=== PATIENT | female | born 1985 | race Caucasian/White ===

== ENCOUNTER 2020-01-18 02:10 | Inpatient (IN) | payer BC, SELFPAY ==
[2020-01-18] VITALS (17 sets, daily range): BP systolic 111–137; BP diastolic 64–95; PULSE 83–149; RESP 14–26; TEMP 36.3–37.2; O2SAT 98–100; BMI 25.9
--- NOTE | ~2020-01-18 | US_ITS ---
EXAMINATION: US abdomen limited DATE: 01/18/2020 09:49 INDICATION: Alcoholic hepatitis TECHNIQUE: Multiple grayscale and Doppler ultrasound images of the abdomen were obtained. COMPARISON: CT dated 01/18/2020 FINDINGS: The pancreatic head and body are normal in appearance. The pancreatic tail is not visualized. Liver has normal contour, with a smooth surface. There is increased parenchymal echogenicity and coarsened echotexture consistent with diffuse hepatic steatosis. No liver lesion identified. No intrahepatic b iliary duct dilation suspected. Portal venous flow was seen in the hepatopetal, normal direction and has normal Doppler waveform. Nonmobile and nonshadowing 4 mm gallbladder polyp. The gallbladder is ot herwise normal in appearance. There is no shadowing cholelithiasis. The common bile duct is mildly d ilated measuring 7 mm. The distal common bile duct is not visualized. Sonographic Romo sign was rep orted as negative by the professor of environmental studies. IMPRESSION: 1. Likely benign 4 mm gallbladder polyp. No shadowing cholelithiasis. 2. Mild dilation of the common bile duct to 7 mm without evident obstructing lesion or intrahepatic b iliary ductal dilation. Correlate with liver function tests and could consider MRCP as clinically ind icated. 3. Diffuse hepatic steatosis. Reviewed, dictated and finalized at location [facility]. IMPRESSION: 1. Likely benign 4 mm gallbladder polyp. No shadowing cholelithiasis. 2. Mild dilation of the common bile duct to 7 mm without evident obstructing le hua or intrahepatic biliary ductal dilation. Correlate with liver function dale ts and could consider MRCP as clinically indicated. 3. Diffuse hepatic steatosis.
--- NOTE | ~2020-01-18 | CT_ITS ---
EXAMINATION: CT abdomen pelvis w con DATE: 01/18/2020 03:53 INDICATION: Lower abdominal pain, vomiting. Back pain. TECHNIQUE: Computed tomography (CT) of the abdomen and pelvis was performed with 100 cc Omnipaque 350 intravenous contrast. Automated exposure control and iterative reconstruction technique were employe d. Exam dose: 449.99 mGy-cm total exam DLP. COMPARISON: None. FINDINGS: The lung bases are clear of infiltrate or consolidation. Normal heart size. No pericardial or pleural effusion. Hepatomegaly and diffuse hepatic steatosis. No hepatic space-occupying mass lesion is detected. Splee n measures up to approximately 12 cm, within upper limits of normal. No pancreatic mass lesion or calcification or pancreatic duct dilatation. The gallbladder is unremark able. No bile duct dilatation. Normal morphology of the adrenal glands. No renal mass lesion or urinary tract calculus or hydroureteronephrosis. Normal caliber of the abdominal aorta. No intraperitoneal or retroperitoneal or pelvic mass lesion or adenopathy or ascites. 2.5 cm left ovarian cyst. The uterus and adnexal areas are otherwise unremarkable. The urinary bladde r appears normal. Normal appendix. There is mild circumferential soft tissue thickening of the wall of the large bowel, which may be compatible with infectious or inflammatory colitis. No bowel obstruction or free air. No suspicious osteolytic or osteoblastic lesions are noted. IMPRESSION: Hepatomegaly, hepatic steatosis 2.5 cm left ovarian cyst Mild colitis is suggested Reviewed, dictated and finalized at [facility]. Reviewed, dictated and finalized at location [facility].
--- NOTE | ~2020-01-18 | XR_ITS ---
EXAMINATION: XR chest 1V portable DATE: 01/18/2020 03:57 INDICATION: Tachypnea TECHNIQUE: frontal view of the chest was obtained. COMPARISON: Chest radiograph dated 03/02/[address] dated 04/24/2017 FINDINGS: The lungs remain clear with no focal airspace opacities, pulmonary edema, pleural effusion or pneumot horax. The cardiomediastinal silhouette is normal. Bone islands at the right humeral head and glenoid . IMPRESSION: 1. No acute cardiopulmonary disease. Reviewed, dictated and finalized at location A.
--- NOTE | 2020-01-18 02:23 | ECG_ITS ---
Measurements Intervals [place] Rate: 139 P: 77 NM: 131 QRS: 54 QRSD: 84 T: 45 QT: 297 QTc: 452 Interpretive Statements SINUS TACHYCARDIA BASELINE WANDER- I, III, AVF, V1, V3-V6 ABNORMAL ECG Electronically Signed On 01-18-2020 6:47:25 CDT by Tomy Christensen D.O.
[2020-01-18 02:39] LABS: Basophils Absolute Auto 0.1 K/mm3 (0.0-0.1); Basophils Percent Auto 0.7 % (0.2-1.2); Eosinophils Percent Auto 0.1 % (0-4.4); Hematocrit 46.9 % (37.0-47.0); Hemoglobin 15.8 g/dL (12.0-15.0); Immature Granulocyte Absolute 0.21 K/mm3 (0.00-0.031); Immature Granulocyte Percent A 2.3 % (0-0.5); Lymphocytes Absolute Auto 0.63 K/mm3 (0.9-3.2); Lymphocytes Percent Auto 6.9 % (18.3-44.2); Mean Corpuscular HGB Conc 33.7 g/dl (32-36); Mean Corpuscular Hemoglobin 35.3 pg (26-34); Mean Corpuscular Volume 104.7 fl (80-100); Mean Platelet Volume 9.9 fl (7.4-10.4); Monocytes Absolute Auto 0.3 K/mm3 (0.1-0.6); Monocytes Percent Auto 3.5 % (2.6-8.5); Neutrophils Absolute Auto 7.9 K/mm3 (1.3-6.7); Neutrophils Percent Auto 86.5 % (45.5-73.1); Platelet Count Result 143 k/mm3 (150-375); Red Blood Count 4.48 M/mm3 (4.2-5.4); Red Cell Distribution Width 13.1 % (11.5-14.5); White Blood Count 9.1 K/mm3 (4.5-10.0)
[2020-01-18 02:48] LABS: INR 1.2; Prothrombin Time 14.7 Seconds (11.1-14.7)
[2020-01-18 02:49] LABS: Partial Thromboplastin Time 34.9 SECONDS (22.3-36.8)
[2020-01-18 02:50] LABS: Add Urine Microscopic? YES; Appearance Urine Clear (Clear); Bilirubin Urine Negative (Negative); Blood Urine 2+ (Negative); Color Urine Yellow (Yellow); Glucose Urine UA Negative (Negative); Hyaline Casts Urine 20-29 /lpf; Ketones Urine 2+ mg/dL (Negative); Leukocyte Esterase Ur Negative LEU/UL (Negative); Mucus Urine Rare /lpf; Nitrate Urine Negative (Negative); Protein Urine 3+ mg/dL (Negative); RBC Urine 0-2 /hpf (0-2); Specific Grav Ur 1.016 (1.001-1.035); Squamous Epithelial Cell Urine Few /hpf (Few); WBC Urine 0-3 /hpf
[2020-01-18 02:50] LABS: Alanine Aminotransferase 194 U/L (4-35); Albumin Level 5.8 g/dL (3.5-5.1); Alkaline Phosphatase 128 U/L (38-126); Aspartate Amino Transferase 376 U/L (14-36); Blood Urea Nitrogen 13 mg/dL (7-17); Calcium 8.8 mg/dL (8.4-10.2); Carbon Dioxide 7 mmol/L (22-30); Chloride 101 mmol/L (98-107); Estimated CRCL calculation 62 ml/min; Estimated Glomerular Filt Rate > 60; Glucose 256 mg/dL (65-105); Lipase 655 U/L (23-300); Potassium 5.2 mmol/L (3.4-5.0); Sodium 141 mmol/L (137-145)
[2020-01-18 02:51] LABS: Ethanol 187 mg/dL (<10)
[2020-01-18] MEDS: LACTATED RINGERS 1,000 ML 999 ML IV CONT ×2 (03:00)
[2020-01-18] MEDS: ONDANSETRON INJ 4 MG/2 ML VIAL IV PUSH ×3 (03:00→09:51)
[2020-01-18] MEDS: LORAZEPAM INJ 2 MG/ML VIAL 1 MG IV PUSH ×4 (03:04→23:04)
--- NOTE | 2020-01-18 03:15 | ED.GENADULT ---
HPI - General Adult General Chief complaint: Unspecified Stated complaint: N/V Time Seen by Provider: 01/18/20 02:23 Source: patient Mode of arrival: ambulatory Limitations: no limitations History of Present Illness HPI narrative: This patient is a 34 year old female with history of alcohol abuse who presents for evaluation of nausea, vomiting and dehydration. She admits that she has been binging alcohol until 2 days ago. She developed intractable nausea and vomiting. She has not been able to keep anything down. She also complains of anxiousness, lower back pain but she denies urinary symptoms. She has lower abdominal cramping but she thinks that may be due to her menstrual cycle. She is concerned that she is extremely dehydrated since she is so week. She denies chest pain, cough, fever or chills. Her last drink of alcohol was Saturday evening. Related Data Home Medications Medication Instructions Recorded Confirmed No Home Medications 01/18/20 01/18/20 Allergies Allergy/AdvReac Type Severity Reaction Status Date / Time Penicillins Allergy Mild RASH Verified 01/18/20 02:20 Review of Systems Review of Systems: All systems reviewed & are unremarkable except as noted in HPI and below Constitutional: Constitutional: Denies chills, Denies fever(s) and Reports weakness ENT: Reports dizziness Cardiovascular: Cardiovascular: Denies chest pain Respiratory: Respiratory: Reports cough (chronic smoker) and Denies dyspnea Gastrointestinal: Gastrointestinal: Denies diarrhea, Reports nausea and Reports vomiting Genitourinary: Genitourinary: Denies hematuria, Denies dysuria and Denies vaginal discharge Musculoskeletal: Musculoskeletal: Reports back pain (low) Psychiatric: Psychiatric: Reports anxiety PMF Past Medical History Medical History (Updated 01/18/20 @ 05:48 by Jessica Leger MD) Alcoholic hepatitis Endometriosis Pancreatitis Surgical History Surgical History (Updated 01/18/20 @ 03:17 by Jessica Leger MD) Hx of laparoscopy Exam Const: General: alert Orientation/consciousness: patient oriented x3 Other: moderate distress due to pain. HENMT: Head: normocephalic and atraumatic Face and sinus: face symmetric Teeth and gingiva: dentition normal Throat: posterior oropharynx normal and uvula midline Eyes: Conjunctivae: conjunctivae normal Pupils: Equal, round and reactive pupils present EOM: EOMs intact bilaterally Chest: Chest palpation & inspection: normal inspection of the chest Resp: Effort & Inspection: normal respiratory effort Auscultation: clear to auscultation bilaterally Cardio: Rate: tachycardic Rhythm: regular rhythm Heart sounds: no murmurs GI: GI Palp: Yes Soft to palpation, Yes Tenderness to palpation present (GI) (mild diffuse), No Guarding due to palpation present (GI) and No Rigid due to palpation : General: Yes no CVA tenderness Skin: Other: bruising to lower extremities Psych: Mental Status: mental status grossly normal Course Course Emergency Course: PAtient presented with nausea and vomiting with dehydration. She has metabolic acidosis with mildly elevated BS . She will be treated for DKA vs Alcoholic ketoacidosis. No infection found to suggest need for antibiotics at this time. Lactic acidosis is present. Consultations Consultation #1: I have discussed case with Dr. Arana who agrees patient should be admitted to ICU for DKA . Date: 01/18/20 Time: 05:44 Consultation #2: I Discussed labs and case with DR. Collins who accepts patient to ICU. Date: 01/18/20 Time: 05:45 Vital Signs Vital signs: Vital Signs Temperature 97.3 F L 01/18/20 02:15 Pulse Rate 149 H 01/18/20 02:15 Respiratory Rate 26 H 01/18/20 02:15 Blood Pressure 111/69 01/18/20 02:15 Pulse Oximetry 99 01/18/20 02:15 Temperature 98.9 F 01/18/20 06:21 Pulse Rate 130 H 01/18/20 06:43 Respiratory Rate 19 01/18/20 06:21 Blood Pressure 12
[2020-01-18 03:25] LABS: Carboxyhemoglobin 0.6 % THb (0-2.0); Fractional Inspired Oxygen 21 %; Methemoglobin ABG 0.5 %THb (0-1.5); Oxygen Content ABG 19.6 %vol (16.0-22.0); Oxygen Saturation ABG 95.9 % (95.0-100.0); Oxyhemoglobin 95.5 % THb (90.0-100.0); PO2 ABG 111.3 mmHg (80.0-100.0); Reduced Hemoglobin 3.4 %THb (0-5.0); Total Hemoglobin 14.5 g/dL (12.0-18.0)
[2020-01-18 03:27] LABS: Device ROOM AIR; PCO2 ABG 22.1 mmHg (35.0-45.0); Site Drawn RIGHT BRACHIAL; pH ABG 7.048 (7.350-7.450)
[2020-01-18 03:58] LABS: Lactic Acid Reflex 6.1 mmol/L (0.7-2.1)
[2020-01-18] MEDS: SODIUM CHLORIDE 0.9% IV 1,000 ML 999 ML IV CONT (04:11)
[2020-01-18] MEDS: HYDROMORPHONE HCL 1 MG/ML INJ IV PUSH (04:17)
[2020-01-18 05:34] LABS: Glucose Point of Care 219 (65-105)
[2020-01-18 05:55] LABS: Hemoglobin A1C 4.6 % (<5.7)
[2020-01-18 06:38] LABS: Reflex Lactic Acid Yes or No Add Lactic
--- NOTE | 2020-01-18 06:40 | ADMGEN ---
This patient, Kamilla Christianson, was admitted to Intensive Care Unit-10. Patient/family oriented to hospital policies and general routines including ID bracelet, bed and alarms, visiting hours, pain management, procedures, bathroom and other care routines, personal items, smoking policy, room service/diet, and visiting hours. Valuables list has been completed. Information on how to activate the Rapid Response Team has been discussed. Patient/Family are encouraged to report perceived risks to care and to ask questions if they do not understand what they are told or what they should do.
[2020-01-18 06:54] LABS: Alveolar/Arterial O2 Gradient 27.7 mmHg; Base Excess ABG -17.1 mEq/l (+/-2.0); Fractional Inspired Oxygen 21 %; HCO3 ABG 8.2 mEq/l (22.0-26.0); Oxygen Content ABG 18.7 %vol (16.0-22.0); Oxygen Saturation ABG 96.5 % (95.0-100.0); Oxyhemoglobin 96.1 % THb (90.0-100.0); PO2 ABG 98.2 mmHg (80.0-100.0); PO2 FiO2 Ratio Arterial Blood 4.68 %; Total Hemoglobin 13.8 g/dL (12.0-18.0)
[2020-01-18 06:55] LABS: Device ROOM AIR; PCO2 ABG 19.9 mmHg (35.0-45.0); Site Drawn RIGHT BRACHIAL; pH ABG 7.233 (7.350-7.450)
[2020-01-18 06:56] LABS: Glucose Point of Care 261 (65-105)
[2020-01-18] MEDS: LORAZEPAM INJ 2 MG/ML VIAL IV PUSH ×2 (06:58→20:39)
[2020-01-18] MEDS: INSULIN HUMAN REGULAR (*BKC) 100 UNITS in SODIUM CHLORIDE 0.9% IV 99 ML IV CONT (07:00)
[2020-01-18 07:09] LABS: Lactic Acid 2.7 mmol/L (0.7-2.1)
[2020-01-18] MEDS: CHLORDIAZEPOXIDE 25 MG CAPSULE PO ×3 (07:47→19:49)
[2020-01-18] MEDS: FAMOTIDINE 20 MG/2 ML VIAL IV PUSH ×2 (07:47→19:54)
[2020-01-18] MEDS: MORPHINE SULFATE 2 MG/ML INJ IV PUSH ×7 (07:48→21:56)
[2020-01-18] MEDS: DEXTROSE 5%/0.45% SOD CHL 1,000 ML 150 ML IV CONT (07:48)
--- NOTE | 2020-01-18 08:04 | WPDCNINT ---
Assessment and Plan Assessment and plan (1) DKA (diabetic ketoacidoses): Code(s): E11.10 - Type 2 diabetes mellitus with ketoacidosis without coma Status: Acute Assessment and Plan: Patient appears to have mixed acidosis does have elevated beta hydroxybutyrate. She does not have diagnosis of diabetes but may have developed diabetes from chronic pancreatitis Insulin infusion IV fluid bolus and infusion Serial labs HB A1c (2) Metabolic acidosis: Code(s): E87.2 - Acidosis Status: Acute Assessment and Plan: Patient has mixed metabolic acidosis from mild DKA, lactic acidosis, alcoholic liver disease, dehydration, starvation ketosis IV fluids and monitor Not severe enough to warrant treatment with bicarb at this time With normal white count, afebrile and essentially workup unremarkable for any infection. will hold antibiotics at this time (3) Pancreatitis, alcoholic, acute: Code(s): K85.20 - Alcohol induced acute pancreatitis without necrosis or infection Status: Acute Assessment and Plan: Alcoholic pancreatitis with elevated lipase of 655 CT abdomen pelvis done and final report pending although no abnormality seen on prelim report NPO except meds Pain control (4) Diabetes: Code(s): E11.9 - Type 2 diabetes mellitus without complications Status: Acute Assessment and Plan: See above (5) Alcoholic hepatitis: Code(s): K70.10 - Alcoholic hepatitis without ascites Status: Acute Assessment and Plan: Elevated AST ALT and mild elevation in bilirubin Enlarged liver on CT Suggests patient has alcoholic liver disease and hepatitis Discriminant function is only 18 Check right upper quadrant ultrasound (6) DVT prophylaxis: Code(s): Z29.9 - Encounter for prophylactic measures, unspecified Status: Acute Assessment and Plan: SCDs (7) Alcohol withdrawal: Code(s): F10.239 - Alcohol dependence with withdrawal, unspecified Status: Acute Assessment and Plan: [facility] monitoring Librium P.r.n. IV lorazepam Thiamine and folic acid Patient getting a banana bag at this time Total Critical Care Time - 30 minutes Due to a high probability of clinically significant, life threatening deterioration, the patient required my highest level of preparedness to intervene emergently and I personally spent this critical care time directly and personally managing the patient. This critical care time included obtaining a history; examining the patient; pulse oximetry; ordering and review of studies; arranging urgent treatment with development of a management plan; evaluation of patient's response to treatment; frequent reassessment; and discussions with other providers. It was exclusive of separately billable procedures and treating other patients and teaching time. Please see Assessment and Plan section and the rest of the note for further information on patient assessment and treatment Pitching Coach Consult Note Consult date: 01/18/20 Time Seen: 07:00 HPI: Kamilla Christianson is a 34 year old female with past medical history of alcohol abuse, pancreatitis, kidney stones who presented to ER with chief complaint of feeling weak, dehydrated and nausea and vomiting. Symptoms started yesterday patient drinks 1 and half pt of Tequila every day and her last full usage was on Saturday on Saturday morning she started having nausea and vomiting vomiting was associated with bilious content and no food or blood in it. She was unable to eat or drink anything she told me she tried to drink water and sips of Tequila to prevent shakes. She denied any diarrhea but did had mild abdominal pain which was diffuse. She stated did she was vomiting almost every hour. No burning sensation with urination frequency or foul-smelling urine. She denied any fever chest pain shortness of breath cough. She complained of abdominal pain and her back pain on the sides which
[2020-01-18 11:02] LABS: Lactic Acid 2.1 mmol/L (0.7-2.1); Triglycerides 160 mg/dL (<150)
[2020-01-18 11:04] LABS: Blood Urea Nitrogen 10 mg/dL (7-17); Carbon Dioxide 14 mmol/L (22-30); Chloride 103 mmol/L (98-107); Estimated CRCL calculation 99 ml/min; Estimated Glomerular Filt Rate > 60; Glucose 281 mg/dL (65-105); Potassium 4.2 mmol/L (3.4-5.0); Sodium 134 mmol/L (137-145)
[2020-01-18 11:20] LABS: Glucose Point of Care 279 (65-105)
[2020-01-18 11:20] LABS: Glucose Point of Care 263 (65-105)
[2020-01-18 11:20] LABS: Glucose Point of Care 302 (65-105)
[2020-01-18 12:17] LABS: Glucose Point of Care 186 (65-105)
[2020-01-18 13:24] LABS: Glucose Point of Care 157 (65-105)
[2020-01-18 13:51] LABS: Blood Urea Nitrogen 10 mg/dL (7-17); Calcium 8.2 mg/dL (8.4-10.2); Carbon Dioxide 20 mmol/L (22-30); Chloride 103 mmol/L (98-107); Estimated CRCL calculation 99 ml/min; Estimated Glomerular Filt Rate > 60; Glucose 159 mg/dL (65-105); Potassium 3.6 mmol/L (3.4-5.0); Sodium 133 mmol/L (137-145)
--- NOTE | 2020-01-18 13:54 | PCCDE ---
Consult received 01/17 for diabetes education. Pt admitted 01/17 to ICU for DKA vs alcoholic ketoacidosis, alcohol induced pancreatitis. No hx of DM and A1c is 4.6% (WNL); pt is NPO at this time. Will follow evolution and provide diabetes education as appropriate.
[2020-01-18] MEDS: SODIUM CHLORIDE 0.9% IV 1,000 ML 100 ML IV CONT (14:23)
[2020-01-18] MEDS: INSULIN GLARGINE (*BKC) 100 UNITS/ML 10 UNITS SUB-Q (14:23)
[2020-01-18 14:31] LABS: Glucose Point of Care 132 (65-105)
--- NOTE | 2020-01-18 16:30 | PM.IMHP ---
H&P: HPI History of Present Illness Chief complaint: DKA, dehydration, alcoholic hepatitis Narrative: Kamilla Christianson is a 34 year old female with long history of alcohol abuse patient states on daily basis see during 1 and half pt of taking and has been drinking yesterday patient developed abdominal pain nausea, vomiting patient's symptoms will persist is states he did drink some more alcohol to provide nausea and vomiting tremor however pain was persisting was getting worse patient presented emergency department for further evaluation patient had a CT scan of the abdomen patient is found to have hepatomegaly with elevated lipase blood sugar and and metabolic acidosis, patient is and mild DKA patient is been admitted to ICU being vigorously hydrated and blood sugars are monitor, currently patient states the pain nausea or vomiting still persist, see does have history of DT, patient is on CIWA protocol being treated with Librium, patient seen by powerplant operator we appreciate will closely monitor patient Review of Systems Review of Systems: All systems reviewed & are unremarkable except as noted in HPI and below PMFSH Past Medical History Medical History Alcoholic hepatitis Endometriosis Pancreatitis Surgical History Surgical History Hx of laparoscopy Family History Family History Grandparent Diabetes mellitus Father Diabetes mellitus Social History Social History Smoking status: Current every day smoker Alcohol intake: current Substance use: never Gender identity (if verbalized by the patient): Female Spiritual care concerns: No Meds Home Medications and Allergies Home Medications Medication Instructions Recorded Confirmed Type No Home Medications 01/18/20 01/18/20 History Allergies Allergy/AdvReac Type Severity Reaction Status Date / Time Penicillins Allergy Mild RASH Verified 01/18/20 02:20 Vital Signs Vital Signs - 24 hr 01/18/20 02:15 01/18/20 03:00 01/18/20 03:59 Temperature 97.3 F L Pulse Rate 149 H 136 H 138 H Pulse Rate [Monitor] Respiratory Rate 26 H 25 H 24 H Blood Pressure 111/69 118/64 124/74 Pulse Oximetry 99 98 100 01/18/20 05:16 01/18/20 06:00 01/18/20 06:21 Temperature 98.9 F Pulse Rate 131 H 130 H 120 H Pulse Rate [Monitor] Respiratory Rate 19 14 19 Blood Pressure 127/92 H 137/89 126/95 H Pulse Oximetry 100 100 100 01/18/20 06:43 01/18/20 08:00 01/18/20 09:57 Temperature Pulse Rate 110 H 114 H Pulse Rate [Monitor] 130 H Respiratory Rate 18 18 Blood Pressure 116/83 129/68 Pulse Oximetry 100 100 01/18/20 12:00 01/18/20 14:00 01/18/20 16:00 Temperature Pulse Rate 119 H 115 H 98 Pulse Rate [Monitor] Respiratory Rate 18 16 Blood Pressure 116/76 115/85 Pulse Oximetry 100 100 Exam Narrative: Exam Narrative: Anxious Const: General: no acute distress and uncomfortable HENMT: General nose exam: Normal nares present Mouth: Yes moist mucous membranes Eyes: General: appearance normal, both eyes and all related structures Sclera: sclerae normal Neck: Other: No retraction Resp: Effort & Inspection: normal respiratory effort Auscultation: clear to auscultation bilaterally Cardio: Rate: regular rate Rhythm: regular rhythm GI: Auscultation: normal bowel sounds Other: Tenderness epigastric Skin: General skin exam: normal color Neuro: Speech: normal speech Sensory Exam: normal sensation Extrem: General: normal to inspection Psych: Affect: Anxious affect present H&P: Results Labs Labs: Short CBC 01/18/20 Range/Units 02:32 WBC 9.1 (4.5-10.0) K/mm3 Hgb 15.8 H (12.0-15.0) g/dL Hct 46.9 (37.0-47.0) % Plt Count 143 L (150-375) k/mm3 [facility] 01/18/20 01/18/20 01/18/20 02:32 10:29 13:2
[2020-01-18 16:34] LABS: Glucose Point of Care 150 (65-105)
[2020-01-18 16:34] LABS: Glucose Point of Care 97 (65-105)
[2020-01-18 17:01] LABS: Glucose Point of Care 78 (65-105)
[2020-01-18 18:13] LABS: Blood Urea Nitrogen 10 mg/dL (7-17); Calcium 8.4 mg/dL (8.4-10.2); Carbon Dioxide 20 mmol/L (22-30); Chloride 101 mmol/L (98-107); Estimated CRCL calculation 116 ml/min; Estimated Glomerular Filt Rate > 60; Glucose 135 mg/dL (65-105); Potassium 3.9 mmol/L (3.4-5.0); Sodium 131 mmol/L (137-145)
[2020-01-18 19:53] LABS: Glucose Point of Care 157 (65-105)
[2020-01-18 23:10] LABS: Glucose Point of Care 114 (65-105)
[2020-01-19] VITALS (13 sets, daily range): BP systolic 113–132; BP diastolic 73–92; PULSE 82–120; RESP 13–18; TEMP 36.6–37; O2SAT 98–100
[2020-01-19] MEDS: MORPHINE SULFATE 2 MG/ML INJ IV PUSH ×8 (00:27→21:59)
[2020-01-19] MEDS: LORAZEPAM INJ 2 MG/ML VIAL 1 MG IV PUSH (01:35)
[2020-01-19] MEDS: CHLORDIAZEPOXIDE 25 MG CAPSULE PO ×3 (01:35→14:00)
[2020-01-19] MEDS: SODIUM CHLORIDE 0.9% IV 1,000 ML 100 ML IV CONT (01:37)
[2020-01-19] MEDS: LORAZEPAM INJ 2 MG/ML VIAL IV PUSH ×4 (04:11→23:09)
[2020-01-19 05:24] LABS: Alanine Aminotransferase 116 U/L (4-35); Albumin Level 4.3 g/dL (3.5-5.1); Alkaline Phosphatase 76 U/L (38-126); Aspartate Amino Transferase 171 U/L (14-36); Bilirubin,Total 1.9 mg/dL (0.2-1.3); Blood Urea Nitrogen 9 mg/dL (7-17); Calcium 8.8 mg/dL (8.4-10.2); Carbon Dioxide 22 mmol/L (22-30); Chloride 100 mmol/L (98-107); Estimated CRCL calculation 116 ml/min; Estimated Glomerular Filt Rate > 60; Glucose 88 mg/dL (65-105); Lipase 1818 U/L (23-300); Magnesium 1.9 mg/dL (1.6-2.3); Potassium 3.5 mmol/L (3.4-5.0); Sodium 132 mmol/L (137-145)
[2020-01-19 07:00] LABS: Hemoglobin 13.2 g/dL (12.0-15.0); Immature Platelet Fraction Pct 4.6 % (0.9-11.2); Mean Corpuscular HGB Conc 36.7 g/dl (32-36); Mean Corpuscular Hemoglobin 35.2 pg (26-34); Mean Platelet Volume 9.4 fl (7.4-10.4); Platelet Count Result 63 k/mm3 (150-375); Red Blood Count 3.75 M/mm3 (4.2-5.4); Red Cell Distribution Width 12.5 % (11.5-14.5); White Blood Count 4.5 K/mm3 (4.5-10.0)
--- NOTE | 2020-01-19 07:30 | WPDINTPN ---
Progress Note: A&P Assessment and Plan (1) DKA (diabetic ketoacidoses): Code(s): E11.10 - Type 2 diabetes mellitus with ketoacidosis without coma Status: Acute Assessment and Plan: Patient appears to have mixed acidosis does have elevated beta hydroxybutyrate. She does not have diagnosis of diabetes but may have developed diabetes from chronic pancreatitis DKA has resolved and anion gap has closed Insulin infusion transition to subcutaneous insulin IV fluid change to normal saline HB A1c was low Replace low potassium (2) Metabolic acidosis: Code(s): E87.2 - Acidosis Status: Acute Assessment and Plan: Patient has mixed metabolic acidosis from mild DKA, lactic acidosis, alcoholic liver disease, dehydration, starvation ketosis Improved with IV fluids Monitor With normal white count, afebrile and essentially workup unremarkable for any infection. will hold antibiotics at this time (3) Pancreatitis, alcoholic, acute: Code(s): K85.20 - Alcohol induced acute pancreatitis without necrosis or infection Status: Acute Assessment and Plan: Alcoholic pancreatitis with elevated lipase Patient's lipase level is further increased today but clinically she feels better She denies any complaints with water which I will continue CT abdomen pelvis done review NPO except water Pain control Consult GI (4) Diabetes: Code(s): E11.9 - Type 2 diabetes mellitus without complications Status: Acute Assessment and Plan: See above (5) Alcoholic hepatitis: Code(s): K70.10 - Alcoholic hepatitis without ascites Status: Acute Assessment and Plan: Elevated AST ALT and mild elevation in bilirubin Enlarged liver on CT Suggests patient has alcoholic liver disease and hepatitis Discriminant function is only 18 Right upper quadrant ultrasound done and reviewed IMPRESSION: 1. Likely benign 4 mm gallbladder polyp. No shadowing cholelithiasis. 2. Mild dilation of the common bile duct to 7 mm without evident obstructing lesion or intrahepatic biliary ductal dilation. Correlate with liver function tests and could consider MRCP as clinically indicated. 3. Diffuse hepatic steatosis. LFTs are improving. Consult gastroenterology (6) DVT prophylaxis: Code(s): Z29.9 - Encounter for prophylactic measures, unspecified Status: Acute Assessment and Plan: SCDs (7) Alcohol withdrawal: Code(s): F10.239 - Alcohol dependence with withdrawal, unspecified Status: Acute Assessment and Plan: CIWA monitoring Librium P.r.n. IV lorazepam Thiamine and folic acid Patient received a banana bag yesterday Will plan to transfer out of ICU today (8) Thrombocytopenia: Code(s): D69.6 - Thrombocytopenia, unspecified Status: Acute Assessment and Plan: Likely from alcohol abuse and enlarged liver Patient not on any anticoagulation or antiplatelet Monitor levels Subjective Date/time seen: 01/19/20 0730 Patient feels better today and denies any nausea vomiting or diarrhea. She does have some abdominal pain which is better than yesterday but still present. She said she was able to drink water without any issues but did had some abdominal discomfort with Jell-O. No fever chest pain shortness of breath or cough. She still continues to feel anxious and is requesting Ativan to be continued She still complains of having shakes sometimes Review of Systems Review of Systems: All systems reviewed & are unremarkable except as noted in HPI and below (HPI) Exam Narrative: Exam Narrative: General: Pt is alert awake and in NAD Lungs/Chest: Trachea central Clear BS B/L, No crackles or wheezing. Cardiac: RRR. Normal S1 S2. No murmurs Circulation: Pedal pulses are intact and symmetrical. Abdomen: Normal bowel sounds.. Soft.ND. Mild diffuse tenderness to palpation which is mainly focused in epigastric area. No guarding or rigidity Extremit
[2020-01-19] MEDS: MAGNESIUM SULF 1 GM/D5W 100 ML 1 GM/100 ML BAG IVPB (08:42)
[2020-01-19] MEDS: POTASSIUM CHLORIDE 20 MEQ TABLET 40 MEQ PO (08:46)
[2020-01-19] MEDS: FAMOTIDINE 20 MG/2 ML VIAL IV PUSH ×2 (08:47→20:55)
[2020-01-19] MEDS: THIAMINE HCL 100 MG TABLET PO (08:47)
[2020-01-19] MEDS: FOLIC ACID 1 MG TABLET PO (08:47)
[2020-01-19 08:57] LABS: Glucose Point of Care 84 (65-105)
--- NOTE | 2020-01-19 09:56 | WPDGICN ---
Assessment and Plan Assessment and plan (1) Alcoholic hepatitis: Code(s): K70.10 - Alcoholic hepatitis without ascites Status: Acute Assessment and Plan: Patient has elevated LFTs most consistent with alcoholic hepatitis. Plan is to monitor LFTs until resolution as she abstains from alcohol. (2) Pancreatitis, alcoholic, acute: Code(s): K85.20 - Alcohol induced acute pancreatitis without necrosis or infection Status: Acute Assessment and Plan: Elevated lipase most consistent with acute alcoholic pancreatitis. Plan is for pain control. We will avoid oral intake today but slowly increases as her exam and lab parameters improved. At the time of admission CT scan did not see pancreatitis but this was actually before marked elevation of lipase. Will continue monitor clinically and treat supportively. (3) Diabetes: Code(s): E11.9 - Type 2 diabetes mellitus without complications Status: Acute (4) DKA (diabetic ketoacidoses): Code(s): E11.10 - Type 2 diabetes mellitus with ketoacidosis without coma Status: Acute Assessment and Plan: Patient now with electrolyte imbalance consistent with diabetic ketoacidosis. Currently monitored in the ICU. Will receive fluids and will monitor with you. (5) Alcohol withdrawal: Code(s): F10.239 - Alcohol dependence with withdrawal, unspecified Status: Acute GI Consult Note Consult date/time: 01/19/20 09:56 HPI: Kamilla Christianson is a 34 year old female seen in evaluation at the request of the rn disease management service. Patient reports significant vomiting and abdominal pain yesterday prompting her to come to the hospital for further evaluation. She has a long prior [place] developed history of alcohol abuse. Known to my service from 2 years ago when she was diagnosed with alcoholic hepatitis. She apparently abstain from alcohol until the last 6 months when she has been binge drinking. Most recently 1-/2 pt of Tequila on a daily basis. Yesterday but she began to vomit rather significantly along with mid upper gastric pain and for this reason presented the hospital. In the ER she was noted to have elevated LFTs. Electrolyte imbalance consistent with diabetic ketoacidosis. Lipase moderately elevated yesterday is even more elevated today. She appears comfortable at rest at present but was somewhat shaky and jittery this morning. Review of Systems Review of Systems: All systems reviewed & are unremarkable except as noted in HPI and below [facility] Past Medical History Medical History Alcoholic hepatitis Endometriosis Pancreatitis Surgical History Surgical History Hx of laparoscopy Family History Family History Grandparent Diabetes mellitus Father Diabetes mellitus Social History Social History Smoking status: Current every day smoker Alcohol intake: current Substance use: never Gender identity (if verbalized by the patient): Female Spiritual care concerns: No Meds Home Medications and Allergies Home Medications Medication Instructions Recorded Confirmed Type No Home Medications 01/18/20 01/18/20 History Allergies Allergy/AdvReac Type Severity Reaction Status Date / Time Penicillins Allergy Mild RASH Verified 01/18/20 02:20 Vital Signs Vital Signs - 24 hr 01/18/20 09:57 01/18/20 12:00 01/18/20 14:00 Temperature Pulse Rate 114 H 119 H 115 H Pulse Rate [Monitor] Respiratory Rate 18 18 16 Blood Pressure 129/68 116/76 115/85 Pulse Oximetry 100 100 100 01/18/20 16:00 01/18/20 16:31 01/18/20 17:55 Temperature 36.9 C Pulse Rate 98 94 102 H Pulse Rate [Monitor] Respiratory Rate 18 Blood Pressure 115/94 H Pulse Oximetry 100 01/18/20 17:56
[2020-01-19 12:10] LABS: Glucose Point of Care 79 (65-105)
--- NOTE | 2020-01-19 14:40 | PC.NURSE ---
This patient, Kamilla Christianson, was received from ICU on 01/19/20 at 1440. Personal belongings list checked and signed. Patient/family oriented to unit policies and routines
--- NOTE | 2020-01-19 14:53 | PC.NURSE ---
This patient, Kamilla Christianson, was transferred to [[id number]] on 01/19/20 at 1440. Personal belongings sent with patient. Report given to [Italia DUNN]. Appropriate documentation sent with patient. Patient transferred via wheelchair with standby assist. Patient tolerated well.
[2020-01-19] MEDS: SODIUM CHLORIDE 0.9% IV 1,000 ML 50 ML IV CONT (14:57)
--- NOTE | 2020-01-19 15:17 | PM.IMPN ---
Progress Note: A&P Assessment and Plan (1) DKA (diabetic ketoacidoses): Code(s): E11.10 - Type 2 diabetes mellitus with ketoacidosis without coma Status: Acute Assessment and Plan: 01/19/20 15:17 Kamilla Christianson is a 34 year old female with long history of alcohol abuse patient states on daily basis sfe drinks 1 and half pints of Tequila and had been drinking for sometime drinking until the day of admission, patient developed abdominal pain nausea, vomiting patient's symptoms were persist stated she drank some more alcohol to provide relief from nausea and vomiting tremor however pain was persisting was getting worse patient presented emergency department for further evaluation, patient had a CT scan of the abdomen patient was found to have hepatomegaly with elevated lipase, elevatred blood sugar and and metabolic acidosis, patient had mild DKA patient was admitted in to ICU was vigorously hydrated and blood sugars were monitor, today currently patient states the pain nausea or vomiting still persist, she does have history of DT, patient is on CIWA protocol being treated with Librium, Ativan and morphine as needed, patient seen by beam dyer operator and GI, we appreciate will closely monitor patient, patient clinically symptoms have improved and she is off IV insulin, patient lipase are increasing, will keep the patient NPO except ice chips will transfer the patient out of ICU to medical floor, will continue to monitor as her symptoms improve and lipase trended down will start the patient on clear liquid. (2) Alcoholic hepatitis: Code(s): K70.10 - Alcoholic hepatitis without ascites Status: Acute Assessment and Plan: Patient clinically stable continue to monitor (3) Alcohol withdrawal: Code(s): F10.239 - Alcohol dependence with withdrawal, unspecified Status: Acute Assessment and Plan: Patient on CIWA protocol with Librium and Ativan as needed (4) Metabolic acidosis: Code(s): E87.2 - Acidosis Status: Acute Assessment and Plan: Most likely secondary to alcohol abuse nausea or vomiting resulting in dehydration patient is been vigorously hydrated (5) Diabetes: Code(s): E11.9 - Type 2 diabetes mellitus without complications Status: Acute Assessment and Plan: Patient hemoglobin A1c is 4.6 unlikely patient has a diabetes most likely hyperglycemia due to acute pancreatitis Subjective Date/time seen: 01/19/20 15:17 Kamilla Christianson is a 34 year old female with long history of alcohol abuse patient states on daily basis sfe drinks 1 and half pints of Tequila and had been drinking for sometime drinking until the day of admission, patient developed abdominal pain nausea, vomiting patient's symptoms were persist stated she drank some more alcohol to provide relief from nausea and vomiting tremor however pain was persisting was getting worse patient presented emergency department for further evaluation, patient had a CT scan of the abdomen patient was found to have hepatomegaly with elevated lipase, elevatred blood sugar and and metabolic acidosis, patient had mild DKA patient was admitted in to ICU was vigorously hydrated and blood sugars were monitor, today currently patient states the pain nausea or vomiting still persist, she does have history of DT, patient is on CIWA protocol being treated with Librium, Ativan and morphine as needed, patient seen by beam dyer operator and GI, we appreciate will closely monitor patient, patient clinically symptoms have improved and she is off IV insulin, patient lipase are increasing, will keep the patient NPO except ice chips will transfer the patient out of ICU to medical floor, will continue to monitor as her symptoms improve and lipase trended down will start the patient on clear liquid. Review of Systems Review of Systems: All systems reviewed & are unremarkable except as noted in HPI and below Exam Narrative: Exam Narrati
[2020-01-19 16:42] LABS: Glucose Point of Care 81 (65-105)
[2020-01-19] MEDS: CHLORDIAZEPOXIDE 25 MG CAPSULE 50 MG PO (20:02)
[2020-01-19 21:12] LABS: Glucose Point of Care 84 (65-105)
[2020-01-20] VITALS: PULSE 91
[2020-01-20] MEDS: CHLORDIAZEPOXIDE 25 MG CAPSULE 50 MG PO ×3 (01:39→13:35)
[2020-01-20 01:44] LABS: Glucose Point of Care 80 (65-105)
[2020-01-20] MEDS: MORPHINE SULFATE 2 MG/ML INJ IV PUSH ×2 (02:13→06:08)
--- NOTE | 2020-01-20 02:16 | PC.NURSE ---
PTS PHONE ALARM SOUNDING, PT STATES IM SETTING MY ALARM TO REMIND ME ABOUT MEDICATIONS AND TO GO TO THE BATHROOM
[2020-01-20] MEDS: LORAZEPAM INJ 2 MG/ML VIAL IV PUSH (03:47)
[2020-01-20 04:03] VITALS: PULSE 106
[2020-01-20 05:41] LABS: Glucose Point of Care 87 (65-105)
[2020-01-20 05:52] LABS: Hematocrit 37.8 % (37.0-47.0); Hemoglobin 13.6 g/dL (12.0-15.0); Immature Platelet Fraction Pct 4.8 % (0.9-11.2); Mean Corpuscular Hemoglobin 34.8 pg (26-34); Mean Corpuscular Volume 96.7 fl (80-100); Mean Platelet Volume 10.3 fl (7.4-10.4); Platelet Count Result 56 k/mm3 (150-375); Red Blood Count 3.91 M/mm3 (4.2-5.4); Red Cell Distribution Width 12.6 % (11.5-14.5)
[2020-01-20 06:00] VITALS: BP 118/79; PULSE 106; RESP 18; TEMP 36.8; O2SAT 100
[2020-01-20 06:03] LABS: Alanine Aminotransferase 118 U/L (4-35); Albumin Level 4.6 g/dL (3.5-5.1); Alkaline Phosphatase 81 U/L (38-126); Aspartate Amino Transferase 167 U/L (14-36); Bilirubin,Total 1.9 mg/dL (0.2-1.3); Blood Urea Nitrogen 7 mg/dL (7-17); Calcium 9.2 mg/dL (8.4-10.2); Carbon Dioxide 24 mmol/L (22-30); Chloride 96 mmol/L (98-107); Estimated CRCL calculation 160 ml/min; Estimated Glomerular Filt Rate > 60; Glucose 87 mg/dL (65-105); Lipase 854 U/L (23-300); Potassium 3.3 mmol/L (3.4-5.0); Sodium 133 mmol/L (137-145)
[2020-01-20 08:00] VITALS: PULSE 95
--- NOTE | 2020-01-20 08:00 | PC.NURSE ---
Patient this morning called out requesting medications. Upon arrival to patients room, she is resting comfortably in the bed. Woke her up to ask her what she was requesting. Educated her on the librium that was due to be administered for her withdrawls. Patient requesting I also give her the ativan and morphine because she is having too much pain and an anxiety attack. Educated her that I would administer the Librium as ordered. However, she had just received morphine 2 hours prior so that was not due yet. Also, the Ativan I would not administer at the same time as the Librium. It was necessary to space these medications out. Patient then began sobbing stating that she couldn't take it anymore, she was hyperventilating bc of her anxiety attack. However, she was not hyperventilating and did appear comfortable and drowsy. Called to Dr. Rodriguez to request she speak to the patient in regards to the medications shes receiving. Patient is adamant I give her the Ativan and Librium together now. Dr. Rodriguez stated to hold off on Ativan until she was able to come assess patient. Patent notified.
[2020-01-20] MEDS: FOLIC ACID 1 MG TABLET PO (08:24)
[2020-01-20] MEDS: FAMOTIDINE 20 MG/2 ML VIAL IV PUSH ×2 (08:24→20:11)
[2020-01-20] MEDS: THIAMINE HCL 100 MG TABLET PO (08:25)
[2020-01-20 08:47] LABS: Glucose Point of Care 81 (65-105)
[2020-01-20] MEDS: LORAZEPAM 0.5 MG TABLET PO ×3 (09:34→23:42)
--- NOTE | 2020-01-20 09:50 | PC.NURSE ---
IVP Morphine and IVP Ativan changed to [place] PO TID PRN and Ativan PO TID PRN. Educated patient on these medication changes made by Dr. Rodriguez. Discussed with her that these medications were ordered three times a day and she would have to wait at least 8 hours between doses now. At this time, patient appears to understand and agreeable to treatment course. Will continue to monitor.
[2020-01-20 10:56] LABS: Glucose Point of Care 83 (65-105)
[2020-01-20] MEDS: SODIUM CHLORIDE 0.9% IV 1,000 ML 50 ML IV CONT (11:20)
--- NOTE | 2020-01-20 11:28 | WPDGIPROGNO ---
Progress Note: A&P Additional Plan Patient alert this morning. Still notices abdominal pain but it has lessened. Physical exam reveals her to be alert. Afebrile. Lungs are clear. Heart without murmur. Abdomen is soft. Bowel sounds are present soft with mild epigastric discomfort. No masses appreciated. Labs reveal slight decline in LFTs. Lipase 854. Impression 1. Alcoholic hepatitis. LFTs remain elevated but small decline identified. Plan is for patient to continue alcohol avoidance. Alcohol rehab may ultimately be required. Continue to monitor LFTs. 2. Alcoholic pancreatitis. Slight decline in lipase overnight now 854. Plan is to allow liquid diet and advanced slowly if tolerated. 3. Diabetes mellitus. 4. DKA. Patient no longer acidotic at this time. 5. Alcohol abuse. Patient may benefit from alcohol rehab. Subjective Date/time seen: 01/20/20 11:28 Objective Data Vital Signs Vital Signs: Vital Signs - 24 hr 01/19/20 12:00 01/19/20 14:00 01/19/20 14:55 Temperature 36.8 C 36.9 C Pulse Rate 88 88 95 Pulse Rate [Monitor] Respiratory Rate 13 16 Blood Pressure 114/82 124/83 Pulse Oximetry 98 99 01/19/20 16:00 01/19/20 20:00 01/19/20 22:00 Temperature 37.0 C Pulse Rate 85 108 H 95 Pulse Rate [Monitor] 82 Respiratory Rate 18 Blood Pressure 120/87 Pulse Oximetry 100 01/20/20 00:00 01/20/20 04:03 01/20/20 06:00 Temperature 36.8 C Pulse Rate 91 106 H 106 H Pulse Rate [Monitor] 106 H Respiratory Rate 18 Blood Pressure 118/79 Pulse Oximetry 100 01/20/20 08:00 Temperature Pulse Rate 95 Pulse Rate [Monitor] Respiratory Rate Blood Pressure Pulse Oximetry Intake/Output Intake/Output: Intake & Output 01/17/20 01/18/20 01/19/20 01/20/20 23:59 23:59 23:59 23:59 Intake Total 5973.2 3109 2141 Output Total 1000 1100 800 Balance 4973.2 2009 1341 Meds/Results Medications: Active Medications Generic Name Dose Route Start Last Admin Trade Name Freq PRN Reason Stop Dose Admin Hydrocodone Bitart/Acetaminophen 1 tab 01/20/20 08:44 01/20/20 11:19 [place] 10-325 Mg PO 1 tab TID PRN Administration Pain Rated 7-10 Chlordiazepoxide HCl 50 mg 01/19/20 20:00 01/20/20 08:24 Librium Po PO 01/20/20 14:01 50 mg Q6H TIFFANIE Administration Chlordiazepoxide HCl 25 mg 01/20/20 20:00 Librium Po PO 01/22/20 14:01 Q6H TIFFANIE Dextrose 12.5 gm 01/18/20 16:52 Dextrose 50% Syringe IV PUSH PRN PRN Hypoglycemia Protocol Famotidine 20 mg 01/18/20 09:00 01/20/20 08:24 Pepcid Iv IV PUSH 20 mg Q12HR TIFFANIE Administration Folic Acid 1 mg 01/18/20 09:00 01/20/20 08:24 Folic Acid PO 1 mg DAILY TIFFANIE Administration Glucagon 1 mg 01/18/20 16:52 Glucagon For Inj IM PRN PRN Hypoglycemia Protocol Glucose 15 gm 01/18/20 16:52 Glutose 15 PO PRN PRN Hypoglycemia Protocol Sodium Chloride 1,000 mls @ 50 mls/hr 01/18/20 14:20 01/20/20 11:20 Normal Saline Iv IV CONT 50 mls/hr .Q20H TIFFANIE Administration Dextrose 1,000 mls @ 100 mls/hr 01/18/20 16:52 Dextrose 5% 1,000 Ml IVPB PRN PRN Hypoglycemia Protocol Insulin Aspart 2 - 5 units 01/20/20 12:00 01/20/20 11:06 Novolog SUB-Q Not Given ACINSULIN [facility] Protocol Lorazepam 0.5 mg 01/20/20 08:44 01/20/20 09:34 Ativan Tab PO 0.5 mg TID PRN Administration Anxiety Ondansetron HCl 4 mg 01/18/20 05:41 01/18/20 09:51 Zofran Inj IV PUSH 4 mg Q4H PRN Administration Nausea Thiamine HCl 100 mg 01/18/20 09:00 01/20/20 08:25 Vitamin B-1 PO 100 mg QAM TIFFANIE Administration Radiology Results: ITS Impressions Chest X-Ray 01/18/20 07:53 IMPRESSION: 1. No acute cardiopulmonary disease. Abdomen/Pelvis CT 01/18/20 08:58 IMPRESSION: Hepatomegaly, hepatic steatosis 2.5 cm left ovarian cyst Mild colitis is suggested Abdomen U
--- NOTE | 2020-01-20 11:42 | PM.IMPN ---
Progress Note: A&P Assessment and Plan (1) DKA (diabetic ketoacidoses): Code(s): E11.10 - Type 2 diabetes mellitus with ketoacidosis without coma Status: Acute Assessment and Plan: Lipase is trended down, patient can start on clear liquid. Hopeful discharge tomorrow. (2) Alcoholic hepatitis: Code(s): K70.10 - Alcoholic hepatitis without ascites Status: Acute Assessment and Plan: Patient clinically stable continue to monitor, adviced to quit drinking alcholol (3) Alcohol withdrawal: Code(s): F10.239 - Alcohol dependence with withdrawal, unspecified Status: Acute Assessment and Plan: Patient on CIWA protocol with Librium, change ativan to oral (4) Metabolic acidosis: Code(s): E87.2 - Acidosis Status: Resolved Assessment and Plan: Change to clear liquid (5) Diabetes: Code(s): E11.9 - Type 2 diabetes mellitus without complications Status: Acute Assessment and Plan: Patient hemoglobin A1c is 4.6. Hyperglycemia not diabetes related. Possibly secondary to alcholol Subjective Date/time seen: 01/20/20 11:42 Interval history: 34 year old female with long history of alcohol abuse patient states on daily basis drinks 1 and half pints of Tequila and had been drinking for sometime drinking until the day of admission, patient developed abdominal pain nausea, vomiting patient's symptoms were persist stated she drank some more alcohol to provide relief from nausea and vomiting tremor however pain was persisting was getting worse patient presented emergency department for further evaluation, patient had a CT scan of the abdomen patient was found to have hepatomegaly with elevated lipase, elevated blood sugar and and metabolic acidosis, patient had mild DKA patient was admitted in to ICU was vigorously hydrated and blood sugars were monitor, today currently patient states the pain nausea or vomiting still persist, she does have history of DT, patient is on CIWA protocol being treated with Librium, Ativan and morphine as needed. See previous note above, today pt still has some abdominal discomfort, otherwise feels hungry. Pt can start clear liquid diet, as lipase is coming down, change iv medications to oral medications. Hopeful discharge tomorrow. Review of Systems Review of Systems: All systems reviewed & are unremarkable except as noted in HPI and below Gastrointestinal: Gastrointestinal: Reports abdominal pain, Denies fecal incontinence, Denies diarrhea, Denies nausea and Denies vomiting Genitourinary: Genitourinary: Denies no additional female genitourinary complaints Exam Const: General: no acute distress and uncomfortable Resp: Effort & Inspection: normal respiratory effort Auscultation: clear to auscultation bilaterally Cardio: Rate: regular rate Rhythm: regular rhythm GI: Auscultation: normal bowel sounds Other: TTP over left upper quadrant Skin: General skin exam: normal color Neuro: Speech: normal speech Sensory Exam: normal sensation Extrem: General: normal to inspection Psych: Affect: Anxious affect present Objective Data Vital Signs Vital Signs: Vital Signs - 24 hr 01/19/20 12:00 01/19/20 14:00 01/19/20 14:55 Temperature 36.8 C 36.9 C Pulse Rate 88 88 95 Pulse Rate [Monitor] Respiratory Rate 13 16 Blood Pressure 114/82 124/83 Pulse Oximetry 98 99 01/19/20 16:00 01/19/20 20:00 01/19/20 22:00 Temperature 37.0 C Pulse Rate 85 108 H 95 Pulse Rate [Monitor] 82 Respiratory Rate 18 Blood Pressure 120/87 Pulse Oximetry 100 01/20/20 00:00 01/20/20 04:03 01/20/20 06:00 Temperature 36.8 C Pulse Rate 91 106 H 106 H Pulse Rate [Monitor] 106 H Respiratory Rate 18 Blood Pressure 118/79 Pulse Oximetry 100 01/20/20 08:00 Temperature Pulse Rate 95 Pulse Rate [Monitor] Respiratory Rate Blood Pressure Pulse Oximetry Intake/Output Intake/Output: Intake & Ou
[2020-01-20 14:00] VITALS: BP 112/67; PULSE 96; RESP 17; TEMP 37.2; O2SAT 100
[2020-01-20 16:52] LABS: Glucose Point of Care 87 (65-105)
[2020-01-20] MEDS: CHLORDIAZEPOXIDE 25 MG CAPSULE PO (20:11)
[2020-01-20 22:00] VITALS: BP 122/66; PULSE 100; RESP 18; TEMP 36.8; O2SAT 100
[2020-01-20 22:06] LABS: Glucose Point of Care 102 (65-105)
[2020-01-21] MEDS: CHLORDIAZEPOXIDE 25 MG CAPSULE PO ×4 (02:03→21:55)
[2020-01-21 06:00] VITALS: BP 112/78; PULSE 93; RESP 18; TEMP 36.4; O2SAT 99
[2020-01-21 07:31] LABS: Hematocrit 35.2 % (37.0-47.0); Hemoglobin 12.6 g/dL (12.0-15.0); Immature Platelet Fraction Pct 6.9 % (0.9-11.2); Mean Corpuscular HGB Conc 35.8 g/dl (32-36); Mean Corpuscular Hemoglobin 34.7 pg (26-34); Mean Platelet Volume 11.2 fl (7.4-10.4); Platelet Count Result 58 k/mm3 (150-375); Red Blood Count 3.63 M/mm3 (4.2-5.4); Red Cell Distribution Width 12.6 % (11.5-14.5); White Blood Count 3.8 K/mm3 (4.5-10.0)
[2020-01-21] MEDS: FOLIC ACID 1 MG TABLET PO (08:18)
[2020-01-21] MEDS: THIAMINE HCL 100 MG TABLET PO (08:19)
[2020-01-21] MEDS: SODIUM CHLORIDE 0.9% IV 1,000 ML 50 ML IV CONT (08:20)
[2020-01-21] MEDS: FAMOTIDINE 20 MG/2 ML VIAL IV PUSH ×2 (08:20→21:56)
[2020-01-21 09:48] LABS: Glucose Point of Care 104 (65-105)
[2020-01-21 11:32] LABS: Glucose Point of Care 104 (65-105)
[2020-01-21 11:35] LABS: Alanine Aminotransferase 105 U/L (4-35); Albumin Level 4.1 g/dL (3.5-5.1); Alkaline Phosphatase 84 U/L (38-126); Aspartate Amino Transferase 128 U/L (14-36); Blood Urea Nitrogen 7 mg/dL (7-17); Calcium 9.2 mg/dL (8.4-10.2); Carbon Dioxide 25 mmol/L (22-30); Chloride 102 mmol/L (98-107); Estimated CRCL calculation 141 ml/min; Estimated Glomerular Filt Rate > 60; Glucose 110 mg/dL (65-105); Lipase 1107 U/L (23-300); Magnesium 1.8 mg/dL (1.6-2.3); Sodium 135 mmol/L (137-145)
--- NOTE | 2020-01-21 11:39 | PM.IMPN ---
Progress Note: A&P Assessment and Plan (1) DKA (diabetic ketoacidoses): Code(s): E11.10 - Type 2 diabetes mellitus with ketoacidosis without coma Status: Acute Assessment and Plan: Lipase around 1000, pt start low fat diet, hopeful discharge tomorrow (2) Alcoholic hepatitis: Code(s): K70.10 - Alcoholic hepatitis without ascites Status: Acute Assessment and Plan: Patient clinically stable continue to monitor, adviced to quit drinking alcholol (3) Alcohol withdrawal: Code(s): F10.239 - Alcohol dependence with withdrawal, unspecified Status: Acute Assessment and Plan: Patient on CIWA protocol with Librium, change ativan to oral (4) Metabolic acidosis: Code(s): E87.2 - Acidosis Status: Resolved Assessment and Plan: Stop iv fluids (5) Diabetes: Code(s): E11.9 - Type 2 diabetes mellitus without complications Status: Acute Assessment and Plan: Patient hemoglobin A1c is 4.6. Hyperglycemia not diabetes related. Possibly secondary to alcholol Subjective Date/time seen: 01/21/20 11:39 Interval history: 34 year old female with long history of alcohol abuse patient states on daily basis drinks 1 and half pints of Tequila and had been drinking for sometime drinking until the day of admission, patient developed abdominal pain nausea, vomiting patient's symptoms were persist stated she drank some more alcohol to provide relief from nausea and vomiting tremor however pain was persisting was getting worse patient presented emergency department for further evaluation, patient had a CT scan of the abdomen patient was found to have hepatomegaly with elevated lipase, elevated blood sugar and and metabolic acidosis, patient had mild DKA patient was admitted in to ICU was vigorously hydrated and blood sugars were monitor. Pt still complains of abdominal pain, lipase is 1000 today, started on low fat diet, hopeful discharge tomorrow. Review of Systems Review of Systems: All systems reviewed & are unremarkable except as noted in HPI and below Gastrointestinal: Gastrointestinal: Reports abdominal pain, Denies fecal incontinence, Denies diarrhea, Denies nausea and Denies vomiting Genitourinary: Genitourinary: Denies no additional female genitourinary complaints Exam Narrative: Exam Narrative: Anxious Const: General: no acute distress and uncomfortable HENMT: General nose exam: Normal nares present Mouth: Yes moist mucous membranes Eyes: General: appearance normal, both eyes and all related structures Sclera: sclerae normal Resp: Effort & Inspection: normal respiratory effort Auscultation: clear to auscultation bilaterally Cardio: Rate: regular rate Rhythm: regular rhythm GI: Auscultation: normal bowel sounds Other: Soft non tender Skin: General skin exam: normal color Neuro: Speech: normal speech Sensory Exam: normal sensation Extrem: General: normal to inspection Psych: Affect: Anxious affect present Objective Data Vital Signs Vital Signs: Vital Signs - 24 hr 01/20/20 14:00 01/20/20 22:00 01/21/20 06:00 Temperature 37.2 C 36.8 C 36.4 C L Pulse Rate 96 100 93 Respiratory Rate 17 18 18 Blood Pressure 112/67 122/66 112/78 Pulse Oximetry 100 100 99 Intake/Output Intake/Output: Intake & Output 01/18/20 01/19/20 01/20/20 01/21/20 23:59 23:59 23:59 23:59 Intake Total 5973.2 3109 3875 2570 Output Total 1000 1100 800 Balance 4973.2 2009 3075 2570 Meds/Results Medications: Active Medications Generic Name Dose Route Start Last Admin Trade Name Freq PRN Reason Stop Dose Admin Hydrocodone Bitart/Acetaminophen 1 tab 01/20/20 08:44 01/21/20 11:08 [place] 10-325 Mg PO 1 tab TID PRN Administration Pain Rated 7-10 Chlordiazepoxide HCl 25 mg 01/20/20 20:00 01/21/20 08:19 Librium Po PO 01/22/20 14:01 25 mg Q6H TIFFANIE Administration Dextrose 12.5 gm 01/18/20 16:52 Dextrose 50%
--- NOTE | 2020-01-21 12:13 | WPDGIPROGNO ---
Progress Note: A&P Additional Plan Patient alert this morning. Anxious to go home period starting to tolerate diet. Still reports some mid abdominal pain. Physical exam reveals patient to be alert afebrile she is anicteric. Lungs are clear. Heart without murmur. Abdomen bowel sounds are present soft mild midepigastric tenderness noted. No organomegaly. No masses appreciated. Labs reveal lipase 1107, total bilirubin 1.0, AST 128, ALT 105, alk-phos 84. Impression 1. Pancreatitis. Appears to be on the basis of alcohol use. Still elevated lipase along with epigastric pain. Agree with low-fat diet continued observation for now. Pain control as necessary. 2. Alcoholic hepatitis. Gradual decline in liver function test identified. Patient needs to abstain from alcohol. No additional therapy at this time. 3. Diabetes mellitus with DKA. DKA resolved. Plan is for stricter control of glucose levels. Plan agree with plan to discharge in morning a patient continues to improve. Continue to monitor lipase and LFTs. Subjective Date/time seen: 01/21/20 12:13 Objective Data Vital Signs Vital Signs: Vital Signs - 24 hr 01/20/20 14:00 01/20/20 22:00 01/21/20 06:00 Temperature 37.2 C 36.8 C 36.4 C L Pulse Rate 96 100 93 Respiratory Rate 17 18 18 Blood Pressure 112/67 122/66 112/78 Pulse Oximetry 100 100 99 Intake/Output Intake/Output: Intake & Output 01/18/20 01/19/20 01/20/20 01/21/20 23:59 23:59 23:59 23:59 Intake Total 5973.2 3109 9175 2570 Output Total 1000 1100 800 Balance 4973.2 2008 3075 2570 Meds/Results Medications: Active Medications Generic Name Dose Route Start Last Admin Trade Name Freq PRN Reason Stop Dose Admin Hydrocodone Bitart/Acetaminophen 1 tab 01/20/20 08:44 01/21/20 11:08 [place] 10-325 Mg PO 1 tab TID PRN Administration Pain Rated 7-10 Chlordiazepoxide HCl 25 mg 01/20/20 20:00 01/21/20 08:19 Librium Po PO 01/22/20 14:01 25 mg Q6H TIFFANIE Administration Dextrose 12.5 gm 01/18/20 16:52 Dextrose 50% Syringe IV PUSH PRN PRN Hypoglycemia Protocol Famotidine 20 mg 01/18/20 09:00 01/21/20 08:20 Pepcid Iv IV PUSH 20 mg Q12HR TIFFANIE Administration Folic Acid 1 mg 01/18/20 09:00 01/21/20 08:18 Folic Acid PO 1 mg DAILY TIFFANIE Administration Glucagon 1 mg 01/18/20 16:52 Glucagon For Inj IM PRN PRN Hypoglycemia Protocol Glucose 15 gm 01/18/20 16:52 Glutose 15 PO PRN PRN Hypoglycemia Protocol Dextrose 1,000 mls @ 100 mls/hr 01/18/20 16:52 Dextrose 5% 1,000 Ml IVPB PRN PRN Hypoglycemia Protocol Insulin Aspart 2 - 5 units 01/20/20 12:00 01/21/20 11:38 Novolog SUB-Q Not Given ACINSULIN [facility] Protocol Lorazepam 0.5 mg 01/20/20 08:44 01/20/20 23:42 Ativan Tab PO 0.5 mg TID PRN Administration Anxiety Ondansetron HCl 4 mg 01/18/20 05:41 01/18/20 09:51 Zofran Inj IV PUSH 4 mg Q4H PRN Administration Nausea Potassium Chloride 20 meq 01/22/20 09:00 Kcl Powder (For Liquid) PO DAILY TIFFANIE Thiamine HCl 100 mg 01/18/20 09:00 01/21/20 08:19 Vitamin B-1 PO 100 mg QAM TIFFANIE Administration Radiology Results: ITS Impressions Chest X-Ray 01/18/20 07:53 IMPRESSION: 1. No acute cardiopulmonary disease. Abdomen/Pelvis CT 01/18/20 08:58 IMPRESSION: Hepatomegaly, hepatic steatosis 2.5 cm left ovarian cyst Mild colitis is suggested Abdomen Ultrasound 01/18/20 09:50 IMPRESSION: 1. Likely benign 4 mm gallbladder polyp. No shadowing cholelithiasis. 2. Mild dilation of the common bile duct to 7 mm without evident obstructing lesion or intrahepatic biliary ductal dilation. Correlate with liver function tests and could consider MRCP as clinically indicated. 3. Diffuse hepatic steatosis. Labs Labs: Laboratory Results - last 24 hr 01/20/20 01/20/20 01/21/20 16:47 21:
[2020-01-21 14:00] VITALS: BP 113/65; PULSE 100; RESP 18; TEMP 35.9; O2SAT 99
[2020-01-21 16:38] LABS: Glucose Point of Care 110 (65-105)
[2020-01-21 22:00] VITALS: BP 119/83; PULSE 88; RESP 18; TEMP 36.6; O2SAT 100
[2020-01-21] MEDS: LORAZEPAM 0.5 MG TABLET PO (22:11)
[2020-01-22 00:02] LABS: Glucose Point of Care 104 (65-105)
[2020-01-22] MEDS: NICOTINE (*PBKC) 4 MG GUM PO ×3 (01:40→22:15)
[2020-01-22] MEDS: CHLORDIAZEPOXIDE 25 MG CAPSULE PO ×3 (01:41→14:01)
[2020-01-22 05:40] LABS: Hematocrit 34.1 % (37.0-47.0); Hemoglobin 12.5 g/dL (12.0-15.0); Immature Platelet Fraction Pct 6.4 % (0.9-11.2); Mean Corpuscular HGB Conc 36.7 g/dl (32-36); Mean Corpuscular Hemoglobin 34.8 pg (26-34); Mean Platelet Volume 10.6 fl (7.4-10.4); Platelet Count Result 95 k/mm3 (150-375); Red Blood Count 3.59 M/mm3 (4.2-5.4); Red Cell Distribution Width 12.5 % (11.5-14.5); White Blood Count 4.2 K/mm3 (4.5-10.0)
[2020-01-22 06:00] VITALS: BP 102/59; PULSE 92; RESP 16; TEMP 36.7; O2SAT 100
[2020-01-22 06:12] LABS: Alanine Aminotransferase 126 U/L (4-35); Albumin Level 4.4 g/dL (3.5-5.1); Alkaline Phosphatase 79 U/L (38-126); Aspartate Amino Transferase 140 U/L (14-36); Bilirubin,Total 0.8 mg/dL (0.2-1.3); Blood Urea Nitrogen 5 mg/dL (7-17); Calcium 9.6 mg/dL (8.4-10.2); Carbon Dioxide 24 mmol/L (22-30); Chloride 103 mmol/L (98-107); Estimated CRCL calculation 141 ml/min; Estimated Glomerular Filt Rate > 60; Glucose 128 mg/dL (65-105); Lipase 1215 U/L (23-300); Magnesium 1.8 mg/dL (1.6-2.3); Potassium 3.1 mmol/L (3.4-5.0); Sodium 135 mmol/L (137-145)
[2020-01-22 07:53] LABS: Glucose Point of Care 121 (65-105)
[2020-01-22] MEDS: LORAZEPAM 0.5 MG TABLET PO (07:54)
[2020-01-22] MEDS: FOLIC ACID 1 MG TABLET PO (08:01)
[2020-01-22] MEDS: FAMOTIDINE 20 MG/2 ML VIAL IV PUSH ×2 (08:01→20:31)
[2020-01-22] MEDS: THIAMINE HCL 100 MG TABLET PO (08:01)
[2020-01-22 08:12] LABS: Lipase 1496 U/L (23-300)
[2020-01-22 08:13] LABS: Blood Urea Nitrogen 4 mg/dL (7-17); Calcium 9.5 mg/dL (8.4-10.2); Carbon Dioxide 26 mmol/L (22-30); Chloride 102 mmol/L (98-107); Estimated CRCL calculation 141 ml/min; Estimated Glomerular Filt Rate > 60; Glucose 129 mg/dL (65-105); Potassium 2.9 mmol/L (3.4-5.0); Sodium 137 mmol/L (137-145)
--- NOTE | 2020-01-22 08:46 | PM.IMPN ---
Progress Note: A&P Assessment and Plan (1) DKA (diabetic ketoacidoses): Code(s): E11.10 - Type 2 diabetes mellitus with ketoacidosis without coma Status: Acute Assessment and Plan: Lipase is going up 1400, drop back diet to soft diet, continue pain control, GI also rounding, consider repeating ct scan if lipase continue to go up. (2) Alcoholic hepatitis: Code(s): K70.10 - Alcoholic hepatitis without ascites Status: Acute Assessment and Plan: Patient clinically stable continue to monitor, adviced to quit drinking alcholol (3) Alcohol withdrawal: Code(s): F10.239 - Alcohol dependence with withdrawal, unspecified Status: Acute Assessment and Plan: Patient on CIWA protocol with Librium, change ativan to oral (4) Metabolic acidosis: Code(s): E87.2 - Acidosis Status: Resolved Assessment and Plan: Fluids stopped encouraged oral hydration (5) Diabetes: Code(s): E11.9 - Type 2 diabetes mellitus without complications Status: Acute Assessment and Plan: Patient hemoglobin A1c is 4.6. Hyperglycemia not diabetes related. Possibly secondary to alcholol Subjective Date/time seen: 01/22/20 08:46 Interval history: 34 year old female with long history of alcohol abuse patient states on daily basis drinks 1 and half pints of Tequila and had been drinking for sometime drinking until the day of admission, patient developed abdominal pain nausea, vomiting patient's symptoms were persist stated she drank some more alcohol to provide relief from nausea and vomiting tremor however pain was persisting was getting worse patient presented emergency department for further evaluation, patient had a CT scan of the abdomen patient was found to have hepatomegaly with elevated lipase, elevated blood sugar and and metabolic acidosis, patient had mild DKA patient was admitted in to ICU was vigorously hydrated and blood sugars were monitor. Pt still complains of abdominal pain, lipase is going up, pt is still in abdominal pain, drop back diet to soft diet, continue pain control Exam Narrative: Exam Narrative: Anxious Const: General: no acute distress and uncomfortable HENMT: General nose exam: Normal nares present Mouth: Yes moist mucous membranes Eyes: General: appearance normal, both eyes and all related structures Sclera: sclerae normal Neck: Other: No retraction Resp: Effort & Inspection: normal respiratory effort Auscultation: clear to auscultation bilaterally Cardio: Rate: regular rate Rhythm: regular rhythm GI: Auscultation: normal bowel sounds Other: Soft non tender Skin: General skin exam: normal color Neuro: Speech: normal speech Sensory Exam: normal sensation Extrem: General: normal to inspection Psych: Affect: Anxious affect present Objective Data Vital Signs Vital Signs: Vital Signs - 24 hr 01/21/20 14:00 01/21/20 22:00 01/22/20 06:00 Temperature 35.9 C L 36.6 C 36.7 C Pulse Rate 100 88 92 Respiratory Rate 18 18 16 Blood Pressure 113/65 119/83 102/59 L Pulse Oximetry 99 100 100 Intake/Output Intake/Output: Intake & Output 01/19/20 01/20/20 01/21/20 01/22/20 23:59 23:59 23:59 23:59 Intake Total 3109 3875 3952.6 500 Output Total 1100 800 950 Balance 2009 3075 3952.6 -450 Meds/Results Medications: Active Medications Generic Name Dose Route Start Last Admin Trade Name Freq PRN Reason Stop Dose Admin Hydrocodone Bitart/Acetaminophen 1 tab 01/20/20 08:44 01/22/20 01:40 [place] 10-325 Mg PO 1 tab TID PRN Administration Pain Rated 7-10 Chlordiazepoxide HCl 25 mg 01/20/20 20:00 01/22/20 07:54 Librium Po PO 01/22/20 14:01 25 mg Q6H TIFFANIE Administration Dextrose 12.5 gm 01/18/20 16:52 Dextrose 50% Syringe IV PUSH PRN PRN Hypoglycemia Protocol Famotidine 20 mg 01/18/20 09:00 01/22/20 08:01 Pepcid Iv IV PUSH 20 mg Q12HR TIFFANIE Administration
[2020-01-22] MEDS: POTASSIUM CHLORIDE 20 MEQ PACKET (FOR LIQUID) PO (09:43)
[2020-01-22] MEDS: MORPHINE SULFATE 2 MG/ML INJ 1 MG IV PUSH ×3 (09:53→20:36)
--- NOTE | 2020-01-22 11:45 | WPDGIPROGNO ---
Progress Note: A&P Additional Plan Patient continues to complain of abdominal pain. Request more frequent pain medications. She reports pain shortly after eating. Physical exam reveals her to be anicteric. Lungs are clear. Heart without murmur. Abdomen bowel sounds are present soft upper abdominal tenderness appreciated. No masses noted. Labs reveal lipase was 1496. Total bilirubin 0.8, AST 140, ALT 126, alk-phos 79. Impression 1. Alcoholic pancreatitis. Appears to be ongoing at this time. Plan is to limit patient to a liquid diet. Add Creon pancreatic enzymes to assist with pain control. Continue to monitor labs. 2. Alcoholic hepatitis. Continued improvement in LFTs noted this appears to be improving. 3. DKA now resolved. Continue to treat diabetes with improved glycemic control. 4. Alcohol abuse. Patient will need to continue alcohol rehab in avoidance after discharge. Subjective Date/time seen: 01/22/20 11:45 Objective Data Vital Signs Vital Signs: Vital Signs - 24 hr 01/21/20 14:00 01/21/20 22:00 01/22/20 06:00 Temperature 35.9 C L 36.6 C 36.7 C Pulse Rate 100 88 92 Respiratory Rate 18 18 16 Blood Pressure 113/65 119/83 102/59 L Pulse Oximetry 99 100 100 Intake/Output Intake/Output: Intake & Output 01/19/20 01/20/20 01/21/20 01/22/20 23:59 23:59 23:59 23:59 Intake Total 3109 3875 3952.6 500 Output Total 1100 800 950 Balance 2009 3075 3952.6 -450 Meds/Results Medications: Active Medications Generic Name Dose Route Start Last Admin Trade Name Freq PRN Reason Stop Dose Admin Hydrocodone Bitart/Acetaminophen 1 tab 01/22/20 08:52 [place] 10-325 Mg PO QID PRN Pain Rated 7-10 Chlordiazepoxide HCl 25 mg 01/20/20 20:00 01/22/20 07:54 Librium Po PO 01/22/20 14:01 25 mg Q6H TIFFANIE Administration Dextrose 12.5 gm 01/18/20 16:52 Dextrose 50% Syringe IV PUSH PRN PRN Hypoglycemia Protocol Famotidine 20 mg 01/18/20 09:00 01/22/20 08:01 Pepcid Iv IV PUSH 20 mg Q12HR TIFFANIE Administration Folic Acid 1 mg 01/18/20 09:00 01/22/20 08:01 Folic Acid PO 1 mg DAILY TIFFANIE Administration Glucagon 1 mg 01/18/20 16:52 Glucagon For Inj IM PRN PRN Hypoglycemia Protocol Glucose 15 gm 01/18/20 16:52 Glutose 15 PO PRN PRN Hypoglycemia Protocol Dextrose 1,000 mls @ 100 mls/hr 01/18/20 16:52 Dextrose 5% 1,000 Ml IVPB PRN PRN Hypoglycemia Protocol Insulin Aspart 2 - 5 units 01/20/20 12:00 01/22/20 11:44 Novolog SUB-Q Not Given ACINSULIN [facility] Protocol Lorazepam 0.5 mg 01/20/20 08:44 01/22/20 07:54 Ativan Tab PO 0.5 mg TID PRN Administration Anxiety Morphine Sulfate 1 mg 01/22/20 08:55 01/22/20 09:53 Morphine Sulfate Inj IV PUSH 1 mg Q4H PRN Administration Pain Rated 9-10 Nicotine Polacrilex 4 mg 01/22/20 01:02 01/22/20 01:40 Nicorette 4 Mg Gum PO 4 mg PRN PRN Administration Nicotine Cravings Ondansetron HCl 4 mg 01/18/20 05:41 01/18/20 09:51 Zofran Inj IV PUSH 4 mg Q4H PRN Administration Nausea Potassium Chloride 20 meq 01/22/20 09:00 01/22/20 09:43 Kcl Powder (For Liquid) PO 20 meq DAILY TIFFANIE Administration Thiamine HCl 100 mg 01/18/20 09:00 01/22/20 08:01 Vitamin B-1 PO 100 mg QAM TIFFANIE Administration Radiology Results: ITS Impressions Chest X-Ray 01/18/20 07:53 IMPRESSION: 1. No acute cardiopulmonary disease. Abdomen/Pelvis CT 01/18/20 08:58 IMPRESSION: Hepatomegaly, hepatic steatosis 2.5 cm left ovarian cyst Mild colitis is suggested Abdomen Ultrasound 01/18/20 09:50 IMPRESSION: 1. Likely benign 4 mm gallbladder polyp. No shadowing cholelithiasis. 2. Mild dilation of the common bile duct to 7 mm without evident obstructing lesion or intrahepatic biliary ductal dilation. Correlate with liver function tests and could consider MRCP a
[2020-01-22 11:50] LABS: Glucose Point of Care 108 (65-105)
--- NOTE | 2020-01-22 13:19 | WPDCDIQUERY2 ---
CDI Query Clarification Request -01/17 lipase 655, 01/18 lipase 1818, 01/21 lipase 1215 and 1496 - Dr Bojorquez has documented most likely hyperglycemia due to acute pancreatitis . - Dr Young has documented acute alcoholic pancreatitis - You documented lipase is going up 1400 but no mention of acute pancreatitis Please clarify if acute pancreatitis has been ruled in or ruled out. <Alyson Gabriel RN - Last Filed: 01/22/20 13:24> Acute pancreatitis is ruled in <Mira Rodriguez MD - Last Filed: 01/26/20 08:02>
[2020-01-22] MEDS: LIPASE/AMYLASE/PROTEASE 12,000 UNITS CAP 1 CAP PO ×2 (13:20→17:31)
[2020-01-22 14:00] VITALS: BP 102/68; PULSE 84; RESP 16; TEMP 36.3; O2SAT 100
[2020-01-22 17:11] LABS: Glucose Point of Care 105 (65-105)
[2020-01-22 21:18] LABS: Glucose Point of Care 126 (65-105)
[2020-01-22 22:00] VITALS: BP 113/73; PULSE 84; RESP 18; TEMP 36.4; O2SAT 100
[2020-01-23] MEDS: NICOTINE (*PBKC) 4 MG GUM PO ×4 (01:07→22:08)
[2020-01-23] MEDS: MORPHINE SULFATE 2 MG/ML INJ 1 MG IV PUSH ×5 (02:35→22:07)
[2020-01-23 06:00] VITALS: BP 103/71; PULSE 79; RESP 16; TEMP 36.8; O2SAT 100
[2020-01-23 07:00] LABS: Immature Platelet Fraction Pct 5.5 % (0.9-11.2); Mean Corpuscular HGB Conc 36.4 g/dl (32-36); Mean Corpuscular Hemoglobin 35.2 pg (26-34); Mean Corpuscular Volume 96.8 fl (80-100); Mean Platelet Volume 10.1 fl (7.4-10.4); Platelet Count Result 138 k/mm3 (150-375); Red Blood Count 3.41 M/mm3 (4.2-5.4); Red Cell Distribution Width 12.9 % (11.5-14.5); White Blood Count 4.4 K/mm3 (4.5-10.0)
[2020-01-23 07:15] LABS: Alanine Aminotransferase 182 U/L (4-35); Albumin Level 4.4 g/dL (3.5-5.1); Alkaline Phosphatase 70 U/L (38-126); Aspartate Amino Transferase 192 U/L (14-36); Bilirubin,Total 0.6 mg/dL (0.2-1.3); Blood Urea Nitrogen 2 mg/dL (7-17); Calcium 9.8 mg/dL (8.4-10.2); Carbon Dioxide 27 mmol/L (22-30); Chloride 101 mmol/L (98-107); Estimated CRCL calculation 133 ml/min; Estimated Glomerular Filt Rate > 60; Glucose 131 mg/dL (65-105); Lipase 981 U/L (23-300); Magnesium 1.7 mg/dL (1.6-2.3); Sodium 136 mmol/L (137-145)
--- NOTE | 2020-01-23 08:44 | WPDGIPROGNO ---
Progress Note: A&P Additional Plan Patient alert this morning sitting in bed. States she feels a little bit better. Still some tenderness after eating. Physical exam reveals her to be afebrile. She is anicteric. Lungs are clear. Heart without murmur. Abdomen bowel sounds are present soft and mild epigastric tenderness appreciated. Laboratory work reveals lipase 981. This is decreased. Total bilirubin 0.6, AST 192, ALT 182, Impression 1. Alcoholic hepatitis. This appears to be stable in slowly improving. LFTs remain elevated somewhat however. Complete absence alcohol abstinence is is required. 2. Acute alcoholic pancreatitis. Patient still has some tenderness. Lipase has lessened somewhat today. Plan is to continue liquid diet today. Try to minimize pain medications. Hopefully discharge in the morning improvement continues. Alcohol avoidance essential. 3. Diabetes mellitus. DKA has resolved. Continue to control diabetes Subjective Date/time seen: 01/23/20 08:44 Objective Data Vital Signs Vital Signs: Vital Signs - 24 hr 01/22/20 14:00 01/22/20 22:00 01/23/20 06:00 Temperature 36.3 C L 36.4 C L 36.8 C Pulse Rate 84 84 79 Respiratory Rate 16 18 16 Blood Pressure 102/68 113/73 103/71 Pulse Oximetry 100 100 100 Intake/Output Intake/Output: Intake & Output 01/20/20 01/21/20 01/22/20 01/23/20 23:59 23:59 23:59 23:59 Intake Total 3875 3952.6 1880 750 Output Total 800 950 Balance 3075 3952.6 930 750 Meds/Results Medications: Active Medications Generic Name Dose Route Start Last Admin Trade Name Freq PRN Reason Stop Dose Admin Hydrocodone Bitart/Acetaminophen 1 tab 01/22/20 08:52 01/23/20 05:28 [place] 10-325 Mg PO 1 tab QID PRN Administration Pain Rated 7-10 Lipase/Protease/Amylase 1 cap 01/22/20 12:00 01/22/20 17:31 [place] 12,000 Units Capsule PO 1 cap TIDWM TIFFANIE Administration Dextrose 12.5 gm 01/18/20 16:52 Dextrose 50% Syringe IV PUSH PRN PRN Hypoglycemia Protocol Famotidine 20 mg 01/18/20 09:00 01/22/20 20:31 Pepcid Iv IV PUSH 20 mg Q12HR TIFFANIE Administration Folic Acid 1 mg 01/18/20 09:00 01/22/20 08:01 Folic Acid PO 1 mg DAILY TIFFANIE Administration Glucagon 1 mg 01/18/20 16:52 Glucagon For Inj IM PRN PRN Hypoglycemia Protocol Glucose 15 gm 01/18/20 16:52 Glutose 15 PO PRN PRN Hypoglycemia Protocol Dextrose 1,000 mls @ 100 mls/hr 01/18/20 16:52 Dextrose 5% 1,000 Ml IVPB PRN PRN Hypoglycemia Protocol Insulin Aspart 2 - 5 units 01/20/20 12:00 01/22/20 17:10 Novolog SUB-Q Not Given [facility]ULIN [facility] Protocol Lorazepam 0.5 mg 01/20/20 08:44 01/22/20 07:54 Ativan Tab PO 0.5 mg TID PRN Administration Anxiety Morphine Sulfate 1 mg 01/22/20 08:55 01/23/20 07:25 Morphine Sulfate Inj IV PUSH 1 mg Q4H PRN Administration Pain Rated 9-10 Nicotine Polacrilex 4 mg 01/22/20 01:02 01/23/20 01:07 Nicorette 4 Mg Gum PO 4 mg PRN PRN Administration Nicotine Cravings Ondansetron HCl 4 mg 01/18/20 05:41 01/18/20 09:51 Zofran Inj IV PUSH 4 mg Q4H PRN Administration Nausea Potassium Chloride 20 meq 01/22/20 09:00 01/22/20 09:43 Kcl Powder (For Liquid) PO 20 meq DAILY TIFFANIE Administration Thiamine HCl 100 mg 01/18/20 09:00 01/22/20 08:01 Vitamin B-1 PO 100 mg QAM TIFFANIE Administration Radiology Results: ITS Impressions Chest X-Ray 01/18/20 07:53 IMPRESSION: 1. No acute cardiopulmonary disease. Abdomen/Pelvis CT 01/18/20 08:58 IMPRESSION: Hepatomegaly, hepatic steatosis 2.5 cm left ovarian cyst Mild colitis is suggested Abdomen Ultrasound 01/18/20 09:50 IMPRESSION: 1. Likely benign 4 mm gallbladder polyp. No shadowing cholelithiasis. 2. Mild dilation of the common bile duct to 7 mm without evident obstructing lesion or intrahepatic biliary
[2020-01-23] MEDS: POTASSIUM CHLORIDE 20 MEQ PACKET (FOR LIQUID) PO (08:51)
[2020-01-23] MEDS: FAMOTIDINE 20 MG/2 ML VIAL IV PUSH ×2 (08:51→20:13)
[2020-01-23] MEDS: THIAMINE HCL 100 MG TABLET PO (08:51)
[2020-01-23] MEDS: FOLIC ACID 1 MG TABLET PO (08:51)
[2020-01-23] MEDS: LIPASE/AMYLASE/PROTEASE 12,000 UNITS CAP 1 CAP PO ×3 (08:51→16:28)
[2020-01-23] MEDS: LORAZEPAM 0.5 MG TABLET PO (08:58)
[2020-01-23 09:12] LABS: Glucose Point of Care 111 (65-105)
--- NOTE | 2020-01-23 11:05 | PM.IMPN ---
Progress Note: A&P Assessment and Plan (1) DKA (diabetic ketoacidoses): Code(s): E11.10 - Type 2 diabetes mellitus with ketoacidosis without coma Status: Acute Assessment and Plan: Lipase is coming down nicely @900. pain control and continue soft diet, hopeful DC in 1-2 days time (2) Alcoholic hepatitis: Code(s): K70.10 - Alcoholic hepatitis without ascites Status: Acute Assessment and Plan: Patient clinically stable continue to monitor, adviced to quit drinking alcholol (3) Alcohol withdrawal: Code(s): F10.239 - Alcohol dependence with withdrawal, unspecified Status: Acute Assessment and Plan: Patient on CIWA protocol with Librium, change ativan to oral (4) Metabolic acidosis: Code(s): E87.2 - Acidosis Status: Resolved Assessment and Plan: Fluids stopped encouraged oral hydration (5) Diabetes: Code(s): E11.9 - Type 2 diabetes mellitus without complications Status: Acute Assessment and Plan: Patient hemoglobin A1c is 4.6. Hyperglycemia not diabetes related. Possibly secondary to alcholol Subjective Date/time seen: 01/23/20 11:05 Interval history: 34 year old female with long history of alcohol abuse patient states on daily basis drinks 1 and half pints of Tequila and had been drinking for sometime drinking until the day of admission, patient developed abdominal pain nausea, vomiting patient's symptoms were persist stated she drank some more alcohol to provide relief from nausea and vomiting tremor however pain was persisting was getting worse patient presented emergency department for further evaluation, patient had a CT scan of the abdomen patient was found to have hepatomegaly with elevated lipase, elevated blood sugar and and metabolic acidosis, patient had mild DKA patient was admitted in to ICU was vigorously hydrated and blood sugars were monitor. Pt still complains of abdominal pain, lipase @900 today, abdominal pains are better, hopeful discharge in 1-2 days time Review of Systems Review of Systems: All systems reviewed & are unremarkable except as noted in HPI and below Gastrointestinal: Gastrointestinal: Reports abdominal pain, Denies dyspepsia, Denies heartburn, Denies diarrhea, Denies loose stools, Denies nausea and Denies vomiting Comments: mild Exam Narrative: Exam Narrative: Anxious Const: General: no acute distress and uncomfortable HENMT: General nose exam: Normal nares present Mouth: Yes moist mucous membranes Eyes: General: appearance normal, both eyes and all related structures Sclera: sclerae normal Resp: Effort & Inspection: normal respiratory effort Auscultation: clear to auscultation bilaterally Cardio: Rate: regular rate Rhythm: regular rhythm GI: Auscultation: normal bowel sounds Other: Mild TTP both R and L upper quadrants Skin: General skin exam: normal color Neuro: Speech: normal speech Sensory Exam: normal sensation Extrem: General: normal to inspection Psych: Affect: Anxious affect present Objective Data Vital Signs Vital Signs: Vital Signs - 24 hr 01/22/20 14:00 01/22/20 22:00 01/23/20 06:00 Temperature 36.3 C L 36.4 C L 36.8 C Pulse Rate 84 84 79 Respiratory Rate 16 18 16 Blood Pressure 102/68 113/73 103/71 Pulse Oximetry 100 100 100 Intake/Output Intake/Output: Intake & Output 01/20/20 01/21/20 01/22/20 01/23/20 23:59 23:59 23:59 23:59 Intake Total 3875 3952.6 1880 870 Output Total 800 950 Balance 3075 3952.6 930 870 Meds/Results Medications: Active Medications Generic Name Dose Route Start Last Admin Trade Name Freq PRN Reason Stop Dose Admin Hydrocodone Bitart/Acetaminophen 1 tab 01/22/20 08:52 01/23/20 05:28 [place] 10-325 Mg PO 1 tab QID PRN Administration Pain Rated 7-10 Lipase/Protease/Amylase 1 cap 01/22/20 12:00 01/23/20 08:51 Bal [place] 12,000 Units Capsule PO 1 cap TIDWM TIFFANIE Administration
[2020-01-23 11:31] LABS: Glucose Point of Care 83 (65-105)
[2020-01-23 14:00] VITALS: BP 107/62; PULSE 83; RESP 16; TEMP 36.4; O2SAT 100
[2020-01-23 16:37] LABS: Glucose Point of Care 100 (65-105)
[2020-01-23 20:38] VITALS: BP 110/78; PULSE 80; RESP 20; TEMP 36.6; O2SAT 100
[2020-01-23 21:12] LABS: Glucose Point of Care 102 (65-105)
[2020-01-24] MEDS: MORPHINE SULFATE 2 MG/ML INJ 1 MG IV PUSH (04:15)
[2020-01-24 04:52] VITALS: BP 107/62; PULSE 80; RESP 20; TEMP 36.6; O2SAT 100
--- NOTE | 2020-01-24 07:34 | WPDGIPROGNO ---
Progress Note: A&P Additional Plan Patient alert oriented this morning. Appears comfortable. She still reports some mid epigastric pain. She states that she only gets brief relief with injections. Better pain relief with oral medications. Physical exam reveals her to be afebrile. Vital signs stable. She is anicteric. Lungs are clear heart is without murmur. Abdomen is soft. Bowel sounds are present she reports tenderness in the midepigastric area. Labs from today are pending. Lipase trending down yesterday. Impression 1. Alcoholic pancreatitis. Clinically starting to improve. Plan is to change to oral pain medications. Advance to low-fat diet. Pancreatic enzyme supplementation may be of some benefit. Strict alcohol avoidance encourage. Hopefully discharged later today or tomorrow. 2. Alcoholic hepatitis. LFTs have continued to improve. These should be repeated as an outpatient several weeks. Continued alcohol avoidance encourage. 3. . Diabetes mellituis.. No longer in DKA. Close monitoring of glucose by primary care service after discharge and current. Subjective Date/time seen: 01/24/20 07:34 Objective Data Vital Signs Vital Signs: Vital Signs - 24 hr 01/23/20 14:00 01/23/20 20:38 01/24/20 04:52 Temperature 36.4 C 36.6 C 36.6 C Pulse Rate 83 80 80 Respiratory Rate 16 20 20 Blood Pressure 107/62 110/78 107/62 Pulse Oximetry 100 100 100 Intake/Output Intake/Output: Intake & Output 01/21/20 01/22/20 01/23/20 01/24/20 23:59 23:59 23:59 23:59 Intake Total 3952.6 1880 3190 1100 Output Total 950 Balance 3952.6 930 3190 1100 Meds/Results Medications: Active Medications Generic Name Dose Route Start Last Admin Trade Name Freq PRN Reason Stop Dose Admin Hydrocodone Bitart/Acetaminophen 1 tab 01/22/20 08:52 01/24/20 02:33 [place] 10-325 Mg PO 1 tab QID PRN Administration Pain Rated 7-10 Lipase/Protease/Amylase 1 cap 01/22/20 12:00 01/23/20 16:28 [place] 12,000 Units Capsule PO 1 cap TIDWM TIFFANIE Administration Dextrose 12.5 gm 01/18/20 16:52 Dextrose 50% Syringe IV PUSH PRN PRN Hypoglycemia Protocol Diphenhydramine HCl 25 mg 01/23/20 09:15 01/23/20 23:36 Benadryl Cap PO 25 mg TID PRN Administration Itching Famotidine 20 mg 01/18/20 09:00 01/23/20 20:13 Pepcid Iv IV PUSH 20 mg Q12HR TIFFANIE Administration Folic Acid 1 mg 01/18/20 09:00 01/23/20 08:51 Folic Acid PO 1 mg DAILY TIFFANIE Administration Glucagon 1 mg 01/18/20 16:52 Glucagon For Inj IM PRN PRN Hypoglycemia Protocol Glucose 15 gm 01/18/20 16:52 Glutose 15 PO PRN PRN Hypoglycemia Protocol Dextrose 1,000 mls @ 100 mls/hr 01/18/20 16:52 Dextrose 5% 1,000 Ml IVPB PRN PRN Hypoglycemia Protocol Insulin Aspart 2 - 5 units 01/20/20 12:00 01/23/20 16:27 Novolog SUB-Q Not Given ACINSULIN [facility] Protocol Lorazepam 0.5 mg 01/20/20 08:44 01/23/20 08:58 Ativan Tab PO 0.5 mg TID PRN Administration Anxiety Morphine Sulfate 1 mg 01/22/20 08:55 01/24/20 04:15 Morphine Sulfate Inj IV PUSH 1 mg Q4H PRN Administration Pain Rated 9-10 Nicotine Polacrilex 4 mg 01/22/20 01:02 01/23/20 22:08 Nicorette 4 Mg Gum PO 4 mg PRN PRN Administration Nicotine Cravings Ondansetron HCl 4 mg 01/18/20 05:41 01/18/20 09:51 Zofran Inj IV PUSH 4 mg Q4H PRN Administration Nausea Potassium Chloride 20 meq 01/22/20 09:00 01/23/20 08:51 Kcl Powder (For Liquid) PO 20 meq DAILY TIFFANIE Administration Thiamine HCl 100 mg 01/18/20 09:00 01/23/20 08:51 Vitamin B-1 PO 100 mg QAM TIFFANIE Administration Radiology Results: ITS Impressions Chest X-Ray 01/18/20 07:53 IMPRESSION: 1. No acute cardiopulmonary disease. Abdomen/Pelvis CT 01/18/20 08:58 IMPRESSION: Hepatomegaly, hepatic steatosis 2.5 cm left ovarian cyst Mild
[2020-01-24 08:11] LABS: Glucose Point of Care 101 (65-105)
[2020-01-24 08:29] LABS: Lipase 917 U/L (23-300)
[2020-01-24] MEDS: LIPASE/AMYLASE/PROTEASE 12,000 UNITS CAP 1 CAP PO ×2 (08:54→13:06)
[2020-01-24] MEDS: THIAMINE HCL 100 MG TABLET PO (08:54)
[2020-01-24] MEDS: FAMOTIDINE 20 MG/2 ML VIAL IV PUSH (08:54)
[2020-01-24] MEDS: FOLIC ACID 1 MG TABLET PO (08:55)
[2020-01-24] MEDS: POTASSIUM CHLORIDE 20 MEQ PACKET (FOR LIQUID) PO (08:55)
--- NOTE | 2020-01-24 09:09 | PM.DS ---
DS: Admitting Diagnosis Admitting Diagnosis Admitting Diagnosis: Alcoholic pancreatitis Hyperglycemia due to pancreatic insufficiency DS: Discharge Diagnosis Discharge Diagnosis (1) Alcoholic hepatitis: Qualifiers: Ascites presence: without ascites Qualified Code(s): K70.10 - Alcoholic hepatitis without ascites Code(s): K70.10 - Alcoholic hepatitis without ascites Status: Acute (2) Pancreatitis, alcoholic, acute: Qualifiers: Acute pancreatitis complication: no infection or necrosis Qualified Code(s): K85.20 - Alcohol induced acute pancreatitis without necrosis or infection Code(s): K85.20 - Alcohol induced acute pancreatitis without necrosis or infection Status: Acute (3) Metabolic acidosis: Code(s): E87.2 - Acidosis Status: Resolved DS: Summary Hospital Course Reason for hospitalization: Pancreatitis Hospital Course: 34 yo who presented with abdominal pain and vomiting , was found to have alcoholic pancreatitis. She was hyperglycemic on admission and had metabolic acidosis, she is not a diabetic her Hb A1c is around 4% her glucose was likely elevated due to pancreatic insufficiency. Her metabolic acidosis has also resolved. She is going home on creon, she was counseled about alcohol cessation, should follow up with GI and PCP. She was also advised to stay on a low fat diet. She has some evidence of liver damage with elevated liver enzymes , those are trending down, should be followed as outpt. Status at Discharge Functional status at discharge: independent ambulation Time Spent with Patient Time attestation: Total time spent providing and/or coordinating discharge services: Time spent: Greater than 30 minutes Exam Const: General: no acute distress HENMT: General nose exam: Normal nares present Mouth: Yes moist mucous membranes Neck: Neck: supple and no JVD Resp: Auscultation: clear to auscultation bilaterally Cardio: Rate: regular rate Rhythm: regular rhythm GI: GI Palp: Yes Soft to palpation and Yes Tenderness to palpation present (GI) Auscultation: normal bowel sounds Other: Mild diffuse tenderness, no guarding Skin: General skin exam: normal color and no rashes or lesions noted Neuro: Motor exam (neuro): 5/5 motor strength present throughout and Abnormal motor strength present Sensory Exam: normal sensation Extrem: General: normal to inspection Psych: Affect: normal affect DS: Data Data Completed and Pending Labs on day of discharge: Labs from last 24 hours 01/24/20 01/24/20 01/23/20 08:10 07:54 20:11 POC Capillary Glucose 101 102 Lipase 917 H 01/23/20 01/23/20 01/23/20 16:16 11:24 07:59 POC Capillary Glucose 100 83 111 H Lipase Discharge Plan Discharge Consulting providers: Alberto Young Discharging Clinician: Mingo Harrison Patient Disposition: Home, Self-Care Activity: may shower and as tolerated Diet: low fat Patient Instructions: Antibiotic Form, How to Stop Smoking (DC), Pancreatitis (DC), Abuse of Alcohol (DC) Stand Alone Forms: General Discharge Information Follow-up/Referrals: Alberto Young MD [Physician] - Discharge Medications: New hydrocodone-acetaminophen 5-325 mg Tablet 1 tablet PO Q4-6H PRN (Reason: Pain Rated 4-6) Qty: 14 RF: 0 [id number] 9,000-112,500- 112,500 unit capsule 1 cap PO TIDWM Qty: 90 RF: 0 Continued gabapentin 800 mg Tablet 800 mg PO TID RF: 0 Date of admission: 01/18/20 05:41 Primary Care Provider: JenniferSaida Admitting Provider: Travon Arana Discharge Date/Time: 01/24/20 14:23 Attending physician on admission: Mingo Harrison Condition: Serious Quality VTE Prophylaxis VTE prophylaxis: mechanical ordered
[2020-01-24] MEDS: LORAZEPAM 0.5 MG TABLET PO (10:06)
[2020-01-24 11:49] LABS: Glucose Point of Care 77 (65-105)
[2020-01-24] MEDS: NICOTINE (*PBKC) 4 MG GUM PO (12:07)
== END 2020-01-24 14:23 | disposition home or self-care (01) | DRG 439 ==
LOC: ANHED 05:48 → ANHICU 05:57 → ANH2MED 01-19 14:39
PROVIDERS: Family Medicine; Internal Medicine; Admitting Provider Family Medicine; Emergency Provider General Practice; PCP Internal Medicine Gastroenterology; Visit Provider Hospitalist
DX: K85.20 Alcohol induced acute pancreatitis without necrosis or infection (principal); F10.239 Alcohol dependence with withdrawal, unspecified; E87.2 Acidosis; Y90.6 Blood alcohol level of 120-199 mg/100 ml; K70.10 Alcoholic hepatitis without ascites; R73.9 Hyperglycemia, unspecified; E86.0 Dehydration; D69.59 Other secondary thrombocytopenia; F17.210 Nicotine dependence, cigarettes, uncomplicated
CPT/HCPCS: 36415; 36600; 71045; 74177; 76705; 80048; 80053; 80307; 81001; 81025; 82010; 82375; 82805; 82948; 83036; 83050; 83605; 83690; 83735; 84100; 84478; 85025; 85027; 85055; 85610; 85730; 93005; 96361; 96365; 96366; 96368; 96375; 96376; 99285; A9270; J1170; J1815; J2060; J2270; J2405; J3411; J3475; J7030; J7042; J7120; Q9967

== ENCOUNTER 2020-03-24 23:16 | Inpatient (IN) | payer BC, MEDICAID, SELFPAY ==
--- NOTE | ~2020-03-24 | CT_ITS ---
EXAMINATION: CTA chest PE protocol DATE: 03/26/2020 18:34 CDT INDICATION: Shortness of breath. Chest pain. Alcoholic ketoacidosis. TECHNIQUE: Computed tomographic angiography (CTA) of the chest was performed with 100 mL Omnipaque-35 0 intravenous contrast. The dose-length product was 252.56 mGy-cm. Maximum intensity projection 3D-re constructions of the aorta and other arteries were constructed by the technologist on a separate work station. Automated exposure control and iterative reconstruction technique were employed. COMPARISON: CT dated 04/24/2017 FINDINGS: Study is technically adequate without evidence for pulmonary embolism. Trace right pleural effusion. Cardiomegaly. There is a possible left breast mass medially, axial image 111, superimposed on dense fibroglandular tissue. No thoracic lymphadenopathy. No evidence for aortic aneurysm or dissection. There is hepatomegaly wit h fatty infiltration of the liver. There are dependent groundglass opacities, likely atelectasis. No focal airspace consolidation. No suspicious pulmonary nodules or masses. No acute osseous abnormality . IMPRESSION: 1. No evidence for pulmonary embolism. 2: Possible left breast mass. Correlation with diagnostic mammogram and ultrasound recommended. 3: Cardiomegaly. 4: Hepatomegaly with fatty infiltration of the liver. Reviewed, dictated and finalized at location A. IMPRESSION: 1. No evidence for pulmonary embolism. 2: Possible left breast mass. Correlation with diagnostic mammogram and ultras ound recommended. 3: Cardiomegaly. 4: Hepatomegaly with fatty infiltration of the liver.
--- NOTE | ~2020-03-24 | XR_ITS ---
EXAMINATION: XR chest 1V portable DATE: 03/26/2020 06:39 INDICATION: Chest pain and shortness of breath TECHNIQUE: frontal view of the chest was obtained. COMPARISON: Chest radiograph dated 01/18/2020 FINDINGS: The lungs remain clear with no focal airspace opacities, pulmonary edema, pleural effusion or pneumot horax. The cardiomediastinal silhouette is normal. Bone islands at the right humeral head and glenoid . IMPRESSION: 1. No acute cardiopulmonary disease. Reviewed, dictated and finalized at location A.
--- NOTE | ~2020-03-24 | US_ITS ---
US breast LT complete INDICATION: Possible left breast mass seen on recent CT examination TECHNIQUE: Dedicated left breast ultrasound COMPARISON: CT dated 03/26/2020 FINDINGS: The left breast is composed of normal heterogeneous echotexture without focal solid or cyst ic mass. IMPRESSION: 1: Normal left breast ultrasound. Recommend diagnostic bilateral mammogram for complete evaluation. BI-RADS CATEGORY 0 - INCOMPLETE STUDY, NEED ADDITIONAL IMAGING EVALUATION. Reviewed, dictated and finalized at location A.
--- NOTE | ~2020-03-24 | CT_ITS ---
EXAMINATION: CT abdomen pelvis w con DATE: 03/28/2020 12:38 INDICATION: Left upper quadrant abdominal pain. TECHNIQUE: Computed tomography (CT) of the abdomen and pelvis was performed with 100 mL Omnipaque 350 intravenous contrast. Automated exposure control and iterative reconstruction technique were employe d. The dose-length product was 534.43 mGy-cm. COMPARISON: CT abdomen and pelvis 03/25/2020, 04/29/2017 FINDINGS: The visualized portions of the lung bases demonstrate mild atelectasis. No pleural effusion . The heart size is normal. No pericardial effusion. There is diffuse hepatic steatosis. There is mil d splenomegaly measuring 13.8 cm, stable from 04/29/2017. The gallbladder, pancreas, adrenal glands, a nd kidneys are normal. There are no dilated loops of bowel. The appendix is normal. There are no path ologically enlarged lymph nodes. There is a small volume of pelvic ascites, likely physiologic. There is levocurvature of lumbar spine. IMPRESSION: 1. Chronic mild splenomegaly, likely secondary to obesity. 2. Diffuse hepatic steatosis. Reviewed, dictated and finalized at location A.
--- NOTE | ~2020-03-24 | US_ITS ---
US right upper quadrant INDICATION: Abdomen pain PROCEDURE: Realtime right upper abdominal ultrasound. COMPARISON: Ultrasound dated 01/18/2020 FINDINGS: The pancreas is normal without focal mass or pancreatic ductal dilation. Liver echotexture is increased, consistent with fatty infiltration. There is normal directional flow in the portal ve in. There is a 5 mm gallbladder polyp. Common bile duct measures 7 mm. No sonographic Romo's sign. IMPRESSION: 1: 5 mm gallbladder polyp. 2: Borderline sized common bile duct measuring 7 mm, unchanged. 3: Hepatic steatosis. Reviewed, dictated and finalized at location A.
--- NOTE | ~2020-03-24 | CT_ITS ---
EXAMINATION: CT abdomen pelvis w con EXAM DATE: 03/25/2020 01:46 INDICATION: Epigastric pain. Pancreatitis. Nausea and vomiting. TECHNIQUE: Spiral CT of the abdomen and pelvis was performed following intravenous injection of 100 m L Omnipaque 350. Axial, coronal and sagittal images were reviewed. The dose-length product (DLP) fo r this examination was 403.71 mGy-cm. The exposure was tailored according to patient size (auto mA e xposure control), and iterative reconstruction (ASIR) was used as additional dose reduction technique . Comparison is made to prior examination from 01/18/2020. FINDINGS: There is hepatic steatosis without suspicious focal lesion identified. Spleen, adrenal glan ds, pancreas are unremarkable. Gallbladder is unremarkable. No biliary obstruction. Portal and spl enic veins are patent. Kidneys enhance symmetrically. There is no hydronephrosis. The uterus and ovaries are unremarkable, no adnexal mass. The bladder is unremarkable. There is no retroperitoneal or pelvic lymphadenopathy. The appendix is normal. The stomach and small bowel are unremarkable. There is expected amount of c olonic stool. No free intraperitoneal gas. The heart is normal in size. There are no pericardial or pleural effusions. The lung bases are unremarkable. There are no osteoblastic or osteolytic les ions identified. IMPRESSION: 1. No acute intra-abdominal findings. 2. Hepatic steatosis. Reviewed, dictated and finalized at location A.
[2020-03-24 23:20] VITALS: BP 172/98; PULSE 180; RESP 18; TEMP 36.5; O2SAT 98
[2020-03-24 23:46] VITALS: PULSE 134; O2SAT 97
[2020-03-25] VITALS (15 sets, daily range): BP systolic 119–140; BP diastolic 62–92; PULSE 83–124; RESP 16–22; TEMP 36.4–37; O2SAT 98–100
[2020-03-25] MEDS: SODIUM CHLORIDE 0.9% IV 1,000 ML 999 ML IV CONT ×3 (00:09→03:04)
[2020-03-25] MEDS: MORPHINE SULFATE 4 MG/ML INJ IV PUSH ×9 (00:09→23:42)
[2020-03-25] MEDS: ONDANSETRON INJ 4 MG/2 ML VIAL IV PUSH ×5 (00:10→18:27)
[2020-03-25 00:32] LABS: Alanine Aminotransferase 141 U/L (4-35); Albumin Level 5.8 g/dL (3.5-5.1); Alkaline Phosphatase 139 U/L (38-126); Anion Gap 28 mmol/L (8-16); Aspartate Amino Transferase 135 U/L (14-36); Bilirubin,Total 1.3 mg/dL (0.2-1.3); Blood Urea Nitrogen 10 mg/dL (7-17); Calcium 9.2 mg/dL (8.4-10.2); Carbon Dioxide 12 mmol/L (22-30); Chloride 98 mmol/L (98-107); Estimated CRCL calculation 86 ml/min; Estimated Glomerular Filt Rate > 60; Glucose 145 mg/dL (65-105); Lipase 562 U/L (23-300); Potassium 4.5 mmol/L (3.4-5.0); Sodium 138 mmol/L (137-145)
[2020-03-25 00:33] LABS: Basophils Percent Auto 0.4 % (0.2-1.2); Hematocrit 50.1 % (37.0-47.0); Hemoglobin 17.8 g/dL (12.0-15.0); Immature Granulocyte Absolute 0.03 K/mm3 (0.00-0.031); Immature Granulocyte Percent A 0.6 % (0-0.5); Lymphocytes Absolute Auto 1.04 K/mm3 (0.9-3.2); Lymphocytes Percent Auto 19.4 % (18.3-44.2); Mean Corpuscular HGB Conc 35.5 g/dl (32-36); Mean Corpuscular Hemoglobin 33.3 pg (26-34); Mean Corpuscular Volume 93.6 fl (80-100); Mean Platelet Volume 10.2 fl (7.4-10.4); Monocytes Absolute Auto 0.1 K/mm3 (0.1-0.6); Monocytes Percent Auto 2.4 % (2.6-8.5); Neutrophils Absolute Auto 4.1 K/mm3 (1.3-6.7); Neutrophils Percent Auto 77.2 % (45.5-73.1); Platelet Count Result 161 k/mm3 (150-375); Red Blood Count 5.35 M/mm3 (4.2-5.4); Red Cell Distribution Width 12.6 % (11.5-14.5); White Blood Count 5.4 K/mm3 (4.5-10.0)
[2020-03-25 00:51] LABS: Ethanol 389 mg/dL (<10)
[2020-03-25 01:18] LABS: Add Urine Microscopic? YES; Appearance Urine Cloudy (Clear); Bacteria Urine Trace /hpf; Bilirubin Urine Negative (Negative); Blood Urine 3+ (Negative); Color Urine Red (Yellow); Glucose Urine UA 1+ mg/dL (Negative); Ketones Urine 2+ mg/dL (Negative); Leukocyte Esterase Ur Negative LEU/UL (Negative); Mucus Urine Rare /lpf; Nitrate Urine Negative (Negative); Protein Urine 3+ mg/dL (Negative); RBC Urine >75 /hpf (0-2); Specific Grav Ur 1.019 (1.001-1.035); Squamous Epithelial Cell Urine Many /hpf (Few); Urobilinogen Urine Negative mg/dL (<2.0)
--- NOTE | 2020-03-25 01:37 | PC.NURSE ---
Patient still complains of 05/07 pain-MD aware no new orders. Patient to radiology. Patient very dramatic with harsh breathing/hyperventilating and moaning
[2020-03-25] MEDS: BELLADONNA ALK/PHENOB ELIX 10 ML, MAG HYDROX/ALUMINUM HYD/SIMETH 30 ML, LIDOCAINE HCL 2... PO (03:06)
[2020-03-25] MEDS: FAMOTIDINE 20 MG/2 ML VIAL IV PUSH (03:06)
--- NOTE | 2020-03-25 03:58 | ED.ABDPAIN ---
HPI - Abdominal Pain General Chief Complaint: Abdominal Pain Stated Complaint: c/o sob, cp, abd pain Time Seen by Provider: 03/24/20 23:55 History of Present Illness HPI narrative: Patient is a 34-year-old female who presents the ER with abdominal pain. Patient is an alcoholic and drinks 1/5 of tequila a day. She reports she has diffuse abdominal cramping has not been able to eat for a week. Reports she has been persistent retching and vomiting. Has history of pancreatitis from alcoholism. Patient also reports that she has chronic abdominal pain that flares when she is on her period which she currently is. Patient denies any alleviating factors. Related Data Home Medications Medication Instructions Recorded Confirmed gabapentin 800 mg PO TID 01/23/20 01/23/20 Allergies Allergy/AdvReac Type Severity Reaction Status Date / Time Penicillins Allergy Mild RASH Verified 03/24/20 23:35 Review of Systems Review of Systems: All systems reviewed & are unremarkable except as noted in HPI and below Constitutional: Constitutional: Denies chills, Denies fever(s) and Denies weakness ENT: Denies nasal congestion and Denies sore throat Cardiovascular: Cardiovascular: Denies chest pain and Denies radiating jaw, neck or arm pain Respiratory: Respiratory: Denies cough and Denies dyspnea Gastrointestinal: Gastrointestinal: Reports abdominal pain, Denies diarrhea, Reports nausea and Reports vomiting Genitourinary: Genitourinary: Denies abnormal vaginal bleeding (Currently menstruating), Denies nocturia and Denies dysuria PMFSH Social History Social History Smoking status: Current every day smoker Alcohol intake: current Substance use: never Gender identity (if verbalized by the patient): Female Spiritual care concerns: No Exam Narrative: Exam Narrative: GENERAL: Intoxicated-appearing, well-nourished, and in anxious. HEAD: Normocephalic, atraumatic. EYES: PERRL and EOMI. ENT: Dry mucous membranes. CHEST: Clear to auscultation. No respiratory distress. HEART: Tachycardic and regular. Normal peripheral pulses. ABDOMEN: Soft, diffusely tender abdomen without 1 area of pinpoint pain, no guarding, nondistended, normal active bowel sounds. EXTREMITIES: Normal range of motion. No edema. SKIN: Warm, dry, no rash. NEURO: Alert and oriented x3. Course Course Emergency Course: Patient has been given 3 L of IV fluid. Heart rate has improved. She is also received some Pepcid and has tolerated a GI cocktail. No CT evidence of pancreatitis. Labs with mixed respiratory alkalosis and metabolic acidosis. Suspect alcoholic ketoacidosis. Vital Signs Vital signs: Vital Signs Temperature 97.7 F 03/24/20 23:20 Pulse Rate 180 H 03/24/20 23:20 Respiratory Rate 18 03/24/20 23:20 Blood Pressure 172/98 H 03/24/20 23:20 Pulse Oximetry 98 03/24/20 23:20 Temperature 97.7 F 03/24/20 23:20 Pulse Rate 112 H 03/25/20 01:30 Respiratory Rate 18 03/25/20 01:30 Blood Pressure 129/83 03/25/20 01:30 Pulse Oximetry 98 03/25/20 01:30 MDM - Abdominal Pain Lab Data Result diagrams: 03/25/20 00:11 03/25/20 00:11 Labs: Lab Results 03/25/20 03/25/20 03/25/20 Range/Units 00:11 00:11 00:11 WBC 5.4 (4.5-10.0) K/mm3 RBC 5.35 (4.2-5.4) M/mm3 Hgb 17.8 H D (12.0-15.0) g/dL Hct 50.1 H (37.0-47.0) % MCV 93.6 (80-100) fl MCH 33.3 (26-34) pg MCHC 35.5 (32-36) g/dl RDW 12.6 (11.5-14.5) % Plt Count 161 (150-375) k/mm3 MPV 10.2 (7.4-10.4) fl Immature Gran % (Auto) 0.6 H (0-0.5) % Neut % (Auto) 77.2 H (45.5-73.1) % Lymph % (Auto) 19.4 (18.3-44.2) % [place] % (Auto) 2.4 L (2.6-8.5) % Eos % (Auto) 0.0 (0-4.4) % Baso % (Auto) 0.4 (0.2-1.2) % Lymph # (Auto) 1.04 (0.9-3.2) K/mm3 [place] # (Auto) 0.1 (0.1-0.6) K/mm3 Eos # (Auto) 0.0 (0-0.3) K/mm3 Baso #
[2020-03-25 04:23] LABS: Alveolar/Arterial O2 Gradient 22.6 mmHg; Base Excess ABG -10.7 mEq/l (+/-2.0); Carboxyhemoglobin 0.3 % THb (0-2.0); Device ROOM AIR; Fractional Inspired Oxygen 21 %; HCO3 ABG 12.8 mEq/l (22.0-26.0); Methemoglobin ABG 0.4 %THb (0-1.5); Modified Allen's Test Pass; Oxygen Content ABG 19.9 %vol (16.0-22.0); Oxygen Saturation ABG 97.3 % (95.0-100.0); Oxyhemoglobin 96.3 % THb (90.0-100.0); PCO2 ABG 23.9 mmHg (35.0-45.0); PO2 ABG 98.5 mmHg (80.0-100.0); PO2 FiO2 Ratio Arterial Blood 4.69 %; Site Drawn RIGHT RADIAL; Total Hemoglobin 14.6 g/dL (12.0-18.0); pH ABG 7.348 (7.350-7.450)
--- NOTE | 2020-03-25 05:07 | PM.IMHP ---
H&P: HPI History of Present Illness Date/Time: 03/25/20 05:07 Chief complaint: alcoholic ketoacidosis Narrative: This is a 34 year old Caucsian female with known history of chronic alcoholism and alcoholic hepatitis who presented to the hospital [facility] with a complaint of severe epigastric and left upper quadrant abdominal pain for the past few days. She has not eaten any food since last Saturday although she has been drinking 1/5 of tequila daily. She has had ongoing nausea and vomiting. She denies any fevers, chills, chest pain, palpitations, shortness of breath, cough, dysuria, hematuria, or diarrhea. She was evaluated in the ER [facility] and given 3 liters of IV fluids. She was found to be in alcoholic ketoacidosis likely from dehydration and not eating any food for the past 6 days. The patient verbal[facility] No other complaints. Review of Systems Review of Systems: All systems reviewed & are unremarkable except as noted in HPI and below PMFSH Past Medical History Medical History Alcoholic hepatitis Endometriosis Pancreatitis Surgical History Surgical History Hx of laparoscopy Family History Family History Grandparent Diabetes mellitus Father Diabetes mellitus Social History Social History Smoking status: Current every day smoker Alcohol intake: current Substance use: never Gender identity (if verbalized by the patient): Female Spiritual care concerns: No Meds Home Medications and Allergies Home Medications Medication Instructions Recorded Confirmed Type gabapentin 800 mg PO TID 01/23/20 01/23/20 History Allergies Allergy/AdvReac Type Severity Reaction Status Date / Time Penicillins Allergy Mild RASH Verified 03/24/20 23:35 Vital Signs Vital Signs - 24 hr 03/24/20 23:20 03/24/20 23:46 03/25/20 00:45 Temperature 36.5 C Pulse Rate 180 H 134 H 122 H Respiratory Rate 18 19 Blood Pressure 172/98 H 125/92 H Pulse Oximetry 98 97 98 03/25/20 01:30 Temperature Pulse Rate 112 H Respiratory Rate 18 Blood Pressure 129/83 Pulse Oximetry 98 Exam Const: General: cooperative, alert, awake and acute distress (abd pain+) moderate Nutritional Appearance: overweight Orientation/consciousness: patient oriented x3 HENMT: Head: normal to inspection General nose exam: Normal external nose present Face and sinus: normal facial exam Mouth: Yes Normal oral and palatal mucosa present and Yes oropharynx normal Eyes: Pupils: Equal, round and reactive pupils present EOM: EOMs intact bilaterally Neck: Neck: supple and no JVD Thyroid: thyroid normal Lymphatic: lymphadenopathy not noted Resp: Effort & Inspection: tachypneic Auscultation: clear to auscultation bilaterally Cardio: Rate: tachycardic Rhythm: regular rhythm Heart sounds: no murmurs GI: Inspection: normal to inspection GI Palp: Yes abdominal tenderness (epigastric and LUQ++ ) Auscultation: normal bowel sounds Rectal Exam: deferred Skin: General skin exam: normal color and no rashes or lesions noted Neuro: General: patient oriented x3 Cranial nerves: Yes CN's II-XII intact bilaterally, Yes Equal, round and reactive pupils present and Yes Other cranial nerve findings present (Tremors++ ) Speech: normal speech Motor exam (neuro): 5/5 motor strength present throughout Sensory Exam: normal sensation Extrem: General: normal to inspection and no edema Psych: Mental Status: mental status grossly normal Affect: normal affect H&P: Results Labs Labs: Short CBC 03/25/20 03/25/20 Range/Units 00:11 00:11 WBC 5.4 (4.5-10.0) K/mm3 Hgb 17.8 H D (12.0-15.0) g/dL Hct 50.1 H (37.0-47.0) % Plt Count 161 (150-375) k/mm3 AST 135 H (14-36) U/L BM
[2020-03-25] MEDS: DEXTROSE 5%/0.9% SOD CHL 1,000 ML 130 ML IV CONT ×3 (05:45→21:22)
[2020-03-25 05:53] LABS: Glucose Point of Care 95 (65-105)
--- NOTE | 2020-03-25 06:03 | ADMGEN ---
This patient, Kamilla Christianson, was admitted to IMU Room 207-01. Patient/family oriented to hospital policies and general routines including ID bracelet, bed and alarms, visiting hours, pain management, procedures, bathroom and other care routines, personal items, smoking policy, room service/diet, and visiting hours. Valuables list has been completed. Information on how to activate the Rapid Response Team has been discussed. Patient/Family are encouraged to report perceived risks to care and to ask questions if they do not understand what they are told or what they should do.
[2020-03-25] MEDS: chlordiazePOXIDE 25 MG CAPSULE 50 MG PO ×3 (08:11→20:02)
[2020-03-25 09:32] LABS: Anion Gap 16 mmol/L (8-16); Blood Urea Nitrogen 6 mg/dL (7-17); Calcium 7.2 mg/dL (8.4-10.2); Carbon Dioxide 17 mmol/L (22-30); Chloride 103 mmol/L (98-107); Estimated CRCL calculation 112 ml/min; Estimated Glomerular Filt Rate > 60; Glucose 136 mg/dL (65-105); Potassium 3.5 mmol/L (3.4-5.0); Sodium 136 mmol/L (137-145)
[2020-03-25 09:35] LABS: Beta-Hydroxybutyrate/Acetoacetate 4.01 mmol/L (0.02-0.27)
[2020-03-25 11:53] LABS: Glucose Point of Care 127 (65-105)
--- NOTE | 2020-03-25 13:39 | PM.IMPN ---
Progress Note: A&P Assessment and Plan (1) Alcoholic ketoacidosis: Code(s): E87.2 - Acidosis Status: Resolved Assessment and Plan: Anion gap was 28 at presentation. The patient reports a history of binge drinking alcohol and not eating over the past week. Anion gap has closed. Potassium is mildly low on repeat BMP, likely due to D5. Continue IV fluid hydration. Add potassium to D5NS. Continue to monitor BMP daily. (2) Pancreatitis, alcoholic, acute: Qualifiers: Acute pancreatitis complication: no infection or necrosis Qualified Code(s): K85.20 - Alcohol induced acute pancreatitis without necrosis or infection Code(s): K85.20 - Alcohol induced acute pancreatitis without necrosis or infection Status: Acute Assessment and Plan: Secondary to alcohol use. She was recently treated for pancreatitis in December. Lipase was elevated at 562. She is passing gas. She continues to have nausea, vomiting, and LUQ abdominal pain. Continue IV fluids. Continue analgesics and antiemetics as needed. Continue bowel rest with NPO diet for now. Advance diet as tolerated once nausea and vomiting resolve. (3) Alcoholic hepatitis: Qualifiers: Ascites presence: without ascites Qualified Code(s): K70.10 - Alcoholic hepatitis without ascites Code(s): K70.10 - Alcoholic hepatitis without ascites Status: Acute Assessment and Plan: Acute on chronic alcoholic hepatitis is likely secondary to recent binge drinking. LFTs are elevated. Will consult GI for additional input. Check hepatitis panel. CT abd/pelvis revealed unremarkable gallbladder and hepatic steatosis. Recommendations are greatly appreciated. (4) Alcohol abuse: Code(s): F10.10 - Alcohol abuse, uncomplicated Status: Acute Assessment and Plan: CIWA is elevated. Scheduled PO librium was added. Plan to taper as tolerated. Continue ativan PRN withdrawal despite librium. Continue folic acid and thiamine supplementation. I have discussed the risks of continued alcohol use including . The patient has expressed the desire to quit drinking. Care coordination met with her to discuss services available to aid in alcohol cessation. Continue to monitor. (5) Dehydration: Code(s): E86.0 - Dehydration Status: Acute Assessment and Plan: Continue IV hydration. She remains NPO and still appears clinically dehydrated. Monitor urine output. (6) Nausea and vomiting: Qualifiers: Vomiting Intractability: non-intractable Vomiting type: unspecified Qualified Code(s): R11.2 - Nausea with vomiting, unspecified Code(s): R11.2 - Nausea with vomiting, unspecified Status: Acute Assessment and Plan: Secondary to metabolic acidosis and pancreatitis. Continue NPO diet for now and antiemetics as needed. Subjective Date/time seen: 03/25/20 13:39 Interval history: Pt is seen in follow-up for alcoholic ketoacidosis, alcohol withdrawal, and mild pancreatitis. She reports nausea and vomiting of clear liquids. She reports LUQ abdominal pain. She also feels very anxious and notes occasional shortness of breath when she is anxious. She is currently NPO due to her nausea and vomiting. She denies calf pain and tenderness. She is on her menstrual cycle but has no other urinary complaints. She does feel better compared to when she initially came to the hospital. She is interested in considering inpatient alcohol rehab at discharged as she has expressed the desire to quit drinking. Review of Systems Review of Systems: All systems reviewed & are unremarkable except as noted in HPI and below Exam Narrative: Exam Narrative: General: Well-developed, obese 34 y.o. female who is lying supine in bed resting and appears uncomfortable. HEENT: Normocephalic and atraumatic. Conjunctivae without injection or exudate. EOMI. Oral mucosa dry. Cardiac: Tachycardia. Rhythm r
[2020-03-25 13:55] LABS: Anion Gap 13 mmol/L (8-16); Blood Urea Nitrogen 5 mg/dL (7-17); Calcium 7.6 mg/dL (8.4-10.2); Carbon Dioxide 20 mmol/L (22-30); Chloride 102 mmol/L (98-107); Estimated CRCL calculation 112 ml/min; Estimated Glomerular Filt Rate > 60; Glucose 114 mg/dL (65-105); Potassium 3.3 mmol/L (3.4-5.0); Sodium 135 mmol/L (137-145)
[2020-03-25] MEDS: GABAPENTIN 400 MG CAPSULE 800 MG PO ×2 (15:26→18:29)
[2020-03-25] MEDS: PANTOPRAZOLE SODIUM IV 40 MG VIAL IV PUSH (18:28)
[2020-03-25] MEDS: THIAMINE HCL 200 MG/2 ML VIAL 100 MG IV PUSH (18:28)
[2020-03-25] MEDS: FOLIC ACID 1 MG TABLET PO (18:28)
[2020-03-25] MEDS: PHARMACIST COMMUNICATION ORDER 1 EACH XX (18:29)
[2020-03-26] VITALS (17 sets, daily range): BP systolic 121–145; BP diastolic 84–93; PULSE 90–147; RESP 16–22; TEMP 36.2–37; O2SAT 96–100
[2020-03-26 00:41] LABS: Glucose Point of Care 124 (65-105)
[2020-03-26] MEDS: chlordiazePOXIDE 25 MG CAPSULE 50 MG PO ×4 (01:53→21:08)
[2020-03-26] MEDS: MORPHINE SULFATE 4 MG/ML INJ IV PUSH ×9 (01:54→21:40)
[2020-03-26] MEDS: DEXTROSE 5%/0.9% SOD CHL 1,000 ML 130 ML IV CONT (04:21)
--- NOTE | 2020-03-26 04:52 | ECG_ITS ---
Measurements Intervals [place] Rate: 96 P: 56 MA: 141 QRS: 5 QRSD: 79 T: 1 QT: 357 QTc: 452 Interpretive Statements SINUS RHYTHM BORDERLINE R WAVE PROGRESSION, ANTERIOR LEADS BORDERLINE T WAVE ABNORMALITY- ANT/INF LEADS BASELINE WANDER- I, II, AVR, AVL, AVF BORDERLINE ECG Electronically Signed On 03-26-2020 7:40:24 CDT by Tomy Christensen D.O.
[2020-03-26] MEDS: NITROGLYCERIN SL 0.4 MG TABLET SUBLINGUAL ×2 (05:01→05:07)
[2020-03-26 05:21] LABS: Basophils Percent Auto 0.7 % (0.2-1.2); Eosinophils Percent Auto 0.4 % (0-4.4); Hematocrit 32.5 % (37.0-47.0); Hemoglobin 11.8 g/dL (12.0-15.0); Immature Granulocyte Absolute 0.01 K/mm3 (0.00-0.031); Immature Granulocyte Percent A 0.4 % (0-0.5); Lymphocytes Absolute Auto 0.93 K/mm3 (0.9-3.2); Lymphocytes Percent Auto 33.9 % (18.3-44.2); Mean Corpuscular HGB Conc 36.3 g/dl (32-36); Mean Corpuscular Hemoglobin 33.7 pg (26-34); Mean Corpuscular Volume 92.9 fl (80-100); Mean Platelet Volume 9.8 fl (7.4-10.4); Monocytes Absolute Auto 0.1 K/mm3 (0.1-0.6); Monocytes Percent Auto 5.1 % (2.6-8.5); Neutrophils Absolute Auto 1.6 K/mm3 (1.3-6.7); Neutrophils Percent Auto 59.5 % (45.5-73.1); Platelet Count Result 57 k/mm3 (150-375); Red Cell Distribution Width 12.5 % (11.5-14.5); White Blood Count 2.7 K/mm3 (4.5-10.0)
[2020-03-26 05:36] LABS: Alanine Aminotransferase 65 U/L (4-35); Albumin Level 3.8 g/dL (3.5-5.1); Alkaline Phosphatase 65 U/L (38-126); Anion Gap 9 mmol/L (8-16); Aspartate Amino Transferase 89 U/L (14-36); Blood Urea Nitrogen 3 mg/dL (7-17); Carbon Dioxide 25 mmol/L (22-30); Chloride 99 mmol/L (98-107); Estimated CRCL calculation 112 ml/min; Estimated Glomerular Filt Rate > 60; Glucose 103 mg/dL (65-105); Lipase 237 U/L (23-300); Magnesium 1.5 mg/dL (1.6-2.3); Potassium 2.7 mmol/L (3.4-5.0); Sodium 133 mmol/L (137-145)
--- NOTE | 2020-03-26 05:37 | PC.NURSE ---
Pt c/o chest pressure after getting up to bathroom, HR elevated to 170's when she was up and came back down to 110's after she sat on the side of the bed. Gave pt ativan for withdrawals and morphine for abdominal pain after she was back in bed. Chest pressure and associated shortness of breath did not subside, so Dr Arana notified and order given for EKG, troponin, and nitroglycerine. Pt had received second nitro with some relief after the first dose, pt stating chest pressure was at [address] Arana came to examine patient, ordered stat cxr. 10 minutes later, pt states she is feeling a little better.
[2020-03-26 05:47] LABS: Troponin I < 0.012 ng/mL (0.000-0.034)
[2020-03-26 06:03] LABS: Bilirubin Indirect 1.8 mg/dL (0-1.1)
[2020-03-26] MEDS: MAGNESIUM SULF 2 GM/WATER 50ML 2 GM/50 ML BAG IVPB (06:07)
[2020-03-26 06:13] LABS: Glucose Point of Care 99 (65-105)
[2020-03-26] MEDS: THIAMINE HCL 200 MG/2 ML VIAL 100 MG IV PUSH (08:12)
[2020-03-26] MEDS: PANTOPRAZOLE SODIUM IV 40 MG VIAL IV PUSH ×2 (08:12→16:52)
[2020-03-26] MEDS: GABAPENTIN 400 MG CAPSULE 800 MG PO ×3 (08:12→16:52)
--- NOTE | 2020-03-26 08:19 | WPDGICN ---
Assessment and Plan Assessment and plan (1) Alcohol abuse: Code(s): F10.10 - Alcohol abuse, uncomplicated Status: Acute Assessment and Plan: Patient has a long history of alcohol abuse. She has difficulty with abstinence. Would suggest alcohol rehab or support system be established prior to discharge. (2) Alcoholic hepatitis: Qualifiers: Ascites presence: without ascites Qualified Code(s): K70.10 - Alcoholic hepatitis without ascites Code(s): K70.10 - Alcoholic hepatitis without ascites Status: Acute Assessment and Plan: Patient continues to have elevated LFTs. Likely related to alcoholic hepatitis. At the present CT scan reveals no evidence of recurrent pancreatitis. Would recommend gradually reintroducing diet. Alcohol avoidance continues to be strongly encourage. (3) Dehydration: Code(s): E86.0 - Dehydration Status: Acute Assessment and Plan: Patient had severe signs of dehydration after admission. Had not been eating for about 6 days prior to presentation. Electrolyte disturbance was identified at the time of admission including acidosis attributed to alcohol abuse. Plan is for rehydration and gradually re- implementing diet. She may benefit from proton pump inhibitor given her left upper quadrant discomfort. Will follow with you during this hospital stay. GI Consult Note Consult date/time: 03/26/20 08:19 HPI: Kamilla Christianson is a 34 year old femaleSeen in evaluation at the request of the emergency room. Patient has a known history of alcohol abuse. Hospitalized in December of this year with alcoholic hepatitis and pancreatitis. She abstain from alcohol briefly after discharge. But has been binge drinking recently. She states over the last 6 days has been unable to keep food down. She has some component of left-sided abdominal pain associated with protracted nausea vomiting. Upon presenting to emergency room was found to be acidotic with lecture Andrea imbalance period and was admitted for further evaluation. Patient states pain is similar to her previous pain 2 months ago. Patient denies any evidence of bleeding. She denies any fever. family history is noncontributory. Review of Systems Review of Systems: All systems reviewed & are unremarkable except as noted in HPI and below PMFSH Past Medical History Medical History Alcoholic hepatitis Endometriosis Pancreatitis Surgical History Surgical History Hx of laparoscopy Family History Family History Grandparent Diabetes mellitus Father Diabetes mellitus Social History Social History Years smoked: 10 Smoking status: Current some day smoker Tobacco type: cigarettes Alcohol intake: current Substance use: never Substance use type: does not use Gender identity (if verbalized by the patient): Female Spiritual care concerns: No Meds Home Medications and Allergies Home Medications Medication Instructions Recorded Confirmed Type gabapentin 800 mg PO TID 01/23/20 03/25/20 History [id number] [Creon] 24,000 cap PO TID 03/25/20 03/25/20 History Allergies Allergy/AdvReac Type Severity Reaction Status Date / Time Penicillins Allergy Mild RASH Verified 03/24/20 23:35 Vital Signs Vital Signs - 24 hr 03/25/20 10:00 03/25/20 12:00 03/25/20 14:00 Temperature 97.7 F Pulse Rate 110 H 93 118 H Pulse Rate [Monitor] Respiratory Rate 20 Blood Pressure 119/62 Pulse Oximetry 99 03/25/20 16:00 03/25/20 18:00 03/25/20 19:53 Temperature 97.7 F 98.6 F Pulse Rate 100 95 85 Pulse Rate [Monitor] Respiratory Rate 16 16 Blood Pressure 124/80 121/80 Pulse Oximetry 100 98 03/25/20 20:00 03/25/20 22:00 03/25/20 2
[2020-03-26] MEDS: FOLIC ACID 1 MG TABLET PO (10:39)
[2020-03-26 11:12] LABS: Hepatitis B Surface Antigen Negative (Negative)
[2020-03-26 11:18] LABS: HAV RESULT Negative (Negative); Hepatitis B Core IgM Result Negative (Negative)
[2020-03-26 11:30] LABS: Hepatitis C Virus Antibody Negative (Negative)
[2020-03-26] MEDS: SODIUM CHLORIDE 0.9% IV 1,000 ML 100 ML IV CONT ×2 (11:45→21:13)
[2020-03-26 12:47] LABS: Glucose Point of Care 93 (65-105)
--- NOTE | 2020-03-26 12:49 | PM.IMPN ---
Progress Note: A&P Assessment and Plan (1) Alcoholic ketoacidosis: Code(s): E87.2 - Acidosis Status: Resolved Assessment and Plan: Resolved. Anion gap was 28 at presentation. The patient reports a history of binge drinking alcohol and not eating over the past week. Anion gap has closed. Continue to monitor BMP daily. (2) Pancreatitis, alcoholic, acute: Qualifiers: Acute pancreatitis complication: no infection or necrosis Qualified Code(s): K85.20 - Alcohol induced acute pancreatitis without necrosis or infection Code(s): K85.20 - Alcohol induced acute pancreatitis without necrosis or infection Status: Acute Assessment and Plan: Secondary to alcohol use. She was recently treated for pancreatitis in December. Lipase was elevated at 562 and has normalized today. She is passing gas. She continues to have nausea, vomiting, and LUQ abdominal pain but does feel her pain has improved since admission. Continue IV fluids. Continue analgesics and antiemetics as needed. Appreciate GI input. Advance to clear liquid diet today. (3) Alcoholic hepatitis: Qualifiers: Ascites presence: without ascites Qualified Code(s): K70.10 - Alcoholic hepatitis without ascites Code(s): K70.10 - Alcoholic hepatitis without ascites Status: Acute Assessment and Plan: Acute on chronic alcoholic hepatitis is likely secondary to recent binge drinking. LFTs are elevated but improving. Hepatitis panel was negative. CT abd/pelvis revealed unremarkable gallbladder and hepatic steatosis. GI is on board and input is appreciated. (4) Alcohol abuse: Code(s): F10.10 - Alcohol abuse, uncomplicated Status: Acute Assessment and Plan: CIWA is elevated but improving. Tremors have resolved and she feels much less anxious. Continue PO librium and begin taper. Continue ativan PRN withdrawal despite librium. Continue folic acid and thiamine supplementation. I have discussed the risks of continued alcohol use including . I spoke with the patient again for 20 minutes today regarding the risks including liver failure, cancer, adverse cardiac outcomes, and . The patient has expressed the desire to quit drinking. Care coordination met with her to discuss services available to aid in alcohol cessation. She is considering outpatient vs inpatient treatment. She went to [place] in the past. (5) Dehydration: Code(s): E86.0 - Dehydration Status: Acute Assessment and Plan: Continue IV hydration. Monitor urine output. (6) Nausea and vomiting: Qualifiers: Vomiting Intractability: non-intractable Vomiting type: unspecified Qualified Code(s): R11.2 - Nausea with vomiting, unspecified Code(s): R11.2 - Nausea with vomiting, unspecified Status: Acute Assessment and Plan: Secondary to metabolic acidosis and pancreatitis. GI is on board and input is appreciated. Plan to advance to a clear liquid diet for today. (7) Chest pain: Code(s): R07.9 - Chest pain, unspecified Status: Acute Assessment and Plan: Resolved. STAT EKG and troponin were negative for acute ischemia. CXR was negative for acute abnormality. She feels that this may have been her anxiety or abdominal pain after further questioning. This episode does not seem consistent with ACS. Plan to order echocardiogram for further evaluation. Continue to monitor closely for any new symptoms. (8) Abdominal pain: Qualifiers: Abdominal location: epigastric Qualified Code(s): R10.13 - Epigastric pain Code(s): R10.9 - Unspecified abdominal pain Status: Acute Assessment and Plan: Pain is improving today. Possibly secondary to pancreatitis. Lipase has normalized. Plan to order RUQ US. GI is on board. Continue analgesics PRN. Additional considerations include PUD/esophagitis/gastritis. Continue protonix and will increas
[2020-03-26 13:03] LABS: Potassium 3.3 mmol/L (3.4-5.0)
--- NOTE | 2020-03-26 14:56 | PC.NURSE ---
SUHAIL Rojo notified that during ambulation, patient experienced heart rate of 160. At rest, patient returned to rate of 119. Patient denies chest pain, dizziness, or shortness of breath. Will continue to monitor closely.
[2020-03-26 15:23] LABS: D Dimer 0.71 ug/mL (<0.48)
[2020-03-26 22:07] LABS: Amphetamine Screen Urine Negative (Negative); Barbiturate Screen Urine Negative (Negative); Benzodiazepines Screen Urine Positive (Negative); Cannabinoid Screen Urine Negative (Negative); Cocaine Screen Urine Negative (Negative); Methadone Screen Urine Negative (Negative); Opiate Screen Urine Positive (Negative); Phencyclidine Screen Urine Negative (Negative)
[2020-03-27] VITALS (14 sets, daily range): BP systolic 105–136; BP diastolic 63–87; PULSE 87–144; RESP 18–20; TEMP 36–36.9; O2SAT 98–100
[2020-03-27] MEDS: MORPHINE SULFATE 4 MG/ML INJ IV PUSH ×7 (00:08→23:47)
[2020-03-27 00:44] LABS: Glucose Point of Care 91 (65-105)
[2020-03-27 05:01] LABS: Hematocrit 33.1 % (37.0-47.0); Hemoglobin 11.9 g/dL (12.0-15.0); Immature Platelet Fraction Pct 6.1 % (0.9-11.2); Mean Corpuscular Hemoglobin 33.6 pg (26-34); Mean Corpuscular Volume 93.5 fl (80-100); Mean Platelet Volume 10.2 fl (7.4-10.4); Platelet Count Result 53 k/mm3 (150-375); Red Blood Count 3.54 M/mm3 (4.2-5.4); Red Cell Distribution Width 12.2 % (11.5-14.5); White Blood Count 2.5 K/mm3 (4.5-10.0)
[2020-03-27 05:29] LABS: Alanine Aminotransferase 61 U/L (4-35); Albumin Level 3.7 g/dL (3.5-5.1); Alkaline Phosphatase 65 U/L (38-126); Anion Gap 4 mmol/L (8-16); Aspartate Amino Transferase 100 U/L (14-36); Bilirubin,Total 1.6 mg/dL (0.2-1.3); Calcium 8.6 mg/dL (8.4-10.2); Carbon Dioxide 28 mmol/L (22-30); Chloride 103 mmol/L (98-107); Estimated CRCL calculation 131 ml/min; Estimated Glomerular Filt Rate > 60; Glucose 93 mg/dL (65-105); Phosphorus 1.3 mg/dL (2.5-4.5); Potassium 3.2 mmol/L (3.4-5.0); Sodium 135 mmol/L (137-145)
[2020-03-27 05:41] LABS: Blood Urea Nitrogen < 2 mg/dL (7-17)
[2020-03-27 06:08] LABS: Glucose Point of Care 110 (65-105)
[2020-03-27] MEDS: chlordiazePOXIDE 25 MG CAPSULE 50 MG PO (06:51)
[2020-03-27 08:53] LABS: Glucose Point of Care 79 (65-105)
[2020-03-27] MEDS: PANTOPRAZOLE SODIUM IV 40 MG VIAL IV PUSH ×2 (08:53→17:21)
[2020-03-27] MEDS: THIAMINE HCL 200 MG/2 ML VIAL 100 MG IV PUSH (08:53)
[2020-03-27] MEDS: GABAPENTIN 400 MG CAPSULE 800 MG PO ×3 (08:53→17:22)
--- NOTE | 2020-03-27 08:53 | WPDGIPROGNO ---
Progress Note: A&P Additional Plan Patient continues to complain of abdominal pain in several locations. Left rib margin left lower quadrant mid abdomen. The etiology of this remains unclear. She denies any ongoing nausea in fact is quite hungry today. Physical exam reveals her to be alert. Vital signs stable. PE she is anicteric. Afebrile. Lungs are clear. Heart without murmur. Abdomen bowel sounds are present soft she reports some discomfort in the left side of her abdomen. Poorly localized. No organomegaly or masses evident. Digital rectal exam deferred today. Labs reveal total bilirubin 1.6, AST 100, ALT 61, alk-phos 65. Ultrasound and CT of the abdomen reveal no evidence for pancreatitis. Lipase remains normal. Hepatic steatosis evident. Impression 1. Alcohol abuse. Patient with long history of alcoholic hepatitis. She continues to drink as an outpatient. Plan is to strongly encourage alcohol rehab. 2. Alcoholic hepatitis. Elevated LFTs are consistent with this. Main treatment is alcohol avoidance at this point. 3. Abdominal pain. This appears nonspecific. Some of this pain may be related to her rib discomfort. Supportive care is encouraged at this time. No evidence of ongoing pancreatitis. Plan to advance diet as tolerated. Subjective Date/time seen: 03/27/20 08:53 Objective Data Vital Signs Vital Signs: Vital Signs - 24 hr 03/26/20 10:00 03/26/20 10:38 03/26/20 12:00 Temperature 97.1 F L Pulse Rate 113 H 99 Pulse Rate [Bilateral Pedal (Dorsalis Pedis) Palpation] Pulse Rate [Monitor] 122 H 99 Respiratory Rate 22 H Blood Pressure 131/90 Pulse Oximetry 96 03/26/20 14:00 03/26/20 16:00 03/26/20 18:00 Temperature 98.1 F Pulse Rate 120 H 136 H 136 H Pulse Rate [Bilateral Pedal (Dorsalis Pedis) Palpation] Pulse Rate [Monitor] 131 H Respiratory Rate 20 Blood Pressure 145/88 H Pulse Oximetry 100 03/26/20 20:00 03/26/20 22:00 03/27/20 00:00 Temperature 97.9 F 98 F Pulse Rate 112 H 103 H 102 H Pulse Rate [Bilateral Pedal (Dorsalis Pedis) Palpation] 110 H Pulse Rate [Monitor] 105 H Respiratory Rate 16 18 Blood Pressure 136/93 H 114/63 Pulse Oximetry 99 100 03/27/20 01:58 03/27/20 04:00 03/27/20 04:36 Temperature 97.8 F Pulse Rate 103 H 102 H Pulse Rate [Bilateral Pedal (Dorsalis Pedis) Palpation] 113 H Pulse Rate [Monitor] Respiratory Rate 18 Blood Pressure 110/77 Pulse Oximetry 100 03/27/20 06:00 Temperature Pulse Rate 97 Pulse Rate [Bilateral Pedal (Dorsalis Pedis) Palpation] Pulse Rate [Monitor] Respiratory Rate Blood Pressure Pulse Oximetry Intake/Output Intake/Output: Intake & Output 03/24/20 03/25/20 03/26/20 03/27/20 23:59 23:59 23:59 23:59 Intake Total 4950 4426 1820 Output Total 853 2300 1800 Balance 4097 2126 20 Meds/Results Medications: Active Medications Generic Name Dose Route Start Last Admin Trade Name Freq PRN Reason Stop Dose Admin Acetaminophen 650 mg 03/25/20 04:46 Tylenol Tablet PO Q4H PRN Mild Pain (1-3) or Fever Hydrocodone Bitart/Acetaminophen 1 tab 03/25/20 04:46 [place] 5-325 Mg PO Q4H PRN Pain Rated 4-6 Chlordiazepoxide HCl 50 mg 03/26/20 14:00 03/27/20 06:51 Librium Po PO 50 mg Q8HR TIFFANIE Administration Folic Acid 1 mg 03/25/20 09:00 03/26/20 10:39 Folic Acid PO 1 mg DAILY TIFFANIE Administration Gabapentin 800 mg 03/25/20 13:00 03/26/20 16:52 Neurontin PO 800 mg TID TIFFANIE Administration Sodium Chloride 1,000 mls @ 65 mls/hr 03/26/20 05:45 03/27/20 06:50 Normal Saline Iv IV CONT 65 mls/hr .[id number] TIFFANIE Infusion Lorazepam 1 mg 03/25/20 05:26 03/27/20 04:39 Ativan Inj IV PUSH 1 mg Q4H PRN Administration Withdrawal Morphine Sulfate 4 mg 03/25/20 04:46 03/27/20 07:44 Morphine Sulfate Inj IV PUSH 4 mg Q2H PRN Administration Pain Rated 7-10 Nitroglycerin
[2020-03-27] MEDS: POTASSIUM CHLORIDE 20 MEQ TABLET 40 MEQ PO (08:54)
[2020-03-27] MEDS: FOLIC ACID 1 MG TABLET PO (08:54)
--- NOTE | 2020-03-27 10:01 | PM.IMPN ---
Progress Note: A&P Assessment and Plan (1) Alcoholic ketoacidosis: Code(s): E87.2 - Acidosis Status: Resolved Assessment and Plan: Resolved. Anion gap was 28 at presentation. The patient reports a history of binge drinking alcohol and not eating over the past week. Anion gap has closed. Continue to monitor BMP daily. (2) Pancreatitis, alcoholic, acute: Qualifiers: Acute pancreatitis complication: no infection or necrosis Qualified Code(s): K85.20 - Alcohol induced acute pancreatitis without necrosis or infection Code(s): K85.20 - Alcohol induced acute pancreatitis without necrosis or infection Status: Acute Assessment and Plan: Secondary to alcohol use. She was recently treated for pancreatitis in December. Lipase was elevated at 562 and has normalized. She is passing gas. Nausea and vomiting have resolved. She still has pain. Continue IV fluids. Continue analgesics and antiemetics as needed. Appreciate GI input. Advance diet as tolerated. Resume creon. (3) Alcoholic hepatitis: Qualifiers: Ascites presence: without ascites Qualified Code(s): K70.10 - Alcoholic hepatitis without ascites Code(s): K70.10 - Alcoholic hepatitis without ascites Status: Acute Assessment and Plan: Acute on chronic alcoholic hepatitis is likely secondary to recent binge drinking. LFTs are elevated but improving. Hepatitis panel was negative. CT abd/pelvis revealed unremarkable gallbladder and hepatic steatosis. GI is on board and input is appreciated. (4) Alcohol abuse: Code(s): F10.10 - Alcohol abuse, uncomplicated Status: Acute Assessment and Plan: Last drink was late Sat night/early morning. Continue CIWA protocol. Continue PO librium and continue taper. Continue ativan PRN withdrawal despite librium. Continue folic acid and thiamine supplementation. I have discussed the risks of continued alcohol use including liver failure, cancer, adverse cardiac outcomes, and . The patient has expressed the desire to quit drinking. Care coordination met with her to discuss services available to aid in alcohol cessation. She is considering outpatient vs inpatient treatment. She went to [place] in the past. Continue to encourage alcohol cessation program at discharge. (5) Dehydration: Code(s): E86.0 - Dehydration Status: Acute Assessment and Plan: Continue gentle IV hydration. Decrease rate as she is tolerating PO intake well. Monitor urine output. (6) Nausea and vomiting: Qualifiers: Vomiting type: unspecified Vomiting Intractability: non-intractable Qualified Code(s): R11.2 - Nausea with vomiting, unspecified Code(s): R11.2 - Nausea with vomiting, unspecified Status: Resolved Assessment and Plan: Resolved. Secondary to metabolic acidosis and pancreatitis. GI is on board and input is appreciated. She is tolerating clear liquid diet and diet will be advanced as tolerated. Continue zofran PRN nausea and vomiting. (7) Chest pain: Code(s): R07.9 - Chest pain, unspecified Status: Acute Assessment and Plan: Resolved. STAT EKG and troponin were negative for acute ischemia. CXR was negative for acute abnormality. She feels that this may have been her anxiety or abdominal pain after further questioning. This episode does not seem consistent with ACS. Echocardiogram was ordered and is pending. CTA chest revealed cardiomegaly, possibly secondary to alcohol use. Continue to monitor closely for any new symptoms. (8) Abdominal pain: Qualifiers: Abdominal location: epigastric Qualified Code(s): R10.13 - Epigastric pain Code(s): R10.9 - Unspecified abdominal pain Status: Acute Assessment and Plan: Pain continues to improve. Possibly secondary to pancreatitis. Lipase has normalized. Additional considerations include PUD/esophagitis/
[2020-03-27] MEDS: POTASSIUM PHOS/SODIUM PHOS 250 MG TABLET PO (10:24)
[2020-03-27] MEDS: SODIUM CHLORIDE 0.9% IV 1,000 ML 65 ML IV CONT (12:09)
[2020-03-27 12:43] LABS: Glucose Point of Care 120 (65-105)
[2020-03-27] MEDS: LIPASE/AMYLASE/PROTEASE 12,000 UNITS CAP 2 CAP PO ×2 (13:06→17:22)
[2020-03-27] MEDS: chlordiazePOXIDE 25 MG CAPSULE PO ×2 (13:07→21:06)
[2020-03-27 16:35] LABS: Glucose Point of Care 127 (65-105)
[2020-03-27 19:57] LABS: Glucose Point of Care 135 (65-105)
[2020-03-27 23:23] LABS: Glucose Point of Care 103 (65-105)
[2020-03-28] VITALS (12 sets, daily range): BP systolic 114–138; BP diastolic 74–98; PULSE 89–112; RESP 12–18; TEMP 36–36.6; O2SAT 96–100
--- NOTE | 2020-03-28 | ECHO_ITS ---
Patient Info Name: Kamilla Christianson Age: 34 years : 1985 Gender: Female Ht: 64 in Wt: 159 lbs BSA: 1.82 m2 HR: 94 bpm BP: 114 / 74 mmHg Heart Rhythm: Sinus Rhythm Technical Quality: Good Exam Date: 03/28/2020 8:01 AM Exam Location: [facility] Patient Status: Inpatient Admit Date: 03/28/2020 Staff Ordering Physician: Ora Adamson PA-C Electronics Recycler: Kingsley Romo, ALVARO, RT Attending Provider: Ora Adamson PA-C Referring Physician: Snow HOPE; Exam Type: CA echo dop color flow w con Study Info Indications R07.89 - Other chest pain Complete two-dimensional, color flow and Doppler transthoracic echocardiogram is performed with contrast to opacify the left ventricle and to improve the deliniation of the left ventricle endocardial borders. Summary 1. Left ventricular systolic function is normal, estimated at 50-55%. 2. Definity contrast injected to enhance visualization. 3. There is trace tricuspid valve regurgitation. 4. Trace of tricuspid valve regurgitation is within physiologic normal limits. Left Ventricle Left ventricular chamber dimension is normal. Left ventricular systolic function is normal, estimated at 50-55%. Left ventricular septal wall motion is normal. The left ventricular diastolic function is normal. Definity contrast injected to enhance visualization. Right Ventricle Right ventricular chamber dimension is normal. Left Atria Left atrial chamber dimension is normal. Right Atria Right atrial chamber dimension is normal. Aortic Valve The aortic valve is normal. Pulmonic Valve The pulmonic valve is normal. Mitral Valve The mitral valve has normal leaflets. Tricuspid Valve The tricuspid valve leaflets are normal. There is trace tricuspid valve regurgitation. Trace of tricuspid valve regurgitation is within physiologic normal limits. Pericardium/Pleural The pericardium appears normal. Aorta The aortic root size at the sinus of Valsalva is normal. Left Ventricular Outflow Tract Name Value Normal LVOT 2D LVOT Diameter 1.98 cm LVOT Doppler LVOT Peak Gradient 3 mmHg LVOT Mean Gradient 2 mmHg LVOT VTI 18.95 cm LVOT VTI/AV VTI Ratio 0.95 LVOT Stroke Volume 58.54 ml LVOT CO 5.41 l/min LVOT CI 2.97 L/min/m2 Mitral Valve Name Value Normal MV Doppler MV Decel [place] 562.59 cm/s2 MV PHT 0 s MV Area (PHT) 5.42 cm2 4.00-5.00 MV Diastolic Function MV E Peak Velocity 78.69 cm/s MV A Peak Veloci
[2020-03-28] MEDS: SODIUM CHLORIDE 0.9% IV 1,000 ML 65 ML IV CONT (02:47)
[2020-03-28] MEDS: MORPHINE SULFATE 4 MG/ML INJ IV PUSH (04:33)
[2020-03-28] MEDS: chlordiazePOXIDE 25 MG CAPSULE PO (05:42)
[2020-03-28 05:45] LABS: Basophils Percent Auto 1.7 % (0.2-1.2); Eosinophils Absolute Auto 0.1 K/mm3 (0-0.3); Eosinophils Percent Auto 4.5 % (0-4.4); Hematocrit 29.1 % (37.0-47.0); Hemoglobin 10.5 g/dL (12.0-15.0); Immature Granulocyte Absolute 0.01 K/mm3 (0.00-0.031); Immature Granulocyte Percent A 0.4 % (0-0.5); Immature Platelet Fraction Pct 9.7 % (0.9-11.2); Lymphocytes Absolute Auto 0.95 K/mm3 (0.9-3.2); Lymphocytes Percent Auto 39.3 % (18.3-44.2); Mean Corpuscular HGB Conc 36.1 g/dl (32-36); Mean Corpuscular Hemoglobin 33.8 pg (26-34); Mean Corpuscular Volume 93.6 fl (80-100); Mean Platelet Volume 11.6 fl (7.4-10.4); Monocytes Absolute Auto 0.2 K/mm3 (0.1-0.6); Monocytes Percent Auto 7.4 % (2.6-8.5); Neutrophils Absolute Auto 1.1 K/mm3 (1.3-6.7); Neutrophils Percent Auto 46.7 % (45.5-73.1); Platelet Count Result 48 k/mm3 (150-375); Red Blood Count 3.11 M/mm3 (4.2-5.4); Red Cell Distribution Width 12.3 % (11.5-14.5); White Blood Count 2.4 K/mm3 (4.5-10.0)
[2020-03-28 06:03] LABS: Alanine Aminotransferase 98 U/L (4-35); Albumin Level 3.5 g/dL (3.5-5.1); Alkaline Phosphatase 78 U/L (38-126); Anion Gap 5 mmol/L (8-16); Aspartate Amino Transferase 183 U/L (14-36); Bilirubin,Total 0.9 mg/dL (0.2-1.3); Calcium 8.8 mg/dL (8.4-10.2); Carbon Dioxide 29 mmol/L (22-30); Chloride 101 mmol/L (98-107); Estimated CRCL calculation 115 ml/min; Estimated Glomerular Filt Rate > 60; Glucose 101 mg/dL (65-105); Magnesium 1.6 mg/dL (1.6-2.3); Potassium 3.6 mmol/L (3.4-5.0); Sodium 135 mmol/L (137-145)
[2020-03-28 06:14] LABS: Blood Urea Nitrogen < 2 mg/dL (7-17)
[2020-03-28] MEDS: PERFLUTREN LIPID MICROSPHERES 1.5 ML VIAL DILUTED TO 10 ML TOTAL VOLUME IV PUSH (08:27)
[2020-03-28] MEDS: FOLIC ACID 1 MG TABLET PO (09:20)
[2020-03-28] MEDS: LIPASE/AMYLASE/PROTEASE 12,000 UNITS CAP 2 CAP PO ×3 (09:20→18:10)
[2020-03-28] MEDS: GABAPENTIN 400 MG CAPSULE 800 MG PO ×3 (09:20→18:10)
[2020-03-28] MEDS: PANTOPRAZOLE SODIUM IV 40 MG VIAL IV PUSH ×2 (09:21→18:10)
[2020-03-28] MEDS: THIAMINE HCL 200 MG/2 ML VIAL 100 MG IV PUSH (09:21)
--- NOTE | 2020-03-28 10:51 | WPDGIPROGNO ---
Progress Note: A&P Additional Plan Patient remains anxious this morning. Now tolerating diet without difficulty. She continues to report discomfort on the Left chest rib margin. physical exam reveals Vital Mel signs to be stable. HEENT exam unremarkable she is anicteric. Lungs are clear. Heart without murmur. Abdomen soft some tenderness at the left rib margin noted. No masses evident. Labs WBC 2.4, hemoglobin 10.5, platelets 48 K. impression 1. Alcoholism. 2. Alcoholic liver disease. Patient known to have alcoholic hepatitis. May have significant alcohol dysfunction given splenomegaly seen on CT scan. Early cirrhosis cannot be excluded. 3. Pancytopenia. Likely related to alcoholic liver disease. 4. Abdominal pain. The CT scan unremarkable at this time. No obvious etiology for pain. May be related to rib pain. Plan is for supportive care. Alcohol avoidance is strongly encourage. Appears as though pancreatitis is resolved at this time. Would advance diet as tolerated try to limit narcotic medications. Subjective Date/time seen: 03/28/20 10:51 Objective Data Vital Signs Vital Signs: Vital Signs - 24 hr 03/27/20 12:00 03/27/20 14:10 03/27/20 16:00 Temperature 97.2 F L 96.9 F L Pulse Rate 118 H 144 H 106 H Pulse Rate [Bilateral Pedal (Dorsalis Pedis) Palpation] Pulse Rate [Monitor] Respiratory Rate 18 18 Blood Pressure 123/81 136/81 Pulse Oximetry 98 100 03/27/20 18:10 03/27/20 20:00 03/27/20 21:56 Temperature 97.7 F Pulse Rate 125 H 124 H 124 H Pulse Rate [Bilateral Pedal (Dorsalis Pedis) Palpation] 113 H Pulse Rate [Monitor] 124 H Respiratory Rate 18 Blood Pressure 105/82 Pulse Oximetry 100 03/27/20 23:45 03/28/20 00:00 03/28/20 02:00 Temperature 96.8 F L Pulse Rate 104 H 112 H 107 H Pulse Rate [Bilateral Pedal (Dorsalis Pedis) Palpation] Pulse Rate [Monitor] 112 H Respiratory Rate 18 18 Blood Pressure 115/76 115/76 Pulse Oximetry 100 100 03/28/20 03:51 03/28/20 04:00 03/28/20 06:00 Temperature 96.8 F L Pulse Rate 107 H 89 94 Pulse Rate [Bilateral Pedal (Dorsalis Pedis) Palpation] Pulse Rate [Monitor] 107 H Respiratory Rate 18 18 Blood Pressure 115/76 114/74 Pulse Oximetry 100 98 03/28/20 07:03 Temperature 97.8 F Pulse Rate 90 Pulse Rate [Bilateral Pedal (Dorsalis Pedis) Palpation] Pulse Rate [Monitor] Respiratory Rate 18 Blood Pressure 128/81 Pulse Oximetry 96 Intake/Output Intake/Output: Intake & Output 03/25/20 03/26/20 03/27/20 03/28/20 23:59 23:59 23:59 23:59 Intake Total 4950 4494 4390 1240 Output Total 853 2300 5400 3100 Balance 4097 [id number] -[id number] -[id number] Meds/Results Medications: Active Medications Generic Name Dose Route Start Last Admin Trade Name Freq PRN Reason Stop Dose Admin Acetaminophen 650 mg 03/25/20 04:46 Tylenol Tablet PO Q4H PRN Mild Pain (1-3) or Fever Hydrocodone Bitart/Acetaminophen 1 tab 03/25/20 04:46 03/28/20 09:21 [place] 5-325 Mg PO 1 tab Q4H PRN Administration Pain Rated 4-6 Lipase/Protease/Amylase 2 cap 03/27/20 13:00 03/28/20 09:[address] 12,000 Units Capsule PO 04/26/20 13:01 2 cap TID TIFFANIE Administration Chlordiazepoxide HCl 10 mg 03/28/20 14:00 Librium Po PO Q8HR TIFFANIE Folic Acid 1 mg 03/25/20 09:00 03/28/20 09:20 Folic Acid PO 1 mg DAILY TIFFANIE Administration Gabapentin 800 mg 03/25/20 13:00 03/28/20 09:20 Neurontin PO 800 mg TID TIFFANIE Administration Lorazepam 1 mg 03/25/20 05:26 03/28/20 09:32 Ativan Inj IV PUSH 1 mg Q4H PRN Administration Withdrawal Morphine Sulfate 4 mg 03/25/20 04:46 03/28/20 04:33 Morphine Sulfate Inj IV PUSH 4 mg Q2H PRN Administration Pain Rated 7-10 Nitroglycerin 0.4 mg 03/26/20 04:53 03/26/20 05:07 Nitrostat Subl 0.4 Mg (1/150) SUBLINGUAL 0.4 mg Q5MIN PRN Administration Chest Pain Ondansetron HCl 4 mg
--- NOTE | 2020-03-28 12:02 | PM.IMPN ---
Progress Note: A&P Assessment and Plan (1) Abdominal pain: Qualifiers: Abdominal location: epigastric Qualified Code(s): R10.13 - Epigastric pain Code(s): R10.9 - Unspecified abdominal pain Status: Acute Assessment and Plan: She reports that pain is worse today. She is tolerating a regular diet without nausea or vomiting and had a documented bowel movement. Possibly secondary to pancreatitis although lipase normalized. Additional considerations include PUD/esophagitis/gastritis. She has not eaten solid food for approximately 1 week as she was binge drinking only alcohol prior to admission. CT abd/pelvis at admission and RUQ US were unremarkable. GI is on board. Continue analgesics PRN. Continue protonix IV BID. She is no longer having nausea or vomiting and tolerated clear liquid diet well. Will repeat CT abd/pelvis since she is complaining of very severe pain with tenderness to the LUQ. (2) Pancreatitis, alcoholic, acute: Qualifiers: Acute pancreatitis complication: no infection or necrosis Qualified Code(s): K85.20 - Alcohol induced acute pancreatitis without necrosis or infection Code(s): K85.20 - Alcohol induced acute pancreatitis without necrosis or infection Status: Acute Assessment and Plan: Secondary to alcohol use. She was recently treated for pancreatitis in December. Lipase was elevated at 562 and has normalized. She is passing gas and had a bowel movement. Nausea and vomiting have resolved. She still has pain. Recheck lipase. Continue IV fluids. Continue analgesics and antiemetics as needed. Appreciate GI input. Advance diet as tolerated. Resume creon. (3) Alcoholic hepatitis: Qualifiers: Ascites presence: without ascites Qualified Code(s): K70.10 - Alcoholic hepatitis without ascites Code(s): K70.10 - Alcoholic hepatitis without ascites Status: Acute Assessment and Plan: Acute on chronic alcoholic hepatitis is likely secondary to recent binge drinking. LFTs are elevated but improving. Hepatitis panel was negative. CT abd/pelvis revealed unremarkable gallbladder and hepatic steatosis. GI is on board and input is appreciated. (4) Alcohol abuse: Code(s): F10.10 - Alcohol abuse, uncomplicated Status: Acute Assessment and Plan: Last drink was late Sat night/early morning. Continue CIWA protocol. Continue PO librium with taper. Continue ativan PRN withdrawal despite librium. Continue folic acid and thiamine supplementation. I have discussed the risks of continued alcohol use including liver failure, cancer, adverse cardiac outcomes, and . The patient has expressed the desire to quit drinking. Care coordination met with her to discuss services available to aid in alcohol cessation. She is considering outpatient vs inpatient treatment. She went to [place] in the past. Continue to encourage alcohol cessation program at discharge. (5) Dehydration: Code(s): E86.0 - Dehydration Status: Resolved Assessment and Plan: She was rehydrated with IV fluids and she is now tolerating PO intake well. Discontinue IV fluids. (6) Nausea and vomiting: Qualifiers: Vomiting Intractability: non-intractable Vomiting type: unspecified Qualified Code(s): R11.2 - Nausea with vomiting, unspecified Code(s): R11.2 - Nausea with vomiting, unspecified Status: Resolved Assessment and Plan: Resolved. Secondary to metabolic acidosis and pancreatitis. GI is on board and input is appreciated. She is tolerating a regular diet. Continue zofran PRN nausea and vomiting. (7) Chest pain: Code(s): R07.9 - Chest pain, unspecified Status: Acute Assessment and Plan: Resolved. STAT EKG and troponin were negative for acute ischemia. CXR was negative for acute abnormality. She feels that this may have been her anxiety or abdominal pain after further que
[2020-03-28] MEDS: MORPHINE SULFATE 2 MG/ML INJ IV PUSH (12:23)
[2020-03-28 12:25] LABS: Glucose Point of Care 101 (65-105)
[2020-03-28 12:25] LABS: Lipase 108 U/L (23-300)
[2020-03-28 12:30] LABS: Phosphorus 2.1 mg/dL (2.5-4.5)
[2020-03-28] MEDS: chlordiazePOXIDE 10 MG CAPSULE PO ×2 (13:33→21:12)
[2020-03-28] MEDS: POTASSIUM PHOS/SODIUM PHOS 250 MG TABLET PO (18:09)
[2020-03-29 05:15] LABS: Basophils Percent Auto 1.1 % (0.2-1.2); Eosinophils Absolute Auto 0.1 K/mm3 (0-0.3); Eosinophils Percent Auto 5.2 % (0-4.4); Hemoglobin 11.1 g/dL (12.0-15.0); Immature Platelet Fraction Pct 10.3 % (0.9-11.2); Lymphocytes Absolute Auto 0.82 K/mm3 (0.9-3.2); Lymphocytes Percent Auto 30.6 % (18.3-44.2); Mean Corpuscular HGB Conc 35.8 g/dl (32-36); Mean Corpuscular Hemoglobin 33.4 pg (26-34); Mean Corpuscular Volume 93.4 fl (80-100); Monocytes Absolute Auto 0.3 K/mm3 (0.1-0.6); Monocytes Percent Auto 9.3 % (2.6-8.5); Neutrophils Absolute Auto 1.4 K/mm3 (1.3-6.7); Neutrophils Percent Auto 53.8 % (45.5-73.1); Platelet Count Result 75 k/mm3 (150-375); Red Blood Count 3.32 M/mm3 (4.2-5.4); Red Cell Distribution Width 12.1 % (11.5-14.5); White Blood Count 2.7 K/mm3 (4.5-10.0)
[2020-03-29 05:29] LABS: Magnesium 1.7 mg/dL (1.6-2.3); Phosphorus 4.3 mg/dL (2.5-4.5)
[2020-03-29 05:31] LABS: Alanine Aminotransferase 114 U/L (4-35); Albumin Level 4.1 g/dL (3.5-5.1); Alkaline Phosphatase 103 U/L (38-126); Anion Gap 7 mmol/L (8-16); Aspartate Amino Transferase 144 U/L (14-36); Bilirubin,Total 0.7 mg/dL (0.2-1.3); Blood Urea Nitrogen 4 mg/dL (7-17); Calcium 9.5 mg/dL (8.4-10.2); Carbon Dioxide 31 mmol/L (22-30); Chloride 98 mmol/L (98-107); Estimated CRCL calculation 114 ml/min; Estimated Glomerular Filt Rate > 60; Glucose 110 mg/dL (65-105); Potassium 3.3 mmol/L (3.4-5.0); Sodium 136 mmol/L (137-145)
[2020-03-29 08:23] VITALS: BP 128/101; PULSE 78; RESP 20; TEMP 36.1; O2SAT 100
[2020-03-29] MEDS: FOLIC ACID 1 MG TABLET PO (08:36)
[2020-03-29] MEDS: GABAPENTIN 400 MG CAPSULE 800 MG PO ×3 (08:36→17:49)
[2020-03-29] MEDS: LIPASE/AMYLASE/PROTEASE 12,000 UNITS CAP 2 CAP PO ×3 (08:36→17:50)
[2020-03-29] MEDS: POTASSIUM CHLORIDE 20 MEQ TABLET PO (09:18)
[2020-03-29] MEDS: THIAMINE HCL 100 MG TABLET PO (09:18)
[2020-03-29] MEDS: PANTOPRAZOLE 40 MG TABLET PO ×2 (09:18→20:28)
--- NOTE | 2020-03-29 11:08 | WPDGIPROGNO ---
Progress Note: A&P Additional Plan Patient is quite anxious this morning. Continues to complain of pain at the left rib margin. Physical exam reveals her vital signs to be stable. Lungs are clear. Heart without murmur. She is tender when palpating the left rib margin. Abdomen appears benign. Labs reveal repeat CT scan of on remarkable findings. No significant intra-abdominal pathology described. Impression 1. Anxiety. Management per primary care service. 2. Elevated LFTs. Consistent with alcoholic hepatitis. Strongly encouraged alcohol avoidance. 3. Alcohol abuse. This been a longstanding problem. Alcohol rehab strongly encouraged 4. History of pancreatitis secondary to alcohol use. This is not evident at this time. CT scan unremarkable lipase normal. 5. Pancytopenia. Likely related alcoholic liver disease. Cannot exclude bone marrow suppression and splenomegaly contributing to this finding. Once again she needs to avoid alcohol 6. Left rib pain. Patient has various aches and pains. Supportive care advised. Try to limit narcotics if at all possible. This likely is aggravated by her significant anxiety. Subjective Date/time seen: 03/29/20 11:08 Objective Data Vital Signs Vital Signs: Vital Signs - 24 hr 03/28/20 12:00 03/28/20 16:00 03/28/20 20:00 Temperature 97.6 F 97.1 F L Pulse Rate 99 95 95 Respiratory Rate 12 12 12 Blood Pressure 138/98 H 133/93 H 133/93 H Pulse Oximetry 100 100 100 03/28/20 23:40 03/29/20 08:23 Temperature 97.9 F 97.0 F L Pulse Rate 97 78 Respiratory Rate 18 20 Blood Pressure 125/82 128/101 H Pulse Oximetry 100 100 Intake/Output Intake/Output: Intake & Output 03/26/20 03/27/20 03/28/20 03/29/20 23:59 23:59 23:59 23:59 Intake Total 4426 4390 2220 480 Output Total 2300 5400 5100 2300 Balance 4963 -7192 -9650 -1067 Meds/Results Medications: Active Medications Generic Name Dose Route Start Last Admin Trade Name Freq PRN Reason Stop Dose Admin Acetaminophen 650 mg 03/25/20 04:46 Tylenol Tablet PO Q4H PRN Mild Pain (1-3) or Fever Hydrocodone Bitart/Acetaminophen 1 tab 03/25/20 04:46 03/29/20 08:36 [place] 5-325 Mg PO 1 tab Q4H PRN Administration Pain Rated 4-6 Lipase/Protease/Amylase 2 cap 03/27/20 13:00 03/29/20 08:[address] 12,000 Units Capsule PO 04/26/20 13:01 2 cap TID TIFFANIE Administration Chlordiazepoxide HCl 5 mg 03/29/20 01:00 Librium Po PO Q8H PRN CIWA >8, anxiety Folic Acid 1 mg 03/25/20 09:00 03/29/20 08:36 Folic Acid PO 1 mg DAILY TIFFANIE Administration Gabapentin 800 mg 03/25/20 13:00 03/29/20 08:36 Neurontin PO 800 mg TID TIFFANIE Administration Lorazepam 1 mg 03/25/20 05:26 03/29/20 09:26 Ativan Inj IV PUSH 1 mg Q4H PRN Administration Withdrawal Nitroglycerin 0.4 mg 03/26/20 04:53 03/26/20 05:07 Nitrostat Subl 0.4 Mg (1/150) SUBLINGUAL 0.4 mg Q5MIN PRN Administration Chest Pain Ondansetron HCl 4 mg 03/25/20 04:46 03/25/20 18:27 Zofran Inj IV PUSH 4 mg Q4H PRN Administration Nausea Pantoprazole Sodium 40 mg 03/29/20 09:00 03/29/20 09:18 Protonix PO 40 mg Q12HR TIFFANIE Administration Thiamine HCl 100 mg 03/29/20 09:00 03/29/20 09:18 Vitamin B-1 PO 100 mg QAM TIFFANIE Administration Radiology Results: ITS Impressions Chest X-Ray 03/26/20 10:36 IMPRESSION: 1. No acute cardiopulmonary disease. Upper Quadrant Ultrasound 03/26/20 15:37 IMPRESSION: 1: 5 mm gallbladder polyp. 2: Borderline sized common bile duct measuring 7 mm, unchanged. 3: Hepatic steatosis. Chest CTA 03/26/20 18:34 IMPRESSION: 1. No evidence for pulmonary embolism. 2: Possible left breast mass. Correlation with diagnostic mammogram and ultrasound recommended. 3: Cardiomegaly. 4: Hepatomegaly with fatty infiltration of the liver. Breast Ultrasound 03/28/20 10:03 MARILEEES
[2020-03-29 14:25] LABS: Iron 74 ug/dL (37-170)
[2020-03-29 14:34] LABS: Percent Iron Saturation 31 % (20-50)
[2020-03-29 15:20] LABS: Folic Acid 13.5 ng/mL (2.76->20)
[2020-03-29 16:54] VITALS: BP 109/67; PULSE 115; RESP 20; TEMP 35.9; O2SAT 97
--- NOTE | 2020-03-29 17:06 | PM.IMPN ---
Progress Note: A&P Assessment and Plan (1) Abdominal pain: Qualifiers: Abdominal location: epigastric Qualified Code(s): R10.13 - Epigastric pain Code(s): R10.9 - Unspecified abdominal pain Status: Acute Assessment and Plan: She reports 8/10 diffuse abdominal pain. She is tolerating a regular diet without nausea or vomiting and had a documented bowel movement. Possibly secondary to pancreatitis although lipase normalized. Additional considerations include PUD/esophagitis/gastritis. CT abd/pelvis at admission and RUQ US were unremarkable. Continue analgesics PRN. Continue protonix IV BID. Repeat CT abd/pelvis was performed given acute pain and showed chronic mild splenomegaly and diffuse hepatic steatosis. Morphine has been discontinued. Continue p.o. [place] with limited use. Appreciate GI recommendations. (2) Pancreatitis, alcoholic, acute: Qualifiers: Acute pancreatitis complication: no infection or necrosis Qualified Code(s): K85.20 - Alcohol induced acute pancreatitis without necrosis or infection Code(s): K85.20 - Alcohol induced acute pancreatitis without necrosis or infection Status: Acute Assessment and Plan: Secondary to alcohol use. She was recently treated for pancreatitis in December. Lipase was elevated at 562 and has normalized. She is passing gas and had a bowel movement. She is tolerating regular diet. IV fluids have been discontinued. Continue analgesics and antiemetics as needed. Resume creon. (3) Alcoholic hepatitis: Qualifiers: Ascites presence: without ascites Qualified Code(s): K70.10 - Alcoholic hepatitis without ascites Code(s): K70.10 - Alcoholic hepatitis without ascites Status: Acute Assessment and Plan: Acute on chronic alcoholic hepatitis is likely secondary to recent binge drinking. LFTs are elevated but improving. Hepatitis panel was negative. CT abd/pelvis revealed hepatic steatosis. Complete alcohol cessation was discussed and encouraged; patient agrees. (4) Alcohol abuse: Code(s): F10.10 - Alcohol abuse, uncomplicated Status: Acute Assessment and Plan: Last drink was late Sat night/early morning. Continue CIWA protocol. Continue PO librium with taper. Continue ativan PRN. Continue folic acid and thiamine supplementation. I spent extensive time discussing with the patient the risks of continued alcohol use and importance of alcohol cessation. She understands the importance and is interested in quitting drinking. She is considering inpatient versus outpatient rehab. She has completed rehab and chest not in the past and will likely pursue this route. We will continue to discuss this throughout her stay. (5) Dehydration: Code(s): E86.0 - Dehydration Status: Resolved Assessment and Plan: Likely secondary to acute alcohol binge. She was rehydrated with IV fluids and she is now tolerating PO intake well. (6) Nausea and vomiting: Qualifiers: Vomiting type: unspecified Vomiting Intractability: non-intractable Qualified Code(s): R11.2 - Nausea with vomiting, unspecified Code(s): R11.2 - Nausea with vomiting, unspecified Status: Resolved Assessment and Plan: Resolved. Secondary to metabolic acidosis and pancreatitis.She is tolerating a regular diet. Continue zofran PRN nausea and vomiting. (7) Chest pain: Code(s): R07.9 - Chest pain, unspecified Status: Acute Assessment and Plan: Resolved. STAT EKG and troponin were negative for acute ischemia. CXR was negative for acute abnormality. She feels that this may have been her anxiety or abdominal pain after further questioning. This episode was consistent with ACS. Echo was ordered which revealed normal EF and trace physiologic TR. CTA chest revealed cardiomegaly, possibly secondary to alcohol use. She did not have any chest pain today. (8) Sinus tac
--- NOTE | 2020-03-29 17:41 | PDONCCN ---
HPI - Date of Consult Date/Time: 03/29/20 17:41 Requesting Physician: Caitlyn Oliver PA-C Primary Care Provider: Saida MakMD - Consult Narrative Reason for consult: Pancytopenia Narrative: Kamilla Christianson is a 34 year old female This is a pleasant 34-year-old slightly obese female with history of chronic alcoholism and alcohol-induced hepatitis. She came into the hospital with 5 days history of CVA epigastric and left upper quadrant pain. According to the patient she was sober for more than 100 days but started drinking more so since she got laid off and was quite depressed. She is currently complaining of severe pain requiring pain medication. She had off and on nausea and vomiting. She denies any fevers and chills. She she denies any lymph node enlargement. She denies any bleeding and bruising. Her labs [place] [address] WBC of 2.4. Hemoglobin was low at 10.5. She complain of tiredness and fatigue. Review of Systems - Review of Systems All systems reviewed & are unremarkable except as noted in HPI and bel - Neurologic Denies weakness [facility] Medical History: Medical History (Last Reviewed 03/26/20 @ 08:21 by Alberto Young MD) Alcoholic hepatitis Endometriosis Pancreatitis Surgical History: Surgical History (Last Reviewed 03/26/20 @ 08:21 by Alberto Young MD) Hx of laparoscopy Family History: Family History (Last Reviewed 03/26/20 @ 08:21 by Alberto Young MD) Grandparent Diabetes mellitus Father Diabetes mellitus - Social History Social History: Social History (Last Reviewed 03/26/20 @ 08:21 by Alberto Young MD) Gender Identity: Gender identity (if verbalized by the patient): Female Alcohol Use: Alcohol intake: current Substance Use: Substance use: never Substance use type: does not use Others: Spiritual care concerns: No Smoking Status: Smoking status: Current some day smoker Tobacco type: cigarettes Smoking Pack-years: Smoking cigarettes per day: 3 Years smoked: 10 Smoking pack-years: 1.50 Meds Home Medications Medication Instructions Recorded Confirmed Type gabapentin 800 mg PO TID 01/23/20 03/25/20 History sphqro-lustmrch-liiabte [Creon] 24,000 cap PO TID 03/25/20 03/25/20 History Allergies Allergy/AdvReac Type Severity Reaction Status Date / Time Penicillins Allergy Mild RASH Verified 03/24/20 23:35 Results - Labs CBC & Chem 7: 03/29/20 04:35 03/29/20 04:34 Labs: Short CBC 03/29/20 Range/Units 04:35 WBC 2.7 L (4.5-10.0) K/mm3 Hgb 11.1 L (12.0-15.0) g/dL Hct 31.0 L (37.0-47.0) % Plt Count 75 L D (150-375) k/mm3 BMP 03/29/20 04:34 Sodium 136 L Potassium 3.3 L Chloride 98 Carbon Dioxide 31 H BUN 4 L Creatinine 0.60 L Glucose 110 H Calcium 9.5 Liver Function 03/29/20 Range/Units 04:34 Total Bilirubin 0.7 (0.2-1.3) mg/dL AST 144 H (14-36) U/L ALT 114 H (4-35) U/L Alkaline Phosphatase 103 (38-126) U/L Albumin 4.1 (3.5-5.1) g/dL Assessment and Plan - Additional Plan Pancytopenia. This is a 34-year-old slightly obese female with history of alcohol abuse. She was also diagnosed with alcoholic hepatitis. She came into the hospital with significant midepigastric pain is started after drinking heavily. She denies any melena hematochezia but does have nausea vomiting along with severe anxiety. According to the patient she was sober for several months but started drinking heavily after she got laid off and got quite depressed. I have reviewed the lab these are consistent with pancytopenia secondary to splenomegaly related to liver disease and alcoholism. I will order remainder the workup that would include iron studies vitamin B12 level and folic acid level. We anticipate recovery of the blood counts after discontinuation of alcohol intak
[2020-03-29 19:55] VITALS: BP 108/77; PULSE 88; RESP 18; TEMP 36.1; O2SAT 100
[2020-03-29 20:00] VITALS: BP 108/77; PULSE 88; RESP 18; O2SAT 100
[2020-03-29] MEDS: chlordiazePOXIDE 5 MG CAPSULE PO (20:00)
--- NOTE | 2020-03-29 20:47 | PC.NURSE ---
This patient, Kamilla Christianson, was received from [facility] on 03/29/20 at 2047. Personal belongings list checked and signed. Patient/family oriented to unit policies and routines
--- NOTE | 2020-03-29 20:47 | PC.NURSE ---
This patient, Kamilla Christianson, was transferred to [ 320] on 03/29/20 at 2047. Personal belongings sent with patient. Belongings list checked and signed with receiving [ ]. Report given to [ Meagan christopher]. Appropriate documentation sent with patient.
[2020-03-29 22:00] VITALS: BP 116/78; PULSE 65; RESP 20; TEMP 37; O2SAT 97
[2020-03-30 06:00] VITALS: BP 130/60; PULSE 90; RESP 20; TEMP 36.7; O2SAT 100
[2020-03-30] MEDS: chlordiazePOXIDE 5 MG CAPSULE PO (06:44)
[2020-03-30 07:09] LABS: Basophils Percent Auto 0.6 % (0.2-1.2); Eosinophils Absolute Auto 0.1 K/mm3 (0-0.3); Eosinophils Percent Auto 1.3 % (0-4.4); Hemoglobin 12.1 g/dL (12.0-15.0); Immature Granulocyte Absolute 0.02 K/mm3 (0.00-0.031); Immature Granulocyte Percent A 0.4 % (0-0.5); Immature Platelet Fraction Pct 6.6 % (0.9-11.2); Lymphocytes Absolute Auto 0.76 K/mm3 (0.9-3.2); Lymphocytes Percent Auto 14.1 % (18.3-44.2); Mean Corpuscular HGB Conc 35.6 g/dl (32-36); Mean Corpuscular Hemoglobin 33.6 pg (26-34); Mean Corpuscular Volume 94.4 fl (80-100); Mean Platelet Volume 10.9 fl (7.4-10.4); Monocytes Absolute Auto 0.5 K/mm3 (0.1-0.6); Monocytes Percent Auto 9.7 % (2.6-8.5); Neutrophils Percent Auto 73.9 % (45.5-73.1); Platelet Count Result 132 k/mm3 (150-375); Red Cell Distribution Width 12.7 % (11.5-14.5); White Blood Count 5.4 K/mm3 (4.5-10.0)
[2020-03-30 07:35] LABS: Alanine Aminotransferase 121 U/L (4-35); Albumin Level 4.2 g/dL (3.5-5.1); Alkaline Phosphatase 90 U/L (38-126); Anion Gap 9 mmol/L (8-16); Aspartate Amino Transferase 172 U/L (14-36); Bilirubin,Total 0.4 mg/dL (0.2-1.3); Blood Urea Nitrogen 7 mg/dL (7-17); Calcium 9.4 mg/dL (8.4-10.2); Carbon Dioxide 25 mmol/L (22-30); Chloride 101 mmol/L (98-107); Estimated CRCL calculation 134 ml/min; Estimated Glomerular Filt Rate > 60; Glucose 135 mg/dL (65-105); Potassium 3.7 mmol/L (3.4-5.0); Sodium 135 mmol/L (137-145)
[2020-03-30 08:00] VITALS: BP 124/58; PULSE 87; RESP 18; O2SAT 100
--- NOTE | 2020-03-30 08:13 | PC.NURSE ---
Spoke with Janette JANG. about pt continued anxiety. Janette will be up later this morning to see the pt.
--- NOTE | 2020-03-30 09:28 | WPDGIPROGNO ---
Progress Note: A&P Additional Plan patient alert remains quite anxious. Still continues to complain of pain at left rib margin. Also complains of some pelvic discomfort. Physical exam reveals her to be anxious. Vital signs are stable. Lungs are clear. Heart without murmur. Abdomen is soft tender at the left rib margin noted. Impression 1. Left rib pain. Will leave management of this to primary care service. 2. Alcohol abuse. Patient strongly encouraged to seek rehab. 3. Elevated LFTs consistent with alcoholic hepatitis. Alcohol avoidance strongly encouraged. 4. Pancytopenia secondary to alcohol use. Hematology input noted in agree. 5. Anxiety. Appears to contribute to some of her other difficulties. Subjective Date/time seen: 03/30/20 09:28 Objective Data Vital Signs Vital Signs: Vital Signs - 24 hr 03/29/20 16:54 03/29/20 19:55 03/29/20 20:00 Temperature 96.6 F L 96.9 F L Pulse Rate 115 H 88 88 Respiratory Rate 20 18 18 Blood Pressure 109/67 108/77 108/77 Pulse Oximetry 97 100 100 03/29/20 22:00 03/30/20 06:00 Temperature 98.6 F 98.1 F Pulse Rate 65 90 Respiratory Rate 20 20 Blood Pressure 116/78 130/60 Pulse Oximetry 97 100 Intake/Output Intake/Output: Intake & Output 03/27/20 03/28/20 03/29/20 03/30/20 23:59 23:59 23:59 23:59 Intake Total 4390 2220 1780 300 Output Total 5400 5100 3300 2 Balance -1243 -9440 -0630 298 Meds/Results Medications: Active Medications Generic Name Dose Route Start Last Admin Trade Name Freq PRN Reason Stop Dose Admin Acetaminophen 650 mg 03/25/20 04:46 Tylenol Tablet PO Q4H PRN Mild Pain (1-3) or Fever Hydrocodone Bitart/Acetaminophen 1 tab 03/25/20 04:46 03/30/20 06:44 [place] 5-325 Mg PO 1 tab Q4H PRN Administration Pain Rated 4-6 Lipase/Protease/Amylase 2 cap 03/27/20 13:00 03/29/20 17:[address] 12,000 Units Capsule PO 04/26/20 13:01 2 cap TID TIFFANIE Administration Chlordiazepoxide HCl 5 mg 03/29/20 01:00 03/30/20 06:44 Librium Po PO 5 mg Q8H PRN Administration CIWA >8, anxiety Folic Acid 1 mg 03/25/20 09:00 03/29/20 08:36 Folic Acid PO 1 mg DAILY TIFFANIE Administration Gabapentin 800 mg 03/25/20 13:00 03/29/20 17:49 Neurontin PO 800 mg TID TIFFANIE Administration Lorazepam 1 mg 03/25/20 05:26 03/30/20 06:45 Ativan Inj IV PUSH 1 mg Q4H PRN Administration Withdrawal Nitroglycerin 0.4 mg 03/26/20 04:53 03/26/20 05:07 Nitrostat Subl 0.4 Mg (1/150) SUBLINGUAL 0.4 mg Q5MIN PRN Administration Chest Pain Ondansetron HCl 4 mg 03/25/20 04:46 03/25/20 18:27 Zofran Inj IV PUSH 4 mg Q4H PRN Administration Nausea Pantoprazole Sodium 40 mg 03/29/20 09:00 03/29/20 20:28 Protonix PO 40 mg Q12HR TIFFANIE Administration Thiamine HCl 100 mg 03/29/20 09:00 03/29/20 09:18 Vitamin B-1 PO 100 mg QAM TIFFANIE Administration Radiology Results: ITS Impressions Chest X-Ray 03/26/20 10:36 IMPRESSION: 1. No acute cardiopulmonary disease. Upper Quadrant Ultrasound 03/26/20 15:37 IMPRESSION: 1: 5 mm gallbladder polyp. 2: Borderline sized common bile duct measuring 7 mm, unchanged. 3: Hepatic steatosis. Chest CTA 03/26/20 18:34 IMPRESSION: 1. No evidence for pulmonary embolism. 2: Possible left breast mass. Correlation with diagnostic mammogram and ultrasound recommended. 3: Cardiomegaly. 4: Hepatomegaly with fatty infiltration of the liver. Breast Ultrasound 03/28/20 10:03 IMPRESSION: 1: Normal left breast ultrasound. Recommend diagnostic bilateral mammogram for complete evaluation. BI-RADS CATEGORY 0 - INCOMPLETE STUDY, NEED ADDITIONAL IMAGING EVALUATION. Abdomen/Pelvis CT 03/28/20 12:39 IMPRESSION: 1. Chronic mild splenomegaly, likely secondary to obesity. 2. Diffuse hepatic steatosis. Labs Labs: Laboratory Results - last 24 hr 03/29/20 09/0
[2020-03-30] MEDS: GABAPENTIN 400 MG CAPSULE 800 MG PO ×2 (10:09→16:42)
[2020-03-30] MEDS: PANTOPRAZOLE 40 MG TABLET PO (10:09)
[2020-03-30] MEDS: LIPASE/AMYLASE/PROTEASE 12,000 UNITS CAP 2 CAP PO ×2 (10:09→16:42)
[2020-03-30] MEDS: THIAMINE HCL 100 MG TABLET PO (10:09)
[2020-03-30] MEDS: FOLIC ACID 1 MG TABLET PO (10:09)
[2020-03-30 14:00] VITALS: BP 124/58; PULSE 87; RESP 18; TEMP 36.9; O2SAT 100
--- NOTE | 2020-03-30 15:47 | PM.DS ---
DS: Admitting Diagnosis Admitting Diagnosis Admitting Diagnosis: alcoholic ketoacidosis DS: Discharge Diagnosis Discharge Diagnosis (1) Alcoholic ketoacidosis: Code(s): E87.2 - Acidosis Status: Resolved Assessment and Plan: Resolved. Anion gap was 28 at presentation. The patient reports a history of binge drinking alcohol and not eating over the past week. Anion gap closed and electrolytes were stable. (2) Alcohol abuse: Code(s): F10.10 - Alcohol abuse, uncomplicated Status: Acute Assessment and Plan: Last drink was 03/23. Patient reported binging a fifth of tequila daily. CIWA protocol was initiated. Librium was tapered. She was started on thiamine and folic acid which she will continue. I spent extensive time discussing with the patient the risks of continued alcohol use and importance of alcohol cessation. She understands the importance and is interested in quitting drinking. She is considering inpatient versus outpatient rehab. She has completed rehab at [facility] in the past and has already contacted a bilingual inside sales representative from [place] to pursue alcohol rehab. Support group meetings, such as AA, were encouraged. (3) Alcoholic hepatitis: Qualifiers: Ascites presence: without ascites Qualified Code(s): K70.10 - Alcoholic hepatitis without ascites Code(s): K70.10 - Alcoholic hepatitis without ascites Status: Acute Assessment and Plan: Acute on chronic alcoholic hepatitis likely secondary to recent binge drinking. LFTs were elevated. Hepatitis panel was negative. CT abd/pelvis revealed hepatic steatosis. Complete alcohol cessation was discussed and encouraged; patient agrees. (4) Pancreatitis, alcoholic, acute: Qualifiers: Acute pancreatitis complication: no infection or necrosis Qualified Code(s): K85.20 - Alcohol induced acute pancreatitis without necrosis or infection Code(s): K85.20 - Alcohol induced acute pancreatitis without necrosis or infection Status: Acute Assessment and Plan: Secondary to alcohol use. She was recently treated for pancreatitis in December. Lipase was elevated at 562 and normalized. She was rehydrated with IV fluids and diet was advanced. She was seen in consultation by GI. She was able to tolerate regular diet. Continue creon. (5) Abdominal pain: Qualifiers: Abdominal location: epigastric Qualified Code(s): R10.13 - Epigastric pain Code(s): R10.9 - Unspecified abdominal pain Status: Acute Assessment and Plan: She complained of diffuse abdominal pain, which was worse in her LUQ near her costal margin. I suspect this pain is multifactorial given her pancreatitis, endometriosis, splenomegaly, and exacerbated by anxiety. CT a/p at admission and RUQ US were unremarkable. Because of acute pain, CT a/p was repeated showing chronic mild splenomegaly and diffuse hepatic steatosis. Both findings were felt to be secondary to alcohol abuse. Alcohol cessation encouraged. She was also encouraged to follow up with her columnist/commentator to help in controlling her endometriosis pain. (6) Dehydration: Code(s): E86.0 - Dehydration Status: Resolved Assessment and Plan: Likely secondary to acute alcohol binge. She was rehydrated with IV fluids and was able to tolerate PO intake. (7) Nausea and vomiting: Qualifiers: Vomiting type: unspecified Vomiting Intractability: non-intractable Qualified Code(s): R11.2 - Nausea with vomiting, unspecified Code(s): R11.2 - Nausea with vomiting, unspecified Status: Resolved Assessment and Plan: Resolved. Secondary to metabolic acidosis and pancreatitis. She was able to tolerate regular diet. (8) Chest pain: Code(s): R07.9 - Chest pain, unspecified Status: Acute Assessment and Plan: Resolved. Episode occurred on 03/26 with STAT EKG and troponin negative for acute ischemia.
--- NOTE | 2020-03-30 17:21 | PC.NURSE ---
pt was advised by Janette JANG to call for appointment at rehab treatment with [facility].Pt did call. She left a message. I was there to witness this.
== END 2020-03-30 17:23 | disposition home or self-care (01) | DRG 439 ==
LOC: ANHED 03-25 04:56 → ANHIMU 03-25 05:04 → ANH3MEDSUR 03-29 20:46
PROVIDERS: Internal Medicine Hematology & Oncology; Physician Assistant; Admitting Provider Family Medicine; Emergency Provider Emergency Medicine; PCP Internal Medicine Gastroenterology; Visit Provider Family Medicine
DX: K85.20 Alcohol induced acute pancreatitis without necrosis or infection (principal); F10.239 Alcohol dependence with withdrawal, unspecified; R18.8 Other ascites; E87.2 Acidosis; D61.818 Other pancytopenia; E86.0 Dehydration; K70.10 Alcoholic hepatitis without ascites; F41.8 Other specified anxiety disorders; N80.9 Endometriosis, unspecified; N63.20 Unspecified lump in the left breast, unspecified quadrant
CPT/HCPCS: 36415; 36600; 71045; 71275; 74177; 76641; 76642; 76705; 80048; 80053; 80074; 80307; 81001; 81025; 82010; 82248; 82375; 82607; 82728; 82746; 82805; 83050; 83540; 83550; 83690; 83735; 84100; 84132; 84443; 84484; 85025; 85027; 85055; 85380; 87086; 87088; 93005; 93306; 96361; 96374; 96375; 96376; 99285; A9270; C8929; C9113; G0378; J2060; J2270; J2405; J3411; J3475; J3480; J7030; J7042; Q9957; Q9967

== ENCOUNTER 2021-07-18 18:00 | Emergency (ER) | payer OTHER, SELFPAY ==
--- NOTE | ~2021-07-18 | CT_ITS ---
EXAMINATION: CT abdomen pelvis w con DATE: 07/19/2021 01:33 INDICATION: Abdominal pain. TECHNIQUE: Computed tomography (CT) of the abdomen and pelvis was performed with 100 mL Omnipaque 350 intravenous contrast. Automated exposure control and iterative reconstruction technique were employe d. The dose-length product was 547.05 mGy-cm. COMPARISON: CT abdomen and pelvis 03/28/2020 FINDINGS: The visualized portions of the lung bases demonstrate minimal atelectasis on the left. No p leural effusion. The heart size is normal. No pericardial effusion. There is diffuse hepatic steatosi s. The gallbladder, spleen, pancreas, and adrenal glands are normal. There is a 2 mm stone in right [place]. There are bilateral striated nephrograms, consistent with pyelonephritis. There are no dilated loops of bowel. The appendix is normal. There are no pathologically enlarged lymph nodes. There is n o free intraperitoneal fluid. There is a benign bone island in right pelvis. There is mild lumbar spo ndylosis. IMPRESSION: 1. Bilateral pyelonephritis. 2. Small nonobstructing right kidney stone. 3. Diffuse hepatic steatosis. Reviewed, dictated and finalized at location A. CUTTER
--- NOTE | ~2021-07-18 | XR_ITS ---
EXAMINATION: XR chest 2V DATE: 07/18/2021 22:18 INDICATION: Left-sided chest pain, abdominal pain, nausea and vomiting TECHNIQUE: PA and lateral views of the chest were obtained. COMPARISON: Chest radiograph dated 03/26/2020 FINDINGS: The lungs remain clear with no focal airspace opacities, pulmonary edema, pleural effusion or pneumot horax. The cardiomediastinal silhouette is normal. Visualized bones and soft tissues are unremarkable . IMPRESSION: 1. No acute cardiopulmonary disease. Reviewed, dictated and finalized at location H. [employer]
[2021-07-18 18:03] VITALS: BP 153/90; PULSE 107; RESP 24; TEMP 36.6; O2SAT 100
--- NOTE | 2021-07-18 18:03 | ECG_ITS ---
Measurements Intervals [place] Rate: 117 P: 73 AR: 125 QRS: 49 QRSD: 82 T: 31 QT: 408 QTc: 570 Interpretive Statements SINUS TACHYCARDIA POSSIBLE LEFT ATRIAL ENLARGEMENT BORDERLINE ST-T WAVE ABNORMALITY- ANTEROLAT/INF LEADS BASELINE ARTIFACT- I, II, III, AVR, AVL, AVF, V1-V6 ABNORMAL ECG Electronically Signed On 07-19-2021 6:15:06 [employer] by Tomy Christensen D.O.
[2021-07-18 20:39] VITALS: BP 133/94; PULSE 113; TEMP 36.1; O2SAT 100
--- NOTE | 2021-07-18 21:34 | PC.NURSE ---
Pt reports change in condition, new chest pain with SOB. Diaphoresis noted. New chest pain order set placed.
[2021-07-18 21:54] VITALS: BP 140/96; PULSE 120; RESP 22; O2SAT 100
[2021-07-18 21:57] LABS: Basophils Absolute Auto 0.1 K/mm3 (0.0-0.1); Basophils Percent Auto 0.8 % (0.2-1.2); Hemoglobin 13.6 g/dL (12.0-15.0); Immature Granulocyte Absolute 0.04 K/mm3 (0.00-0.031); Immature Granulocyte Percent A 0.4 % (0-0.5); Lymphocytes Absolute Auto 1.93 K/mm3 (0.9-3.2); Lymphocytes Percent Auto 18.5 % (18.3-44.2); Mean Corpuscular HGB Conc 35.8 g/dl (32-36); Mean Corpuscular Hemoglobin 32.8 pg (26-34); Mean Corpuscular Volume 91.6 fl (80-100); Mean Platelet Volume 10.2 fl (7.4-10.4); Monocytes Absolute Auto 0.8 K/mm3 (0.1-0.6); Monocytes Percent Auto 7.2 % (2.6-8.5); Neutrophils Absolute Auto 7.6 K/mm3 (1.3-6.7); Neutrophils Percent Auto 73.1 % (45.5-73.1); Platelet Count Result 215 k/mm3 (150-375); Red Blood Count 4.15 M/mm3 (4.2-5.4); Red Cell Distribution Width 15.1 % (11.5-14.5); White Blood Count 10.4 K/mm3 (4.5-10.0)
[2021-07-18 22:07] LABS: INR 1.4; Prothrombin Time 16.5 Seconds (11.1-14.7)
[2021-07-18 22:08] LABS: Partial Thromboplastin Time 34.4 SECONDS (22.3-36.8)
[2021-07-18 22:17] LABS: Alanine Aminotransferase 38 U/L (4-35); Albumin Level 4.8 g/dL (3.5-5.1); Alkaline Phosphatase 186 U/L (38-126); Anion Gap 16 mmol/L (8-16); Aspartate Amino Transferase 94 U/L (14-36); Bilirubin,Total 1.7 mg/dL (0.2-1.3); Blood Urea Nitrogen 6 mg/dL (7-17); Calcium 10.2 mg/dL (8.4-10.2); Carbon Dioxide 25 mmol/L (22-30); Chloride 85 mmol/L (98-107); Estimated CRCL calculation 93 ml/min; Estimated Glomerular Filt Rate > 60; Glucose 170 mg/dL (65-110); Lipase 275 U/L (23-300); Sodium 126 mmol/L (137-145)
[2021-07-18 22:19] LABS: Troponin I < 0.012 ng/mL (0.000-0.034)
[2021-07-19] VITALS (9 sets, daily range): BP systolic 121–149; BP diastolic 82–115; PULSE 91–132; RESP 12–26; O2SAT 100
--- NOTE | 2021-07-19 00:57 | ED.ABDPAIN ---
HPI - Abdominal Pain General Chief Complaint: Chest Pain Stated Complaint: tachycardia, sob, chest pain, etoh Time Seen by Provider: 07/19/21 00:20 Source: patient Mode of arrival: ambulatory Limitations: no limitations History of Present Illness HPI narrative: Patient is a 36-year-old female complaining of upper abdominal pain, 8 out of 10, sharp accompanied by nausea, I think it is my pancreatitis, I fell off the wagon, I started drinking again . Patient states that she started drinking again a month ago, and have been drinking every day. Patient states that she has been sober for almost a year until about a month ago. Patient admits to having a drink today. Patient states that her heart rate is usually elevated, currently being worked up by a metal alloy scientist, has a loop recorder on which she has been wearing for the past 2 weeks. Patient denies any chest pain, shortness of breath, vomiting, fever or chills. Related Data Home Medications Medication Instructions Recorded Confirmed gabapentin 800 mg PO TID 01/23/20 03/25/20 Creon 24,000 cap PO TID 03/25/20 03/25/20 Allergies Allergy/AdvReac Type Severity Reaction Status Date / Time Penicillins Allergy Mild RASH Verified 03/24/20 23:35 Review of Systems Review of Systems: All systems reviewed & are unremarkable except as noted in HPI and below Constitutional: Constitutional: Denies body ache(s), Denies chills, Denies excessive sweating, Denies fatigue, Denies fever(s), Denies headache(s), Denies lethargy, Denies malaise, Denies weakness and Denies weight loss Eyes: Eyes: Denies blurry vision, Denies change in vision and Denies loss of vision ENT: Denies dizziness, Denies ear discharge, Denies headache(s), Denies lip swelling, Denies epistaxis, Denies nasal congestion, Denies neck pain, Denies throat swelling and Denies tongue swelling Cardiovascular: Cardiovascular: Denies chest pain, Denies chest pain at rest, Denies chest pain with activity, Denies diaphoresis, Denies edema, Denies irregular heart rhythm, Denies lightheadedness, Denies palpitations, Denies dyspnea and Denies dyspnea on exertion Respiratory: Respiratory: Denies chest congestion, Denies cough, Denies hemoptysis, Denies dyspnea and Denies dyspnea on exertion Gastrointestinal: Gastrointestinal: Denies melena, Denies hematochezia, Denies diarrhea, Denies vomiting and Denies hematemesis Musculoskeletal: Musculoskeletal: Denies abnormal gait, Denies deformity, Denies joint swelling, Denies limited range of motion, Denies neck pain and Denies numbness Neurologic: Denies Abnormal speech present, Denies abnormal gait, Denies confusion, Denies dizziness, Denies headache(s), Denies focal weakness, Denies loss of vision, Denies numbness, Denies Other visual disturbances, Denies Sensory deficit (Neuro) and Denies weakness Psychiatric: Psychiatric: Denies confusion, Denies depression, Denies auditory hallucinations, Denies homicidal ideation and Denies suicidal ideation Endocrine: Endocrine: Denies cold intolerance, Denies excessive sweating, Denies fatigue, Denies heat intolerance and Denies palpitations Hematologic/Lymphatic: Hematologic/Lymphatic: Denies easy bleeding and Denies easy bruising Allergic/Immunologic: Allergic/Immunologic: Denies lip swelling, Denies throat swelling and Denies tongue swelling PMFSH Past Medical History Medical History (Updated 07/19/21 @ 03:30 by Michael Trujillo MD) Alcoholic hepatitis Endometriosis Pancreatitis Surgical History Surgical History Hx of laparoscopy Family History Family History Grandparent Diabetes mellitus Father Diabetes mellitus Social History Social History Years smoked: 10 Smoking status: Current some day smoker Tobacco type: cigarettes Alcohol intake: current Substance use: ne
[2021-07-19] MEDS: LORazepam INJ (*CRX) 2 MG/ML VIAL 1 MG IV PUSH (01:04)
[2021-07-19] MEDS: METOPROLOL TARTRATE INJ 5 MG/5 ML VIAL IV PUSH (01:06)
[2021-07-19] MEDS: POTASSIUM CHLORIDE 20 MEQ PACKET (FOR LIQUID) 40 MEQ PO (01:12)
[2021-07-19] MEDS: LACTATED RINGERS 1,000 ML 999 ML IV CONT (01:13)
[2021-07-19 01:23] LABS: Lipase 326 U/L (23-300)
[2021-07-19 01:37] LABS: Troponin I < 0.012 ng/mL (0.000-0.034)
[2021-07-19 01:47] LABS: Ethanol < 10 mg/dL (<10)
[2021-07-19] MEDS: KETOROLAC 30 MG/ML VIAL (*BKC) IV PUSH (02:25)
[2021-07-19 02:40] LABS: Add Urine Microscopic? YES; Appearance Urine Cloudy (Clear); Bacteria Urine Trace /hpf; Bilirubin Urine Negative (Negative); Blood Urine 1+ (Negative); Color Urine Amber (Yellow); Glucose Urine UA Negative (Negative); Ketones Urine Negative (Negative); Leukocyte Esterase Ur 3+ LEU/UL (Negative); Mucus Urine Rare /lpf; Nitrate Urine Negative (Negative); Protein Urine 2+ mg/dL (Negative); Specific Grav Ur 1.017 (1.001-1.035); Squamous Epithelial Cell Urine Many /hpf (Few); WBC Urine >75 /hpf
== END 2021-07-19 04:07 | disposition home or self-care (01) ==
PROVIDERS: Emergency Medicine; Emergency Provider Emergency Medicine; PCP Internal Medicine
DX: N10 Acute pyelonephritis (principal); E87.1 Hypo-osmolality and hyponatremia; E87.6 Hypokalemia; F10.10 Alcohol abuse, uncomplicated; Y90.0 Blood alcohol level of less than 20 mg/100 ml; R10.10 Upper abdominal pain, unspecified; K70.10 Alcoholic hepatitis without ascites; N80.9 Endometriosis, unspecified; F17.210 Nicotine dependence, cigarettes, uncomplicated; R00.0 Tachycardia, unspecified; R94.31 Abnormal electrocardiogram [ECG] [EKG]
CPT/HCPCS: 36415; 71046; 74177; 80053; 80307; 81001; 81025; 83690; 84484; 85025; 85610; 85730; 87086; 87088; 93005; 96361; 96365; 96375; 99284; A9270; J0696; J1885; J2060; J7120; Q9967

== ENCOUNTER 2021-10-02 13:44 | Inpatient (IN) | payer OTHER, SELFPAY ==
[2021-10-02] VITALS (14 sets, daily range): BP systolic 122–152; BP diastolic 85–111; PULSE 73–129; RESP 13–20; TEMP 36.4–37.1; O2SAT 98–100; BMI 32.5
--- NOTE | ~2021-10-02 | CT_ITS ---
EXAMINATION: CT abdomen pelvis w con INDICATION: Abdominal pain TECHNIQUE: Computed tomographic images of the abdomen and pelvis were obtained after the administrati on of 100 cc of Omnipaque 350 intravenous contrast. The dose-length product (DLP) was 601.09 mGy-cm. Automated exposure control and iterative reconstruction technique were employed. COMPARISON: 07/19/2021 FINDINGS: Minimal dependent atelectasis is present in the lung bases. The heart size is normal. The l iver is enlarged and diffusely low in attenuation when compared with the spleen, consistent with hepa tic steatosis. There is a moderate volume of abdominal and pelvic ascites. The spleen, gallbladder, a nd adrenal glands are normal. The pancreas demonstrates heterogeneous enhancement with decreased enha ncement versus edema in the tail and head of the pancreas. There is persistent patchy perfusion of th e kidneys. There is no free intraperitoneal gas or evidence of bowel obstruction. There is mild perip ortal lymphadenopathy, likely reactive. IMPRESSION: 1. Heterogeneous enhancement in the head and tail of the pancreas which could reflect acute pancreati tis. 2. Persistent heterogeneous enhancement of the kidneys, possible pyelonephritis. 3. Hepatomegaly and diffuse hepatic steatosis. 4. Moderate volume of ascites. Reviewed, dictated and finalized at location B. T COORDINATOR IMPRESSION: 1. Heterogeneous enhancement in the head and tail of the pancreas which could r eflect acute pancreatitis. 2. Persistent heterogeneous enhancement of the kidneys, possible pyelonephritis . 3. Hepatomegaly and diffuse hepatic steatosis. 4. Moderate volume of ascites.
--- NOTE | ~2021-10-02 | US_ITS ---
EXAMINATION: US abdomen limited DATE: 10/03/2021 14:15 INDICATION: Abdominal pain TECHNIQUE: Multiple grayscale and Doppler ultrasound images of the abdomen were obtained. COMPARISON: None available FINDINGS: Bowel gas obscures visualization of the pancreas. The liver demonstrates increased echogeni city, heterogenous echotexture, and decreased through transmission. No surface nodularity. There is a small volume of ascites. Normal hepatopetal flow in the main portal vein. There is a 4 mm polyp of t he adrenal gland. No gallstones are identified. There is no gallbladder wall thickening. The dilated common bile duct measures 9 mm. Sonographic Romo sign is positive. IMPRESSION: 1. Dilated common bile duct of unclear etiology. Consider MRCP. No acute abnormality of the gallbladd er identified. Reviewed, dictated and finalized at location B. SON OFFICER IMPRESSION: 1. Dilated common bile duct of unclear etiology. Consider MRCP. No acute abnorm ality of the gallbladder identified.
--- NOTE | ~2021-10-02 | US_ITS ---
EXAMINATION: US paracentesis abd w/image DATE: 10/03/2021 14:14 INDICATION: Ascites. TECHNIQUE: The procedure and its risks, benefits, and alternatives were discussed with the patient. P otential risks discussed included bleeding and infection. The skin was prepped and draped in sterile fashion. 1% lidocaine was used for local anesthesia. Under ultrasound guidance, a 5 Fr catheter with trochar was advanced into the ascites in the right abdomen. Fluid was aspirated. The catheter was rem misti, and a dressing was applied. There were no immediate complications. FINDINGS: Ultrasound images demonstrate ascites and the catheter within the fluid. IMPRESSION: 1. Successful ultrasound-guided paracentesis yielding 300 mL of clear, dark yellow fluid. Reviewed, dictated and finalized at location A. OMER CONSULTING MANAGER IMPRESSION: 1. Successful ultrasound-guided paracentesis yielding 300 mL of clear, dark ye llow fluid.
--- NOTE | ~2021-10-02 | US_ITS ---
EXAMINATION: US abdomen limited DATE: 10/09/2021 11:18 INDICATION: Ascites. TECHNIQUE: Multiple grayscale ultrasound images of the abdomen were obtained. COMPARISON: CT abdomen and pelvis 10/07/2021 FINDINGS: A survey of the 4 quadrants of the abdomen demonstrates no ascites. IMPRESSION: 1. No ascites. Reviewed, dictated and finalized at location A. IMPRESSION: 1. No ascites.
--- NOTE | ~2021-10-02 | CT_ITS ---
EXAMINATION: CT abdomen pelvis wo con DATE: 10/07/2021 09:55 INDICATION: Low abdominal pain. TECHNIQUE: Computed tomography (CT) of the abdomen and pelvis was performed without intravenous contr ast. Automated exposure control and iterative reconstruction technique were employed. The dose-length product was 627.66 mGy-cm. COMPARISON: CT abdomen and pelvis 10/02/2021 FINDINGS: The visualized portions of the lung bases demonstrate minimal atelectasis on the left. No p leural effusion. The heart size is normal. No pericardial effusion. There is diffuse hepatic steatosi s. The gallbladder, spleen, and adrenal glands are normal. There is cortical thinning of the kidneys. There is a 2 mm stone in right kidney. There is fat stranding around the pancreas, consistent with a cute interstitial pancreatitis. There are no dilated loops of bowel. The appendix is not visualized. There is physiologic fluid in the pelvis. There are no pathologically enlarged lymph nodes. There is mild lumbar spondylosis. IMPRESSION: 1. Acute interstitial pancreatitis. 2. Diffuse hepatic steatosis. Reviewed, dictated and finalized at location A. WHAT SIZER
--- NOTE | ~2021-10-02 | MR_ITS ---
EXAMINATION: MR MRCP wo/w con/w 3D wo ind DATE: 10/03/2021 18:26 INDICATION: Dilated common bile duct. TECHNIQUE: Magnetic resonance imaging (MRI) of the abdomen was performed without and with 17 mL Multi davi intravenous contrast. Sequences included coronal T2-weighted SS-FSE, coronal T2-weighted FS SS- FSE, coronal T2-weighted FS FIESTA, axial T2-weighted FS FIESTA, axial T2-weighted FIESTA, sagittal T 2-weighted SS-FSE, axial T1-weighted dual-echo FSPGR, axial T2-weighted SS-FSE, axial T1-weighted LAV A, axial T2-weighted STIR FSE. Thick-slab T2-weighted FRFSE-XL images were obtained for magnetic reso nance cholangiopancreatography (MRCP). Rotating maximum intensity projection 3-D reconstructions of t he volumetric data were created by the technologist. Postcontrast sequences included a time course of axial T1-weighted LAVA. COMPARISON: CT dated 10/12/2021 FINDINGS: ABDOMEN MRI: Heart size is normal. No pericardial effusion. Very small bilateral posterior layering p leural effusions. Small amount of ascites scattered throughout the abdomen and pelvis. Hepatomegaly w ith diffuse hepatic steatosis. There is also splenomegaly measuring 14.7 cm craniocaudal length. Gall bladder, bilateral adrenal glands and kidneys are normal. Pancreas appears thickened with T2 hyperint ense peripancreatic stranding with mild non masslike enhancement in the peripancreatic fat consistent with acute interstitial pancreatitis. The retroperitoneal edema extends across the bilateral anterio r pararenal spaces and caudally along the bilateral paracolic gutters. No nonenhancing necrosis or ac [place] peripancreatic fluid collections. Visualized portions of the bowels are unremarkable. No patholog ically enlarged abdominal lymphadenopathy. Visualized bones are unremarkable. ABDOMEN MRCP: Mild diffuse dilation of the common bile duct which measures up to 8 mm proximally and tapers smoothl y at the distal duct with no obstructing masses were filling defects to suggest choledocholithiasis. No gallstones within the gallbladder or intrahepatic biliary ductal dilation. Main pancreatic duct is normal in caliber. IMPRESSION: 1. Acute interstitial pancreatitis. 2. Mild dilation of the common bile duct to 8 mm without intrahepatic biliary ductal dilation or obst ructing stones or mass. 3. Small amount of ascites and very small bilateral posterior layering pleural effusions. 4. Hepatomegaly with diffuse hepatic steatosis. 5. Nonspecific splenomegaly. Reviewed, dictated and finalized at location A. LTY MEMBER IMPRESSION: 1. Acute interstitial pancreatitis. 2. Mild dilation of the common bile duct to 8 mm without intrahepatic biliary d uctal dilation or obstructing stones or mass. 3. Small amount of ascites and very small bilateral posterior layering pleural effusions. 4. Hepatomegaly with diffuse hepatic steatosis. 5. Nonspecific splenomegaly.
--- NOTE | ~2021-10-02 | XR_ITS ---
EXAMINATION: XR abdomen/kub 1V DATE: 10/06/2021 09:00 INDICATION: Adynamic ileus. TECHNIQUE: A supine view of the abdomen on 2 radiographs was obtained. COMPARISON: CT abdomen and pelvis 10/02/2021 FINDINGS: There are no dilated loops of bowel. There is a small volume of stool in the colon. IMPRESSION: 1. Normal bowel gas pattern. Reviewed, dictated and finalized at location A. PIPELINE OPERATOR
--- NOTE | 2021-10-02 14:05 | ED.ABDPAIN ---
HPI - Abdominal Pain General Chief Complaint: Abdominal Pain Stated Complaint: abd pain Time Seen by Provider: 10/02/21 13:56 Source: RN notes reviewed History of Present Illness HPI narrative: Patient presents emergency department from home for abdominal pain. Patient states symptoms began yesterday pain is located diffusely throughout the abdomen described as cramping in nature states associated with nausea vomiting. States she did have one episode of diarrhea 2 days ago she denies any fevers or chills chest pain or shortness of breath. States that she last took ibuprofen last night for the symptoms denies any other symptoms at this time Related Data Home Medications Medication Instructions Recorded Confirmed gabapentin 800 mg PO TID 01/23/20 03/25/20 metoprolol tartrate 25 mg PO BID 10/02/21 Allergies Allergy/AdvReac Type Severity Reaction Status Date / Time Penicillins Allergy Mild RASH Verified 03/24/20 23:35 Review of Systems Review of Systems: Gen.: Denies fevers or chills ENT: Denies congestion Respiratory: Denies shortness of breath or cough CV: Denies chest pain or palpitations GI: See HPI reports urinary urgency Musculoskeletal: Denies back pain or muscle pain Neuro: Denies numbness, tingling, weakness or focal weakness Skin: Denies rash Except as documented, all other systems reviewed and negative [facility] Past Medical History Medical History (Updated 10/02/21 @ 17:01 by Michael Thomas DO) Alcoholic hepatitis Endometriosis Pancreatitis Surgical History Surgical History Hx of laparoscopy Family History Family History Grandparent Diabetes mellitus Father Diabetes mellitus Social History Social History Years smoked: 10 Smoking status: Current some day smoker Tobacco type: cigarettes Alcohol intake: current Substance use: never Substance use type: does not use Gender identity (if verbalized by the patient): Female Spiritual care concerns: No Exam Narrative: APPEARANCE: No acute distress, nontoxic, resting in bed HEENT: Normocephalic, atraumatic, OMM RESPIRATORY: No respiratory distress, clear to auscultation bilaterally with no rhonchi wheezing or rales CARDIOVASCULAR: RRR s murmur ABDOMINAL: Soft nondistended diffusely tender to palpation no rebound or guarding MUSCULOSKELETAl: Moves all extremities. No clubbing, cyanosis or edema. NEURO: Awake and alert. Following commands, speech normal, no focal deficits SKIN:: Warm, dry. Normal Color PSYCHIATRIC: Normal affect/mood Course Course Emergency Course: Discussed with patient lab results she states that previous pancreatitis was from alcohol use she states she has not drank in over 2 months Discussed with SUHAIL Quintana for Dr. Haynes who agrees with admission Discussed with patient and family results of workup and diagnosis. Discussed need for admission. Patient and family understand and agree to current treatment plan Vital Signs Vital signs: Vital Signs Temperature 97.6 F 10/02/21 14:05 Pulse Rate 123 H 10/02/21 14:05 Respiratory Rate 20 10/02/21 14:05 Blood Pressure 136/95 H 10/02/21 14:05 Pulse Oximetry 99 10/02/21 14:05 Temperature 97.6 F 10/02/21 14:05 Pulse Rate 123 H 10/02/21 14:05 Respiratory Rate 20 10/02/21 14:05 Blood Pressure 136/95 H 10/02/21 14:05 Pulse Oximetry 99 10/02/21 14:05 MDM - Abdominal Pain Lab Data Result diagrams: 10/02/21 14:15 10/02/21 15:19 Labs: Lab Results 10/02/21 10/02/21 10/02/21 Range/Units 14:15 14:15 15:19 WBC 12.4 H (4.5-10.0) K/mm3 RBC 4.05 L (4.2-5.4) M/mm3 Hgb 14.3 (12.0-15.0) g/dL Hct 38.9 (37.0-47.0) % MCV 96.0 (80-100) fl MCH 35.3 H (26-34) pg MCHC 36.8 H (32-36) g/dl RDW 15.2 H (11.5-
[2021-10-02] MEDS: ONDANSETRON INJ 4 MG/2 ML VIAL IV PUSH (14:18)
[2021-10-02] MEDS: KETOROLAC 30 MG/ML VIAL (*BKC) IV PUSH (14:18)
[2021-10-02] MEDS: SODIUM CHLORIDE 0.9% IV 1,000 ML 999 ML IV CONT (14:19)
[2021-10-02 14:27] LABS: Basophils Percent Auto 0.3 % (0.2-1.2); Eosinophils Absolute Auto 0.1 K/mm3 (0-0.3); Eosinophils Percent Auto 0.6 % (0-4.4); Hematocrit 38.9 % (37.0-47.0); Hemoglobin 14.3 g/dL (12.0-15.0); Immature Granulocyte Absolute 0.05 K/mm3 (0.00-0.031); Immature Granulocyte Percent A 0.4 % (0-0.5); Lymphocytes Percent Auto 8.8 % (18.3-44.2); Mean Corpuscular HGB Conc 36.8 g/dl (32-36); Mean Corpuscular Hemoglobin 35.3 pg (26-34); Mean Platelet Volume 9.5 fl (7.4-10.4); Neutrophils Absolute Auto 10.2 K/mm3 (1.3-6.7); Neutrophils Percent Auto 81.9 % (45.5-73.1); Platelet Count Result 285 k/mm3 (150-375); Red Blood Count 4.05 M/mm3 (4.2-5.4); Red Cell Distribution Width 15.2 % (11.5-14.5); White Blood Count 12.4 K/mm3 (4.5-10.0)
[2021-10-02 14:39] LABS: Add Urine Microscopic? YES; Appearance Urine Cloudy (Clear); Bacteria Urine Trace /hpf; Bilirubin Urine Negative (Negative); Blood Urine Negative (Negative); Color Urine Amber (Yellow); Glucose Urine UA Negative (Negative); Ketones Urine Negative (Negative); Leukocyte Esterase Ur 1+ LEU/UL (Negative); Mucus Urine Few /lpf; Nitrate Urine Negative (Negative); Protein Urine 2+ mg/dL (Negative); Specific Grav Ur 1.023 (1.001-1.035); Squamous Epithelial Cell Urine Many /hpf (Few)
--- NOTE | 2021-10-02 15:00 | PM.IMHP ---
H&P: HPI History of Present Illness Date/Time: 10/02/21 15:00 Chief Complaint: Abdominal pain. Narrative: This is a 36-year-old female with history of pancreatitis who presented to the emergency department for evaluation of abdominal pain. Yesterday evening she had some mild abdominal discomfort, bloating, and nausea with 1 episode of emesis. She slept okay overnight however shortly after waking she developed severe pressure-like and occasionally sharp pain in the periumbilical region radiating through to the back. Symptoms are somewhat similar to those she has had with pancreatitis though lower than what she typically would expect. CT of the abdomen and pelvis showed findings which could reflect acute pancreatitis as well as hepatomegaly, diffuse hepatic steatosis, and a moderate volume of ascites. Her lipase was 5238 and she is being admitted in this setting for pancreatitis. She drank heavily in the past and did inpatient rehab in fall. She has not drank heavily since that time and though she will still have a drink here and there, she has not had alcohol in a couple of months. She is wondering if she ate something that upset her stomach as she has recently started a job at a local [employer] and has been eating foods that she typically does not consume. She denies fever, chills, sweats, chest pain, shortness breast, hematemesis, diarrhea, melena, dysuria. No sick contacts. Review of Systems Review of Systems: Twelve systems were reviewed and are negative except for as per HPI. [facility] Past Medical History Medical History (Updated 10/02/21 @ 21:10 by Lilian Carter PA-C) Alcoholic hepatitis Depression with anxiety Endometriosis Hepatic steatosis History of alcohol abuse Irritable bowel syndrome Kidney stones Pancreatitis History of pancreatic pseudocyst formation. Surgical History Surgical History (Updated 10/02/21 @ 21:05 by Lilian Carter PA-C) History of cystoscopy History of laparoscopy With destruction of endometriosis and ovarian cystectomy. History of lithotripsy History of tonsillectomy Family History Family History (Updated 10/02/21 @ 21:06 by Lilian Carter PA-C) Grandparent Diabetes mellitus Father Diabetes mellitus Acute myocardial infarction Social History Social History (Updated 10/02/21 @ 21:06 by Lilian Carter PA-C) Social History: Surrogate decision maker: Alyson Christianson, mother. Code status: Full code. Smoking packs per day: 0.5 Smoking cigarettes per day: 10.0 Years smoked: 10 Smoking pack-years: 5.00 Smoking status: Current some day smoker Alcohol intake: former Alcohol use details: Heavy drinker since her late teens, rare alcohol use since April 2020. Substance use: never Substance use type: does not use Meds Home Medications and Allergies Home Medications Medication Instructions Recorded Confirmed Type gabapentin 300 mg PO TID 10/02/21 10/02/21 History metoprolol succinate 25 mg PO DAILY 10/02/21 10/02/21 History Allergies Allergy/AdvReac Type Severity Reaction Status Date / Time Penicillins Allergy Mild RASH Verified 10/02/21 18:42 Vital Signs Vital Signs - 24 hr 10/02/21 13:52 10/02/21 14:05 10/02/21 15:27 Temperature 97.6 F Pulse Rate 129 H 123 H 77 Respiratory Rate 13 20 15 Blood Pressure 152/111 H 136/95 H 135/106 H Pulse Oximetry 100 99 99 10/02/21 15:30 10/02/21 15:45 10/02/21 16:08 Temperature Pulse Rate 77 73 93 Respiratory Rate 16 18 19 Blood Pressure 124/87 122/92 H 142/92 H Pulse Oximetry 99 98 100 10/02/21 16:15 10/02/21 16:18 10/02/21 17:30 Temperature Pulse Rate 88 81 94 Respiratory Rate 19 14 19 Blood Pressure 135/96 H 127/85 Pulse Oximetry 99 99 98 10/02/21 17:39 10/02/21 19:34 Temperature 97.8 F Pulse Rate 96 79 Respiratory Rate 20 20 Blood Pressure 124/93 H 122/85 Pulse Oximetry 100 98 Exam Narrative: General: Well-developed mildly ill-appearing fem
[2021-10-02] MEDS: MORPHINE SULFATE (*CRX) 4 MG/ML INJ IV PUSH ×4 (15:22→20:56)
[2021-10-02 15:46] LABS: Alanine Aminotransferase 50 U/L (4-35); Albumin Level 3.5 g/dL (3.5-5.1); Alkaline Phosphatase 105 U/L (38-126); Anion Gap 8 mmol/L (8-16); Aspartate Amino Transferase 72 U/L (14-36); Bilirubin,Total 1.4 mg/dL (0.2-1.3); Blood Urea Nitrogen 6 mg/dL (7-17); Calcium 8.1 mg/dL (8.4-10.2); Carbon Dioxide 27 mmol/L (22-30); Chloride 97 mmol/L (98-107); Estimated CRCL calculation 116 ml/min; Estimated Glomerular Filt Rate > 60; Glucose 109 mg/dL (65-110); Potassium 2.8 mmol/L (3.4-5.0); Sodium 132 mmol/L (137-145)
[2021-10-02 16:02] LABS: Magnesium 1.3 mg/dL (1.6-2.3)
[2021-10-02] MEDS: MAGNESIUM SULF 2 GM/WATER 50ML 2 GM/50 ML BAG IVPB (16:16)
[2021-10-02 16:28] LABS: Lipase 5238 U/L (23-300)
[2021-10-02] MEDS: KCL 40 MEQ/WATER 100 ML 100 ML 25 ML IVPB (16:37)
[2021-10-02 18:10] LABS: Ethanol < 10 mg/dL (<10)
[2021-10-02 18:13] LABS: Lactic Acid Reflex 2.1 mmol/L (0.7-2.1)
[2021-10-02] MEDS: SODIUM CHLORIDE 0.9% IV 1,000 ML 150 ML IV CONT (18:19)
--- NOTE | 2021-10-02 18:33 | ADMGEN ---
This patient, Kamilla Christianson, was admitted to 2 Medical Room 240-. Patient/family oriented to hospital policies and general routines including ID bracelet, bed and alarms, visiting hours, pain management, procedures, bathroom and other care routines, personal items, smoking policy, room service/diet, and visiting hours. Information on how to activate the Rapid Response Team has been discussed. Patient/Family are encouraged to report perceived risks to care and to ask questions if they do not understand what they are told or what they should do.
[2021-10-02 21:01] LABS: Reflex Lactic Acid Yes or No Add Lactic
[2021-10-02 21:02] LABS: Glucose Point of Care 95 mg/dl (65-105)
[2021-10-02 21:35] LABS: Lactic Acid 1.4 mmol/L (0.7-2.1)
[2021-10-02] MEDS: HYDROmorphone HCL INJ (*CRX) 1 MG/ML SYR IV PUSH (21:56)
[2021-10-02] MEDS: THIAMINE HCL 200 MG/2 ML VIAL 100 MG IV PUSH (21:57)
[2021-10-02] MEDS: cefTRIAXone 2 GM in SODIUM CHLORIDE 0.9% IV 100 ML 200 ML IVPB (22:00)
[2021-10-02 22:15] LABS: Anion Gap 5 mmol/L (8-16); Blood Urea Nitrogen 6 mg/dL (7-17); CRP 1.9 mg/dL (<1.0); Calcium 7.9 mg/dL (8.4-10.2); Carbon Dioxide 26 mmol/L (22-30); Chloride 101 mmol/L (98-107); Estimated CRCL calculation 119 ml/min; Estimated Glomerular Filt Rate > 60; Glucose 86 mg/dL (65-110); Magnesium 1.7 mg/dL (1.6-2.3); Potassium 3.3 mmol/L (3.4-5.0); Sodium 132 mmol/L (137-145); Triglycerides 103 mg/dL (<150)
[2021-10-02 22:23] LABS: Monoscreen Negative (Negative); Negative Monotest Control Negative (Negative); Positive Monotest Control Positive (Positive)
[2021-10-03] VITALS (11 sets, daily range): BP systolic 122–131; BP diastolic 69–95; PULSE 87–114; RESP 16–20; TEMP 36.6–36.9; O2SAT 96–98
[2021-10-03] MEDS: HYDROmorphone HCL INJ (*CRX) 1 MG/ML SYR IV PUSH ×8 (00:46→23:03)
[2021-10-03] MEDS: SODIUM CHLORIDE 0.9% IV 1,000 ML 150 ML IV CONT (02:25)
[2021-10-03 05:51] LABS: Basophils Absolute Auto 0.1 K/mm3 (0.0-0.1); Basophils Percent Auto 0.6 % (0.2-1.2); Eosinophils Absolute Auto 0.5 K/mm3 (0-0.3); Eosinophils Percent Auto 4.4 % (0-4.4); Hemoglobin 11.9 g/dL (12.0-15.0); Immature Granulocyte Absolute 0.03 K/mm3 (0.00-0.031); Immature Granulocyte Percent A 0.3 % (0-0.5); Lymphocytes Absolute Auto 1.33 K/mm3 (0.9-3.2); Mean Corpuscular Hemoglobin 34.5 pg (26-34); Mean Corpuscular Volume 98.6 fl (80-100); Mean Platelet Volume 9.7 fl (7.4-10.4); Monocytes Absolute Auto 0.8 K/mm3 (0.1-0.6); Monocytes Percent Auto 7.5 % (2.6-8.5); Neutrophils Absolute Auto 7.6 K/mm3 (1.3-6.7); Neutrophils Percent Auto 74.2 % (45.5-73.1); Platelet Count Result 232 k/mm3 (150-375); Red Blood Count 3.45 M/mm3 (4.2-5.4); Red Cell Distribution Width 15.6 % (11.5-14.5); White Blood Count 10.3 K/mm3 (4.5-10.0)
[2021-10-03 06:18] LABS: Alanine Aminotransferase 37 U/L (4-35); Albumin Level 2.9 g/dL (3.5-5.1); Alkaline Phosphatase 87 U/L (38-126); Anion Gap 5 mmol/L (8-16); Aspartate Amino Transferase 57 U/L (14-36); Blood Urea Nitrogen 5 mg/dL (7-17); Calcium 7.4 mg/dL (8.4-10.2); Carbon Dioxide 26 mmol/L (22-30); Chloride 107 mmol/L (98-107); Estimated CRCL calculation 122 ml/min; Estimated Glomerular Filt Rate > 60; Glucose 94 mg/dL (65-110); Magnesium 1.6 mg/dL (1.6-2.3); Potassium 3.1 mmol/L (3.4-5.0); Sodium 138 mmol/L (137-145)
--- NOTE | 2021-10-03 07:57 | PM.IMPN ---
Progress Note: A&P Additional Plan 36-year-old female with history of pancreatitis, alcohol abuse presented with abdominal pain, nausea. Found to have acute pancreatitis. 1)Abdominal Pain: 2/2 Acute recurrent pancreatitis Ascites present as well, ?SBP unclear at the moment C/w IV fluids NPO Supplement mag and potassium c/w ceftriaxone Plan for paracentesis today, will follow up ascitic fluid work up GI consult today USG abdomen to r/o any additional gall bladder pathology Add PPI IV 2)H/o Alcohol Abuse: [facility] protocol Start on taper IV ativan c/w Thiamine, folic acid Alcohol abstinence counseling 3)?UTI: UA s/o UTI Concern for pyelonephritis on imaging c/w ceftriaxone as above 4)DVT ppx: SCD 5)Code:Full 6)Dispo:pending improvement Time Spent With Patient Time with patient: 25 - 35 minutes Subjective Date/time seen: 10/03/21 07:57 Interval history: continues to have abdominal pain, nauseous Denies binge drinking bu still drinks couple of times in a week Review of Systems Constitutional: Constitutional: Reports fatigue Eyes: Eyes: Reports no additional eye complaints ENT: Reports system reviewed and no additional complaints, except as documented Cardiovascular: Cardiovascular: Reports no additional cardiovascular complaints Respiratory: Respiratory: Reports no additional respiratory complaints Gastrointestinal: Gastrointestinal: Reports abdominal pain and Reports nausea Genitourinary: Genitourinary: Reports no additional female genitourinary complaints Neurologic: Reports system reviewed and no additional complaints, except as documented Exam Const: General: in distress HENMT: Mouth: Yes moist mucous membranes Eyes: Sclera: sclerae normal Pupils: Equal, round and reactive pupils present Neck: Neck: supple Resp: Auscultation: clear to auscultation bilaterally Cardio: Rate: regular rate Rhythm: regular rhythm GI: Inspection: distended GI Palp: Yes Tenderness to palpation present (GI) and Yes Ascites present Auscultation: normal bowel sounds Skin: General skin exam: normal color Neuro: Cognition (Neuro): normal cognition Psych: Mental Status: mental status grossly normal Objective Data Vital Signs Vital Signs: Vital Signs - 24 hr 10/02/21 13:52 10/02/21 14:05 10/02/21 15:27 Temperature 97.6 F Pulse Rate 129 H 123 H 77 Pulse Rate [Monitor] Respiratory Rate 13 20 15 Blood Pressure 152/111 H 136/95 H 135/106 H Pulse Oximetry 100 99 99 10/02/21 15:30 10/02/21 15:45 10/02/21 16:08 Temperature Pulse Rate 77 73 93 Pulse Rate [Monitor] Respiratory Rate 16 18 19 Blood Pressure 124/87 122/92 H 142/92 H Pulse Oximetry 99 98 100 10/02/21 16:15 10/02/21 16:18 10/02/21 17:30 Temperature Pulse Rate 88 81 94 Pulse Rate [Monitor] Respiratory Rate 19 14 19 Blood Pressure 135/96 H 127/85 Pulse Oximetry 99 99 98 10/02/21 17:39 10/02/21 19:34 10/02/21 20:00 Temperature 97.8 F Pulse Rate 96 79 80 Pulse Rate [Monitor] Respiratory Rate 20 20 20 Blood Pressure 124/93 H 122/85 Pulse Oximetry 100 98 98 10/02/21 21:17 10/02/21 21:20 10/03/21 00:00 Temperature 98.7 F Pulse Rate 79 103 H Pulse Rate [Monitor] 85 91 Respiratory Rate 20 Blood Pressure 122/85 122/85 122/85 Pulse Oximetry 98 10/03/21 02:52 10/03/21 04:00 Temperature 97.8 F Pulse Rate 92 Pulse Rate [Monitor] 93 Respiratory Rate 20 Blood Pressure 122/69 Pulse Oximetry 97 97 Intake/Output Intake/Output: Intake & Output 09/30/21 10/01/21 10/02/21 10/03/21 23:59 23:59 23:59 23:59 Intake Total 1200 1000 Balance 1200 1000 Meds/Results Medications: Active Medications Generic Name Dose Route Start Last Admin Trade Name Freq PRN Reason Stop Dose Admin Hydromorphone HCl 1 mg 10/02/21 21:45 10/03/21 06:05 Hydromorphone Hcl Inj (*Crx) 1 Mg/Ml Syr IV PUSH 1 mg Q3H PRN Administration Pain Rated 7-10 Sodium Chloride 1,000 mls @ 150 m
[2021-10-03 08:17] LABS: Lipase 2561 U/L (23-300)
[2021-10-03 08:26] LABS: INR 1.3; Partial Thromboplastin Time 30.2 SECONDS (22.3-36.8); Prothrombin Time 16.1 Seconds (11.1-14.7)
[2021-10-03] MEDS: LORazepam INJ (*CRX) 2 MG/ML VIAL IV PUSH ×3 (09:11→19:47)
[2021-10-03] MEDS: KCL 40 MEQ/0.9% SOD CHL 1,000 ML 100 ML IV CONT ×2 (09:23→21:43)
[2021-10-03] MEDS: MAGNESIUM SULF 2 GM/WATER 50ML 2 GM/50 ML BAG IVPB (09:29)
[2021-10-03] MEDS: PANTOPRAZOLE SODIUM IV 40 MG VIAL IV PUSH ×2 (12:56→21:46)
--- NOTE | 2021-10-03 14:32 | WPDGICN ---
Assessment and Plan Assessment and plan (1) Abdominal pain: Code(s): R10.9 - Unspecified abdominal pain Status: Acute Assessment and Plan: clearly this is a recurrent episode of pancreatitis. It appears that she has a problem abstaining from alcohol. Ultrasound suggested somewhat dilated common bile duct but this is probably due to edema in the head of the pancreas (2) Acute pancreatitis: Code(s): K85.90 - Acute pancreatitis without necrosis or infection, unspecified Status: Acute Assessment and Plan: this is 1 of many episodes of pancreatitis in this girl who unfortunately has a problem with chronic alcohol abuse. As her pain subsides we can start advancing her diet but will keep her on clear liquids until she has much less pain (3) Ascites: Code(s): R18.8 - Other ascites Status: Acute Assessment and Plan: there was not a large volume of ascitic fluid and consequently would be unlikely to have SBP at this stage. It would be much more likely if she had tense and chronic ascites. however, having said that, I see that she does have somewhat of an elevation of leukocytes. She has been started already on ceftriaxone which would help with SBP (4) Alcohol abuse: Code(s): F10.10 - Alcohol abuse, uncomplicated Status: Acute Assessment and Plan: She has obviously dealt with this for quite a while and in fact did apparently participate in inpatient rehabilitation couple years ago. I told her that she absolutely cannot have any alcohol. She was wondering why she gets weight with that most of the time and then gets pancreatitis all of sudden. I told her that that is the problem-- that she will always be 'allergic' to alcohol and that each episode of pancreatitis can be worse, each episode of pancreatitis could be fatal. Hopefully she will abide by what she says but statistically she will probably return to drinking alcohol soon (5) Hepatic steatosis: Code(s): K76.0 - Fatty (change of) liver, not elsewhere classified Status: Acute Assessment and Plan: obviously due to alcohol use. I did warn her that this increases the risk of cirrhosis, and the presence of ascites indicates that she may already have portal hypertension. GI Consult Note Consult date/time: 10/03/21 14:32 HPI: Kamilla Christianson is a 36 year old female was admitted with another episode of pancreatitis. She has had several hospitalizations for pancreatitis over the last few years. She has been heavy drinker of alcohol for quite a while. In 2018 she was admitted with primarily alcoholic liver disease. She was in the emergency room in June stating that she had quit drinking for a while but fell off the wagon in was drinking for the month prior to that visit. She states that she did go through rehab and had quit for a while . She admits that she was drinking this weekend. She said that she thought that it would be okay to have a drink here and there because it was not hurting her when she would drink. I asked her if that is what they told her in rehab. She states, No, they said we can not have any but I thought I could have some here and there. Her lipase was Mildly elevated in June-- and she was discharged the same day now however her lipase is markedly elevated, over [address] scan shows hepatomegaly and hepatic steatosis. There was also a moderate volume of ascites. Paracentesis was done this morning with removal of 300 cc of anneliese colored fluid. Also on CT there was noted to be heterogeneous enhancement in the head and tail of the pancreas suggestive of pancreatitis. Review of Systems Review of Systems: All systems reviewed & are unremarkable except as noted in HPI and below PMFSH Past Medical History Medical History Alcoholic hepatitis Depression with anxiety Endometriosis Hepatic steat
[2021-10-03 15:36] LABS: Appearance Peritoneal Fluid Hazy (Clear); Source Peritoneal Fluid Peritoneal Fluid
[2021-10-03 15:37] LABS: Color Peritoneal Fluid Yellow (Colorless); Lymphocytes Peritoneal Fluid 4 %; Macrophages Peritoneal Fluid 6 %; Monocytes Peritoneal Fluid 49 %; Neutrophils Peritoneal Fluid 43 % (0-25); Nucleated Cells Peritoneal Flu 1685 /uL (0-500); RBC Peritoneal Fluid 640 /uL (0-100000)
[2021-10-03] MEDS: cefTRIAXone 2 GM in SODIUM CHLORIDE 0.9% IV 100 ML 200 ML IVPB (21:46)
[2021-10-03 21:56] LABS: Glucose Point of Care 89 mg/dl (65-105)
[2021-10-04] VITALS (10 sets, daily range): BP systolic 125–138; BP diastolic 72–95; PULSE 81–128; RESP 14–20; TEMP 36.3–36.7; O2SAT 95–100
[2021-10-04] MEDS: HYDROmorphone HCL INJ (*CRX) 1 MG/ML SYR IV PUSH ×7 (01:56→22:09)
[2021-10-04] MEDS: LORazepam INJ (*CRX) 2 MG/ML VIAL IV PUSH (01:56)
[2021-10-04 05:28] LABS: Basophils Absolute Auto 0.1 K/mm3 (0.0-0.1); Basophils Percent Auto 0.8 % (0.2-1.2); Eosinophils Absolute Auto 0.3 K/mm3 (0-0.3); Hematocrit 36.8 % (37.0-47.0); Hemoglobin 11.6 g/dL (12.0-15.0); Immature Granulocyte Absolute 0.05 K/mm3 (0.00-0.031); Immature Granulocyte Percent A 0.6 % (0-0.5); Lymphocytes Absolute Auto 1.57 K/mm3 (0.9-3.2); Lymphocytes Percent Auto 18.5 % (18.3-44.2); Mean Corpuscular HGB Conc 31.5 g/dl (32-36); Mean Corpuscular Hemoglobin 34.7 pg (26-34); Mean Corpuscular Volume 110.2 fl (80-100); Mean Platelet Volume 9.3 fl (7.4-10.4); Monocytes Absolute Auto 0.6 K/mm3 (0.1-0.6); Monocytes Percent Auto 7.5 % (2.6-8.5); Neutrophils Absolute Auto 5.8 K/mm3 (1.3-6.7); Neutrophils Percent Auto 68.6 % (45.5-73.1); Platelet Count Result 197 k/mm3 (150-375); Red Blood Count 3.34 M/mm3 (4.2-5.4); Red Cell Distribution Width 15.7 % (11.5-14.5); White Blood Count 8.5 K/mm3 (4.5-10.0)
[2021-10-04 05:38] LABS: Alanine Aminotransferase 33 U/L (4-35); Alkaline Phosphatase 95 U/L (38-126); Amylase 176 U/L (30-110); Anion Gap 5 mmol/L (8-16); Aspartate Amino Transferase 60 U/L (14-36); Bilirubin,Total 0.9 mg/dL (0.2-1.3); Blood Urea Nitrogen 5 mg/dL (7-17); Calcium 7.9 mg/dL (8.4-10.2); Carbon Dioxide 22 mmol/L (22-30); Chloride 108 mmol/L (98-107); Estimated CRCL calculation 127 ml/min; Estimated Glomerular Filt Rate > 60; Glucose 74 mg/dL (65-110); Lipase 586 U/L (23-300); Magnesium 2.1 mg/dL (1.6-2.3); Potassium 3.8 mmol/L (3.4-5.0); Sodium 135 mmol/L (137-145)
[2021-10-04] MEDS: LORazepam INJ (*CRX) 2 MG/ML VIAL 1 MG IV PUSH ×3 (07:53→20:03)
[2021-10-04] MEDS: THIAMINE HCL 200 MG/2 ML VIAL 100 MG IV PUSH (07:53)
[2021-10-04] MEDS: PANTOPRAZOLE SODIUM IV 40 MG VIAL IV PUSH ×2 (07:53→22:09)
[2021-10-04] MEDS: KCL 40 MEQ/0.9% SOD CHL 1,000 ML 100 ML IV CONT ×2 (08:36→18:48)
[2021-10-04] MEDS: FOLIC ACID 1 MG/0.2 ML INJ IV PUSH (08:36)
--- NOTE | 2021-10-04 10:35 | PM.IMPN ---
Progress Note: A&P Assessment and Plan (1) Abdominal pain: Code(s): R10.9 - Unspecified abdominal pain Status: Acute Assessment and Plan: With CT reading and elevated lipase, presumably related to pancreatitis. However she does have a moderate volume of ascites and an elevated white blood cell count and given the fact that her pain is different than those previous episodes of pancreatitis, SBP is a consideration. status post paracentesis suggestive of SBP On ceftriaxone (2) Acute pancreatitis: Code(s): K85.90 - Acute pancreatitis without necrosis or infection, unspecified Status: Acute Assessment and Plan: Precipitating etiology not entirely clear as patient states she has not drank for many months. Care will be supportive with IV fluid rehydration, antiemetics, and analgesics as needed. Trend lipase. Triglyceride normal at 103 Lipase is improving Likely related to alcohol use (3) Transaminasemia: Code(s): R74.01 - Elevation of levels of liver transaminase levels Status: Acute Assessment and Plan: Hepatitis panel negative In 2020. (4) Abnormal computed tomography of kidney: Code(s): R93.429 - Abnormal radiologic findings on diagnostic imaging of unspecified kidney Status: Acute Assessment and Plan: CT of the abdomen pelvis shows persistent heterogeneous enhancement of the kidneys, possible pyelonephritis. Urinalysis appears contaminated she has no symptoms to suggest urinary tract infection. She is currently on empiric antibiotics as above. Urine culture pending. (5) Hepatomegaly: Code(s): R16.0 - Hepatomegaly, not elsewhere classified Status: Acute Assessment and Plan: Noted on CT today with diffuse hepatic steatosis and a moderate volume of ascites. (6) Hepatic steatosis: Code(s): K76.0 - Fatty (change of) liver, not elsewhere classified Status: Acute Assessment and Plan: As above. Abdominal ultrasound with dilated common bile duct of unclear etiology. MRCP with acute interstitial pancreatitis mild dilatation of common bile duct to 8 mm without intrahepatic biliary duct dilatation or obstructing stones or mass. Small amount of ascites and very small bilateral posterior layering pleural effusion Hepatomegaly with diffuse hepatic steatosis and nonspecific splenomegaly (7) Ascites: Code(s): R18.8 - Other ascites Status: Acute Assessment and Plan: Status post paracentesis elevated PMNs suggestive of spontaneous bacterial peritonitis. On ceftriaxone 2 g IV Q 24 hours. Peritoneal fluid analysis with cultures pending (8) Hypokalemia: Code(s): E87.6 - Hypokalemia Status: Acute Assessment and Plan: Potassium will be replaced and monitored. (9) Hypomagnesemia: Code(s): E83.42 - Hypomagnesemia Status: Acute Assessment and Plan: Magnesium will be replaced and monitored. Subjective Date/time seen: 10/04/21 10:35 Interval history: 10/04/2021 feels a bit better today. Tried some clear this morning. No shortness of breath denies any fever Review of Systems Review of Systems: All systems reviewed & are unremarkable except as noted in HPI and below ( HPI) Exam Narrative: General: Well-developed mildly ill-appearing HEENT: PERRL, EOMI. Sclerae anicteric. Tacky mucous membranes. Neck: Supple. Respiratory: Lungs are clear to auscultation bilaterally. Cardiovascular: regular rate; regular rhythm and S1-S2. Gastrointestinal: Abdomen is soft protuberant with positive bowel sounds.tender to palpation diffusely throughout the abdomen without guarding. No rebound tenderness. No CVA tenderness. Skin: Warm and dry. No rash or lesions on limited exam. Extremities: No cyanosis, clubbing, or edema. Radial and pedal pulses intact. Neurological: Alert. Cranial nerves 2-12 are grossly intact. No gross focal deficits to
--- NOTE | 2021-10-04 15:13 | WPDGIPROGNO ---
Progress Note: A&P Assessment and Plan (1) Acute pancreatitis: Code(s): K85.90 - Acute pancreatitis without necrosis or infection, unspecified Status: Acute Assessment and Plan: lipase has come down to 586. Amylase is 176. she states that she is still too uncomfortable to try eating. She told me that her 1st hospitalization for pancreatitis was about 4 weeks long. That time she had developed a pseudocyst (2) Ascites: Code(s): R18.8 - Other ascites Status: Acute Assessment and Plan: So far no growth of any organisms on the ascitic fluid. (3) Alcohol abuse: Code(s): F10.10 - Alcohol abuse, uncomplicated Status: Acute Assessment and Plan: We again had a long talk about her alcoholism. She of course acknowledges that she needs to stop but I reminded her that she has tried before. She is aware that the rate ofrecidivism is high, but she firmly states that she is done with alcohol. We shall see. I discussed cirrhosis with her again and told her that she is headed that direction and that the ascites is a concern for the development of portal hypertension Subjective Date/time seen: 10/04/21 15:13 She was taking some clear liquids. She states that she is still not hungry but does not want her mouth gets dry. Denies vomiting. She states the pain is a bit better. She was a bit tearful, telling me she was thinking about the issue with her recurrent pancreatitis. She regrets that she has started drinking again but she stated again today that she thought it was okay to have few drinks now and then as long as I did not binge I remind her that having been in rehab twice she obviously was told no longer to have any alcohol. She states that she gets it now Exam Const: General: alert Orientation/consciousness: patient oriented x3 Resp: Auscultation: clear to auscultation bilaterally Cardio: Rhythm: regular rhythm GI: GI Palp: Yes abdominal tenderness ( generalized but mostly in upper abdomen) and Yes Soft to palpation Auscultation: normal bowel sounds Neuro: General: patient oriented x3 Objective Data Vital Signs Vital Signs: Vital Signs - 24 hr 10/03/21 16:00 10/03/21 20:00 10/03/21 20:26 Temperature 36.9 C Pulse Rate 101 H 102 H 94 Pulse Rate [Monitor] 88 Respiratory Rate 20 20 Blood Pressure 131/79 131/79 Pulse Oximetry 96 96 10/04/21 00:00 10/04/21 04:00 10/04/21 05:23 Temperature 36.3 C L Pulse Rate 104 H 94 81 Pulse Rate [Monitor] 92 94 Respiratory Rate 20 Blood Pressure 131/79 131/79 125/72 Pulse Oximetry 96 10/04/21 08:00 10/04/21 13:30 Temperature 36.7 C Pulse Rate 128 H 101 H Pulse Rate [Monitor] Respiratory Rate 16 Blood Pressure 138/90 Pulse Oximetry 100 Intake/Output Intake/Output: Intake & Output 10/01/21 10/02/21 10/03/21 10/04/21 23:59 23:59 23:59 23:59 Intake Total 1200 2150 2110 Output Total 700 1200 Balance 1200 1450 910 Meds/Results Medications: Active Medications Generic Name Dose Route Start Last Admin Trade Name Freq PRN Reason Stop Dose Admin Folic Acid 1 mg 10/04/21 09:00 10/04/21 08:36 Folic Acid 1 Mg/0.2 Ml Inj IV PUSH 1 mg QAM TIFFANIE Administration Hydromorphone HCl 1 mg 10/02/21 21:45 10/04/21 12:16 Hydromorphone Hcl Inj (*Crx) 1 Mg/Ml Syr IV PUSH 1 mg Q3H PRN Administration Pain Rated 7-10 Ceftriaxone Sodium 2 gm/ 100 mls @ 200 mls/hr 10/02/21 22:00 10/03/21 22:16 Sodium Chloride IVPB Infused Q24H TIFFANIE Infusion Potassium Chloride/Sodium Chloride 1,000 mls @ 100 mls/hr 10/03/21 09:15 10/04/21 08:36 Kcl 40 Meq/Ns IV CONT 100 mls/hr .Q10H TIFFANIE Administration Lorazepam 1 mg 10/04/21 08:00 10/04/21 14:28 Lorazepam Inj (*Crx) 2 Mg/Ml Vial IV PUSH 10/06/21 02:01 1 mg Q6H TIFFANIE Administration Ondansetron HCl 4 mg 10/03/21 16:28 Ondansetron Inj 4 Mg/2 Ml Vial IV PUSH Q4H PRN Nausea And Vomiting Pant
[2021-10-04] MEDS: cefTRIAXone 2 GM in SODIUM CHLORIDE 0.9% IV 100 ML 200 ML IVPB (22:09)
[2021-10-05] VITALS (13 sets, daily range): BP systolic 115–137; BP diastolic 79–97; PULSE 74–134; RESP 12–20; TEMP 36.2–37; O2SAT 97–100
[2021-10-05] MEDS: HYDROmorphone HCL INJ (*CRX) 1 MG/ML SYR IV PUSH ×7 (01:13→23:57)
[2021-10-05] MEDS: LORazepam INJ (*CRX) 2 MG/ML VIAL 1 MG IV PUSH ×4 (02:41→19:59)
[2021-10-05] MEDS: KCL 40 MEQ/0.9% SOD CHL 1,000 ML 100 ML IV CONT ×2 (05:21→19:15)
[2021-10-05 07:13] LABS: Basophils Absolute Auto 0.1 K/mm3 (0.0-0.1); Basophils Percent Auto 0.9 % (0.2-1.2); Eosinophils Absolute Auto 0.3 K/mm3 (0-0.3); Eosinophils Percent Auto 4.4 % (0-4.4); Hematocrit 34.9 % (37.0-47.0); Hemoglobin 11.8 g/dL (12.0-15.0); Immature Granulocyte Absolute 0.03 K/mm3 (0.00-0.031); Immature Granulocyte Percent A 0.4 % (0-0.5); Lymphocytes Absolute Auto 1.59 K/mm3 (0.9-3.2); Mean Corpuscular HGB Conc 33.8 g/dl (32-36); Mean Corpuscular Hemoglobin 34.8 pg (26-34); Mean Corpuscular Volume 102.9 fl (80-100); Mean Platelet Volume 9.3 fl (7.4-10.4); Monocytes Absolute Auto 0.6 K/mm3 (0.1-0.6); Monocytes Percent Auto 7.4 % (2.6-8.5); Neutrophils Percent Auto 65.9 % (45.5-73.1); Platelet Count Result 247 k/mm3 (150-375); Red Blood Count 3.39 M/mm3 (4.2-5.4); Red Cell Distribution Width 15.5 % (11.5-14.5); White Blood Count 7.6 K/mm3 (4.5-10.0)
[2021-10-05 07:27] LABS: Alanine Aminotransferase 30 U/L (4-35); Albumin Level 3.4 g/dL (3.5-5.1); Alkaline Phosphatase 98 U/L (38-126); Anion Gap 6 mmol/L (8-16); Aspartate Amino Transferase 67 U/L (14-36); Bilirubin,Total 0.9 mg/dL (0.2-1.3); Blood Urea Nitrogen 3 mg/dL (7-17); Calcium 8.3 mg/dL (8.4-10.2); Carbon Dioxide 24 mmol/L (22-30); Chloride 105 mmol/L (98-107); Estimated CRCL calculation 127 ml/min; Estimated Glomerular Filt Rate > 60; Glucose 83 mg/dL (65-110); Magnesium 1.9 mg/dL (1.6-2.3); Potassium 4.5 mmol/L (3.4-5.0); Sodium 135 mmol/L (137-145)
[2021-10-05] MEDS: PANTOPRAZOLE SODIUM IV 40 MG VIAL IV PUSH ×2 (09:01→19:59)
[2021-10-05] MEDS: THIAMINE HCL 200 MG/2 ML VIAL 100 MG IV PUSH (09:01)
[2021-10-05] MEDS: FOLIC ACID 1 MG/0.2 ML INJ IV PUSH (09:01)
--- NOTE | 2021-10-05 10:18 | PCCCNOTE ---
On 10/05/21, the student, [Roro Segovia], provided care and completed [facility] documentation on this patient. I have reviewed the student's documentation and agree with the findings.
[2021-10-05] MEDS: LACTATED RINGERS 1,000 ML 150 ML IV CONT (11:09)
--- NOTE | 2021-10-05 11:44 | PC.NURSE ---
Patient to GI lab per wheelchair at 1100, IV saline locked.
--- NOTE | 2021-10-05 11:58 | WPDANESEPPF ---
Anes - Initial Pre Proc Eval Procedure: Operation Date: 10/05/21 12:30 Proposed Procedures p Esophagogastroduodenoscopy - Ez Gutierrez MD Date/Time: 10/05/21 11:58 Surgeon: Steve Farnsworth MD Pre Op Diagnosis: Pancreatitis/hypokalemia/hypomagnesia/pyelonephrit Patient Data Age: 36 Gender: F Height: 1.63 m Weight: 96.5 kg Last Vital Signs Temp 36.2 C L 10/05/21 11:16 Pulse 74 10/05/21 11:16 Resp 16 10/05/21 11:16 BP 133/95 H 10/05/21 11:16 Pulse Ox 100 10/05/21 11:16 Allergies Allergy/AdvReac Type Severity Reaction Status Date / Time Penicillins Allergy Mild RASH Verified 10/05/21 11:14 Home Medications Medication Instructions Recorded Confirmed Type gabapentin 300 mg PO TID 10/02/21 10/02/21 History metoprolol succinate 25 mg PO DAILY 10/02/21 10/02/21 History Laboratory Tests 10/05/21 10/05/21 07:02 07:02 WBC 7.6 K/mm3 K/mm3 (4.5-10.0) RBC 3.39 M/mm3 L M/mm3 (4.2-5.4) Hgb 11.8 g/dL L g/dL (12.0-15.0) Hct 34.9 % L % (37.0-47.0) MCV 102.9 fl H D fl (80-100) MCH 34.8 pg H pg (26-34) MCHC 33.8 g/dl g/dl (32-36) RDW 15.5 % H % (11.5-14.5) Plt Count 247 k/mm3 k/mm3 (150-375) MPV 9.3 fl fl (7.4-10.4) Immature Gran % (Auto) 0.4 % % (0-0.5) Neut % (Auto) 65.9 % % (45.5-73.1) Lymph % (Auto) 21.0 % % (18.3-44.2) Howard % (Auto) 7.4 % % (2.6-8.5) Eos % (Auto) 4.4 % % (0-4.4) Baso % (Auto) 0.9 % % (0.2-1.2) Lymph # (Auto) 1.59 K/mm3 K/mm3 (0.9-3.2) Howard # (Auto) 0.6 K/mm3 K/mm3 (0.1-0.6) Eos # (Auto) 0.3 K/mm3 K/mm3 (0-0.3) Baso # (Auto) 0.1 K/mm3 K/mm3 (0.0-0.1) Abs Immat Gran (auto) 0.03 K/mm3 K/mm3 (0.00-0.031) Absolute Neuts (auto) 5.0 K/mm3 K/mm3 (1.3-6.7) Absolute Nucleated RBC 0.0 K/mm3 K/mm3 (0.0-0.012) Nucleated RBC % 0.0 % % (0.0-0.2) Sodium 135 mmol/L L mmol/L (137-145) Potassium 4.5 mmol/L mmol/L (3.4-5.0) Chloride 105 mmol/L mmol/L (98-107) Carbon Dioxide 24 mmol/L mmol/L (22-30) Anion Gap 6 mmol/L L mmol/L (8-16) BUN 3 mg/dL L mg/dL (7-17) Creatinine 0.60 mg/dL L mg/dL (0.7-1.0) Estim Creat Clear Calc 127 ml/min ml/min Estimated GFR > 60 (59 - ) Glucose 83 mg/dL mg/dL (65-110) Calcium 8.3 mg/dL L mg/dL (8.4-10.2) Magnesium 1.9 mg/dL mg/dL (1.6-2.3) Total Bilirubin 0.9 mg/dL mg/dL (0.2-1.3) AST 67 U/L H U/L (14-36) ALT 30 U/L U/L (4-35) Alkaline Phosphatase 98 U/L U/L (38-126) Total Protein 6.0 g/dL L g/dL (6.3-8.2) Albumin 3.4 g/dL L g/dL (3.5-5.1) Patient hx anesthesia problems: none Family hx anesthesia problems: none Results Review: All pre-operative results and documents have been reviewed as part of the pre-operative evaluation. [facility] Past Medical History Medical History Alcoholic hepatitis Depression with anxiety Endometriosis Hepatic steatosis History of alcohol abuse Irritable bowel syndrome Kidney stones Pancreatitis History of pancreatic pseudocyst formation. Surgical History Surgical History History of cystoscopy History of laparoscopy With destruction of endometriosis and ovarian cystectomy. History of lithotripsy History of tonsillectomy Family History Family History Grandparent Diabetes mellitus Father Diabetes mellitus Acute myocardial infarction Social History Social History Social History: Surrogate decision maker: Alyson Christianson, mother. Code status: Full code. Smoking packs per day: 0.5 Smoking cigarettes per day: 10.0 Years smoked: 1
[2021-10-05] MEDS: BENZOCAINE (*SP) 60 ML SPRAY CAN (HURRICAINE) 1 SPRAY MUCOUS MEM (12:33)
[2021-10-05] MEDS: LIPASE/AMYLASE/PROTEASE 12,000 UNITS CAP 2 CAP PO ×2 (14:01→16:50)
--- NOTE | 2021-10-05 14:58 | PM.IMPN ---
Progress Note: A&P Assessment and Plan (1) Abdominal pain: Code(s): R10.9 - Unspecified abdominal pain Status: Acute Assessment and Plan: With CT reading and elevated lipase, presumably related to pancreatitis. However she does have a moderate volume of ascites and an elevated white blood cell count and given the fact that her pain is different than those previous episodes of pancreatitis, SBP is a consideration. status post paracentesis suggestive of SBP cultures no growth so far On ceftriaxone day 4 Undergoing EGD today for further evaluation of her abdominal pain Slowly advance diet as tolerated (2) Acute pancreatitis: Code(s): K85.90 - Acute pancreatitis without necrosis or infection, unspecified Status: Acute Assessment and Plan: Precipitating etiology not entirely clear as patient states she has not drank for many months. Care will be supportive with IV fluid rehydration, antiemetics, and analgesics as needed. Trend lipase. Triglyceride normal at 103 Lipase is improving Likely related to alcohol use (3) Transaminasemia: Code(s): R74.01 - Elevation of levels of liver transaminase levels Status: Acute Assessment and Plan: Hepatitis panel negative In 2019. (4) Abnormal computed tomography of kidney: Code(s): R93.429 - Abnormal radiologic findings on diagnostic imaging of unspecified kidney Status: Acute Assessment and Plan: CT of the abdomen pelvis shows persistent heterogeneous enhancement of the kidneys, possible pyelonephritis. Urinalysis appears contaminated she has no symptoms to suggest urinary tract infection. She is currently on empiric antibiotics as above. Urine culture pending. (5) Hepatomegaly: Code(s): R16.0 - Hepatomegaly, not elsewhere classified Status: Acute Assessment and Plan: Noted on CT with diffuse hepatic steatosis and a moderate volume of ascites. (6) Hepatic steatosis: Code(s): K76.0 - Fatty (change of) liver, not elsewhere classified Status: Acute Assessment and Plan: As above. Abdominal ultrasound with dilated common bile duct of unclear etiology. MRCP with acute interstitial pancreatitis mild dilatation of common bile duct to 8 mm without intrahepatic biliary duct dilatation or obstructing stones or mass. Small amount of ascites and very small bilateral posterior layering pleural effusion Hepatomegaly with diffuse hepatic steatosis and nonspecific splenomegaly (7) Ascites: Code(s): R18.8 - Other ascites Status: Acute Assessment and Plan: Status post paracentesis elevated PMNs suggestive of spontaneous bacterial peritonitis. On ceftriaxone 2 g IV Q 24 hours. Peritoneal fluid analysis with cultures pending (8) Hypokalemia: Code(s): E87.6 - Hypokalemia Status: Acute Assessment and Plan: Potassium will be replaced and monitored. (9) Hypomagnesemia: Code(s): E83.42 - Hypomagnesemia Status: Acute Assessment and Plan: Magnesium will be replaced and monitored. Subjective Date/time seen: 10/05/21 14:58 Interval history: 10/04/2021 feels a bit better today. Tried some clear this morning. No shortness of breath denies any fever 10/05/2021 seen this morning. Denies any new complaints. She states that her upper abdomen is still sore similar to yesterday. She is NPO currently for scope that is planned for this afternoon. Denies any nausea or vomiting. Review of Systems Review of Systems: All systems reviewed & are unremarkable except as noted in HPI and below ( HPI) Exam Narrative: General: Well-developed mildly ill-appearing HEENT: PERRL, EOMI. Sclerae anicteric. Tacky mucous membranes. Neck: Supple. Respiratory: Lungs are clear to auscultation bilaterally. Cardiovascular: regular rate; regular rhythm and S1-S2. Gastrointestinal: Abdomen is soft protuberant with positive
[2021-10-05] MEDS: cefTRIAXone 2 GM in SODIUM CHLORIDE 0.9% IV 100 ML 200 ML IVPB (21:03)
[2021-10-06] VITALS (10 sets, daily range): BP systolic 116–125; BP diastolic 76–85; PULSE 73–113; RESP 14–18; TEMP 36.1–36.6; O2SAT 98–100
[2021-10-06] MEDS: LORazepam INJ (*CRX) 2 MG/ML VIAL 1 MG IV PUSH (02:04)
[2021-10-06] MEDS: KCL 40 MEQ/0.9% SOD CHL 1,000 ML 100 ML IV CONT ×2 (04:59→15:15)
[2021-10-06] MEDS: HYDROmorphone HCL INJ (*CRX) 1 MG/ML SYR IV PUSH ×6 (04:59→22:10)
[2021-10-06 05:29] LABS: Basophils Absolute Auto 0.1 K/mm3 (0.0-0.1); Basophils Percent Auto 0.9 % (0.2-1.2); Eosinophils Absolute Auto 0.4 K/mm3 (0-0.3); Eosinophils Percent Auto 4.7 % (0-4.4); Hematocrit 41.4 % (37.0-47.0); Hemoglobin 13.9 g/dL (12.0-15.0); Immature Granulocyte Absolute 0.03 K/mm3 (0.00-0.031); Immature Granulocyte Percent A 0.4 % (0-0.5); Immature Platelet Fraction Pct 3.1 % (0.9-11.2); Lymphocytes Absolute Auto 1.62 K/mm3 (0.9-3.2); Mean Corpuscular HGB Conc 33.6 g/dl (32-36); Mean Corpuscular Hemoglobin 34.2 pg (26-34); Mean Platelet Volume 9.7 fl (7.4-10.4); Monocytes Absolute Auto 0.6 K/mm3 (0.1-0.6); Monocytes Percent Auto 7.2 % (2.6-8.5); Neutrophils Absolute Auto 5.1 K/mm3 (1.3-6.7); Neutrophils Percent Auto 65.8 % (45.5-73.1); Platelet Count Result 247 k/mm3 (150-375); Red Blood Count 4.06 M/mm3 (4.2-5.4); White Blood Count 7.7 K/mm3 (4.5-10.0)
[2021-10-06 05:36] LABS: Alanine Aminotransferase 33 U/L (4-35); Albumin Level 3.9 g/dL (3.5-5.1); Alkaline Phosphatase 117 U/L (38-126); Anion Gap 9 mmol/L (8-16); Aspartate Amino Transferase 74 U/L (14-36); Blood Urea Nitrogen 3 mg/dL (7-17); Calcium 9.1 mg/dL (8.4-10.2); Carbon Dioxide 22 mmol/L (22-30); Chloride 104 mmol/L (98-107); Estimated CRCL calculation 104 ml/min; Estimated Glomerular Filt Rate > 60; Glucose 84 mg/dL (65-110); Magnesium 1.9 mg/dL (1.6-2.3); Sodium 135 mmol/L (137-145)
--- NOTE | 2021-10-06 07:21 | WPDGIPROGNO ---
Progress Note: A&P Assessment and Plan (1) Acute pancreatitis: Code(s): K85.90 - Acute pancreatitis without necrosis or infection, unspecified Status: Acute Assessment and Plan: lipase has come down to 586. Amylase is 176. she states that she is still too uncomfortable to try eating. She told me that her 1st hospitalization for pancreatitis was about 4 weeks long. That time she had developed a pseudocyst. She and I had a long conversation about eher alcohol problem. Although she had stated on admission that she had quit alcohol 'months ago', I pointed out to her that she had told ER staff, when she was here in June, she had 'fallen off the wagon' last may, drinking again. She confessed to me that she indeed HAS been drinking regularly lately, including the day before this present illness. She said she has been able to get away with a few drinks without problems, so she thought she could handle it. I reminded her that pancreatitis can be fatal. (2) Ascites: Code(s): R18.8 - Other ascites Status: Acute Assessment and Plan: So far no growth of any organisms on the ascitic fluid. Because of increased leukocytes, I agree with treating for probable SBP. When discharged, Rx Cipro to complete full 7 days (3) Alcohol abuse: Code(s): F10.10 - Alcohol abuse, uncomplicated Status: Acute Assessment and Plan: We again had a long talk about her alcoholism. She of course acknowledges that she needs to stop but I reminded her that she has tried before. She is aware that the rate of recidivism is high, but she firmly states that she is done with alcohol. We shall see. I discussed cirrhosis with her again and told her that she is headed that direction and that the ascites is a concern for the development of portal hypertension (4) Abdominal pain: Code(s): R10.9 - Unspecified abdominal pain Status: Acute Assessment and Plan: a mid abdominal pain which had been present since admission but now is her primary pain. He feels distended and on exam has tympany. No bowel movement so far. She may have mild ileus. I will give her a laxative and 1 dose of Reglan. I will switch back to clear liquids. The full liquid diet has some lactose which may have been a factor Subjective Date/time seen: 10/06/21 07:21 we discussed results her EGD, basically unremarkable except for antral erosions likely due to NSAID use. She again is complaining of discomfort in the mid abdomen in various areas but a tight feeling which began sometime yesterday. Because of tympany I found on exam I suspect she has somewhat of an ileus. She has not had a bowel movement since admission. I will cut her back to clear liquids and check a KUB. Will give her Reglan once and also a laxative . Because of her history of substance abuse, I think that would be better that we hold off on advancing her diet until she is able to get off narcotics. I told her that when she is no longer having severe pain that it would be safe for us to feed her. She and I had a long conversation about eher alcohol problem. Although she had stated on admission that she had quit alcohol 'months ago', I pointed out to her that she had told ER staff, when she was here in June, she had 'fallen off the wagon' last may, drinking again. She confessed to me that she indeed HAS been drinking regularly lately, including the day before this present illness. She said she has been able to get away with a few drinks without problems, so she thought she could handle it. I reminded her that pancreatitis can be fatal. Review of Systems Review of Systems: All systems reviewed & are unremarkable except as noted in HPI and below Exam Const: General: alert Orientation/consciousness: patient oriented x3 Resp: Auscultation: clear to auscultation bilaterally Cardio: Rhythm: regular rhythm GI: Inspection: distended and no scars GI Pa
[2021-10-06] MEDS: LIPASE/AMYLASE/PROTEASE 12,000 UNITS CAP 2 CAP PO ×3 (08:25→17:14)
[2021-10-06] MEDS: FOLIC ACID 1 MG/0.2 ML INJ IV PUSH (08:25)
[2021-10-06] MEDS: METOCLOPRAMIDE HCL INJ 10 MG/2 ML VIAL IV PUSH (08:26)
[2021-10-06] MEDS: THIAMINE HCL 200 MG/2 ML VIAL 100 MG IV PUSH (08:28)
[2021-10-06] MEDS: PANTOPRAZOLE SODIUM IV 40 MG VIAL IV PUSH ×2 (08:29→20:42)
[2021-10-06] MEDS: MAGNESIUM CITRATE 300 ML BTL 150 ML PO (08:30)
--- NOTE | 2021-10-06 09:29 | P.PNAN_ITS ---
Anes - Prog Note Post-Op Date/Time: 10/06/21 09:29 Cardiovascular status: normal Respiratory status: normal Airway patency: baseline Mental status: baseline Post-Op hydration status: normal Vital Signs: Last Vital Signs Temp 36.6 C 10/06/21 05:17 Pulse 88 10/06/21 05:17 Resp 14 10/06/21 05:17 BP 125/82 10/06/21 05:17 Pulse Ox 98 10/06/21 08:15 Pain Score (VAS): 0 I/O: Intake & Output 10/05/21 10/06/21 10/06/21 23:59 07:59 15:59 Intake Total 1220 1400 Balance 1220 1400 Laboratory Tests 10/06/21 05:12 10/06/21 05:12 10/06/21 10/06/21 05:12 05:12 WBC 7.7 RBC 4.06 L Hgb 13.9 Hct 41.4 MCV 102.0 H MCH 34.2 H MCHC 33.6 RDW 15.0 H Plt Count 247 MPV 9.7 Immature Gran % (Auto) 0.4 Neut % (Auto) 65.8 Lymph % (Auto) 21.0 [place] % (Auto) 7.2 Eos % (Auto) 4.7 H Baso % (Auto) 0.9 Lymph # (Auto) 1.62 [place] # (Auto) 0.6 Eos # (Auto) 0.4 H Baso # (Auto) 0.1 Abs Immat Gran (auto) 0.03 Absolute Neuts (auto) 5.1 Absolute Nucleated RBC 0.0 Nucleated RBC % 0.0 % Immature Plt Fraction 3.1 Sodium 135 L Potassium 5.0 Chloride 104 Carbon Dioxide 22 Anion Gap 9 BUN 3 L Creatinine 0.70 Estim Creat Clear Calc 104 Estimated GFR > 60 Glucose 84 Calcium 9.1 Magnesium 1.9 Total Bilirubin 1.0 AST 74 H ALT 33 Alkaline Phosphatase 117 Total Protein 7.0 Albumin 3.9 Microbiology 10/03/21 13:45 Ascites Fluid Anaerobic Culture - Preliminary 10/03/21 13:45 Ascites Fluid Aerobic Culture - Preliminary 10/03/21 13:55 Abdominal Fluid Anaerobic Culture - Preliminary 10/03/21 13:55 Abdominal Fluid Aerobic Culture - Preliminary Post-procedural complaints: none Patient Feedback: Patient satisfied with anesthetic care.
--- NOTE | 2021-10-06 13:14 | PM.IMPN ---
Progress Note: A&P Assessment and Plan (1) Abdominal pain: Code(s): R10.9 - Unspecified abdominal pain Status: Acute Assessment and Plan: With CT reading and elevated lipase, presumably related to pancreatitis. However she does have a moderate volume of ascites and an elevated white blood cell count and given the fact that her pain is different than those previous episodes of pancreatitis, SBP is a consideration. status post paracentesis suggestive of SBP cultures no growth so far On ceftriaxone day 5 Undergoing EGD 10/05/2021: Nonerosive reflux disease and gastritis Slowly advance diet as tolerated. Currently not able to tolerate. continue IV antibiotics KUB done today normal bowel pattern, LFTs remain stable. (2) Acute pancreatitis: Code(s): K85.90 - Acute pancreatitis without necrosis or infection, unspecified Status: Acute Assessment and Plan: Precipitating etiology not entirely clear as patient states she has not drank for many months. Care will be supportive with IV fluid rehydration, antiemetics, and analgesics as needed. Trend lipase. Triglyceride normal at 103 Lipase is improving Likely related to alcohol use (3) Transaminasemia: Code(s): R74.01 - Elevation of levels of liver transaminase levels Status: Acute Assessment and Plan: Hepatitis panel negative In 2019. (4) Abnormal computed tomography of kidney: Code(s): R93.429 - Abnormal radiologic findings on diagnostic imaging of unspecified kidney Status: Acute Assessment and Plan: CT of the abdomen pelvis shows persistent heterogeneous enhancement of the kidneys, possible pyelonephritis. Urinalysis appears contaminated she has no symptoms to suggest urinary tract infection. She is currently on empiric antibiotics as above. Urine culture pending. (5) Hepatomegaly: Code(s): R16.0 - Hepatomegaly, not elsewhere classified Status: Acute Assessment and Plan: Noted on CT with diffuse hepatic steatosis and a moderate volume of ascites. (6) Hepatic steatosis: Code(s): K76.0 - Fatty (change of) liver, not elsewhere classified Status: Acute Assessment and Plan: As above. Abdominal ultrasound with dilated common bile duct of unclear etiology. MRCP with acute interstitial pancreatitis mild dilatation of common bile duct to 8 mm without intrahepatic biliary duct dilatation or obstructing stones or mass. Small amount of ascites and very small bilateral posterior layering pleural effusion Hepatomegaly with diffuse hepatic steatosis and nonspecific splenomegaly (7) Ascites: Code(s): R18.8 - Other ascites Status: Acute Assessment and Plan: Status post paracentesis elevated PMNs suggestive of spontaneous bacterial peritonitis. On ceftriaxone 2 g IV Q 24 hours. Peritoneal fluid analysis with cultures No growth to date (8) Hypokalemia: Code(s): E87.6 - Hypokalemia Status: Acute Assessment and Plan: Potassium will be replaced and monitored. (9) Hypomagnesemia: Code(s): E83.42 - Hypomagnesemia Status: Acute Assessment and Plan: Magnesium will be replaced and monitored. Subjective Date/time seen: 10/06/21 13:14 Interval history: 10/04/2021 feels a bit better today. Tried some clear this morning. No shortness of breath denies any fever 10/05/2021 seen this morning. Denies any new complaints. She states that her upper abdomen is still sore similar to yesterday. She is NPO currently for scope that is planned for this afternoon. Denies any nausea or vomiting. 10/06/2021 still continues to have upper abdominal pain. Did not tolerate full liquid diet. Had a watery diarrhea this morning. No vomiting. Reports nausea. Ambulating in the hallways Review of Systems Review of Systems: All systems reviewed & are unremarkable except as noted in HPI and below ( HPI) E
[2021-10-06] MEDS: ONDANSETRON INJ 4 MG/2 ML VIAL IV PUSH (17:17)
[2021-10-06] MEDS: cefTRIAXone 2 GM in SODIUM CHLORIDE 0.9% IV 100 ML 200 ML IVPB (21:11)
[2021-10-07] VITALS (10 sets, daily range): BP systolic 117–134; BP diastolic 80–94; PULSE 72–104; RESP 14–17; TEMP 36.1–36.9; O2SAT 99–100
[2021-10-07] MEDS: KCL 40 MEQ/0.9% SOD CHL 1,000 ML 100 ML IV CONT ×3 (01:16→21:23)
[2021-10-07] MEDS: HYDROmorphone HCL INJ (*CRX) 1 MG/ML SYR IV PUSH ×8 (01:16→22:26)
[2021-10-07 05:11] LABS: Basophils Absolute Auto 0.1 K/mm3 (0.0-0.1); Basophils Percent Auto 1.3 % (0.2-1.2); Eosinophils Absolute Auto 0.3 K/mm3 (0-0.3); Eosinophils Percent Auto 3.9 % (0-4.4); Hemoglobin 12.6 g/dL (12.0-15.0); Immature Granulocyte Absolute 0.03 K/mm3 (0.00-0.031); Immature Granulocyte Percent A 0.5 % (0-0.5); Lymphocytes Absolute Auto 1.46 K/mm3 (0.9-3.2); Mean Corpuscular HGB Conc 34.1 g/dl (32-36); Mean Corpuscular Hemoglobin 34.9 pg (26-34); Mean Corpuscular Volume 102.5 fl (80-100); Mean Platelet Volume 9.8 fl (7.4-10.4); Monocytes Absolute Auto 0.7 K/mm3 (0.1-0.6); Monocytes Percent Auto 11.7 % (2.6-8.5); Neutrophils Absolute Auto 3.8 K/mm3 (1.3-6.7); Neutrophils Percent Auto 59.6 % (45.5-73.1); Platelet Count Result 267 k/mm3 (150-375); Red Blood Count 3.61 M/mm3 (4.2-5.4); White Blood Count 6.3 K/mm3 (4.5-10.0)
[2021-10-07 05:23] LABS: Alanine Aminotransferase 31 U/L (4-35); Albumin Level 3.8 g/dL (3.5-5.1); Alkaline Phosphatase 118 U/L (38-126); Anion Gap 6 mmol/L (8-16); Aspartate Amino Transferase 69 U/L (14-36); Bilirubin,Total 0.7 mg/dL (0.2-1.3); Calcium 9.1 mg/dL (8.4-10.2); Carbon Dioxide 25 mmol/L (22-30); Chloride 103 mmol/L (98-107); Estimated CRCL calculation 104 ml/min; Estimated Glomerular Filt Rate > 60; Glucose 85 mg/dL (65-110); Lipase 900 U/L (23-300); Magnesium 1.9 mg/dL (1.6-2.3); Potassium 4.6 mmol/L (3.4-5.0); Sodium 134 mmol/L (137-145)
[2021-10-07 05:30] LABS: Blood Urea Nitrogen < 2 mg/dL (7-17)
[2021-10-07] MEDS: THIAMINE HCL 200 MG/2 ML VIAL 100 MG IV PUSH (09:25)
[2021-10-07] MEDS: LIPASE/AMYLASE/PROTEASE 12,000 UNITS CAP 2 CAP PO ×3 (09:25→16:21)
--- NOTE | 2021-10-07 09:25 | PC.NURSE ---
call to pharm for missing protonix dose
[2021-10-07] MEDS: FOLIC ACID 1 MG/0.2 ML INJ IV PUSH (09:28)
--- NOTE | 2021-10-07 09:29 | PM.IMPN ---
Progress Note: A&P Assessment and Plan (1) Abdominal pain: Code(s): R10.9 - Unspecified abdominal pain Status: Acute Assessment and Plan: With CT reading and elevated lipase, presumably related to pancreatitis. However she does have a moderate volume of ascites and an elevated white blood cell count and given the fact that her pain is different than those previous episodes of pancreatitis, SBP is a consideration. status post paracentesis suggestive of SBP cultures no growth so far On ceftriaxone day six Undergoing EGD 10/05/2021: Nonerosive reflux disease and gastritis Slowly advance diet as tolerated. Currently not able to tolerate. continue IV antibiotics KUB done today normal bowel pattern, LFTs remain stable. Persistent abdominal pain following diagnosis of acute pancreatitis with now increasing lipase is will recheck CT abdomen pelvis for further evaluation Remains on full liquid diet and unable to advance any further. (2) Acute pancreatitis: Code(s): K85.90 - Acute pancreatitis without necrosis or infection, unspecified Status: Acute Assessment and Plan: Precipitating etiology not entirely clear as patient states she has not drank for many months. Care will be supportive with IV fluid rehydration, antiemetics, and analgesics as needed. Trend lipase. Triglyceride normal at 103 Lipase is improving Likely related to alcohol use (3) Transaminasemia: Code(s): R74.01 - Elevation of levels of liver transaminase levels Status: Acute Assessment and Plan: Hepatitis panel negative In 2019. (4) Abnormal computed tomography of kidney: Code(s): R93.429 - Abnormal radiologic findings on diagnostic imaging of unspecified kidney Status: Acute Assessment and Plan: CT of the abdomen pelvis shows persistent heterogeneous enhancement of the kidneys, possible pyelonephritis. Urinalysis appears contaminated she has no symptoms to suggest urinary tract infection. She is currently on empiric antibiotics as above. Urine culture pending. (5) Hepatomegaly: Code(s): R16.0 - Hepatomegaly, not elsewhere classified Status: Acute Assessment and Plan: Noted on CT with diffuse hepatic steatosis and a moderate volume of ascites. (6) Hepatic steatosis: Code(s): K76.0 - Fatty (change of) liver, not elsewhere classified Status: Acute Assessment and Plan: As above. Abdominal ultrasound with dilated common bile duct of unclear etiology. MRCP with acute interstitial pancreatitis mild dilatation of common bile duct to 8 mm without intrahepatic biliary duct dilatation or obstructing stones or mass. Small amount of ascites and very small bilateral posterior layering pleural effusion Hepatomegaly with diffuse hepatic steatosis and nonspecific splenomegaly (7) Ascites: Code(s): R18.8 - Other ascites Status: Acute Assessment and Plan: Status post paracentesis elevated PMNs suggestive of spontaneous bacterial peritonitis. On ceftriaxone 2 g IV Q 24 hours. Peritoneal fluid analysis with cultures No growth to date On ceftriaxone for spontaneous bacterial peritonitis (8) Hypokalemia: Code(s): E87.6 - Hypokalemia Status: Acute Assessment and Plan: Potassium will be replaced and monitored. (9) Hypomagnesemia: Code(s): E83.42 - Hypomagnesemia Status: Acute Assessment and Plan: Magnesium will be replaced and monitored. Subjective Date/time seen: 10/07/21 09:29 Interval history: 10/04/2021 feels a bit better today. Tried some clear this morning. No shortness of breath denies any fever 10/05/2021 seen this morning. Denies any new complaints. She states that her upper abdomen is still sore similar to yesterday. She is NPO currently for scope that is planned for this afternoon. Denies any nausea or vomiting. 10/06/2021 still continues to have upper abdom
[2021-10-07] MEDS: PANTOPRAZOLE SODIUM IV 40 MG VIAL IV PUSH ×2 (11:41→21:20)
[2021-10-07] MEDS: cefTRIAXone 2 GM in SODIUM CHLORIDE 0.9% IV 100 ML 200 ML IVPB (21:21)
[2021-10-08] VITALS (12 sets, daily range): BP systolic 112–127; BP diastolic 73–87; PULSE 72–108; RESP 17–18; TEMP 36–36.4; O2SAT 97–100
[2021-10-08] MEDS: HYDROmorphone HCL INJ (*CRX) 1 MG/ML SYR IV PUSH ×7 (01:31→20:35)
--- NOTE | 2021-10-08 03:02 | PC.NURSE ---
Daylight Savings Time For Daylight Savings Time Ending in the Fall - Clocks are moved back. For Daylight Savings Time Beginning in the Spring - Clocks are moved ahead. For [facility], the time of change occurs at 0200 hrs. Time is taken from the patient observer. This entry on the patient's chart recognizes the change in time reflected during documentation. Example: 2 entries for vital signs may be charted for 0200 hrs.
[2021-10-08 05:31] LABS: Basophils Absolute Auto 0.1 K/mm3 (0.0-0.1); Basophils Percent Auto 1.3 % (0.2-1.2); Eosinophils Absolute Auto 0.2 K/mm3 (0-0.3); Eosinophils Percent Auto 3.6 % (0-4.4); Hemoglobin 13.2 g/dL (12.0-15.0); Immature Granulocyte Absolute 0.02 K/mm3 (0.00-0.031); Immature Granulocyte Percent A 0.3 % (0-0.5); Lymphocytes Absolute Auto 1.38 K/mm3 (0.9-3.2); Lymphocytes Percent Auto 21.8 % (18.3-44.2); Mean Corpuscular HGB Conc 34.7 g/dl (32-36); Mean Corpuscular Hemoglobin 34.8 pg (26-34); Mean Corpuscular Volume 100.3 fl (80-100); Mean Platelet Volume 9.2 fl (7.4-10.4); Monocytes Absolute Auto 0.7 K/mm3 (0.1-0.6); Monocytes Percent Auto 10.3 % (2.6-8.5); Neutrophils Percent Auto 62.7 % (45.5-73.1); Platelet Count Result 301 k/mm3 (150-375); Red Blood Count 3.79 M/mm3 (4.2-5.4); Red Cell Distribution Width 14.7 % (11.5-14.5); White Blood Count 6.3 K/mm3 (4.5-10.0)
[2021-10-08 05:42] LABS: Alanine Aminotransferase 36 U/L (4-35); Albumin Level 3.8 g/dL (3.5-5.1); Alkaline Phosphatase 120 U/L (38-126); Anion Gap 7 mmol/L (8-16); Aspartate Amino Transferase 81 U/L (14-36); Bilirubin,Total 0.6 mg/dL (0.2-1.3); Calcium 9.3 mg/dL (8.4-10.2); Carbon Dioxide 24 mmol/L (22-30); Chloride 103 mmol/L (98-107); Estimated CRCL calculation 103 ml/min; Estimated Glomerular Filt Rate > 60; Glucose 95 mg/dL (65-110); Lipase 826 U/L (23-300); Magnesium 1.9 mg/dL (1.6-2.3); Potassium 4.5 mmol/L (3.4-5.0); Sodium 134 mmol/L (137-145)
[2021-10-08 05:56] LABS: Blood Urea Nitrogen < 2 mg/dL (7-17)
[2021-10-08] MEDS: KCL 40 MEQ/0.9% SOD CHL 1,000 ML 100 ML IV CONT (08:34)
[2021-10-08] MEDS: FOLIC ACID 1 MG/0.2 ML INJ IV PUSH (08:35)
[2021-10-08] MEDS: LIPASE/AMYLASE/PROTEASE 12,000 UNITS CAP 2 CAP PO ×3 (08:39→17:19)
[2021-10-08] MEDS: THIAMINE HCL 200 MG/2 ML VIAL 100 MG IV PUSH (08:39)
[2021-10-08] MEDS: PANTOPRAZOLE SODIUM IV 40 MG VIAL IV PUSH ×2 (08:39→20:36)
[2021-10-08] MEDS: HYDROcodone/acetaminophen (*CRX) 5-325 MG TABLET 1 TAB PO ×3 (09:25→18:30)
[2021-10-08] MEDS: GABAPENTIN 300 MG CAPSULE PO ×3 (09:25→17:19)
--- NOTE | 2021-10-08 11:05 | PM.IMPN ---
Progress Note: A&P Assessment and Plan (1) Abdominal pain: Code(s): R10.9 - Unspecified abdominal pain Status: Acute Assessment and Plan: - With CT reading and elevated lipase, presumably related to pancreatitis. However she does have a moderate volume of ascites and an elevated white blood cell count and given the fact that her pain is different than those previous episodes of pancreatitis, SBP is a consideration. status post paracentesis suggestive of SBP cultures. Final culture results are negative for any growth.On ceftriaxone day #7 on 10/08/2021. - EGD 10/05/2021: Nonerosive reflux disease and gastritis - Slowly advance diet as tolerated. Currently not able to tolerate and remains on a full liquid. - continue IV antibiotics and pain medications. - KUB showed a normal bowel/gas pattern after GI was concerned for a possible ileus. - Lipase trended upward yesterday. Repeat CT was done and was negative. Lipase now downtrending today. - Remains on full liquid diet and unable to advance any further. (2) Acute pancreatitis: Code(s): K85.90 - Acute pancreatitis without necrosis or infection, unspecified Status: Acute Assessment and Plan: -Initially reported that she had not drank for many months, review of the chart and records state that she told the RN that she had fallen off of the cart in May and she also admitted this to me. She acknowledges she drank alcohol the weekend prior to coming into the hospital as she thought she could handle it. - Continue supportive care with IV fluid rehydration, antiemetics, and analgesics as needed. - Trend lipase. Marginal decrease noted today. - Triglyceride normal at 103 - Likely related to alcohol use (3) Transaminasemia: Code(s): R74.01 - Elevation of levels of liver transaminase levels Status: Acute Assessment and Plan: - Hepatitis panel negative In 2019. - Imaging with evidence of Fatty Liver. As she has discussed with GI, this is possibly the beginning of Cirrhosis of the liver and she should refrain from alcohol use. - Preserved Bilirubin. (4) Abnormal computed tomography of kidney: Code(s): R93.429 - Abnormal radiologic findings on diagnostic imaging of unspecified kidney Status: Acute Assessment and Plan: - CT of the abdomen pelvis shows persistent heterogeneous enhancement of the kidneys, possible pyelonephritis. Urinalysis appears contaminated she has no symptoms to suggest urinary tract infection. She is currently on empiric antibiotics as above. - Urine culture was negative for any growth. (5) Hepatomegaly: Code(s): R16.0 - Hepatomegaly, not elsewhere classified Status: Acute Assessment and Plan: - Noted on CT with diffuse hepatic steatosis and a moderate volume of ascites. - Pt. had Paracentesis on 10/03/21 that was negative for any bacterial growth, and only 300 ml of fluid was able to be aspirated. - EGD was performed on 10/05/21 and it showed Non-erosive Reflux disease and Gastritis. (6) Hepatic steatosis: Code(s): K76.0 - Fatty (change of) liver, not elsewhere classified Status: Acute Assessment and Plan: - As above. - Abdominal ultrasound with dilated common bile duct of unclear etiology. - MRCP with acute interstitial pancreatitis mild dilatation of common bile duct to 8 mm without intrahepatic biliary duct dilatation or obstructing stones or mass. Small amount of ascites and very small bilateral posterior layering pleural effusion - Hepatomegaly with diffuse hepatic steatosis and nonspecific splenomegaly - GI was consulted. (7) Ascites: Code(s): R18.8 - Other ascites Status: Acute Assessment and Plan: - Status post paracentesis elevated PMNs suggestive of spontaneous bacterial peritonitis. - On ceftriaxone 2 g IV Q 24 hours. This is treatment day #7 - Peritoneal fluid analysis with cultures. Final Cultures ar
--- NOTE | 2021-10-08 11:49 | WPDGIPROGNO ---
Progress Note: A&P Assessment and Plan (1) Acute pancreatitis: Code(s): K85.90 - Acute pancreatitis without necrosis or infection, unspecified Status: Acute Assessment and Plan: lipase has come down to 586. Amylase is 176. she states that she is still too uncomfortable to try eating. She told me that her 1st hospitalization for pancreatitis was about 4 weeks long. That time she had developed a pseudocyst. She and I had a long conversation about eher alcohol problem. Although she had stated on admission that she had quit alcohol 'months ago', I pointed out to her that she had told ER staff, when she was here in June, she had 'fallen off the wagon' last may, drinking again. She confessed to me that she indeed HAS been drinking regularly lately, including the day before this present illness. She said she has been able to get away with a few drinks without problems, so she thought she could handle it. I reminded her that pancreatitis can be fatal. 10/[address] scan looks great except for some persistent pancreatic inflammation, her generalized pain is bewildering. Her explanation is that the fluid in her abdomen hurts depending on which way she lies, referring to the ascitic fluid which by the way is no longer present. (2) Ascites: Code(s): R18.8 - Other ascites Status: Acute Assessment and Plan: So far no growth of any organisms on the ascitic fluid. Because of increased leukocytes, I agree with treating for probable SBP. When discharged, Rx Cipro to complete full 7 days 10/08 There is no longer any ascitic fluid. I think that she has received enough antibiotics and these can be discontinued. True SBP usually only occurs in people with tense ascites (3) Alcohol abuse: Code(s): F10.10 - Alcohol abuse, uncomplicated Status: Acute Assessment and Plan: We again had a long talk about her alcoholism. She of course acknowledges that she needs to stop but I reminded her that she has tried before. She is aware that the rate of recidivism is high, but she firmly states that she is done with alcohol. We shall see. I discussed cirrhosis with her again and told her that she is headed that direction and that the ascites is a concern for the development of portal hypertension (4) Abdominal pain: Code(s): R10.9 - Unspecified abdominal pain Status: Acute Assessment and Plan: a mid abdominal pain which had been present since admission but now is her primary pain. He feels distended and on exam has tympany. No bowel movement so far. She may have mild ileus. I will give her a laxative and 1 dose of Reglan. I will switch back to clear liquids. The full liquid diet has some lactose which may have been a factor 10/08/2021 as noted above, her generalized pain and persistent need for narcotics is perplexing. The CT scan shows pancreatic inflammation but she hurts in every quadrant to even light touch. I am concerned that we may be dealing with an element of narcotic dependence or drug-seeking behavior consistent with her prior abuse of alcohol. he was given the laxative because of her feeling of constipation. She states that she only passed liquid stool indicative of an empty colon. I reassured her that there is no stool in her colon at this point Subjective Date/time seen: 10/08/21 11:49 Interval history: 10/04/2021 feels a bit better today. Tried some clear this morning. No shortness of breath denies any fever 10/05/2021 seen this morning. Denies any new complaints. She states that her upper abdomen is still sore similar to yesterday. She is NPO currently for scope that is planned for this afternoon. Denies any nausea or vomiting. 10/06/2021 still continues to have upper abdominal pain. Did not tolerate full liquid diet. Had a watery diarrhea this morning. No vomiting. Reports nausea. Ambulating in the hallways 10/07/2021 continues to reported
[2021-10-08] MEDS: cefTRIAXone 2 GM in SODIUM CHLORIDE 0.9% IV 100 ML 200 ML IVPB (21:13)
[2021-10-09] VITALS (11 sets, daily range): BP systolic 126–134; BP diastolic 77–87; PULSE 65–128; RESP 16–20; TEMP 36.1–36.5; O2SAT 98–100
[2021-10-09] MEDS: HYDROcodone/acetaminophen (*CRX) 5-325 MG TABLET 1 TAB PO ×5 (00:08→20:14)
[2021-10-09] MEDS: KCL 40 MEQ/0.9% SOD CHL 1,000 ML 100 ML IV CONT (04:10)
[2021-10-09 05:35] LABS: Basophils Absolute Auto 0.1 K/mm3 (0.0-0.1); Basophils Percent Auto 1.9 % (0.2-1.2); Eosinophils Absolute Auto 0.2 K/mm3 (0-0.3); Eosinophils Percent Auto 4.4 % (0-4.4); Hematocrit 38.3 % (37.0-47.0); Hemoglobin 12.4 g/dL (12.0-15.0); Immature Granulocyte Absolute 0.02 K/mm3 (0.00-0.031); Immature Granulocyte Percent A 0.4 % (0-0.5); Lymphocytes Absolute Auto 1.35 K/mm3 (0.9-3.2); Lymphocytes Percent Auto 28.4 % (18.3-44.2); Mean Corpuscular HGB Conc 32.4 g/dl (32-36); Mean Corpuscular Hemoglobin 34.3 pg (26-34); Mean Corpuscular Volume 106.1 fl (80-100); Mean Platelet Volume 9.6 fl (7.4-10.4); Monocytes Absolute Auto 0.6 K/mm3 (0.1-0.6); Monocytes Percent Auto 12.4 % (2.6-8.5); Neutrophils Absolute Auto 2.5 K/mm3 (1.3-6.7); Neutrophils Percent Auto 52.5 % (45.5-73.1); Platelet Count Result 299 k/mm3 (150-375); Red Blood Count 3.61 M/mm3 (4.2-5.4); Red Cell Distribution Width 14.8 % (11.5-14.5); White Blood Count 4.8 K/mm3 (4.5-10.0)
[2021-10-09 05:37] LABS: Glucose Peritoneal Fluid 91 mg/dL; LDH Peritoneal Fluid 130 U/L (<63); Total Protein Peritoneal Fluid 3.1 g/dL
[2021-10-09 05:47] LABS: Alanine Aminotransferase 45 U/L (4-35); Albumin Level 3.5 g/dL (3.5-5.1); Alkaline Phosphatase 108 U/L (38-126); Anion Gap 6 mmol/L (8-16); Aspartate Amino Transferase 112 U/L (14-36); Bilirubin,Total 0.4 mg/dL (0.2-1.3); Calcium 9.1 mg/dL (8.4-10.2); Carbon Dioxide 23 mmol/L (22-30); Chloride 108 mmol/L (98-107); Estimated CRCL calculation 103 ml/min; Estimated Glomerular Filt Rate > 60; Glucose 91 mg/dL (65-110); Magnesium 1.9 mg/dL (1.6-2.3); Potassium 4.4 mmol/L (3.4-5.0); Sodium 137 mmol/L (137-145)
[2021-10-09 05:48] LABS: Blood Urea Nitrogen < 2 mg/dL (7-17)
--- NOTE | 2021-10-09 07:14 | WPDGIPROGNO ---
Progress Note: A&P Assessment and Plan (1) Acute pancreatitis: Code(s): K85.90 - Acute pancreatitis without necrosis or infection, unspecified Status: Acute Assessment and Plan: lipase has come down to 586. Amylase is 176. she states that she is still too uncomfortable to try eating. She told me that her 1st hospitalization for pancreatitis was about 4 weeks long. That time she had developed a pseudocyst. She and I had a long conversation about eher alcohol problem. Although she had stated on admission that she had quit alcohol 'months ago', I pointed out to her that she had told ER staff, when she was here in June, she had 'fallen off the wagon' last may, drinking again. She confessed to me that she indeed HAS been drinking regularly lately, including the day before this present illness. She said she has been able to get away with a few drinks without problems, so she thought she could handle it. I reminded her that pancreatitis can be fatal. 10/[address] scan looks great except for some persistent pancreatic inflammation, her generalized pain is bewildering. Her explanation is that the fluid in her abdomen hurts depending on which way she lies, referring to the ascitic fluid which by the way is no longer present. (2) Ascites: Code(s): R18.8 - Other ascites Status: Acute Assessment and Plan: So far no growth of any organisms on the ascitic fluid. Because of increased leukocytes, I agree with treating for probable SBP. When discharged, Rx Cipro to complete full 7 days 10/08 There is no longer any ascitic fluid. I think that she has received enough antibiotics and these can be discontinued. True SBP usually only occurs in people with tense ascites (3) Alcohol abuse: Code(s): F10.10 - Alcohol abuse, uncomplicated Status: Acute Assessment and Plan: We again had a long talk about her alcoholism. She of course acknowledges that she needs to stop but I reminded her that she has tried before. She is aware that the rate of recidivism is high, but she firmly states that she is done with alcohol. We shall see. I discussed cirrhosis with her again and told her that she is headed that direction and that the ascites is a concern for the development of portal hypertension (4) Abdominal pain: Code(s): R10.9 - Unspecified abdominal pain Status: Acute Assessment and Plan: a mid abdominal pain which had been present since admission but now is her primary pain. He feels distended and on exam has tympany. No bowel movement so far. She may have mild ileus. I will give her a laxative and 1 dose of Reglan. I will switch back to clear liquids. The full liquid diet has some lactose which may have been a factor 10/08/2021 as noted above, her generalized pain and persistent need for narcotics is perplexing. The CT scan shows pancreatic inflammation but she hurts in every quadrant to even light touch. I am concerned that we may be dealing with an element of narcotic dependence or drug-seeking behavior consistent with her prior abuse of alcohol. he was given the laxative because of her feeling of constipation. She states that she only passed liquid stool indicative of an empty colon. I reassured her that there is no stool in her colon at this point 10/09 according to the night nurse, she has not had hydromorphone since yesterday evening. She did take [place] during the night and does ask for q 4 hours. Subjective Date/time seen: 10/09/21 07:14 She slept most of the night except when she woke up needing a pain pill. Although less pain overall, still it is generalized Review of Systems Review of Systems: All systems reviewed & are unremarkable except as noted in HPI and below Exam Const: General: alert Orientation/consciousness: patient oriented x3 Resp: Auscultation: clear to auscultation bilaterally Cardio: Rhythm: regular rhythm GI: Inspectio
[2021-10-09] MEDS: HYDROmorphone HCL INJ (*CRX) 1 MG/ML SYR IV PUSH (07:36)
[2021-10-09 07:40] LABS: Lipase 741 U/L (23-300)
--- NOTE | 2021-10-09 09:47 | PCNWS ---
Weekly nutritional screen. Patient is tolerating current diet with adequate intake. No weight loss reported. No nutritional needs at this time.
[2021-10-09] MEDS: FOLIC ACID 1 MG/0.2 ML INJ IV PUSH (10:02)
[2021-10-09] MEDS: THIAMINE HCL 200 MG/2 ML VIAL 100 MG IV PUSH (10:03)
[2021-10-09] MEDS: PANTOPRAZOLE SODIUM IV 40 MG VIAL IV PUSH ×2 (10:04→20:12)
[2021-10-09 11:04] LABS: Amylase Peritoneal Fluid 990 U/L
[2021-10-09] MEDS: LIPASE/AMYLASE/PROTEASE 12,000 UNITS CAP 2 CAP PO ×2 (11:26→16:36)
[2021-10-09] MEDS: GABAPENTIN 300 MG CAPSULE PO ×3 (11:27→20:12)
[2021-10-09] MEDS: SODIUM CHLORIDE 0.9% IV 1,000 ML 100 ML IV CONT ×2 (11:27→20:13)
--- NOTE | 2021-10-09 11:37 | PM.IMPN ---
Progress Note: A&P Assessment and Plan (1) Abdominal pain: Qualifiers: Abdominal location: unspecified location Qualified Code(s): R10.9 - Unspecified abdominal pain Code(s): R10.9 - Unspecified abdominal pain Status: Acute Assessment and Plan: - With CT reading and elevated lipase, presumably related to pancreatitis. However she does have a moderate volume of ascites and an elevated white blood cell count and given the fact that her pain is different than those previous episodes of pancreatitis, SBP is a consideration. status post paracentesis suggestive of SBP cultures. Final culture results are negative for any growth.On ceftriaxone day #7 on 10/08/2021. - EGD 10/05/2021: Nonerosive reflux disease and gastritis - Slowly advance diet as tolerated. Currently not able to tolerate and remains on a full liquid. - continue IV antibiotics and pain medications. - KUB showed a normal bowel/gas pattern after GI was concerned for a possible ileus. - Lipase trended upward yesterday. Repeat CT was done and was negative. Lipase now downtrending today. - Remains on full liquid diet and advance as tolerated. - Suspect SBP (2) Acute pancreatitis: Qualifiers: Acute pancreatitis complication: unspecified Pancreatitis type: alcohol induced Qualified Code(s): K85.20 - Alcohol induced acute pancreatitis without necrosis or infection Code(s): K85.90 - Acute pancreatitis without necrosis or infection, unspecified Status: Acute Assessment and Plan: -Initially reported that she had not drank for many months, review of the chart and records state that she told the RN that she had fallen off of the cart in May and she also admitted this to [place]. She acknowledges she drank alcohol the weekend prior to coming into the hospital as she thought she could handle it. - Continue supportive care with IV fluid rehydration, antiemetics, and analgesics as needed. - Trend lipase. Marginal decrease noted today. - Triglyceride normal at 103 - Likely related to alcohol use (3) Transaminasemia: Code(s): R74.01 - Elevation of levels of liver transaminase levels Status: Acute Assessment and Plan: - Hepatitis panel negative In 2019. - Imaging with evidence of Fatty Liver. As she has discussed with GI, this is possibly the beginning of Cirrhosis of the liver and she should refrain from alcohol use. - Preserved Bilirubin. (4) Abnormal computed tomography of kidney: Code(s): R93.429 - Abnormal radiologic findings on diagnostic imaging of unspecified kidney Status: Acute Assessment and Plan: - CT of the abdomen pelvis shows persistent heterogeneous enhancement of the kidneys, possible pyelonephritis. Urinalysis appears contaminated she has no symptoms to suggest urinary tract infection. She is currently on empiric antibiotics as above. - Urine culture was negative for any growth. (5) Hepatomegaly: Code(s): R16.0 - Hepatomegaly, not elsewhere classified Status: Acute Assessment and Plan: - Noted on CT with diffuse hepatic steatosis and a moderate volume of ascites. - Pt. had Paracentesis on 10/03/21 that was negative for any bacterial growth, and only 300 ml of fluid was able to be aspirated. - EGD was performed on 10/05/21 and it showed Non-erosive Reflux disease and Gastritis. (6) Hepatic steatosis: Code(s): K76.0 - Fatty (change of) liver, not elsewhere classified Status: Acute Assessment and Plan: - As above. - Abdominal ultrasound with dilated common bile duct of unclear etiology. - MRCP with acute interstitial pancreatitis mild dilatation of common bile duct to 8 mm without intrahepatic biliary duct dilatation or obstructing stones or mass. Small amount of ascites and very small bilateral posterior layering pleural effusion - Hepatomegaly with diffuse hepatic steatosis and nonspecific splenomegaly - GI was consu
[2021-10-09] MEDS: cefTRIAXone 2 GM in SODIUM CHLORIDE 0.9% IV 100 ML IVPB (20:13)
[2021-10-10] VITALS: PULSE 75
[2021-10-10] MEDS: HYDROcodone/acetaminophen (*CRX) 5-325 MG TABLET 1 TAB PO ×4 (00:45→13:14)
[2021-10-10 04:00] VITALS: PULSE 81
[2021-10-10 04:27] VITALS: O2SAT 97
[2021-10-10] MEDS: SODIUM CHLORIDE 0.9% IV 1,000 ML 100 ML IV CONT (05:06)
[2021-10-10 05:54] LABS: Basophils Absolute Auto 0.1 K/mm3 (0.0-0.1); Basophils Percent Auto 1.6 % (0.2-1.2); Eosinophils Absolute Auto 0.2 K/mm3 (0-0.3); Eosinophils Percent Auto 2.8 % (0-4.4); Hematocrit 40.5 % (37.0-47.0); Hemoglobin 13.7 g/dL (12.0-15.0); Immature Granulocyte Absolute 0.01 K/mm3 (0.00-0.031); Immature Granulocyte Percent A 0.2 % (0-0.5); Lymphocytes Absolute Auto 1.23 K/mm3 (0.9-3.2); Lymphocytes Percent Auto 21.8 % (18.3-44.2); Mean Corpuscular HGB Conc 33.8 g/dl (32-36); Mean Corpuscular Hemoglobin 34.6 pg (26-34); Mean Corpuscular Volume 102.3 fl (80-100); Mean Platelet Volume 9.8 fl (7.4-10.4); Monocytes Absolute Auto 0.5 K/mm3 (0.1-0.6); Monocytes Percent Auto 9.4 % (2.6-8.5); Neutrophils Absolute Auto 3.6 K/mm3 (1.3-6.7); Neutrophils Percent Auto 64.2 % (45.5-73.1); Platelet Count Result 319 k/mm3 (150-375); Red Blood Count 3.96 M/mm3 (4.2-5.4); Red Cell Distribution Width 14.3 % (11.5-14.5); White Blood Count 5.6 K/mm3 (4.5-10.0)
[2021-10-10 06:00] VITALS: BP 136/81; PULSE 73; RESP 16; TEMP 36.6; O2SAT 100
[2021-10-10 06:03] LABS: Alanine Aminotransferase 42 U/L (4-35); Alkaline Phosphatase 111 U/L (38-126); Anion Gap 7 mmol/L (8-16); Aspartate Amino Transferase 78 U/L (14-36); Bilirubin,Total 0.6 mg/dL (0.2-1.3); Blood Urea Nitrogen 2 mg/dL (7-17); Calcium 9.2 mg/dL (8.4-10.2); Carbon Dioxide 23 mmol/L (22-30); Chloride 107 mmol/L (98-107); Estimated CRCL calculation 103 ml/min; Estimated Glomerular Filt Rate > 60; Glucose 112 mg/dL (65-110); Magnesium 1.9 mg/dL (1.6-2.3); Potassium 3.8 mmol/L (3.4-5.0); Sodium 137 mmol/L (137-145)
--- NOTE | 2021-10-10 07:54 | WPDGIPROGNO ---
Progress Note: A&P Assessment and Plan (1) Acute pancreatitis: Qualifiers: Acute pancreatitis complication: unspecified Pancreatitis type: alcohol induced Qualified Code(s): K85.20 - Alcohol induced acute pancreatitis without necrosis or infection Code(s): K85.90 - Acute pancreatitis without necrosis or infection, unspecified Status: Acute Assessment and Plan: lipase has come down to 586. Amylase is 176. she states that she is still too uncomfortable to try eating. She told me that her 1st hospitalization for pancreatitis was about 4 weeks long. That time she had developed a pseudocyst. She and I had a long conversation about er alcohol problem. Although she had stated on admission that she had quit alcohol 'months ago', I pointed out to her that she had told ER staff, when she was here in June, she had 'fallen off the wagon' last may, drinking again. She confessed to me that she indeed HAS been drinking regularly lately, including the day before this present illness. She said she has been able to get away with a few drinks without problems, so she thought she could handle it. I reminded her that pancreatitis can be fatal. [address] scan looks great except for some persistent pancreatic inflammation, her generalized pain is bewildering. Her explanation is that the fluid in her abdomen hurts depending on which way she lies, referring to the ascitic fluid which by the way is no longer present. 3 I have reviewed her repeat ultrasound, which was unremarkable. There is no ascitic fluid. I have ordered repeat lipase. Unless it is significantly elevated I do not see any reason why she could not be discharged Within the next 24 hours (2) Ascites: Qualifiers: Ascites type: other type Qualified Code(s): R18.8 - Other ascites Code(s): R18.8 - Other ascites Status: Acute Assessment and Plan: So far no growth of any organisms on the ascitic fluid. Because of increased leukocytes, I agree with treating for probable SBP. When discharged, Rx Cipro to complete full 7 days 10/08 There is no longer any ascitic fluid. I think that she has received enough antibiotics and these can be discontinued. True SBP usually only occurs in people with tense ascites 10/10 - Status post paracentesis elevated PMNs suggestive of spontaneous bacterial peritonitis. - On ceftriaxone 2 g IV Q 24 hours. This is treatment day #7 - Peritoneal fluid analysis with cultures. Final Cultures are negative for any growth. - Ceftriaxone can be discontinued. (3) Alcohol abuse: Code(s): F10.10 - Alcohol abuse, uncomplicated Status: Acute Assessment and Plan: We again had a long talk about her alcoholism. She of course acknowledges that she needs to stop but I reminded her that she has tried before. She is aware that the rate of recidivism is high, but she firmly states that she is done with alcohol. We shall see. I discussed cirrhosis with her again and told her that she is headed that direction and that the ascites is a concern for the development of portal hypertension (4) Abdominal pain: Qualifiers: Abdominal location: unspecified location Qualified Code(s): R10.9 - Unspecified abdominal pain Code(s): R10.9 - Unspecified abdominal pain Status: Acute Assessment and Plan: a mid abdominal pain which had been present since admission but now is her primary pain. He feels distended and on exam has tympany. No bowel movement so far. She may have mild ileus. I will give her a laxative and 1 dose of Reglan. I will switch back to clear liquids. The full liquid diet has some lactose which may have been a factor 10/08/2021 as noted above, her generalized pain and persistent need for narcotics is perplexing. The CT scan shows pancreatic inflammation but she hurts in every quadrant to even light touch. I am concerned that we may be dealing
[2021-10-10 08:00] VITALS: PULSE 96
[2021-10-10] MEDS: FOLIC ACID 1 MG TABLET PO (08:09)
[2021-10-10] MEDS: THIAMINE HCL 100 MG TABLET PO (08:09)
[2021-10-10] MEDS: PANTOPRAZOLE 40 MG TABLET PO (08:09)
[2021-10-10] MEDS: LIPASE/AMYLASE/PROTEASE 12,000 UNITS CAP 2 CAP PO ×2 (08:10→11:50)
[2021-10-10] MEDS: GABAPENTIN 300 MG CAPSULE PO ×2 (08:10→13:14)
[2021-10-10] MEDS: METOPROLOL SUCCINATE EXT REL 25 MG TABCR PO (09:21)
[2021-10-10 09:40] LABS: Lipase 880 U/L (23-300)
[2021-10-10 13:39] LABS: Albumin Peritoneal Fluid 1.9 g/dL
[2021-10-10 14:00] VITALS: BP 127/89; PULSE 82; RESP 18; TEMP 35.9; O2SAT 100
--- NOTE | 2021-10-10 14:18 | PM.DS ---
DS: Admitting Diagnosis Discharge Date 10/10/21 Admitting Diagnosis Abdominal pain DS: Discharge Diagnosis Discharge Diagnosis (1) Acute pancreatitis: Qualifiers: Acute pancreatitis complication: unspecified Pancreatitis type: alcohol induced Qualified Code(s): K85.20 - Alcohol induced acute pancreatitis without necrosis or infection Code(s): K85.90 - Acute pancreatitis without necrosis or infection, unspecified Status: Acute Assessment and Plan: Pateint present with abdominal pain. Lipase was 5238. CT Abd/Pelvis showing acute pancreatitis. Triglyceride normal at 103. Gallbladder was normal. Initially reported that she had not drank for many months but later acknowledges she drank alcohol the weekend prior to coming into the hospital. [place] pancreatitis related to alcohol use. Trended lipase and it improved to 700-800 range. She was started on clear diet and advanced to low fat. She tolerated this well. She is still having abdominal pain felt may be more chronic. She was educated by multiple providers about the benefits of abstaining from alcohol. Creon added. (2) Transaminasemia: Code(s): R74.01 - Elevation of levels of liver transaminase levels Status: Acute Assessment and Plan: AST/ALT mildly elevated on admission. Hepatitis panel negative in 2019. Bili slightly elevated but normalized. CT scan showing hepatomegaly and diffuse hepatic steatosis. Abd US showing dilated common bile duct of unclear etiology. Abd MRI showing mild dilation of the common bile duct to 8 mm without intrahepatic biliary ductal dilation or obstructing stones or mass, hepatomegaly with diffuse hepatic steatosis.. She is probably trending toward cirrhosis. Abstaining from alcohol was reinforced. AST and ALT levels were up and down but stable. She will follow up with GI in the clinic. (3) Abdominal pain: Qualifiers: Abdominal location: unspecified location Qualified Code(s): R10.9 - Unspecified abdominal pain Code(s): R10.9 - Unspecified abdominal pain Status: Acute Assessment and Plan: Pateint with mid abdominal pain present on admission but became the primary pain. Presumably related to pancreatitis. However she does have a moderate volume of ascites and an elevated white blood cell count. SBP was considered and she underwent a paracentesis. 300mL removed of dark yellow fluid. WBC 1685 with 43% PMNs. She was treated with ceftriaxone day x 7 days. Repeat imaging showing resolution of the ascites. EGD was performed on 10/05 showing nonerosive reflux disease and gastritis. She was treated with PPI. Eventally she was treated with Elavil. (4) Abnormal computed tomography of kidney: Code(s): R93.429 - Abnormal radiologic findings on diagnostic imaging of unspecified kidney Status: Acute Assessment and Plan: CT of the abdomen pelvis shows persistent heterogeneous enhancement of the kidneys, possible pyelonephritis. Urinalysis appears contaminated she has no symptoms to suggest urinary tract infection. She was treated with empiric antibiotics as above. Urine culture was negative. (5) Ascites: Qualifiers: Ascites type: other type Qualified Code(s): R18.8 - Other ascites Code(s): R18.8 - Other ascites Status: Acute Assessment and Plan: Ascites noted on CT scan. She underwent paracentesis as above. She completed Rocephin x 7 days. Peritoneal fluid cultures were negative. Suspect related to hepatic steatosis or inflammatory from the pancreatitis. Fluid has resolved. (6) Chronic pain: Qualifiers: Chronic pain type: other chronic pain Qualified Code(s): G89.29 - Other chronic pain Code(s): G89.29 - Other chronic pain Status: Chronic Assessment and Plan: Patient with chronic pain. Gabapentin resumed. Elavil added. As above (7) Alcohol abuse: Code(s): F10.10 - Alcohol abuse,
== END 2021-10-10 16:52 | disposition home or self-care (01) | DRG 282 ==
LOC: ANHED 17:01 → ANH2MED 17:44
PROVIDERS: Internal Medicine; Internal Medicine Gastroenterology; Physician Assistant; Admitting Provider Internal Medicine; Emergency Provider Emergency Medicine; PCP Internal Medicine; Visit Provider Nurse Practitioner Adult Health
PROC: 0DJ08ZZ Inspection of Upper Intestinal Tract, Via Natural or Artificial Opening Endoscopic (ICD-10-PCS; CPT 43235; principal; 2021-10-05 12:30)
DX: K85.20 Alcohol induced acute pancreatitis without necrosis or infection (principal); R16.0 Hepatomegaly, not elsewhere classified; K76.0 Fatty (change of) liver, not elsewhere classified; R18.8 Other ascites; E87.6 Hypokalemia; E83.42 Hypomagnesemia; F17.210 Nicotine dependence, cigarettes, uncomplicated; Z83.3 Family history of diabetes mellitus; F10.10 Alcohol abuse, uncomplicated; F32.9 Major depressive disorder, single episode, unspecified; F41.9 Anxiety disorder, unspecified; G89.29 Other chronic pain; Z79.899 Other long term (current) drug therapy; K29.70 Gastritis, unspecified, without bleeding
CPT/HCPCS: 36415; 49083; 74018; 74176; 74177; 74183; 76376; 76705; 80048; 80053; 80307; 81001; 81025; 82040; 82042; 82150; 82945; 82948; 83605; 83615; 83690; 83735; 84157; 84443; 84478; 85025; 85055; 85610; 85730; 86140; 86308; 87040; 87070; 87075; 87081; 87086; 87088; 87205; 89051; 96361; 96365; 96366; 96367; 96368; 96375; 96376; 99285; A9270; A9577; C9113; G0378; J0696; J1170; J1885; J2001; J2060; J2270; J2405; J2704; J2765; J3411; J3475; J3480; J7030; J7120; Q9967

== ENCOUNTER 2022-01-27 16:45 | Inpatient (IN) | payer OTHER, SELFPAY ==
[2022-01-27] VITALS (30 sets, daily range): BP systolic 128–164; BP diastolic 75–97; PULSE 123–170; RESP 14–34; TEMP 36.3–37.2; O2SAT 95–100
--- NOTE | ~2022-01-27 | CT_ITS ---
EXAMINATION: CT abdomen pelvis w con DATE: 01/27/2022 18:30 INDICATION: abd pain, vomiting, hx pancreatitis TECHNIQUE: Computed tomography (CT) of the abdomen and pelvis was performed with 100 mL Omnipaque-300 intravenous contrast. Automated exposure control and iterative reconstruction technique were employe d. The dose-length product was 417.61 mGy-cm. COMPARISON: 10/07/2021. MR abdomen 10/03/2021. CT abdomen pelvis 10/02/2021. FINDINGS: Lower thorax: Unremarkable Liver: Hepatomegaly. Marked fatty infiltration. Biliary/Gallbladder: Gallbladder is normal. No bile duct dilation. Pancreas: Pancreatic inflammation, with areas of relative low density in the pancreatic head and panc reatic tail. Peripancreatic fluid. Duct dilation. Spleen: Splenic enlargement. Adrenals:No mass. Kidneys: No mass, stone, or hydronephrosis. Late phase of renal imaging with contrast excretion. Bila teral scarring. GI tract: No small or large bowel dilation. Normal appendix. Mesentery/Peritoneum: No ascites, mass, or free air. Retroperitoneum: No mass. Pelvis: Pelvic organs are within normal limits. Moderate volume free pelvic fluid. Soft Tissues: Soft tissues and body wall unremarkable. Bones: No acute osseous finding. IMPRESSION: Acute interstitial pancreatitis. Ill-defined low-density areas in the pancreatic head and tail may re flect edema versus early foci of necrosis. Reviewed, dictated and finalized at location K. IMPRESSION: Acute interstitial pancreatitis. Ill-defined low-density areas in the pancreati c head and tail may reflect edema versus early foci of necrosis.
--- NOTE | 2022-01-27 16:59 | ECG_ITS ---
Measurements Intervals [place] Rate: 127 P: 63 DC: 139 QRS: 12 QRSD: 81 T: 40 QT: 388 QTc: 565 Interpretive Statements SINUS TACHYCARDIA CANNOT RULE OUT SEPTAL INFARCT, AGE INDETERMINATE ABNORMAL ECG Electronically Signed On 01-27-2022 18:25:34 CDT by Tomy Christensen D.O.
--- NOTE | 2022-01-27 17:11 | ED.ABDPAIN ---
HPI - Abdominal Pain General Chief Complaint: Abdominal Pain <JESIKA Azul Last Filed: 01/28/22 19:49> Stated Complaint: abd pain-alcoholic <JESIKA Azul Last Filed: 01/28/22 19:49> Time Seen by Provider: 01/27/22 16:58 <JESIKA Azul Last Filed: 01/28/22 19:49> Source: patient <JESIKA Azul Last Filed: 01/28/22 19:49> Mode of arrival: ambulatory <JESIKA Azul Last Filed: 01/28/22 19:49> Limitations: no limitations <JESIKA Azul Last Filed: 01/28/22 19:49> History of Present Illness HPI narrative: This is a 36-year-old female that presents to the emergency department for epigastric pain. Present over the last couple of days. Associated with nausea and vomiting. Reports history of alcohol abuse. She drinks 1/5 of vodka daily. Last drink was early this a.m. She did also take a shot prior to arrival. Denies fevers. <JESIKA Azul Last Filed: 01/28/22 19:49> Related Data Home Medications: Home Medications Medication Instructions Recorded Confirmed gabapentin 300 mg capsule 300 mg PO TID 10/02/21 10/02/21 <JESIKA Azul Last Filed: 01/28/22 19:49> Allergies/Adverse Reactions: Allergies Allergy/AdvReac Type Severity Reaction Status Date / Time Penicillins Allergy Mild RASH Verified 10/05/21 11:14 <JESIKA Azul Last Filed: 01/28/22 19:49> Review of Systems Review of Systems: CONSTITUTIONAL: Denies fever GASTROINTESTINAL: Reports abdominal pain, nausea, vomiting <JESIKA Azul Last Filed: 01/28/22 19:49> All systems reviewed & are unremarkable except as noted in HPI and below <JESIKA Azul Last Filed: 01/28/22 19:49> [facility] Past Medical History Medical History: Medical History Alcoholic hepatitis Depression with anxiety Endometriosis Hepatic steatosis History of alcohol abuse Irritable bowel syndrome Kidney stones Pancreatitis History of pancreatic pseudocyst formation. <Lee Ann Clifford PA-C - Last Filed: 01/28/22 19:49> Surgical History Surgical History: Surgical History History of cystoscopy History of laparoscopy With destruction of endometriosis and ovarian cystectomy. History of lithotripsy History of tonsillectomy <Lee Ann Clifford PA-C - Last Filed: 01/28/22 19:49> Family History Family History: Family History Grandparent Diabetes mellitus Father Diabetes mellitus Acute myocardial infarction <Lee Ann Clifford PA-C - Last Filed: 01/28/22 19:49> Social History Social History: Social History (Updated 01/27/22 @ 17:23 by Lee Ann Clifford PA-C) Social History: Surrogate decision maker: Alyson Christianson, mother. Code status: Full code. Smoking packs per day: 0.5 Smoking cigarettes per day: 10.0 Years smoked: 10 Smoking pack-years: 5.00 Smoking status: Current every day smoker Alcohol intake: current Alcohol use details: Heavy drinker since her late teens Substance use: never Substance use type: does not use <Lee Ann Clifford PA-C - Last Filed: 01/28/22 19:49> Exam Narrative: GENERAL: Well-appearing, well-nourished, and in no acute distress. HEAD: Normocephalic, atraumatic. EYES: EOMI. CHEST: Clear to auscultation. No respiratory distress. No wheezes rales or rhonchi HEART: Regular rate and rhythm. No murmur heard. Normal peripheral pulses. ABDOMEN: Soft, nondistended, normal active bowel sounds. Tender to palpation in the epigastrium, without guarding EXTREMITIES: Normal range of motion. No edema. SKIN: Warm, dry, no rash. NEURO: No focal deficits. Alert and oriented x3. PSYCH: Normal mood and affect <Lee Ann Clifford PA-C - Last Filed: 01/28/22 19:49> Course Reevaluation(s) Reevaluation #1: Yan
[2022-01-27 17:27] LABS: Basophils Absolute Auto 0.1 K/mm3 (0.0-0.1); Basophils Percent Auto 0.5 % (0.2-1.2); Hemoglobin 15.6 g/dL (12.0-15.0); Immature Granulocyte Absolute 0.11 K/mm3 (0.00-0.031); Immature Granulocyte Percent A 0.9 % (0-0.5); Lymphocytes Absolute Auto 0.78 K/mm3 (0.9-3.2); Lymphocytes Percent Auto 6.5 % (18.3-44.2); Mean Corpuscular HGB Conc 36.3 g/dl (32-36); Mean Corpuscular Hemoglobin 33.2 pg (26-34); Mean Corpuscular Volume 91.5 fl (80-100); Monocytes Absolute Auto 1.1 K/mm3 (0.1-0.6); Monocytes Percent Auto 8.8 % (2.6-8.5); Neutrophils Percent Auto 83.3 % (45.5-73.1); Platelet Count Result 202 k/mm3 (150-375); Red Cell Distribution Width 14.3 % (11.5-14.5)
[2022-01-27 17:35] LABS: Ethanol 274 mg/dL (<10)
[2022-01-27] MEDS: ONDANSETRON INJ 4 MG/2 ML VIAL IV PUSH (17:50)
[2022-01-27] MEDS: PANTOPRAZOLE SODIUM IV 40 MG VIAL IV PUSH (17:50)
[2022-01-27] MEDS: SODIUM CHLORIDE 0.9% IV 1,000 ML 999 ML IV CONT ×2 (17:50→18:59)
[2022-01-27] MEDS: MORPHINE SULFATE (*CRX) 4 MG/ML INJ IV PUSH (17:50)
[2022-01-27 17:57] LABS: Alanine Aminotransferase 104 U/L (6-35); Albumin Level 4.8 g/dL (3.5-5.1); Alkaline Phosphatase 115 U/L (38-126); Anion Gap 18 mmol/L (8-16); Aspartate Amino Transferase 249 U/L (14-36); Bilirubin,Total 2.8 mg/dL (0.2-1.3); Blood Urea Nitrogen 13 mg/dL (7-17); Calcium 8.5 mg/dL (8.4-10.2); Carbon Dioxide 24 mmol/L (22-30); Chloride 87 mmol/L (98-107); Estimated CRCL calculation 89 ml/min; Estimated Glomerular Filt Rate > 60; Glucose 237 mg/dL (65-110); Potassium 3.1 mmol/L (3.4-5.0); Sodium 129 mmol/L (137-145)
[2022-01-27 17:59] LABS: INR 1.5; Prothrombin Time 17.2 Seconds (11.1-14.7)
[2022-01-27 18:00] LABS: Partial Thromboplastin Time 28.5 SECONDS (22.3-36.8)
[2022-01-27 18:05] LABS: Appearance Urine Slightly Cloudy (Clear); Bilirubin Urine 2+ (Negative); Blood Urine 2+ (Negative); Color Urine Yellow (Yellow); Glucose Urine UA Trace mg/dL (Negative); Ketones Urine Trace mg/dL (Negative); Leukocyte Esterase Ur Negative LEU/UL (Negative); Nitrate Urine Negative (Negative); Protein Urine 3+ mg/dL (Negative); pH Urine 6.5 (5.0-9.0)
[2022-01-27 18:11] LABS: Bacteria Urine Trace /hpf; Mucus Urine Rare /lpf; Squamous Epithelial Cell Urine Many /hpf (Few)
[2022-01-27 18:15] LABS: Hemoglobin A1C 5.4 % (<5.7)
[2022-01-27 18:16] LABS: Magnesium 1.5 mg/dL (1.6-2.3)
[2022-01-27 18:16] LABS: Add Urine Microscopic? YES
[2022-01-27 18:20] LABS: Amphetamine Screen Urine Negative (Negative); Barbiturate Screen Urine Negative (Negative); Benzodiazepines Screen Urine Positive (Negative); Cannabinoid Screen Urine Negative (Negative); Cocaine Screen Urine Positive (Negative); Methadone Screen Urine Negative (Negative); Opiate Screen Urine Negative (Negative); Phencyclidine Screen Urine Negative (Negative)
[2022-01-27 18:25] LABS: Lipase 12672 U/L (23-300)
[2022-01-27 18:38] LABS: SARS-CoV-2 RNA PCR Negative
[2022-01-27] MEDS: LORazepam INJ (*CRX) 2 MG/ML VIAL 1 MG IV PUSH (18:59)
--- NOTE | 2022-01-27 19:12 | PM.IMHP ---
H&P: HPI History of Present Illness Date/Time: 01/27/22 19:12 [facility] Past Medical History Medical History Alcoholic hepatitis Depression with anxiety Endometriosis Hepatic steatosis History of alcohol abuse Irritable bowel syndrome Kidney stones Pancreatitis History of pancreatic pseudocyst formation. Surgical History Surgical History History of cystoscopy History of laparoscopy With destruction of endometriosis and ovarian cystectomy. History of lithotripsy History of tonsillectomy Family History Family History Grandparent Diabetes mellitus Father Diabetes mellitus Acute myocardial infarction Social History Social History (Updated 01/27/22 @ 17:23 by Lee Ann Clifford PA-C) Social History: Surrogate decision maker: Alyson Christianson, mother. Code status: Full code. Smoking packs per day: 0.5 Smoking cigarettes per day: 10.0 Years smoked: 10 Smoking pack-years: 5.00 Smoking status: Current every day smoker Alcohol intake: current Alcohol use details: Heavy drinker since her late teens Substance use: never Substance use type: does not use Meds Home Medications and Allergies Home Medications Medication Instructions Recorded Confirmed Type gabapentin 300 mg capsule 300 mg PO TID 10/02/21 10/02/21 History amitriptyline 10 mg tablet 10 mg PO HS #30 tabs 10/10/21 Rx folic acid 0.8 mg capsule 0.8 mg PO DAILY #30 caps 10/10/21 Rx akiplr-[id number] 2 cap PO TIDWM 30 days #180 caps 10/10/21 Rx 12,000-38,000-60,000 unit capsule,delayed rel (Creon) metoprolol succinate 25 mg 25 mg PO DAILY #30 tabs 10/10/21 Rx tablet,extended release 24 hr pantoprazole 40 mg tablet,delayed 40 mg PO Q12HR #60 tabs 10/10/21 Rx release thiamine HCl (vitamin B1) 100 mg 100 mg PO QAM #30 tabs 10/10/21 Rx tablet (Vitamin B-1) Allergies Allergy/AdvReac Type Severity Reaction Status Date / Time Penicillins Allergy Mild RASH Verified 10/05/21 11:14 Vital Signs Vital Signs - 24 hr 07/02/22 16:50 01/27/22 18:29 Temperature 97.3 F L Pulse Rate 161 H 123 H Respiratory Rate 18 21 H Blood Pressure 153/97 H 153/95 H Pulse Oximetry 97 100 Oxygen Delivery Room Air H&P: Results Labs Labs: Short CBC 01/27/22 Range/Units 17:21 WBC 12.0 H (4.5-10.0) K/mm3 Hgb 15.6 H (12.0-15.0) g/dL Hct 43.0 (37.0-47.0) % Plt Count 202 (150-375) k/mm3 BMP 01/27/22 17:41 Sodium 129 L Potassium 3.1 L Chloride 87 L Carbon Dioxide 24 BUN 13 D Creatinine 0.80 Glucose 237 H Calcium 8.5 Liver Function 01/27/22 Range/Units 17:41 Total Bilirubin 2.8 H (0.2-1.3) mg/dL AST 249 H (14-36) U/L ALT 104 H (6-35) U/L Alkaline Phosphatase 115 (38-126) U/L Albumin 4.8 (3.5-5.1) g/dL Urine 01/27/22 Range/Units 17:56 Urine Color Yellow (Yellow) Urine Appearance Slightly cloudy (Clear) Urine pH 6.5 (5.0-9.0) Ur Specific [place] 1.020 (1.001-1.035) Urine Protein 3+ H (Negative) mg/dL Urine Glucose (UA) Trace H (Negative) mg/dL
[2022-01-27] MEDS: fentaNYL CITRATE INJ (*CRX) 100 MCG/2 ML VIAL 50 MCG IV PUSH ×2 (20:38→22:05)
[2022-01-27 20:43] LABS: Reflex Lactic Acid Yes or No Add Lactic
--- NOTE | 2022-01-27 21:55 | PC.NURSE ---
Leslye from [facility] called for triage on Pt.
[2022-01-27 22:07] LABS: Lactic Acid 3.9 mmol/L (0.7-2.0)
[2022-01-27] MEDS: HYDROmorphone HCL INJ (*CRX) 1 MG/ML SYR 0.5 MG IV PUSH (23:45)
[2022-01-27] MEDS: KETOROLAC 15 MG/ML VIAL (*BKC) IV PUSH (23:59)
[2022-01-28] VITALS (30 sets, daily range): BP systolic 127–175; BP diastolic 66–154; PULSE 110–164; RESP 15–27; TEMP 36.8–37.9; O2SAT 94–100; BMI 31.6
[2022-01-28] MEDS: LORazepam INJ (*CRX) 2 MG/ML VIAL 1 MG IV PUSH (00:42)
[2022-01-28] MEDS: HYDROmorphone HCL INJ (*CRX) 1 MG/ML SYR 0.5 MG IV PUSH ×2 (02:23→04:17)
[2022-01-28 02:57] LABS: Alanine Aminotransferase 84 U/L (6-35); Albumin Level 4.2 g/dL (3.5-5.1); Alkaline Phosphatase 109 U/L (38-126); Anion Gap 8 mmol/L (8-16); Aspartate Amino Transferase 209 U/L (14-36); Bilirubin,Total 3.9 mg/dL (0.2-1.3); Blood Urea Nitrogen 10 mg/dL (7-17); Calcium 8.1 mg/dL (8.4-10.2); Carbon Dioxide 29 mmol/L (22-30); Chloride 95 mmol/L (98-107); Estimated CRCL calculation 89 ml/min; Estimated Glomerular Filt Rate > 60; Glucose 106 mg/dL (65-110); Potassium 3.1 mmol/L (3.4-5.0); Sodium 132 mmol/L (137-145)
[2022-01-28] MEDS: SODIUM CHLORIDE 0.9% IV 1,000 ML 250 ML IV CONT (03:09)
[2022-01-28 03:19] LABS: Lipase 8922 U/L (23-300)
[2022-01-28] MEDS: LORazepam INJ (*CRX) 2 MG/ML VIAL IV PUSH ×5 (04:59→23:51)
[2022-01-28 05:31] LABS: Glucose Point of Care 179 mg/dl (65-105)
[2022-01-28] MEDS: MORPHINE SULFATE (*CRX) 4 MG/ML INJ IV PUSH (05:31)
[2022-01-28] MEDS: fentaNYL CITRATE INJ (*CRX) 100 MCG/2 ML VIAL IV PUSH (06:12)
[2022-01-28 08:23] LABS: Basophils Percent Auto 0.6 % (0.2-1.2); Hematocrit 33.5 % (37.0-47.0); Hemoglobin 11.8 g/dL (12.0-15.0); Immature Granulocyte Absolute 0.03 K/mm3 (0.00-0.031); Immature Granulocyte Percent A 0.6 % (0-0.5); Immature Platelet Fraction Pct 4.3 % (0.9-11.2); Lymphocytes Absolute Auto 1.08 K/mm3 (0.9-3.2); Lymphocytes Percent Auto 22.5 % (18.3-44.2); Mean Corpuscular HGB Conc 35.2 g/dl (32-36); Mean Corpuscular Hemoglobin 33.2 pg (26-34); Mean Corpuscular Volume 94.4 fl (80-100); Mean Platelet Volume 10.4 fl (7.4-10.4); Monocytes Absolute Auto 0.4 K/mm3 (0.1-0.6); Monocytes Percent Auto 7.9 % (2.6-8.5); Neutrophils Absolute Auto 3.3 K/mm3 (1.3-6.7); Neutrophils Percent Auto 68.4 % (45.5-73.1); Platelet Count Result 68 k/mm3 (150-375); Red Blood Count 3.55 M/mm3 (4.2-5.4); Red Cell Distribution Width 14.2 % (11.5-14.5); White Blood Count 4.8 K/mm3 (4.5-10.0)
[2022-01-28 09:17] LABS: Alanine Aminotransferase 71 U/L (6-35); Albumin Level 3.7 g/dL (3.5-5.1); Alkaline Phosphatase 94 U/L (38-126); Anion Gap 6 mmol/L (8-16); Aspartate Amino Transferase 202 U/L (14-36); Bilirubin,Total 4.2 mg/dL (0.2-1.3); Blood Urea Nitrogen 10 mg/dL (7-17); Calcium 7.7 mg/dL (8.4-10.2); Carbon Dioxide 29 mmol/L (22-30); Chloride 97 mmol/L (98-107); Estimated CRCL calculation 89 ml/min; Estimated Glomerular Filt Rate > 60; Glucose 86 mg/dL (65-110); Potassium 3.1 mmol/L (3.4-5.0); Sodium 132 mmol/L (137-145)
[2022-01-28 09:17] LABS: Lactic Acid Reflex 2.2 mmol/L (0.7-2.0)
[2022-01-28] MEDS: HYDROmorphone HCL INJ (*CRX) 1 MG/ML SYR IV PUSH ×6 (09:30→22:36)
[2022-01-28 09:33] LABS: Lipase 4997 U/L (23-300)
[2022-01-28 12:00] LABS: Reflex Lactic Acid Yes or No Add Lactic
[2022-01-28] MEDS: POTASSIUM BICARBONATE 25 MEQ TABEF PO (12:16)
[2022-01-28] MEDS: ACETAMINOPHEN 500 MG TABLET 1000 MG PO (12:16)
[2022-01-28 12:31] LABS: Lactic Acid 1.5 mmol/L (0.7-2.0)
--- NOTE | 2022-01-28 13:49 | PC.NURSE ---
[facility] called for update on pt. No beds still at this time
[2022-01-28] MEDS: LACTATED RINGERS 1,000 ML 125 ML IV CONT (17:30)
--- NOTE | 2022-01-28 19:23 | PC.NURSE ---
Pt transferred to hospital bed for comfort. Still waiting on bed at [facility]
--- NOTE | 2022-01-28 19:41 | PC.NURSE ---
Pt friend Ez called for an update. Pt gave permission to speak with him and he was updated on pts status.
--- NOTE | 2022-01-28 19:45 | PM.IMHP ---
H&P: HPI History of Present Illness Date/Time: 01/28/22 19:45 Chief Complaint: Abdominal pain. Narrative: this is a 36-year-old female with past medical history significant for alcohol dependence, tobacco dependence, cocaine use, peripheral neuropathy. Patient presents to the emergency room after a week of binge drinking started having epigastric abdominal pain, nausea, vomiting unable to keep anything down roughly 2-3 days duration prior to presenting to emergency. At the time of my visit patient complained of bilateral lower extremity burning tingling or numbness sensation bilateral ankle pain. Preliminary workup was significant for CT of abdomen and pelvis with acute interstitial pancreatitis, ill-defined low-density areas in the pancreatic head and tail may reflect edema versus early foci of necrosis, lactic acid of 6, sodium 129, potassium 3, chloride 87 total bili 2.8 AST to 49 ALT 104 lipase 8920. patient had been awaiting bed at [place]. Repeat labs show a lactic acid of 2 and patient overall improved decision of the made to place the patient in observation for further evaluation management and treatment. Review of Systems Review of Systems: Abdominal pain, nausea, vomiting, bilateral lower extremity, burning numbness tingling sensation Constitutional: Constitutional: Reports body ache(s), Denies chills, Denies fever(s), Denies malaise, Denies night sweats and Reports weakness Eyes: Eyes: Denies change in vision ENT: Denies dysphagia, Denies vertigo, Denies dizziness and Denies odynophagia Cardiovascular: Cardiovascular: Denies chest pain, Denies syncope, Denies irregular heart rhythm, Denies lightheadedness, Denies palpitations and Denies dyspnea on exertion Respiratory: Respiratory: Denies chest congestion, Denies cough and Denies dyspnea Gastrointestinal: Gastrointestinal: Reports abdominal pain ( epigastric area with radiation to the back), Denies dyspepsia and Denies heartburn Genitourinary: Genitourinary: Denies dysuria Musculoskeletal: Musculoskeletal: Reports abnormal gait, Denies back pain, Reports arthralgias, Reports muscle weakness, Reports numbness and Reports tingling Comments: bilateral lower extremity Integumentary/Breasts: Skin/Breast: Denies rash Neurologic: Denies vertigo, Denies dizziness, Denies focal weakness, Denies Sensory deficit (Neuro), Reports tingling, Reports paresthesias and Reports tremor(s) Psychiatric: Psychiatric: Reports no additional psychiatric complaints and Reports as per HPI Endocrine: Endocrine: Denies cold intolerance, Denies fatigue, Denies flushing, Denies heat intolerance, Denies polyphagia, Denies polydipsia and Denies palpitations Hematologic/Lymphatic: Hematologic/Lymphatic: Reports no additional hematologic/lymphatic complaints and Reports as per HPI Allergic/Immunologic: Allergic/Immunologic: Reports no additional allergic/immunologic complaints and Reports as per HPI PMFSH Past Medical History Medical History Alcoholic hepatitis Depression with anxiety Endometriosis Hepatic steatosis History of alcohol abuse Irritable bowel syndrome Kidney stones Pancreatitis History of pancreatic pseudocyst formation. Surgical History Surgical History History of cystoscopy History of laparoscopy With destruction of endometriosis and ovarian cystectomy. History of lithotripsy History of tonsillectomy Family History Family History Grandparent Diabetes mellitus Father Diabetes mellitus Acute myocardial infarction Social History Social History (Updated 01/27/22 @ 17:23 by Lee Ann Clifford PA-C) Social History: Surrogate decision maker: Alyson Christianson, mother. Code status: Full code. Smoking packs per day: 0.5 Smoking cigarettes per day: 10.0 Years smoked: 10 Smoking pack-years: 5.00 Smoki
--- NOTE | 2022-01-28 20:22 | PC.NURSE ---
Gave report to Natalia
--- NOTE | 2022-01-28 20:41 | PC.NURSE ---
Called both [facility] ([facility]) AND [facility] ([place] TRANSFER CENTERS TO INFORM THEM THAT THIS PATIENT HAS BEEN ADMITTED TO ROOM 310 WHILE WAITING FOR BED AVAILABILITY.
--- NOTE | 2022-01-28 21:53 | ADMGEN ---
This patient, Kamilla Christianson, was admitted to [address] [place] [address] Room 310-01. Patient/family oriented to hospital policies and general routines including ID bracelet, bed and alarms, visiting hours, pain management, procedures, bathroom and other care routines, personal items, smoking policy, room service/diet, and visiting hours. Information on how to activate the Rapid Response Team has been discussed. Patient/Family are encouraged to report perceived risks to care and to ask questions if they do not understand what they are told or what they should do.
[2022-01-29] VITALS (9 sets, daily range): BP systolic 137–140; BP diastolic 92–98; PULSE 100–122; RESP 18–24; TEMP 36.6–36.7; O2SAT 98–100
[2022-01-29 00:31] LABS: Glucose Point of Care 98 mg/dl (65-105)
[2022-01-29] MEDS: HYDROmorphone HCL INJ (*CRX) 1 MG/ML SYR IV PUSH ×10 (01:08→23:48)
[2022-01-29] MEDS: LACTATED RINGERS 1,000 ML 125 ML IV CONT ×2 (02:39→14:19)
[2022-01-29] MEDS: THIAMINE HCL INJ 100 MG, FOLIC ACID INJ 1 MG, MULTIVITAMINS-12 INJ VIAL 1 5 ML, MULTIVI... IV CONT (04:31)
[2022-01-29] MEDS: LORazepam INJ (*CRX) 2 MG/ML VIAL IV PUSH ×4 (04:39→23:49)
[2022-01-29 06:24] LABS: Glucose Point of Care 92 mg/dl (65-105)
[2022-01-29] MEDS: PANTOPRAZOLE SODIUM IV 40 MG VIAL IV PUSH ×2 (08:01→21:43)
--- NOTE | 2022-01-29 11:39 | PC.NURSE ---
[facility] transfer center called, [facility] is at capacity at this time, no beds available for transfer. Spoke with Susanne DUNN, .
[2022-01-29 12:16] LABS: Glucose Point of Care 115 mg/dl (65-105)
--- NOTE | 2022-01-29 12:55 | PM.IMPN ---
Progress Note: A&P Assessment and Plan (1) Acute pancreatitis: Qualifiers: Acute pancreatitis complication: uninfected necrosis Pancreatitis type: alcohol induced Qualified Code(s): K85.21 - Alcohol induced acute pancreatitis with uninfected necrosis Code(s): K85.90 - Acute pancreatitis without necrosis or infection, unspecified Status: Acute Assessment and Plan: Continue supportive care with NPO and IV fluids. Trend labs. (2) Abdominal pain: Qualifiers: Abdominal location: unspecified location Qualified Code(s): R10.9 - Unspecified abdominal pain Code(s): R10.9 - Unspecified abdominal pain Status: Acute Assessment and Plan: Secondary to above (3) Prolonged QT interval: Code(s): R94.31 - Abnormal electrocardiogram [ECG] [EKG] Status: Acute Assessment and Plan: Monitor (4) EtOH dependence: Code(s): F10.20 - Alcohol dependence, uncomplicated Status: Acute Assessment and Plan: Monitor for withdrawal Subjective Date/time seen: 01/29/22 12:55 Abdominal pain improving. Complaining of right ankle pain. Exam Narrative: General: alert and oriented Psych: appropriate mood nad affect Eyes: PERRLA Neck: Trachea midline, no new lesions Skin: no changes Lungs: CTA Cardiac: Normal S1,S2, no MGR ABD: soft, mild tenderness on palpation of the epigastric Ext: no new lesions, no cce Vasc: Pulses intact Objective Data Vital Signs Vital Signs: Vital Signs - 24 hr 01/28/22 16:14 01/28/22 20:30 01/28/22 21:50 Temperature 99.1 F 99.5 F 98.3 F Pulse Rate 120 H 115 H 110 H Respiratory Rate 18 20 20 Blood Pressure 152/89 H 158/91 H 142/66 H Pulse Oximetry 97 100 97 01/29/22 00:00 01/29/22 04:00 01/29/22 05:57 Temperature 98.0 F Pulse Rate 106 H 108 H 105 H Respiratory Rate 18 Blood Pressure 137/92 H Pulse Oximetry 98 01/29/22 08:00 Temperature Pulse Rate 100 Respiratory Rate Blood Pressure Pulse Oximetry Intake/Output Intake/Output: Intake & Output 01/26/22 01/27/22 01/28/22 01/29/22 23:59 23:59 23:59 23:59 Intake Total 1999 2014.2 120 Output Total 900 2000 Balance 2000 1114.2 -8920 Meds/Results Medications: Active Medications Generic Name Dose Route Start Last Admin Trade Name Freq PRN Reason Stop Dose Admin Hydromorphone HCl 1 mg 01/28/22 11:36 01/29/22 11:23 Hydromorphone Hcl Inj (*Crx) 1 Mg/Ml Syr IV PUSH 1 mg Q2H PRN Administration Pain Rated 7-10 Acetaminophen 1,000 mg in 100 mls @ 400 mls/hr 01/29/22 01:24 01/29/22 02:32 Ofirmev 1,000 Mg Ivpb IVPB 01/30/22 01:23 Infused Q6H PRN Infusion Pain Rated 4-6 Lactated Ringer's 1,000 mls @ 75 mls/hr 01/29/22 01:25 01/29/22 04:28 Lr - Lactated Ringers Iv IV CONT 0 mls/hr .[id number] TIFFANIE Infusion Lorazepam 2 mg 01/28/22 02:11 01/29/22 09:43 Lorazepam Inj (*Crx) 2 Mg/Ml Vial IV PUSH 2 mg Q4H PRN Administration Withdrawal Pantoprazole Sodium 40 mg 01/29/22 09:00 01/29/22 08:01 Pantoprazole Sodium Iv 40 Mg Vial IV PUSH 40 mg Q12HR TIFFANIE Administration Radiology Results: ITS Impressions Abdomen/Pelvis CT 01/27/22 18:49 IMPRESSION: Acute interstitial pancreatitis. Ill-defined low-density areas in the pancreatic head and tail may reflect edema versus early foci of necrosis. Labs Labs: Laboratory Results - last 24 hr 01/29/22 01/29/22 01/29/22 00:23 06:22 12:12 POC Capillary Glucose 98 92 115 H
[2022-01-29 14:06] LABS: Alanine Aminotransferase 73 U/L (6-35); Albumin Level 3.8 g/dL (3.5-5.1); Alkaline Phosphatase 96 U/L (38-126); Anion Gap 5 mmol/L (8-16); Aspartate Amino Transferase 120 U/L (14-36); Bilirubin,Total 4.8 mg/dL (0.2-1.3); Blood Urea Nitrogen 5 mg/dL (7-17); Calcium 8.4 mg/dL (8.4-10.2); Carbon Dioxide 31 mmol/L (22-30); Chloride 97 mmol/L (98-107); Estimated CRCL calculation 102 ml/min; Estimated Glomerular Filt Rate > 60; Glucose 112 mg/dL (65-110); Potassium 2.7 mmol/L (3.4-5.0); Sodium 133 mmol/L (137-145)
--- NOTE | 2022-01-29 14:10 | PC.NURSE ---
20meq po once and 40 meq Iv once KCl recheck 1899
[2022-01-29] MEDS: POTASSIUM CHLORIDE 20 MEQ TABLET PO (14:28)
[2022-01-29] MEDS: POTASSIUM CHLORIDE INJ 40 MEQ in SODIUM CHLORIDE 0.9% IV 500 ML 130 MEQ IVPB (14:28)
--- NOTE | 2022-01-29 15:14 | PC.NURSE ---
potassium was 2.7 20meq po once and 40 meq Iv once KCl recheck 1900 per MD Chan
--- NOTE | 2022-01-29 15:46 | PC.NURSE ---
[facility] transfer center, no bed available, will call back on noc shift.
[2022-01-29 16:58] LABS: Glucose Point of Care 94 mg/dl (65-105)
[2022-01-29 19:27] LABS: Potassium 3.9 mmol/L (3.4-5.0)
[2022-01-29 20:47] LABS: Glucose Point of Care 88 mg/dl (65-105)
[2022-01-29] MEDS: LACTATED RINGERS 1,000 ML 75 ML IV CONT (21:06)
[2022-01-30] VITALS (9 sets, daily range): BP systolic 136–141; BP diastolic 83–102; PULSE 104–174; RESP 16–18; TEMP 36.3–37.1; O2SAT 99–100
[2022-01-30] MEDS: HYDROmorphone HCL INJ (*CRX) 1 MG/ML SYR IV PUSH ×10 (02:04→22:36)
[2022-01-30] MEDS: LORazepam INJ (*CRX) 2 MG/ML VIAL IV PUSH ×4 (04:06→20:40)
[2022-01-30 06:36] LABS: Hematocrit 36.8 % (37.0-47.0); Hemoglobin 12.8 g/dL (12.0-15.0); Immature Platelet Fraction Pct 9.1 % (0.9-11.2); Mean Corpuscular HGB Conc 34.8 g/dl (32-36); Mean Corpuscular Hemoglobin 33.4 pg (26-34); Mean Corpuscular Volume 96.1 fl (80-100); Mean Platelet Volume 11.1 fl (7.4-10.4); Platelet Count Result 55 k/mm3 (150-375); Red Blood Count 3.83 M/mm3 (4.2-5.4); Red Cell Distribution Width 13.8 % (11.5-14.5); White Blood Count 7.2 K/mm3 (4.5-10.0)
[2022-01-30 06:54] LABS: Alanine Aminotransferase 59 U/L (6-35); Albumin Level 3.7 g/dL (3.5-5.1); Alkaline Phosphatase 108 U/L (38-126); Anion Gap 8 mmol/L (8-16); Aspartate Amino Transferase 90 U/L (14-36); Bilirubin,Total 5.4 mg/dL (0.2-1.3); Blood Urea Nitrogen 8 mg/dL (7-17); Calcium 8.8 mg/dL (8.4-10.2); Carbon Dioxide 26 mmol/L (22-30); Chloride 98 mmol/L (98-107); Estimated CRCL calculation 90 ml/min; Estimated Glomerular Filt Rate > 60; Glucose 66 mg/dL (65-110); Lipase 1806 U/L (23-300); Magnesium 1.7 mg/dL (1.6-2.3); Potassium 3.5 mmol/L (3.4-5.0); Sodium 132 mmol/L (137-145)
[2022-01-30 08:03] LABS: Glucose Point of Care 65 mg/dl (65-105)
[2022-01-30] MEDS: DEXTROSE 5%/0.45% SOD CHL 1,000 ML 75 ML IV CONT ×2 (08:46→20:40)
[2022-01-30] MEDS: PANTOPRAZOLE SODIUM IV 40 MG VIAL IV PUSH ×2 (08:55→20:41)
[2022-01-30 11:27] LABS: Glucose Point of Care 82 mg/dl (65-105)
--- NOTE | 2022-01-30 12:20 | PM.IMPN ---
Progress Note: A&P Assessment and Plan (1) Acute pancreatitis: Qualifiers: Acute pancreatitis complication: uninfected necrosis Pancreatitis type: alcohol induced Qualified Code(s): K85.21 - Alcohol induced acute pancreatitis with uninfected necrosis Code(s): K85.90 - Acute pancreatitis without necrosis or infection, unspecified Status: Acute Assessment and Plan: admit to regular medical floor ice chips supportive care with IV fluids daily intake and output daily BMP replace electrolytes as needed Patient was awaiting a bed at [place] however she is improving significantly. She can likely be managed here. Monitor labs (2) Abdominal pain: Qualifiers: Abdominal location: unspecified location Qualified Code(s): R10.9 - Unspecified abdominal pain Code(s): R10.9 - Unspecified abdominal pain Status: Acute Assessment and Plan: secondary to alcohol intake and acute pancreatitis supportive care pain management (3) Prolonged QT interval: Code(s): R94.31 - Abnormal electrocardiogram [ECG] [EKG] Status: Acute Assessment and Plan: continue to monitor avoid concomitant use of drugs prolonging QTC interval (4) Chronic pain: Qualifiers: Chronic pain type: other chronic pain Qualified Code(s): G89.29 - Other chronic pain Code(s): G89.29 - Other chronic pain Status: Chronic Assessment and Plan: resume gabapentin when possible (5) Hypomagnesemia: Code(s): E83.42 - Hypomagnesemia Status: Resolved Assessment and Plan: Monitor (6) Hypokalemia: Code(s): E87.6 - Hypokalemia Status: Resolved Assessment and Plan: Monitor (7) Transaminasemia: Code(s): R74.01 - Elevation of levels of liver transaminase levels Status: Acute Assessment and Plan: likely secondary to alcohol intake down trending (8) EtOH dependence: Code(s): F10.20 - Alcohol dependence, uncomplicated Status: Acute Assessment and Plan: CIWA protocol as needed banana bag Subjective Date/time seen: 01/30/22 12:20 His abdominal pain is improving. No nausea vomiting. She is requesting some liquid diet Exam Narrative: patient is laying in bed Const: General: well developed, alert, awake, acute distress mild and ill appearing acutely Nutritional Appearance: average body habitus Orientation/consciousness: patient oriented x3 HENMT: Head: normal to inspection, normocephalic and atraumatic Ears: hearing grossly normal bilaterally Face and sinus: normal facial exam Eyes: General: appearance normal, both eyes and all related structures Pupils: Equal, round and reactive pupils present EOM: EOMs intact bilaterally Neck: Neck: full ROM, no lymphadenopathy and no JVD Thyroid: thyroid normal Lymphatic: no lymphadenopathy noted Resp: Effort & Inspection: normal respiratory effort and able to speak in complete sentences Auscultation: clear to auscultation bilaterally Cardio: Jugular venous distension: no JVD Rate: regular rate Rhythm: regular rhythm Heart sounds: S1 normal heart sound present and S2 normal heart sound present GI: Inspection: normal to inspection : General: Yes deferred Skin: Rashes: no rashes Wounds: no wounds Neuro: General: patient oriented x3, CN's II-XI intact bilaterally and Unable to assess gait Cranial nerves: Yes CN's II-XII intact bilaterally and Yes Equal, round and reactive pupils present Cognition (Neuro): normal cognition Speech: normal speech Gait exam (Neuro): Normal gait present and Unable to assess gait Motor exam (neuro): 5/5 motor strength present throughout Sensory Exam: No Sensory deficit (Neuro) Extrem: General: normal to inspection, full ROM, no joint enlargement and no pedal edema Psych: Other: patient expresses remorse about her substance abuse Objective Data Vital Signs Vital Signs: Vital Signs - 2
[2022-01-30 17:03] LABS: Glucose Point of Care 124 mg/dl (65-105)
[2022-01-30 20:05] LABS: Glucose Point of Care 102 mg/dl (65-105)
[2022-01-31] VITALS (9 sets, daily range): BP systolic 117–135; BP diastolic 77–95; PULSE 100–148; RESP 17–18; TEMP 36.2–36.6; O2SAT 96–100
[2022-01-31] MEDS: HYDROmorphone HCL INJ (*CRX) 1 MG/ML SYR IV PUSH ×9 (00:29→23:30)
[2022-01-31] MEDS: LORazepam INJ (*CRX) 2 MG/ML VIAL IV PUSH ×4 (02:40→22:17)
[2022-01-31 07:32] LABS: Hematocrit 36.6 % (37.0-47.0); Hemoglobin 13.2 g/dL (12.0-15.0); Immature Platelet Fraction Pct 9.3 % (0.9-11.2); Mean Corpuscular HGB Conc 36.1 g/dl (32-36); Mean Corpuscular Hemoglobin 33.6 pg (26-34); Mean Corpuscular Volume 93.1 fl (80-100); Mean Platelet Volume 11.4 fl (7.4-10.4); Platelet Count Result 66 k/mm3 (150-375); Red Blood Count 3.93 M/mm3 (4.2-5.4); Red Cell Distribution Width 13.5 % (11.5-14.5); White Blood Count 6.3 K/mm3 (4.5-10.0)
[2022-01-31 07:33] LABS: Anion Gap 9 mmol/L (8-16); Blood Urea Nitrogen 7 mg/dL (7-17); Calcium 9.1 mg/dL (8.4-10.2); Carbon Dioxide 26 mmol/L (22-30); Chloride 96 mmol/L (98-107); Estimated CRCL calculation 102 ml/min; Estimated Glomerular Filt Rate > 60; Glucose 85 mg/dL (65-110); Lipase 1414 U/L (23-300); Sodium 131 mmol/L (137-145)
[2022-01-31 08:10] LABS: Glucose Point of Care 112 mg/dl (65-105)
[2022-01-31 09:36] LABS: Magnesium 1.8 mg/dL (1.6-2.3)
[2022-01-31] MEDS: PANTOPRAZOLE SODIUM IV 40 MG VIAL IV PUSH ×2 (09:42→20:46)
[2022-01-31] MEDS: POTASSIUM CHLORIDE INJ 40 MEQ in SODIUM CHLORIDE 0.9% IV 500 ML 130 MEQ IVPB (11:10)
[2022-01-31] MEDS: DEXTROSE 5%/0.45% SOD CHL 1,000 ML 75 ML IV CONT (11:13)
[2022-01-31 11:19] LABS: Glucose Point of Care 92 mg/dl (65-105)
--- NOTE | 2022-01-31 16:20 | PM.IMPN ---
Progress Note: A&P Assessment and Plan (1) Acute pancreatitis: Qualifiers: Acute pancreatitis complication: uninfected necrosis Pancreatitis type: alcohol induced Qualified Code(s): K85.21 - Alcohol induced acute pancreatitis with uninfected necrosis Code(s): K85.90 - Acute pancreatitis without necrosis or infection, unspecified Status: Acute Assessment and Plan: admit to regular medical floor ice chips supportive care with IV fluids daily intake and output daily BMP replace electrolytes as needed Patient was awaiting a bed at [place] however she is improving significantly. She can likely be managed here. Monitor labs 01/31/2022 intreval history: patient with history of alcohol abuse presented with abdominal pain is found to acute pancreatitis, upon arrival patient lipase was 12,672 and today has trended to 1414, patient clinical symptoms improved abdominal pain is better not as nauseated will start the patient on clear liquid and will monitor, there was a concern for alcohol withdrawal will monitor with CIWA protocol and Librium, will start the patient on thiamine and folic acid, will have a PT OT evaluate the patient. (2) Abdominal pain: Qualifiers: Abdominal location: unspecified location Qualified Code(s): R10.9 - Unspecified abdominal pain Code(s): R10.9 - Unspecified abdominal pain Status: Acute Assessment and Plan: secondary to alcohol intake and acute pancreatitis supportive care pain management (3) Prolonged QT interval: Code(s): R94.31 - Abnormal electrocardiogram [ECG] [EKG] Status: Acute Assessment and Plan: continue to monitor avoid concomitant use of drugs prolonging QTC interval (4) Chronic pain: Qualifiers: Chronic pain type: other chronic pain Qualified Code(s): G89.29 - Other chronic pain Code(s): G89.29 - Other chronic pain Status: Chronic Assessment and Plan: resume gabapentin when possible (5) Hypomagnesemia: Code(s): E83.42 - Hypomagnesemia Status: Resolved Assessment and Plan: Monitor (6) Hypokalemia: Code(s): E87.6 - Hypokalemia Status: Resolved Assessment and Plan: Monitor (7) Transaminasemia: Code(s): R74.01 - Elevation of levels of liver transaminase levels Status: Acute Assessment and Plan: likely secondary to alcohol intake down trending (8) EtOH dependence: Code(s): F10.20 - Alcohol dependence, uncomplicated Status: Acute Assessment and Plan: CIWA protocol as needed banana bag Subjective Date/time seen: 01/31/22 16:20 01/31/2022 intreval history: patient with history of alcohol abuse presented with abdominal pain is found to acute pancreatitis, upon arrival patient lipase was 12,672 and today has trended to 1414, patient clinical symptoms improved abdominal pain is better not as nauseated will start the patient on clear liquid and will monitor, there was a concern for alcohol withdrawal will monitor with CIWA protocol and Librium, will start the patient on thiamine and folic acid, will have a PT OT evaluate the patient. Review of Systems Review of Systems: DeniesAbdominal pain, nausea, vomiting, c/o bilateral lower extremity, burning numbness tingling sensation Constitutional: Constitutional: Reports body ache(s), Denies chills, Denies fatigue, Denies fever(s), Denies malaise, Denies night sweats and Reports weakness Exam Narrative: appears chronically ill moderately obese Patient is comfortable, NAD HEENT: eyes are clear and none icteric LUNGS: normal respiratory effort ABD: distended Lower extremities: no edema SKIN: nonjaundiced Neuro: grossly intact. Objective Data Vital Signs Vital Signs: Vital Signs - 24 hr 01/30/22 20:00 01/30/22 20:00 01/30/22 22:00 Temperature 97.4 F L Pulse Rate 108 H 113 H Pulse Rate [Monitor] 108 H R
[2022-01-31] MEDS: THIAMINE HCL 100 MG TABLET PO (17:49)
[2022-01-31] MEDS: FOLIC ACID 1 MG TABLET PO (17:49)
[2022-01-31] MEDS: POTASSIUM CHLORIDE 20 MEQ TABLET 40 MEQ PO (17:49)
[2022-01-31] MEDS: chlordiazePOXIDE (*CRX) 25 MG CAPSULE PO (17:50)
[2022-01-31 17:59] LABS: Glucose Point of Care 130 mg/dl (65-105)
[2022-02-01] VITALS (11 sets, daily range): BP systolic 119–134; BP diastolic 67–114; PULSE 83–132; RESP 16–18; TEMP 36.1–36.6; O2SAT 99–100
[2022-02-01] MEDS: HYDROmorphone HCL INJ (*CRX) 1 MG/ML SYR IV PUSH ×2 (01:54→05:20)
[2022-02-01 06:43] LABS: Glucose Point of Care 111 mg/dl (65-105)
[2022-02-01] MEDS: LORazepam INJ (*CRX) 2 MG/ML VIAL IV PUSH (06:53)
[2022-02-01 06:56] LABS: Hematocrit 35.2 % (37.0-47.0); Hemoglobin 12.1 g/dL (12.0-15.0); Immature Platelet Fraction Pct 7.6 % (0.9-11.2); Mean Corpuscular HGB Conc 34.4 g/dl (32-36); Mean Corpuscular Hemoglobin 33.2 pg (26-34); Mean Corpuscular Volume 96.7 fl (80-100); Mean Platelet Volume 10.3 fl (7.4-10.4); Platelet Count Result 83 k/mm3 (150-375); Red Blood Count 3.64 M/mm3 (4.2-5.4); Red Cell Distribution Width 13.8 % (11.5-14.5); White Blood Count 4.1 K/mm3 (4.5-10.0)
[2022-02-01 07:05] LABS: Alanine Aminotransferase 61 U/L (6-35); Alkaline Phosphatase 126 U/L (38-126); Anion Gap 9 mmol/L (8-16); Aspartate Amino Transferase 94 U/L (14-36); Bilirubin,Total 4.1 mg/dL (0.2-1.3); Blood Urea Nitrogen 3 mg/dL (7-17); Calcium 9.1 mg/dL (8.4-10.2); Carbon Dioxide 23 mmol/L (22-30); Chloride 102 mmol/L (98-107); Estimated CRCL calculation 102 ml/min; Estimated Glomerular Filt Rate > 60; Glucose 99 mg/dL (65-110); Lipase 1021 U/L (23-300); Magnesium 1.7 mg/dL (1.6-2.3); Potassium 3.3 mmol/L (3.4-5.0); Sodium 134 mmol/L (137-145)
[2022-02-01 07:47] LABS: Glucose Point of Care 107 mg/dl (65-105)
[2022-02-01] MEDS: DEXTROSE 5%/0.45% SOD CHL 1,000 ML 75 ML IV CONT ×2 (08:34→23:24)
[2022-02-01] MEDS: HYDROcodone/acetaminophen (*CRX) 5-325 MG TABLET 1 TAB PO ×3 (08:41→21:09)
[2022-02-01] MEDS: THIAMINE HCL 100 MG TABLET PO (08:44)
[2022-02-01] MEDS: FOLIC ACID 1 MG TABLET PO (08:44)
[2022-02-01] MEDS: PANTOPRAZOLE SODIUM IV 40 MG VIAL IV PUSH ×2 (08:44→21:05)
[2022-02-01] MEDS: POTASSIUM CHLORIDE 20 MEQ TABLET 40 MEQ PO (08:44)
[2022-02-01 12:01] LABS: Glucose Point of Care 142 mg/dl (65-105)
--- NOTE | 2022-02-01 12:35 | PM.IMPN ---
Progress Note: A&P Assessment and Plan (1) Acute pancreatitis: Qualifiers: Acute pancreatitis complication: uninfected necrosis Pancreatitis type: alcohol induced Qualified Code(s): K85.21 - Alcohol induced acute pancreatitis with uninfected necrosis Code(s): K85.90 - Acute pancreatitis without necrosis or infection, unspecified Status: Acute Assessment and Plan: admit to regular medical floor ice chips supportive care with IV fluids daily intake and output daily BMP replace electrolytes as needed Patient was awaiting a bed at [place] however she is improving significantly. She can likely be managed here. Monitor labs 01/31/2022 intreval history: patient with history of alcohol abuse presented with abdominal pain is found to acute pancreatitis, upon arrival patient lipase was 12,672 and today has trended to 1414, patient clinical symptoms improved abdominal pain is better not as nauseated will start the patient on clear liquid and will monitor, there was a concern for alcohol withdrawal will monitor with CIWA protocol and Librium, will start the patient on thiamine and folic acid, will have a PT OT evaluate the patient. 02/01/2022 intreval history: patient with history of alcohol abuse presented with abdominal pain is found to acute pancreatitis, upon arrival patient lipase was 12,672 and today has trended to 1021, patient clinical symptoms have improved abdominal pain is better not as nauseated on 01/31 started the patient on clear liquid and and tolerating today will advanced her diet to full liquid, DC Dilaudid and start the patient on oral pain medication [place] 5/325 every 4-6 hours as needed in preparation for discharge planning, hopefully will start the patient on low-fat diet tomorrow and further recommendation to follow, there was a concern for alcohol withdrawal will monitor with CIWA protocol and Librium PRN, will start the patient on thiamine and folic acid, will have a PT OT evaluate the patient. (2) Abdominal pain: Qualifiers: Abdominal location: unspecified location Qualified Code(s): R10.9 - Unspecified abdominal pain Code(s): R10.9 - Unspecified abdominal pain Status: Acute Assessment and Plan: secondary to alcohol intake and acute pancreatitis supportive care pain management (3) Prolonged QT interval: Code(s): R94.31 - Abnormal electrocardiogram [ECG] [EKG] Status: Acute Assessment and Plan: continue to monitor avoid concomitant use of drugs prolonging QTC interval (4) Chronic pain: Qualifiers: Chronic pain type: other chronic pain Qualified Code(s): G89.29 - Other chronic pain Code(s): G89.29 - Other chronic pain Status: Chronic Assessment and Plan: resume gabapentin when possible (5) Hypomagnesemia: Code(s): E83.42 - Hypomagnesemia Status: Resolved Assessment and Plan: Monitor (6) Hypokalemia: Code(s): E87.6 - Hypokalemia Status: Resolved Assessment and Plan: Monitor (7) Transaminasemia: Code(s): R74.01 - Elevation of levels of liver transaminase levels Status: Acute Assessment and Plan: likely secondary to alcohol intake down trending (8) EtOH dependence: Code(s): F10.20 - Alcohol dependence, uncomplicated Status: Acute Assessment and Plan: CIWA protocol as needed banana bag Subjective Date/time seen: 02/01/22 12:35 02/01/2022 intreval history: patient with history of alcohol abuse presented with abdominal pain is found to acute pancreatitis, upon arrival patient lipase was 12,672 and today has trended to 1021, patient clinical symptoms have improved abdominal pain is better not as nauseated on 01/31 started the patient on clear liquid and and tolerating today will advanced her diet to full liquid, DC Dilaudid and start the patient on oral pain medication [place] 5/325 every 4-6 divina
[2022-02-01] MEDS: ALPRAZolam (*CRX) 0.5 MG TABLET PO ×2 (15:08→23:23)
[2022-02-01] MEDS: chlordiazePOXIDE (*CRX) 25 MG CAPSULE PO (21:16)
[2022-02-02] VITALS (10 sets, daily range): BP systolic 113–117; BP diastolic 73–84; PULSE 71–108; RESP 16–22; TEMP 35.9–36.8; O2SAT 96–100
[2022-02-02 00:20] LABS: Glucose Point of Care 120 mg/dl (65-105)
[2022-02-02] MEDS: LORazepam INJ (*CRX) 2 MG/ML VIAL 0.5 MG IV PUSH ×2 (00:41→17:46)
[2022-02-02] MEDS: HYDROcodone/acetaminophen (*CRX) 5-325 MG TABLET 1 TAB PO ×5 (02:22→20:11)
[2022-02-02] MEDS: chlordiazePOXIDE (*CRX) 25 MG CAPSULE PO ×3 (05:02→20:11)
[2022-02-02 06:23] LABS: Hematocrit 34.1 % (37.0-47.0); Hemoglobin 12.1 g/dL (12.0-15.0); Immature Platelet Fraction Pct 6.4 % (0.9-11.2); Mean Corpuscular HGB Conc 35.5 g/dl (32-36); Mean Corpuscular Hemoglobin 33.6 pg (26-34); Mean Corpuscular Volume 94.7 fl (80-100); Mean Platelet Volume 10.5 fl (7.4-10.4); Platelet Count Result 107 k/mm3 (150-375); Red Cell Distribution Width 13.7 % (11.5-14.5); White Blood Count 4.3 K/mm3 (4.5-10.0)
[2022-02-02 06:31] LABS: Alanine Aminotransferase 56 U/L (6-35); Albumin Level 3.7 g/dL (3.5-5.1); Alkaline Phosphatase 119 U/L (38-126); Anion Gap 8 mmol/L (8-16); Aspartate Amino Transferase 79 U/L (14-36); Bilirubin,Total 2.7 mg/dL (0.2-1.3); Calcium 9.1 mg/dL (8.4-10.2); Carbon Dioxide 21 mmol/L (22-30); Chloride 108 mmol/L (98-107); Estimated CRCL calculation 117 ml/min; Estimated Glomerular Filt Rate > 60; Glucose 111 mg/dL (65-110); Lipase 878 U/L (23-300); Magnesium 1.7 mg/dL (1.6-2.3); Potassium 3.4 mmol/L (3.4-5.0); Sodium 137 mmol/L (137-145)
[2022-02-02 06:34] LABS: Blood Urea Nitrogen < 2 mg/dL (7-17)
[2022-02-02] MEDS: ALPRAZolam (*CRX) 0.5 MG TABLET PO ×3 (07:55→23:32)
[2022-02-02] MEDS: PANTOPRAZOLE SODIUM IV 40 MG VIAL IV PUSH ×2 (07:55→20:11)
[2022-02-02 08:04] LABS: Glucose Point of Care 118 mg/dl (65-105)
[2022-02-02] MEDS: MAGNESIUM OXIDE 400 MG TABLET PO (10:19)
[2022-02-02] MEDS: FOLIC ACID 1 MG TABLET PO (10:19)
[2022-02-02] MEDS: THIAMINE HCL 100 MG TABLET PO (10:19)
[2022-02-02] MEDS: POTASSIUM CHLORIDE 20 MEQ TABLET 40 MEQ PO (10:20)
[2022-02-02 11:45] LABS: Glucose Point of Care 159 mg/dl (65-105)
--- NOTE | 2022-02-02 12:43 | PM.IMPN ---
Progress Note: A&P Assessment and Plan (1) Acute pancreatitis: Qualifiers: Acute pancreatitis complication: uninfected necrosis Pancreatitis type: alcohol induced Qualified Code(s): K85.21 - Alcohol induced acute pancreatitis with uninfected necrosis Code(s): K85.90 - Acute pancreatitis without necrosis or infection, unspecified Status: Acute Assessment and Plan: admit to regular medical floor ice chips supportive care with IV fluids daily intake and output daily BMP replace electrolytes as needed Patient was awaiting a bed at [place] however she is improving significantly. She can likely be managed here. Monitor labs 01/31/2022 intreval history: patient with history of alcohol abuse presented with abdominal pain is found to acute pancreatitis, upon arrival patient lipase was 12,672 and today has trended to 1414, patient clinical symptoms improved abdominal pain is better not as nauseated will start the patient on clear liquid and will monitor, there was a concern for alcohol withdrawal will monitor with CIWA protocol and Librium, will start the patient on thiamine and folic acid, will have a PT OT evaluate the patient. 02/01/2022 intreval history: patient with history of alcohol abuse presented with abdominal pain is found to acute pancreatitis, upon arrival patient lipase was 12,672 and today has trended to 1021, patient clinical symptoms have improved abdominal pain is better not as nauseated on 01/31 started the patient on clear liquid and and tolerating today will advanced her diet to full liquid, DC Dilaudid and start the patient on oral pain medication [place] 5/325 every 4-6 hours as needed in preparation for discharge planning, hopefully will start the patient on low-fat diet tomorrow and further recommendation to follow, there was a concern for alcohol withdrawal will monitor with CIWA protocol and Librium PRN, will start the patient on thiamine and folic acid, will have a PT OT evaluate the patient. 02/02/2022 intreval history: patient with history of alcohol abuse presented with abdominal pain is found to acute pancreatitis, upon arrival patient lipase was 12,672 and today has trended to 878 and it is steadly trending down, patient clinical symptoms have improved abdominal pain is better not as nauseated on 01/31 started the patient on clear liquid and and tolerating on 02/01 advanced her diet to full liquid, DC Dilaudid and start the patient on oral pain medication [place] 5/325 every 4-6 hours as needed in preparation for discharge planning, however patient pain was inceasing and last night patient placed on NPO, this monrning her pain is better will resume clear liquids, hopefully will start the patient on low-fat diet tomorrow and further recommendation to follow, there was a concern for alcohol withdrawal will monitor with CIWA protocol and Librium q6 scheulded, will start the patient on thiamine and folic acid, will have a PT OT evaluate the patient. (2) Abdominal pain: Qualifiers: Abdominal location: unspecified location Qualified Code(s): R10.9 - Unspecified abdominal pain Code(s): R10.9 - Unspecified abdominal pain Status: Acute Assessment and Plan: secondary to alcohol intake and acute pancreatitis supportive care pain management (3) Prolonged QT interval: Code(s): R94.31 - Abnormal electrocardiogram [ECG] [EKG] Status: Acute Assessment and Plan: continue to monitor avoid concomitant use of drugs prolonging QTC interval (4) Chronic pain: Qualifiers: Chronic pain type: other chronic pain Qualified Code(s): G89.29 - Other chronic pain Code(s): G89.29 - Other chronic pain Status: Chronic Assessment and Plan: resume gabapentin when possible (5) Hypomagnesemia: Code(s): E83.42 - Hypomagnesemia Status: Resolved Assessment and Plan: Monitor (6) Hypokalemia: Cod
--- NOTE | 2022-02-02 14:38 | PC.NURSE ---
call from [place], no bed available at this time
[2022-02-02 18:27] LABS: Glucose Point of Care 141 mg/dl (65-105)
[2022-02-03] VITALS (11 sets, daily range): BP systolic 115–132; BP diastolic 64–101; PULSE 88–130; RESP 18–20; TEMP 36.1–37.6; O2SAT 97–100
[2022-02-03] MEDS: HYDROcodone/acetaminophen (*CRX) 5-325 MG TABLET 1 TAB PO ×4 (00:10→12:41)
[2022-02-03] MEDS: LORazepam (*CRX) 1 MG TABLET PO ×5 (00:11→23:01)
[2022-02-03] MEDS: chlordiazePOXIDE (*CRX) 25 MG CAPSULE PO (04:17)
[2022-02-03 06:51] LABS: Hematocrit 36.2 % (37.0-47.0); Hemoglobin 12.9 g/dL (12.0-15.0); Mean Corpuscular HGB Conc 35.6 g/dl (32-36); Mean Corpuscular Hemoglobin 33.8 pg (26-34); Mean Corpuscular Volume 94.8 fl (80-100); Mean Platelet Volume 10.6 fl (7.4-10.4); Platelet Count Result 154 k/mm3 (150-375); Red Blood Count 3.82 M/mm3 (4.2-5.4); Red Cell Distribution Width 13.8 % (11.5-14.5); White Blood Count 5.4 K/mm3 (4.5-10.0)
[2022-02-03 07:03] LABS: Alanine Aminotransferase 55 U/L (6-35); Albumin Level 3.9 g/dL (3.5-5.1); Alkaline Phosphatase 114 U/L (38-126); Anion Gap 9 mmol/L (8-16); Aspartate Amino Transferase 68 U/L (14-36); Bilirubin,Total 1.8 mg/dL (0.2-1.3); Calcium 9.3 mg/dL (8.4-10.2); Carbon Dioxide 20 mmol/L (22-30); Chloride 107 mmol/L (98-107); Estimated CRCL calculation 102 ml/min; Estimated Glomerular Filt Rate > 60; Glucose 132 mg/dL (65-110); Lipase 908 U/L (23-300); Magnesium 1.6 mg/dL (1.6-2.3); Potassium 3.1 mmol/L (3.4-5.0); Sodium 136 mmol/L (137-145)
[2022-02-03 07:12] LABS: Blood Urea Nitrogen < 2 mg/dL (7-17)
[2022-02-03] MEDS: THIAMINE HCL 100 MG TABLET PO (08:46)
[2022-02-03] MEDS: FOLIC ACID 1 MG TABLET PO (08:46)
[2022-02-03] MEDS: ALPRAZolam (*CRX) 0.5 MG TABLET PO ×2 (08:46→16:55)
[2022-02-03] MEDS: MAGNESIUM OXIDE 400 MG TABLET PO (08:46)
[2022-02-03] MEDS: POTASSIUM CHLORIDE 20 MEQ TABLET 40 MEQ PO (08:46)
[2022-02-03] MEDS: PANTOPRAZOLE SODIUM IV 40 MG VIAL IV PUSH ×2 (08:47→21:01)
--- NOTE | 2022-02-03 11:41 | PM.IMPN ---
Progress Note: A&P Assessment and Plan (1) Acute pancreatitis: Qualifiers: Acute pancreatitis complication: uninfected necrosis Pancreatitis type: alcohol induced Qualified Code(s): K85.21 - Alcohol induced acute pancreatitis with uninfected necrosis Code(s): K85.90 - Acute pancreatitis without necrosis or infection, unspecified Status: Acute Assessment and Plan: admit to regular medical floor ice chips supportive care with IV fluids daily intake and output daily BMP replace electrolytes as needed Patient was awaiting a bed at [facility] however she is improving significantly. She can likely be managed here. Monitor labs 01/31/2022 intreval history: patient with history of alcohol abuse presented with abdominal pain is found to acute pancreatitis, upon arrival patient lipase was 12,672 and today has trended to 1414, patient clinical symptoms improved abdominal pain is better not as nauseated will start the patient on clear liquid and will monitor, there was a concern for alcohol withdrawal will monitor with CIWA protocol and Librium, will start the patient on thiamine and folic acid, will have a PT OT evaluate the patient. 02/01/2022 intreval history: patient with history of alcohol abuse presented with abdominal pain is found to acute pancreatitis, upon arrival patient lipase was 12,672 and today has trended to 1021, patient clinical symptoms have improved abdominal pain is better not as nauseated on 01/31 started the patient on clear liquid and and tolerating today will advanced her diet to full liquid, DC Dilaudid and start the patient on oral pain medication [place] 5/325 every 4-6 hours as needed in preparation for discharge planning, hopefully will start the patient on low-fat diet tomorrow and further recommendation to follow, there was a concern for alcohol withdrawal will monitor with CIWA protocol and Librium PRN, will start the patient on thiamine and folic acid, will have a PT OT evaluate the patient. 02/02/2022 intreval history: patient with history of alcohol abuse presented with abdominal pain is found to acute pancreatitis, upon arrival patient lipase was 12,672 and today has trended to 878 and it is steadly trending down, patient clinical symptoms have improved abdominal pain is better not as nauseated on 01/31 started the patient on clear liquid and and tolerating on 02/01 advanced her diet to full liquid, DC Dilaudid and start the patient on oral pain medication [place] 5/325 every 4-6 hours as needed in preparation for discharge planning, however patient pain was inceasing and last night patient placed on NPO, this monrning her pain is better will resume clear liquids, hopefully will start the patient on low-fat diet tomorrow and further recommendation to follow, there was a concern for alcohol withdrawal will monitor with CIWA protocol and Librium q6 scheulded, will start the patient on thiamine and folic acid, will have a PT OT evaluate the patient. 02/03/2022 intreval history: patient with history of alcohol abuse presented with abdominal pain is found to acute pancreatitis, upon arrival patient lipase was 12,672 and today has trended to 878 and it is steadly trending down, patient clinical symptoms have improved abdominal pain is better not as nauseated on 01/31 started the patient on clear liquid and and tolerating on 02/01 advanced her diet to full liquid, DC Dilaudid and start the patient on oral pain medication [place] 5/325 every 4-6 hours as needed in preparation for discharge planning, however patient pain was inceasing and on 02/01 patient was placed on NPO, 02/02 monrning her pain is better will resume clear liquids, and further recommendation to follow, there was a concern for alcohol withdrawal will monitor with CIWA protocol and Librium 25mg q6 scheduled, today her anxiety level is high will increase librium 50mg q6 for 1 day, will start the patient on thiamine and folic acid, will
[2022-02-03 11:53] LABS: Glucose Point of Care 182 mg/dl (65-105)
[2022-02-03] MEDS: chlordiazePOXIDE (*CRX) 25 MG CAPSULE 50 MG PO ×2 (12:09→17:55)
[2022-02-03] MEDS: HYDROcodone/acetaminophen (*CRX) 10-325 MG TABLET 1 TAB PO ×2 (16:01→22:26)
[2022-02-03 17:56] LABS: Glucose Point of Care 203 mg/dl (65-105)
[2022-02-03] MEDS: HYDROmorphone HCL INJ (*CRX) 1 MG/ML SYR IV PUSH (20:58)
[2022-02-03 21:53] LABS: Glucose Point of Care 99 mg/dl (65-105)
[2022-02-03] MEDS: MORPHINE SULFATE (*CRX) 4 MG/ML INJ IM (23:02)
[2022-02-04] VITALS: PULSE 143
[2022-02-04] MEDS: chlordiazePOXIDE (*CRX) 25 MG CAPSULE 50 MG PO ×2 (00:06→05:11)
[2022-02-04] MEDS: HYDROmorphone HCL INJ (*CRX) 1 MG/ML SYR IV PUSH ×3 (00:10→12:37)
[2022-02-04 00:34] LABS: Glucose Point of Care 149 mg/dl (65-105)
--- NOTE | 2022-02-04 01:12 | CONS_ITS ---
DATE OF CONSULTATION: 02/03/2022 HISTORY OF PRESENT ILLNESS: A 36-year-old female with history of alcoholic hepatitis, anxiety, depression, endometriosis, hepatic steatosis, kidney stone with lithotripsy, pancreatitis with pseudocyst, peripheral neuropathy, who presented with epigastric pain, nausea and vomiting after 1 week of binge drinking. I was now asked to provide GI evaluation for same at the request of the hospitalist service. Primary care provider is Dr. Daniel Bain. Primary sales center manager is Dr. Young. The patient has been here for some time since about on January 27 and was getting better when she had tomato soup for lunch and then got significantly worse. She began having severe epigastric pain that radiated to both upper quadrants and gets worse with movement. She had some nausea, no vomiting. Her pain increases with movement. She is having loose stools that are postprandial. She otherwise denies heartburn, odynophagia, dysphagia, loss of appetite or weight, constipation, hematochezia, or melena. No fever, jaundice, scleral icterus, dark urine, light stools, itching, hot or cold intolerance, chest pain, shortness of breath at rest, hematuria, dysuria, new cough or visual changes, easy bruising, tingling skin, bone pain, or tremors. No endocarditis risk factors. ALLERGIES: TO PENICILLIN. MEDICATIONS: Her outpatient medicines include: 1. Gabapentin. 2. Metoprolol. 3. Pantoprazole 40 mg twice daily. 4. Thiamine. SOCIAL HISTORY: Smoker, cessation recommended. Significant alcohol use approximately 1/5th a day and uses cocaine and marijuana. FAMILY HISTORY: Maternal grandmother with pancreatic cancer and mother with cholecystectomy. No colon cancer. PHYSICAL EXAMINATION: GENERAL: Well-developed, well-nourished female, lying in bed, crying. She has no lower extremity edema, jaundice, spider angioma, palmar erythema. HEENT: Skull is normocephalic, atraumatic. Pupils nonicteric. Oropharynx clear. NECK: Supple without thyromegaly. LUNGS: Clear to auscultation. HEART: Rate and rhythm regular. S1, S2 normal. ABDOMEN: Soft. Significant epigastric tenderness, nonrigid, nondistended without hepatosplenomegaly or masses. RECTAL: Deferred. NEURO: Conscious and alert x3. LABORATORY DATA: Labs on 02/03, hemoglobin 13, hematocrit 36, white count of 5, T bilirubin 1.8, alkaline phosphatase is 114, AST is 60, ALT is 55, lipase is 908. On 01/30, lipase is 1806. On 01/29, T bilirubin is 4.8, alkaline phosphatase is 96, AST is 120, ALT is 73. On 01/27, hemoglobin 16, hematocrit 43, white count of 12. INR is 1.5. Lactate is 6. T bilirubin 2.8, alkaline phosphatase is 155, AST is 249, ALT is 104, lipase 12,670. Tox screen positive for benzo and cocaine. Alcohol is 274. CT scan shows hepatic steatosis, pancreatic inflammation with peripancreatic fluid. There is some ductal dilation and ill-defined low densities in the pancreas. ASSESSMENT/PLAN: 1. Abdominal pain, abnormal imaging of the pancreas consistent with alcoholic pancreatitis, seemingly somewhat worse after lunch today. We will increase pain coverage and check imaging of the pancreas in the morning, either CT with pancreatic protocol or MRI depending on what is available tomorrow. 2. Abnormal LFTs and abnormal imaging of the liver. Her abnormal LFTs may be due to pancreatitis or related to hepatic steatosis. The abnormalities are mild and we will observe for now and these can be followed over time and consider further evaluation if not already done if these fail to resolve over time. Thank you for allowing me to care for your patient. I will continue to follow. TAWNYA GALEANA M.D.
[2022-02-04] MEDS: HYDROcodone/acetaminophen (*CRX) 10-325 MG TABLET 1 TAB PO ×2 (03:56→10:01)
[2022-02-04 04:00] VITALS: BP 122/76; PULSE 130; PULSE 134
[2022-02-04 05:30] VITALS: BP 101/56; PULSE 140; RESP 20; TEMP 37.2; O2SAT 100
[2022-02-04 06:19] LABS: Glucose Point of Care 172 mg/dl (65-105)
[2022-02-04 06:54] LABS: Hematocrit 35.1 % (37.0-47.0); Hemoglobin 12.6 g/dL (12.0-15.0); Mean Corpuscular HGB Conc 35.9 g/dl (32-36); Mean Corpuscular Hemoglobin 34.3 pg (26-34); Mean Corpuscular Volume 95.6 fl (80-100); Platelet Count Result 195 k/mm3 (150-375); Red Blood Count 3.67 M/mm3 (4.2-5.4); Red Cell Distribution Width 13.7 % (11.5-14.5); White Blood Count 9.2 K/mm3 (4.5-10.0)
[2022-02-04 07:01] LABS: Alanine Aminotransferase 47 U/L (6-35); Albumin Level 3.2 g/dL (3.5-5.1); Alkaline Phosphatase 96 U/L (38-126); Anion Gap 11 mmol/L (8-16); Aspartate Amino Transferase 58 U/L (14-36); Bilirubin,Total 2.1 mg/dL (0.2-1.3); Blood Urea Nitrogen 5 mg/dL (7-17); Calcium 8.2 mg/dL (8.4-10.2); Carbon Dioxide 16 mmol/L (22-30); Chloride 101 mmol/L (98-107); Estimated CRCL calculation 62 ml/min; Estimated Glomerular Filt Rate 51; Glucose 171 mg/dL (65-110); Lipase 339 U/L (23-300); Magnesium 1.1 mg/dL (1.6-2.3); Potassium 3.1 mmol/L (3.4-5.0); Sodium 128 mmol/L (137-145)
[2022-02-04 08:00] VITALS: BP 101/56; PULSE 130; PULSE 138; PULSE 140; RESP 20; O2SAT 100
[2022-02-04] MEDS: MAGNESIUM SULF 2 GM/WATER 50ML 2 GM/50 ML BAG IVPB (10:01)
[2022-02-04] MEDS: POTASSIUM CHLORIDE 20 MEQ TABLET 40 MEQ PO (10:01)
[2022-02-04] MEDS: THIAMINE HCL 100 MG TABLET PO (10:02)
[2022-02-04] MEDS: MAGNESIUM OXIDE 400 MG TABLET PO (10:02)
[2022-02-04] MEDS: FOLIC ACID 1 MG TABLET PO (10:03)
[2022-02-04] MEDS: PANTOPRAZOLE 40 MG TABLET PO (10:03)
--- NOTE | 2022-02-04 10:16 | WPDGIPROGNO ---
Progress Note: A&P Additional Plan GI [facility] 04 Feb 2022 Patient states pain improved. Just had episode of emesis Vss soft, minimal epigastric tenderness Hct 35. WBC 9. Mg 1.1. TBili 2.1, A/P 96, AST 58, ALT 97. Lipase 339 ASSESSMENT/PLAN:? A. Abdominal pain, abnormal imaging of the pancreas consistent with alcoholic pancreatitis: - Improved with increased pain meds - Will need imaging of the pancreas - Bed is open at [facility] and patient is being transferred B. Abnormal LFTs and abnormal imaging of the liver: - Her abnormal LFTs may be due to pancreatitis or related to hepatic steatosis - Abnormalities are mild and we will observe and followed over time - Further evaluation if these fail to resolve over time Case d/w Dr. Bojorquez. Thanks, [facility] [phone] Subjective Date/time seen: 02/04/22 10:16 Objective Data Vital Signs Vital Signs: Vital Signs - 24 hr 02/03/22 14:00 02/03/22 12:00 02/03/22 15:34 Temperature 37.6 C 36.6 C Pulse Rate 111 H 103 H 124 H Pulse Rate [Monitor] Respiratory Rate 20 18 Blood Pressure 132/101 H 115/71 Pulse Oximetry 100 99 Oxygen Delivery 02/03/22 16:00 02/03/22 21:56 02/03/22 20:00 Temperature 37.1 C Pulse Rate 98 117 H Pulse Rate [Monitor] 130 H Respiratory Rate 18 Blood Pressure 122/76 122/76 Pulse Oximetry 97 Oxygen Delivery 02/03/22 20:00 02/03/22 20:00 02/04/22 00:00 Temperature Pulse Rate 112 H 143 H Pulse Rate [Monitor] Respiratory Rate Blood Pressure Pulse Oximetry Oxygen Delivery Room Air 02/04/22 04:00 02/04/22 04:00 02/04/22 05:30 Temperature 37.2 C Pulse Rate 134 H 140 H Pulse Rate [Monitor] 130 H Respiratory Rate 20 Blood Pressure 122/76 101/56 L Pulse Oximetry 100 Oxygen Delivery Intake/Output Intake/Output: Intake & Output 02/01/22 02/02/22 02/03/22 02/04/22 23:59 23:59 23:59 23:59 Intake Total 3780 2950 1682 790 Output Total 1700 2400 900 850 Balance 2080 550 782 -60 Meds/Results Medications: Active Medications Generic Name Dose Route Start Last Admin Trade Name Freq PRN Reason Stop Dose Admin Hydrocodone Bitart/Acetaminophen 1 tab 02/03/22 18:06 02/04/22 10:01 Hydrocodone/Acetaminophen (*Crx) 10-325 Mg Tablet PO 1 tab Q6H PRN Administration Pain Rated 7-10 Alprazolam 0.5 mg 02/01/22 15:02 02/03/22 16:55 Alprazolam (*Crx) 0.5 Mg Tablet PO 02/08/22 15:01 0.5 mg Q8H PRN Administration Anxiety Chlordiazepoxide HCl 25 mg 01/31/22 16:43 02/03/22 04:17 Chlordiazepoxide (*Crx) 25 Mg Capsule PO 25 mg Q6H PRN Administration Withdrawal Folic Acid 1 mg 01/31/22 16:45 02/04/22 10:03 Folic Acid 1 Mg Tablet PO 1 mg DAILY TIFFANIE Administration Hydromorphone HCl 1 mg 02/03/22 20:38 02/04/22 05:11 Hydromorphone Hcl Inj (*Crx) 1 Mg/Ml Syr IV PUSH 1 mg Q2H PRN Administration Breakthrough Pain Lorazepam 1 mg 02/02/22 23:58 02/03/22 23:01 Lorazepam (*Crx) 1 Mg Tablet PO 1 mg Q4H PRN Administration CIWA >10 Magnesium Oxide 400 mg 02/02/22 09:00 02/04/22 10:02 Magnesium Oxide 400 Mg Tablet PO 400 mg QAM TIFFANIE Administration Morphine Sulfate 4 mg 02/04/22 00:23 Morphine Sulfate (*Crx) 4 Mg/Ml Inj IM Q4H PRN Pain Pantoprazole Sodium 40 mg 02/04/22 09:00 02/04/22 10:03 Pantoprazole 40 Mg Tablet PO 40 mg Q12HR TIFFANIE Administration Thiamine HCl 100 mg 02/01/22 09:00 02/04/22 10:02 Thiamine Hcl 100 Mg Tablet PO 100 mg QAM TIFFANIE Administration Radiology Results: ITS Impressions Abdomen/Pelvis CT 01/27/22 18:49 IMPRESSION: Acute interstitial pancreatitis. Ill-defined low-density areas in the pancreatic head and tail may reflect edema versus early foci of necrosis. Labs Labs: Laboratory Results - last 24 hr 07/04/1902/03/22 02/03/22 11:50 17:53 21:50 WBC RBC Hgb Hct MCV MCH MCHC RDW Plt Count MPV
--- NOTE | 2022-02-04 10:27 | PM.TDS ---
Transfer Discharge Sum: Prov Provider Date of admission: 01/29/22 08:39 Primary care physician: Dnaiel Bain MD Admitting clinician: Violeta Laboy MD Consults: 02/03/22 10:42 Consult to Physician Routine Comment: spoke to @1103 (,[place]) Consulting Provider: Capo Pérez Reason for consultation: pancreatitis Has provider been notified: Yes DS: Admitting Diagnosis Discharge Date 02/04/2022 Admitting Diagnosis abdominal pain DS: Discharge Diagnosis Discharge Diagnosis (1) Acute pancreatitis: Qualifiers: Acute pancreatitis complication: uninfected necrosis Pancreatitis type: alcohol induced Qualified Code(s): K85.21 - Alcohol induced acute pancreatitis with uninfected necrosis Code(s): K85.90 - Acute pancreatitis without necrosis or infection, unspecified Status: Acute Assessment and Plan: admit to regular medical floor ice chips supportive care with IV fluids daily intake and output daily BMP replace electrolytes as needed Patient was awaiting a bed at [place] however she is improving significantly. She can likely be managed here. Monitor labs 01/31/2022 intreval history: patient with history of alcohol abuse presented with abdominal pain is found to acute pancreatitis, upon arrival patient lipase was 12,672 and today has trended to 1414, patient clinical symptoms improved abdominal pain is better not as nauseated will start the patient on clear liquid and will monitor, there was a concern for alcohol withdrawal will monitor with CIWA protocol and Librium, will start the patient on thiamine and folic acid, will have a PT OT evaluate the patient. 02/01/2022 intreval history: patient with history of alcohol abuse presented with abdominal pain is found to acute pancreatitis, upon arrival patient lipase was 12,672 and today has trended to 1021, patient clinical symptoms have improved abdominal pain is better not as nauseated on 01/31 started the patient on clear liquid and and tolerating today will advanced her diet to full liquid, DC Dilaudid and start the patient on oral pain medication [place] 5/325 every 4-6 hours as needed in preparation for discharge planning, hopefully will start the patient on low-fat diet tomorrow and further recommendation to follow, there was a concern for alcohol withdrawal will monitor with CIWA protocol and Librium PRN, will start the patient on thiamine and folic acid, will have a PT OT evaluate the patient. 02/02/2022 intreval history: patient with history of alcohol abuse presented with abdominal pain is found to acute pancreatitis, upon arrival patient lipase was 12,672 and today has trended to 878 and it is steadly trending down, patient clinical symptoms have improved abdominal pain is better not as nauseated on 01/31 started the patient on clear liquid and and tolerating on 02/01 advanced her diet to full liquid, DC Dilaudid and start the patient on oral pain medication [place] 5/325 every 4-6 hours as needed in preparation for discharge planning, however patient pain was inceasing and last night patient placed on NPO, this monrning her pain is better will resume clear liquids, hopefully will start the patient on low-fat diet tomorrow and further recommendation to follow, there was a concern for alcohol withdrawal will monitor with CIWA protocol and Librium q6 scheulded, will start the patient on thiamine and folic acid, will have a PT OT evaluate the patient. 02/03/2022 intreval history: patient with history of alcohol abuse presented with abdominal pain is found to acute pancreatitis, upon arrival patient lipase was 12,672 and today has trended to 878 and it is steadly trending down, patient clinical symptoms have improved abdominal pain is better not as nauseated on 01/31 started the patient on clear liquid and and tolerating on 02/01 advanced her diet to full liquid, DC Dilaudid and start the patient on oral pain medicat
[2022-02-04 10:48] LABS: Appearance Urine Cloudy (Clear); Bilirubin Urine 2+ (Negative); Blood Urine 1+ (Negative); Glucose Urine UA Negative (Negative); Ketones Urine Trace mg/dL (Negative); Leukocyte Esterase Ur 2+ LEU/UL (Negative); Nitrate Urine Negative (Negative); Protein Urine 2+ mg/dL (Negative)
[2022-02-04 10:52] LABS: Add Urine Microscopic? YES; Color Urine Dark Yellow (Yellow)
[2022-02-04 10:55] LABS: Bacteria Urine 2+ /hpf; Mucus Urine Moderate /lpf; RBC Urine 21-50 /hpf (0-2); Squamous Epithelial Cell Urine Many /hpf (Few); WBC Clumps Urine Present /HPF; WBC Urine >75 /hpf
[2022-02-04 12:00] VITALS: BP 101/56; PULSE 130; PULSE 153
[2022-02-04 12:00] LABS: Glucose Point of Care 129 mg/dl (65-105)
[2022-02-04] MEDS: chlordiazePOXIDE (*CRX) 25 MG CAPSULE PO (12:09)
[2022-02-04] MEDS: ONDANSETRON INJ 4 MG/2 ML VIAL IV PUSH (12:17)
== END 2022-02-04 12:40 | disposition short-term general hospital (02) | DRG 282 ==
LOC: ANHED 01-28 19:49 → ANH3MEDSUR 01-28 20:09
PROVIDERS: Chiropractor; Emergency Medicine; Internal Medicine; Physician Assistant; Admitting Provider Internal Medicine; Emergency Provider Emergency Medicine; PCP Internal Medicine; Visit Provider Family Medicine
DX: K85.21 Alcohol induced acute pancreatitis with uninfected necrosis (principal); K76.0 Fatty (change of) liver, not elsewhere classified; K70.10 Alcoholic hepatitis without ascites; F10.20 Alcohol dependence, uncomplicated; K58.9 Irritable bowel syndrome, unspecified; Z20.822 Contact with and (suspected) exposure to COVID-19; F41.8 Other specified anxiety disorders; G62.9 Polyneuropathy, unspecified; G89.29 Other chronic pain; E87.2 Acidosis; R94.31 Abnormal electrocardiogram [ECG] [EKG]; E83.42 Hypomagnesemia; E87.6 Hypokalemia; R74.01 Elevation of levels of liver transaminase levels; E66.9 Obesity, unspecified; Z68.31 Body mass index [BMI] 31.0-31.9, adult; F17.210 Nicotine dependence, cigarettes, uncomplicated; Z87.442 Personal history of urinary calculi
CPT/HCPCS: 36415; 74177; 80048; 80053; 80307; 81001; 81025; 82948; 83036; 83605; 83690; 83735; 84132; 85025; 85027; 85055; 85610; 85730; 87077; 87086; 87088; 87186; 93005; 96361; 96365; 96366; 96374; 96375; 96376; 99285; A9270; C9113; C9803; G0378; J0131; J1170; J1885; J2060; J2270; J2405; J3010; J3411; J3475; J3480; J7030; J7040; J7042; J7120; Q9967; U0003; U0005